=== PATIENT | female | born 1965 | race Caucasian/White ===

== ENCOUNTER → 2018-08-29 | Outpatient (CLI) | payer BC ==
--- NOTE | 2018-08-30 18:42 | MR ---
EXAMINATION TYPE: MR brain wo/w con DATE OF EXAM: 08/29/2018 COMPARISON: None HISTORY: MS TECHNIQUE: Multiplanar, multisequence images of the brain and brainstem is performed without and with utilizing 5 mL intravenous Gadavist gadolinium contrast. Demyelinating disease protocol with additional Sagitt al Flair sequence performed. FINDINGS: T2 Lesions Present : Yes Approximate Number of Lesions: Greater than 20 bilaterally Locations Identified : Pericallosal, periventricular, juxtacortical, infratentorial (left medulla on image 6, and left midbrain and right johnson) Size of Reference Lesion(s): 1. 0.7 cm x 0.7 cm x 2.9 cm on axial image 20 and sagittal image 19 within the right pericallosal fr ontal lobe stephens radiata 2 0.8 cm x 0.7 cm x 0.4 cm on axial image 18 and sagittal image 8 within the left parietal lobe. Enhancing Lesion(s) Present: No Diffusion weighted images demonstrate no evidence of a recent infarct or other diffusion abnormality. There is no worrisome extra-axial fluid collection. The ventricular system and cisternal spaces ar e normal in size and appearance. The brain volume is age appropriate. Midline structures demonstrate normal morphology. 2 mm pineal gland cyst is noted. The craniocervica l junction appears within normal limits. Post contrast images demonstrate no abnormal enhancement. T he dural venous sinuses appear patent. The visualized sinuses are clear and the globes are intact. IMPRESSION: Moderate burden demyelinating plaques in keeping with this patient's history of multiple sclerosis wi thin the supratentorium and infratentorial in keeping with the patient's history of multiple sclerosi s. Plaques involve the supratentorium, medulla, midbrain and johnson. No enhancing plaques or plaques th at restricted diffusion to indicate active demyelination at the time of exam.
== END ==
LOC: RADMRIMAIN 19:10
PROVIDERS: ATTEND Internal Medicine
DX: G37.9 Demyelinating disease of central nervous system, unspecified (principal); G35 Multiple sclerosis
CPT/HCPCS: 70553; A9585

== ENCOUNTER → 2019-07-22 | Outpatient (CLI) | payer BC ==
--- NOTE | 2019-07-22 11:43 | MR ---
EXAMINATION TYPE: MR brain wo/w DATE OF EXAM: 07/22/2019 COMPARISON: 08/29/2018 HISTORY: MS TECHNIQUE: Multiplanar, multisequence images of the brain and brainstem is performed without and with IV contras t, utilizing 5 mL intravenous Gadavist . FINDINGS: T2 Lesions Present : Yes Approximate Number of Lesions: Approximately 60-70 Locations Identified : Pericallosal, periventricular, juxtacortical, infratentorial (left medulla on image 6, and left midbrain and right johnson), and callosal lesions Size of Reference Lesion(s): 1. 0.7 cm x 0.7 cm x 2.9 cm within the right pericallosal frontal lobe stephens radiata 2. 0.8 cm x 0.7 cm x 0.4 cm within the left parietal lobe. Enhancing Lesion(s) Present: No Diffusion weighted images demonstrate no evidence of a recent infarct or other diffusion abnormality. The ventricular system and cisternal spaces are normal in size and appearance. The brain volume is age appropriate. Midline structures demonstrate normal morphology. The craniocervical junction appears within normal limits. Post contrast images demonstrate no abnormal enhancement. The dural venous sinuses appear pa tent. Changes of mild chronic sinusitis. No orbital flattening. IMPRESSION: 1. Stable diffuse white matter changes which are nonspecific and be seen with demyelinating process. No enhancing lesions. No interval change in size, number or morphology of the visualized lesions. Oth er etiologies not excluded. EXAMINATION TYPE: MR cervical spine wo/w DATE OF EXAM: 07/22/2019 COMPARISON: NONE HISTORY: MS TECHNIQUE: T1 sagittal and coronal, T2 sagittal, and gradient echo axial views of the cervical spine are submitted. FINDINGS: The cranial cervical junction is preserved. There is abnormal signal seen throughout the v isualized cervical spinal cord. Findings are suspicious for demyelinating disease. Due to artifact as sessment for enhancement is limited particularly in the lower cervical spine. Could not exclude an en hancing lesions. Severe motion artifact noted. At C2-3 there is no disc herniation or canal stenosis. No foraminal encroachment. At C3-4 there is no disc herniation or canal stenosis. No foraminal encroachment. At C4-5 there is no disc herniation or canal stenosis. No foraminal encroachment. At C5-6 there is there is a broad-based central disc herniation abutting the anterior margin of the s alfredo cord resulting in mild impression neural foramina patent. At C6-7 there is no disc herniation or canal stenosis. No foraminal encroachment. At C7-T1 there is no disc herniation or canal stenosis. No foraminal encroachment. IMPRESSION: 1. Spinal cord assessment is limited due to stents of motion artifact. As noted above evaluation of the mid and lower cervical spinal cord for enhancing lesions is nondiagnostic due to artifact. Howeve r, T2 images demonstrate multifocal areas of abnormal signal throughout the visualized cervical spina l cord suspicious for demyelinating process. 2. There is a broad-based central disc herniation C5-C6. This results in mild anterior compression of the spinal cord.
== END | disposition home or self-care (01) ==
LOC: RADMRIMAIN 06:57
PROVIDERS: ATTEND Internal Medicine
DX: R90.89 Other abnormal findings on diagnostic imaging of central nervous system (principal); M50.222 Other cervical disc displacement at C5-C6 level; G35 Multiple sclerosis
CPT/HCPCS: 70553; 72156; A9585

== ENCOUNTER → 2020-08-22 | Outpatient (CLI) | payer BC ==
--- NOTE | 2020-08-22 18:53 | MR ---
EXAMINATION TYPE: MR brain wo/w con DATE OF EXAM: 08/22/2020 COMPARISON: Most recent MRI July 22, 2019 HISTORY: MS CHECKUP TECHNIQUE: Multiplanar, multisequence images of the brain and brainstem is performed without and with IV contras t, utilizing 5 mL intravenous Gadavist gadolinium contrast is administered intravenously. Demyelinat ing disease protocol with additional Sagittal Flair sequence performed. FINDINGS: T2 Lesions Present : Yes Approximate Number of Lesions: Approximately 70 Locations Identified : Scattered. Size of Reference Lesion(s): 1. 0.8 x 0.7 x 1.0 cm on axial image 21 and sagittal image 23 right pericallosal posterior frontal le azeem stable 2 0.8 x 0.7 x 0.8 cm on axial image 19 and sagittal image 12 left parietal lesion at level of stephens radiata stable Enhancing Lesion(s) Present: No T1 Hypointense Lesion(s) Present: Yes Change from Prior: Stable Diffusion weighted images demonstrate no evidence of a recent infarct or other diffusion abnormality. There is no worrisome new extra-axial fluid collection. The ventricular system and cisternal space s are stable in size and appearance. The brain volume is age appropriate. Midline structures demonstrate normal morphology. The craniocervical junction appears within normal limits. Post contrast images demonstrate no abnormal enhancement. The dural venous sinuses appear pa tent. The visualized sinuses are clear and the globes are intact. IMPRESSION: [id number] nonspecific white matter changes presumed on the basis of patient's kn own multiple sclerosis. No new or enhancing lesions identified. No significant change from most recen t MRI.
== END | disposition home or self-care (01) ==
LOC: RADMRIMAIN 16:26
PROVIDERS: ATTEND Internal Medicine
DX: R90.82 White matter disease, unspecified (principal); G35 Multiple sclerosis; E07.9 Disorder of thyroid, unspecified; Z79.899 Other long term (current) drug therapy; E03.2 Hypothyroidism due to medicaments and other exogenous substances
CPT/HCPCS: 70553; A9585

== ENCOUNTER → 2020-12-26 | Outpatient (CLI) | payer BC ==
[2020-12-26 18:48] LABS: Basophils # (A) 0.03 X 10*3/uL (0.00-0.10); Basophils % (A) 0.5 %; Eosinophils # (A) 0.07 X 10*3/uL (0.04-0.35); Eosinophils % (A) 1.1 %; HCT 39.2 % (37.2-46.3); HGB 12.7 g/dL (12.0-15.0); Lymphocytes # (A) 1.83 X 10*3/uL (0.90-5.00); Lymphocytes % (A) 28.5 %; MCH 29.9 pg (27.0-32.0); MCHC 32.4 g/dL (32.0-37.0); MCV 92.2 fL (80.0-97.0); Mean Platelet Volume 11.9 fL (9.5-12.2); Monocytes # (A) 0.44 X 10*3/uL (0.20-1.00); Monocytes % (A) 6.8 %; Neutrophils # (A) 4.05 X 10*3/uL (1.80-7.70); Neutrophils % (A) 62.9 %; Platelet Count 241 X 10*3/uL (140-440); RBC 4.25 X 10*6/uL (4.10-5.20); RDW 13.3 % (11.5-14.5); WBC 6.43 X 10*3/uL (4.50-10.00)
== END | disposition home or self-care (01) ==
LOC: LABWHC1 11:37
PROVIDERS: ATTEND Psychiatry & Neurology Neurology
DX: E03.2 Hypothyroidism due to medicaments and other exogenous substances (principal); E07.9 Disorder of thyroid, unspecified; M21.379 Foot drop, unspecified foot; G35 Multiple sclerosis
CPT/HCPCS: 36415; 82784; 85025

== ENCOUNTER → 2020-12-28 | Outpatient (CLI) | payer BC ==
[2020-12-29 09:14] LABS: T4/T8 Ratio (CD4:CD8) 3.6 (1.0-3.7)
== END | disposition home or self-care (01) ==
LOC: LABWHC1 16:14
PROVIDERS: ATTEND Psychiatry & Neurology Neurology
DX: G35 Multiple sclerosis (principal)
CPT/HCPCS: 36415; 86355; 86357; 86359; 86360

== ENCOUNTER → 2021-09-26 | Outpatient (CLI) | payer BC ==
--- NOTE | 2021-10-09 11:11 | MM ---
Reason for exam: screening (asymptomatic). Last mammogram was performed 3 years and 7 months ago. History: Family history of breast cancer in sister at age 50. Physical Findings: A clinical breast exam by your physician is recommended on an annual basis and results should be correlated with mammographic findings. MG Screening Mammo w CAD Bilateral CC and MLO view(s) were taken. Prior study comparison: February 28, 2018, mammogram, performed at [place]. February 25, 2017, mammogram, performed at [place]. The breast tissue is heterogeneously dense. This may lower the sensitivity of mammography. Asymmetric densities right breast are more defined but could represent superimposition shadow. Further evaluation recommended. ASSESSMENT: Incomplete: need additional imaging evaluation, BI-RAD 0 RECOMMENDATION: Special view mammogram of the right breast. (3D) If lesion persists on supplemental views, image directed ultrasound is recommended. [facility] will attempt to contact patient to return for supplemental views and ultrasound if indicated.
== END | disposition home or self-care (01) ==
LOC: RADMAMWWP 10:01
PROVIDERS: ATTEND Internal Medicine
DX: Z12.31 Encounter for screening mammogram for malignant neoplasm of breast (principal); Z80.3 Family history of malignant neoplasm of breast
CPT/HCPCS: 77067

== ENCOUNTER → 2021-10-13 | Outpatient (CLI) | payer BC ==
--- NOTE | 2021-10-14 06:00 | MR ---
EXAMINATION TYPE: MR brain wo/w con DATE OF EXAM: 10/13/2021 COMPARISON: 08/22/2020 HISTORY: Weakness, MS, follow up comparison to prior MRI 08-22-20. CONTRAST: Standard multiplanar, multisequence MRI departmental protocol images were obtained without contrast a nd with 5 mL intravenous Gadavist gadolinium contrast. There is mild cerebral atrophy. There is no mass effect or midline shift. Diffusion images show no ev idence of an acute infarct. On the T2 and FLAIR images there are patchy areas of increased signal in the periventricular white matter. These are adjacent to the ventricles and more likely related to dem yelinating disease. There are lesions in the corpus callosum. Total number is more than 20 and these measure up to 1 cm. There is no evidence of orbital mass. Sella turcica is normal. The brainstem shows some patchy increa sed signal in the medulla bilaterally. There is also some small foci of increased signal in the johnson bilaterally. IMPRESSION: Numerous white matter lesions consistent with demyelinating disease. There is also involvement of the medulla and johnson. No evidence of cortical infarct. There is overall not a significant change compare d to old exam.
== END | disposition home or self-care (01) ==
LOC: RADMRIMAIN 06:25
PROVIDERS: ATTEND Internal Medicine
DX: G35 Multiple sclerosis (principal)
CPT/HCPCS: 70553; A9585

== ENCOUNTER → 2021-10-16 | Outpatient (CLI) | payer BC ==
--- NOTE | 2021-10-16 09:41 | MM ---
Reason for exam: additional evaluation requested from abnormal screening. Last mammogram was performed 1 month ago. History: Patient is postmenopausal. Family history of breast cancer in sister at age 50. Physical Findings: Nurse did not find any significant physical abnormalities on exam. MG 3D Work Up W/Cad RT Spot compression CC, spot compression MLO, CC, and LM view(s) were taken of the right breast. Prior study comparison: September 26, 2021, bilateral MG screening mammo w CAD. February 28, 2018, mammogram, performed at [place]. The breast tissue is heterogeneously dense. This may lower the sensitivity of mammography. No distinct lesion persists on additional views. These results were verbally communicated with the patient and result sheet given to the patient on 10/16/20. ASSESSMENT: Negative, BI-RAD 1 RECOMMENDATION: Return to routine screening mammogram schedule for both breasts.
== END | disposition home or self-care (01) ==
LOC: RADMAMWWP 08:11
PROVIDERS: ATTEND Internal Medicine
DX: R92.2 Inconclusive mammogram (principal); Z80.3 Family history of malignant neoplasm of breast; Z78.0 Asymptomatic menopausal state
CPT/HCPCS: 77061; 77065

== ENCOUNTER 2022-08-11 10:01 | Inpatient (IN) | payer BC ==
[2022-08-11] MEDS ORDERED: SODIUM CHLORIDE 0.9% 500 ML 500 ML IV STA (10:26)
--- NOTE | 2022-08-11 10:29 | ED ---
General Adult HPI - General Chief complaint: Syncope Stated complaint: syncope Time Seen by Provider: 08/11/22 10:09 Source: patient, EMS, RN notes reviewed Mode of arrival: EMS Limitations: no limitations - History of Present Illness Initial comments: This a 56-year-old female presents emergency department tingling a syncopal episode, MS exacerbation. Patient states she was at home and which she started feeling lightheaded and passed out. Patient was being transferred over to toilet. Patient states that she's been having a fever last couple days patient states usually when she has a fever she has issues. Patient states that she feels more weak than usual and states that she has difficulty with her extremities and moving when she has exacerbation. Patient denies any associated symptoms with a fever including cough, congestion, dysuria. Patient has localized chest pain or shortness of breath no current headache. - Related Data Allergies Allergy/AdvReac Type Severity Reaction Status Date / Time No Known Allergies Allergy Verified 08/11/22 10:11 Review of Systems ROS Statement: Those systems with pertinent positive or pertinent negative responses have been documented in the HPI. ROS Other: All systems not noted in ROS Statement are negative. Past Medical History Past Medical History: Thyroid Disorder Additional Past Medical History / Comment(s): MS History of Any Multi-Drug Resistant Organisms: None Reported Past Surgical History: Appendectomy, Section Past Psychological History: No Psychological Hx Reported Smoking Status: Never smoker Past Alcohol Use History: None Reported Past Drug Use History: None Reported General Exam Limitations: no limitations General appearance: alert, in no apparent distress Head exam: Present: atraumatic, normocephalic, normal inspection Eye exam: Present: normal appearance, PERRL, EOMI. Absent: scleral icterus, conjunctival injection, periorbital swelling ENT exam: Present: normal exam, normal oropharynx, mucous membranes moist Neck exam: Present: normal inspection, full ROM. Absent: tenderness, meningismus, lymphadenopathy Respiratory exam: Present: normal lung sounds bilaterally. Absent: respiratory distress, wheezes, rales, rhonchi, stridor Cardiovascular Exam: Present: regular rate, normal rhythm, normal heart sounds. Absent: systolic murmur, diastolic murmur, rubs, gallop, clicks GI/Abdominal exam: Present: soft, normal bowel sounds. Absent: distended, tenderness, guarding, rebound, rigid Extremities exam: Present: full ROM (Strength 4/5 upper, lower extremity 2/5) Neurological exam: Present: alert, oriented X3, CN II-XII intact, reflexes normal. Absent: motor sensory deficit Skin exam: Present: warm, dry, intact, normal color. Absent: rash Course Vital Signs 08/11/22 08/11/22 10:02 13:28 Temperature 97.3 F L Pulse Rate 94 93 Respiratory 17 15 Rate Blood Pressure 116/74 115/72 O2 Sat by Pulse 99 99 Oximetry EKG Findings - EKG Comments: EKG Findings:: EKG performed at 10:17 sinus rhythm with a rate of 95. 177 QRS 86 QTC is QTC 332/35 Medical Decision Making - Medical Decision Making 56-year-old presented for weakness, syncopal episode. Patient found to have urinary tract infection, positive for COVID-19, patient's weakness of her lower extremities consistent with MS exacerbation. Patient will be admitted for IV steroids, antibiotics, close monitoring. - Lab Data Result diagrams: 08/11/22 10:17 08/11/22 10:17 Lab Results 08/11/22 08/11/22 08/11/22 Range/Units 10:17 10:17 10:17 WBC 18.9 H (3.8-10.6) k/uL RBC 4.84 (3.80-5.40) m/uL Hgb 14.8 (11.4-16.0) gm/dL Hct 43.4 (34.0-46.0) % MCV 89.5 (80.0-100.0) fL MCH 30.5 (25.0-35.0) pg MCHC 34.1 (31.0-37.0) g/dL RDW 13.3 (11.5-15.5) % Plt Count 268 (150-450) k/uL MPV 8.8 Neutrophils % 88 % Lymphocytes % 5 % Monocytes % 5 % Eosinophils % 1 % Basophils % 1 % Neutrophils # 16.7 H (1.3-7.7) k/uL Lymphocytes # 1.0 (1.0-4.8) k/uL Monocytes # 0.8 (0-1.0) k/uL Eosinophils # 0.2 (0-0.7) k/uL Basophils # 0.1 (0-0.2) k/uL PT 11.0 (9.0-12.0) sec INR 1.0 (<1.2) APTT 25.5 (22.0-30.0) sec Sodium 139 (137-145) mmol/L Potassium 4.0 (3.5-5.1) mmol/L Chloride 104 (98-107) mmol/L Carbon Dioxide 24 (22-30) mmol/L Anion Gap 11 mmol/L BUN 14 (7-17) mg/dL Creatinine 0.85 (0.52-1.04) mg/dL Est GFR (CKD-EPI)AfAm >90 (>60 ml/min/1.73 sqM) Est GFR (CKD-EPI)NonAf 78 (>60 ml/min/1.73 sqM) Glucose 114 H (74-99) mg/dL Calcium 9.2 (8.4-10.2) mg/dL Magnesium 2.1 (1.6-2.3) mg/dL Total Bilirubin 0.7 (0.2-1.3) mg/dL AST 54 H (14-36) U/L ALT 42 H (4-34) U/L Alkaline Phosphatase 168 H (38-126) U/L Troponin I (0.000-0.034) ng/mL Total Protein 7.2 (6.3-8.2) g/dL Albumin 4.2 (3.5-5.0) g/dL Urine Color Urine Appearance (Clear) Urine pH (5.0-8.0) Ur Specific [place] (1.001-1.035) Urine Protein (Negative) Urine Glucose (UA) (Negative) Urine Ketones (Negative) Urine Blood (Negative) Urine Nitrite (Negative) Urine Bilirubin (Negative) Urine Urobilinogen (<2.0) mg/dL Ur Leukocyte Esterase (Negative) Urine RBC (0-5) /hpf Urine WBC (0-5) /hpf Urine WBC Clumps (None) /hpf Ur Squamous Epith Cells (0-4) /hpf Urine Bacteria (None) /hpf Hyaline Casts (0-2) /lpf Influenza Type A (PCR) (Not Detectd) Influenza Type B (PCR) (Not Detectd) RSV (PCR) (Not Detectd) SARS-CoV-2 (PCR) (Not Detectd) 08/11/22 08/11/22 08/11/22 Range/Units 10:17 10:17 10:32 WBC (3.8-10.6) k/uL RBC (3.80-5.40) m/uL Hgb (11.4-16.0) gm/dL Hct (34.0-46.0) % MCV (80.0-100.0) fL MCH (25.0-35.0) pg MCHC (31.0-37.0) g/dL RDW (11.5-15.5) % Plt Count (150-450) k/uL MPV Neutrophils % % Lymphocytes % % Monocytes % % Eosinophils % % Basophils % % Neutrophils # (1.3-7.7) k/uL Lymphocytes # (1.0-4.8) k/uL Monocytes # (0-1.0) k/uL Eosinophils # (0-0.7) k/uL Basophils # (0-0.2) k/uL PT (9.0-12.0) sec INR (<1.2) APTT (22.0-30.0) sec Sodium (137-145) mmol/L Potassium (3.5-5.1) mmol/L Chloride (98-107) mmol/L Carbon Dioxide (22-30) mmol/L Anion Gap mmol/L BUN (7-17) mg/dL Creatinine (0.52-1.04) mg/dL Est GFR (CKD-EPI)AfAm (>60 ml/min/1.73 sqM) Est GFR (CKD-EPI)NonAf (>60 ml/min/1.73 sqM) Glucose (74-99) mg/dL Calcium (8.4-10.2) mg/dL Magnesium (1.6-2.3) mg/dL Total Bilirubin (0.2-1.3) mg/dL AST (14-36) U/L ALT (4-34) U/L Alkaline Phosphatase (38-126) U/L Troponin I <0.012 (0.000-0.034) ng/mL Total Protein (6.3-8.2) g/dL Albumin (3.5-5.0) g/dL Urine Color Yellow Urine Appearance Cloudy H (Clear) Urine pH 6.0 (5.0-8.0) Ur Specific [place] 1.018 (1.001-1.035) Urine Protein 2+ H (Negative) Urine Glucose (UA) Negative (Negative) Urine Ketones 2+ H (Negative) Urine Blood Small H (Negative) Urine Nitrite Positive H (Negative) Urine Bilirubin Negative (Negative) Urine Urobilinogen <2.0 (<2.0) mg/dL Ur Leukocyte Esterase Large H (Negative) Urine RBC 11 H (0-5) /hpf Urine WBC >182 H (0-5) /hpf Urine WBC Clumps Few H (None) /hpf Ur Squamous Epith Cells <1 (0-4) /hpf Urine Bacteria Moderate H (None) /hpf Hyaline Casts 2 (0-2) /lpf Influenza Type A (PCR) Not Detected (Not Detectd) Influenza Type B (PCR) Not Detected (Not Detectd) RSV (PCR) Not Detected (Not Detectd) SARS-CoV-2 (PCR) Detected A (Not Detectd) Disposition Clinical Impression: Exacerbation of multiple sclerosis, Syncope, UTI (urinary tract infection), COVID-19 Disposition: ADMITTED IP TO THIS HOSP Condition: Fair Referrals: Esperanza Aldrich MD [Primary Care Provider] - 1-2 days Time of Disposition: 13:01
[2022-08-11 10:44] LABS: Basophils # (A) 0.1 k/uL (0-0.2); Basophils % (A) 1 %; Eosinophils # (A) 0.2 k/uL (0-0.7); Eosinophils % (A) 1 %; HCT 43.4 % (34.0-46.0); HGB 14.8 gm/dL (11.4-16.0); Lymphocytes % (A) 5 %; MCH 30.5 pg (25.0-35.0); MCHC 34.1 g/dL (31.0-37.0); MCV 89.5 fL (80.0-100.0); Mean Platelet Volume 8.8; Monocytes # (A) 0.8 k/uL (0-1.0); Monocytes % (A) 5 %; Neutrophils # (A) 16.7 k/uL (1.3-7.7); Neutrophils % (A) 88 %; Platelet Count 268 k/uL (150-450); RBC 4.84 m/uL (3.80-5.40); RDW 13.3 % (11.5-15.5); WBC 18.9 k/uL (3.8-10.6)
[2022-08-11 10:53] LABS: Partial Thromboplastin Time 25.5 sec (22.0-30.0)
[2022-08-11 10:57] LABS: ALT 42 U/L (4-34); AST 54 U/L (14-36); African American GFR (CKD) >90 (>60 ml/min/1.73 sqM); Albumin 4.2 g/dL (3.5-5.0); Alkaline Phosphatase 168 U/L (38-126); Anion Gap 11 mmol/L; Blood Urea Nitrogen 14 mg/dL (7-17); Calcium 9.2 mg/dL (8.4-10.2); Carbon Dioxide 24 mmol/L (22-30); Chloride 104 mmol/L (98-107); Glucose 114 mg/dL (74-99); Magnesium 2.1 mg/dL (1.6-2.3); Non-African American GFR(CKD) 78 (>60 ml/min/1.73 sqM); Sodium 139 mmol/L (137-145); Total Bilirubin 0.7 mg/dL (0.2-1.3); Total Protein 7.2 g/dL (6.3-8.2)
[2022-08-11 12:40] LABS: Appearance,Urine Cloudy (Clear); Bacteria,Urine Moderate /hpf; Bilirubin,Urine Negative (Negative); Blood,Urine Small (Negative); Color,Urine Yellow; Glucose,Urine (UA) Negative (Negative); Hyaline Casts,Urine 2 /lpf (0-2); Ketones,Urine 2+ (Negative); Leukocyte Esterase,Urine Large (Negative); Nitrite,Urine Positive (Negative); Protein,Urine 2+ (Negative); RBC,Urine 11 /hpf (0-5); Specific Gravity,Urine 1.018 (1.001-1.035); Squamous Epithelial Cell,Urine <1 /hpf (0-4); Urobilinogen,Urine <2.0 mg/dL (<2.0); WBC,Urine >182 /hpf (0-5)
[2022-08-11] MEDS ORDERED: ACETAMINOPHEN TAB 325 MG TAB PO PRN (14:15)
[2022-08-11] MEDS ORDERED: NALOXONE 0.4 MG/ML 1 ML VIAL IV PRN (14:15)
[2022-08-11] MEDS ORDERED: ONDANSETRON 4 MG/2 ML VIAL IVP PRN (14:15)
[2022-08-11] MEDS ORDERED: methylPREDNISolone SOD SUCCIN 1,000 MG in SODIUM CHLORIDE 0.9% 250 ML IVPB STA (14:18)
--- NOTE | 2022-08-11 14:29 | XR ---
EXAMINATION TYPE: TEMPORARY DATE OF EXAM: 08/11/2022 COMPARISON: None INDICATION: Syncope and fever TECHNIQUE: Frontal and lateral views of the chest are obtained. FINDINGS: The heart size is normal. The pulmonary vasculature is normal. The lungs are clear. IMPRESSION: 1. No acute pulmonary process.
[2022-08-11] MEDS: SODIUM CHLORIDE 0.9% 1,000 ML IV SCH (14:40)
--- NOTE | 2022-08-11 17:34 | P.HPIM ---
History of Present Illness H&P Date: 08/11/22 Chief Complaint: Weakness/syncopal episode 56-year-old female presents emergency department tingling a syncopal episode, MS exacerbation. Patient states she was at home and which she started feeling lightheaded and passed out. Patient was being transferred over to toilet. Patient states that she's been having a fever last couple days patient states usually when she has a fever she has issues. Patient states that she feels more weak than usual and states that she has difficulty with her extremities and moving when she has exacerbation. Patient denies any associated symptoms with a fever including cough, congestion, dysuria. Patient has localized chest pain or shortness of breath no current headache. Patient found to have urinary tract infection, positive for COVID-19, patient's weakness of her lower extremities consistent with MS exacerbation. Patient will be admitted for IV steroids, antibiotics, close monitoring. Review of Systems REVIEW OF SYSTEMS: CONSTITUTIONAL: No fever, no malaise, no fatigue. HEENT: No recent visual problems or hearing problems. Denied any sore throat. CARDIOVASCULAR: No chest pain, orthopnea, PND, no palpitations, no syncope. PULMONARY: No shortness of breath, no cough, no hemoptysis. GASTROINTESTINAL: No diarrhea, no nausea, no vomiting, no abdominal pain. NEUROLOGICAL: No headaches, no weakness, no numbness. HEMATOLOGICAL: Denies any bleeding or petechiae. GENITOURINARY: Denies any burning micturition, frequency, or urgency. MUSCULOSKELETAL/RHEUMATOLOGICAL: Denies any joint pain, swelling, or any muscle pain. ENDOCRINE: Denies any polyuria or polydipsia. The rest of the 14-point review of systems is negative. Past Medical History Past Medical History: Thyroid Disorder Additional Past Medical History / Comment(s): MS History of Any Multi-Drug Resistant Organisms: None Reported Past Surgical History: Appendectomy, Back Surgery, Section Past Psychological History: No Psychological Hx Reported Smoking Status: Never smoker Past Alcohol Use History: None Reported Past Drug Use History: None Reported Medications and Allergies Home Medications Medication Instructions Recorded Confirmed Type Baclofen [Lioresal] 20 mg PO 5XD 08/11/22 08/11/22 History Calcium 1 tab PO DAILY 08/11/22 08/11/22 History Cranberry 1 tab PO DAILY 08/11/22 08/11/22 History Dalfampridine [Dalfampridine ER] 10 mg PO BID 08/11/22 08/11/22 History Levothyroxine Sodium [Synthroid] 75 mcg PO AC-[id number] 08/11/22 08/11/22 History Methylphenidate HCl [Ritalin] 10 mg PO QID 08/11/22 08/11/22 History Tolterodine ER [Detrol LA] 4 mg PO DAILY 08/11/22 08/11/22 History Vitamin C 1 tab PO DAILY 08/11/22 08/11/22 History Vitamin D3 1 tab PO DAILY 08/11/22 08/11/22 History Allergies Allergy/AdvReac Type Severity Reaction Status Date / Time No Known Allergies Allergy Verified 08/11/22 14:34 Physical Exam Vitals: Vital Signs Temp Pulse Pulse Resp BP BP Pulse Ox 08/11/22 16:00 103 H 17 116/65 100 08/11/22 15:50 98.8 F 90 19 111/69 97 08/11/22 15:00 101 H 16 111/69 100 08/11/22 14:30 93 15 108/69 99 08/11/22 14:00 90 17 106/62 99 08/11/22 13:30 98 16 115/72 100 08/11/22 13:28 93 15 115/72 99 08/11/22 13:16 92 115/72 08/11/22 10:02 97.3 F L 94 17 116/74 99 Intake and Output 08/11/22 08/11/22 08/11/22 06:59 14:59 22:59 Other: Weight 53.07 kg 53.07 kg PHYSICAL EXAMINATION: GENERAL: The patient is alert and oriented x3, not in any acute distress. Well developed, well nourished. HEENT: Pupils are round and equally reacting to light. EOMI. No scleral icterus. No conjunctival pallor. Normocephalic, atraumatic. No pharyngeal erythema. No thyromegaly. CARDIOVASCULAR: S1 and S2 present. No murmurs, rubs, or gallops. PULMONARY: Chest is clear to auscultation, no wheezing or crackles. ABDOMEN: Soft, nontender, nondistended, normoactive bowel sounds. No palpable organomegaly. MUSCULOSKELETAL: No joint swelling or deformity. EXTREMITIES: No cyanosis, clubbing, or pedal edema. NEUROLOGICAL: Gross neurological examination did not reveal any focal deficits. SKIN: No rashes. Results CBC & Chem 7: 08/11/22 10:17 08/11/22 10:17 Labs: Abnormal Lab Results - Last 24 Hours (Table) 08/11/22 08/11/22 08/11/22 Range/Units 10:17 10:17 10:17 WBC 18.9 H (3.8-10.6) k/uL Neutrophils # 16.7 H (1.3-7.7) k/uL Glucose 114 H (74-99) mg/dL AST 54 H (14-36) U/L ALT 42 H (4-34) U/L Alkaline Phosphatase 168 H (38-126) U/L Urine Appearance (Clear) Urine Protein (Negative) Urine Ketones (Negative) Urine Blood (Negative) Urine Nitrite (Negative) Ur Leukocyte Esterase (Negative) Urine RBC (0-5) /hpf Urine WBC (0-5) /hpf Urine WBC Clumps (None) /hpf Urine Bacteria (None) /hpf SARS-CoV-2 (PCR) Detected A (Not Detectd) 08/11/22 Range/Units 10:32 WBC (3.8-10.6) k/uL Neutrophils # (1.3-7.7) k/uL Glucose (74-99) mg/dL AST (14-36) U/L ALT (4-34) U/L Alkaline Phosphatase (38-126) U/L Urine Appearance Cloudy H (Clear) Urine Protein 2+ H (Negative) Urine Ketones 2+ H (Negative) Urine Blood Small H (Negative) Urine Nitrite Positive H (Negative) Ur Leukocyte Esterase Large H (Negative) Urine RBC 11 H (0-5) /hpf Urine WBC >182 H (0-5) /hpf Urine WBC Clumps Few H (None) /hpf Urine Bacteria Moderate H (None) /hpf SARS-CoV-2 (PCR) (Not Detectd) Assessment and Plan Assessment: 1. COVID-19 infection; chest x-ray doesn't reveal any pneumonia - We will start patient on COVID-19 vitamin cocktail along with DVT prophylaxis with subcu heparin - Monitor inflammatory markers periodically - Consult ID for recommendations on any further treatment for COVID-19 infection 2. UTI; continue with Rocephin 1 g IV daily; blood culture and urine culture is obtained; we will tailor antibiotic therapy once culture results are available; we will monitor CBC, CRP and pro-calcitonin 3. Weakness/syncope; likely related to COVID-19 infection and UTI versus MS exacerbation; patient remains on Ritalin for MS related weakness 4. Acute MS exacerbation; patient was placed on methylprednisolone 1 g IV daily; neurology is consulted for further recommendations - Continue with home dose of Ritalin, Dalfampridine and baclofen 5. Hypothyroidism; levothyroxine 75 MCG daily DVT prophylaxis; SCDs/subcu heparin CODE STATUS; full code
[2022-08-11] MEDS: METHYLPHENIDATE HCL 10 MG TAB PO SCH ×2 (17:44→21:10)
[2022-08-11] MEDS: HEPARIN SODIUM,PORCINE/PF 5,000 UNIT/0.5 ML SYRINGE SQ SCH (17:48)
[2022-08-11] MEDS: ASCORBIC ACID 500 MG TAB PO SCH (17:48)
[2022-08-11] MEDS: ZINC SULFATE 220 MG CAP PO SCH (17:48)
[2022-08-11] MEDS: CHOLECALCIFEROL 125 MCG (5000 IU) TABLET PO SCH (17:48)
[2022-08-11] MEDS: BACLOFEN 10 MG TAB PO SCH (20:13)
[2022-08-11] MEDS ORDERED: NON FORMULARY DRUG (Dalfampridine [Dalfampridine Er] 10 MG Tab.Er.12h) PO SCH (21:00)
[2022-08-11] MEDS: NON FORMULARY DRUG (Dalfampridine [Dalfampridine Er] 10 MG Tab.Er.12h) PO SCH (21:11)
[2022-08-12] MEDS: BACLOFEN 10 MG TAB PO SCH ×5 (00:11→20:30)
[2022-08-12] MEDS: HEPARIN SODIUM,PORCINE/PF 5,000 UNIT/0.5 ML SYRINGE SQ SCH ×3 (00:11→16:08)
[2022-08-12] MEDS: SODIUM CHLORIDE 0.9% 1,000 ML IV SCH ×2 (06:47→16:13)
[2022-08-12] MEDS: LEVOTHYROXINE 75 MCG TAB PO SCH (06:47)
[2022-08-12] MEDS: ASCORBIC ACID 500 MG TAB PO SCH (09:09)
[2022-08-12] MEDS: ZINC SULFATE 220 MG CAP PO SCH (09:09)
[2022-08-12] MEDS: NON FORMULARY DRUG (Dalfampridine [Dalfampridine Er] 10 MG Tab.Er.12h) PO SCH ×2 (09:09→20:30)
[2022-08-12] MEDS: CHOLECALCIFEROL 125 MCG (5000 IU) TABLET PO SCH (09:09)
[2022-08-12] MEDS: METHYLPHENIDATE HCL 10 MG TAB PO SCH ×4 (09:09→20:15)
[2022-08-12] MEDS: NON FORMULARY DRUG (Tolterodine Er 4 MG Cap.Er.24h) PO SCH (09:09)
--- NOTE | 2022-08-12 11:10 | P.CNNES ---
History of Present Illness Consult date: 08/12/22 Requesting physician: Be Perez Reason for Consult: MS exacerbation History of Present Illness: This is a 56-year-old woman with medical history of multiple sclerosis, hypothyroidism, eczema who presented to the emergency department because of fever with generalized weakness. Neurology is consulted for MS exacerbation. Yesterday the patient noticed that she's having fever as well as a having generalized weakness as a result came to ED for further evaluation. She denies any numbness, any visual disturbance, any tingling, denies any cough. She stated that the she is feeling better at that today compared to yesterday after receiving Solu-Medrol 1000mg once yesterday but continues to have significant weakness in the lower extremities. At baseline she stated that she walks with a walker and has bilateral foot drop. Of note, patient stated that that she has history of multiple sclerosis for at least 23 years and she follows up with a neurologist over in the state of [place] (Dr. Pérez Montague). He stated that he she used to live in [place] and has family members that live in [place] so the she also up with her neurologist once a year and the last time she followed up with them was about a year ago. Last time she got the surveillance MRI was in September 2021. She stated that she is not on any demyelinating therapy since about close to 4-1/2 years ago she received a treatment for week in [place] where she had her immune system suppressed permanently and was told that that would prevent any relapses. She does have underlying ataxia with finger to nose at baseline. Patient takes baclofen 20 mg as well as the is onDalfampridine 10mg 1 tab bid to help with walking in MS and is on Vitamin D3. Some of the workup during this hospital visit consisted of: During this hospital visit the patient's afebrile Initial white blood cell is 18.9 thousand as predominantly neutrophilic. AST is 54 and ALTs 42 initial serum glucose 114. Calcium is 9.2, magnesium 2.1. Sodium the BUN/creatinine is within normal limits. Urinalysis appears that the patient has likely urinary tract infection SARS Kovic to PCR is detected. RSV PCR as well as influenza A/B PCR was not detected. Review of Systems Review of system: The 12 point system was reviewed and apparent positive and negative per HPI. Past Medical History Past Medical History: Thyroid Disorder Additional Past Medical History / Comment(s): MS History of Any Multi-Drug Resistant Organisms: None Reported Past Surgical History: Appendectomy, Back Surgery, Section Past Psychological History: No Psychological Hx Reported Smoking Status: Never smoker Past Alcohol Use History: None Reported Past Drug Use History: None Reported Medications and Allergies Home Medications Medication Instructions Recorded Confirmed Type Baclofen [Lioresal] 20 mg PO 5XD 08/11/22 08/11/22 History Calcium 1 tab PO DAILY 08/11/22 08/11/22 History Cranberry 1 tab PO DAILY 08/11/22 08/11/22 History Dalfampridine [Dalfampridine ER] 10 mg PO BID 08/11/22 08/11/22 History Levothyroxine Sodium [Synthroid] 75 mcg PO AC-BRKFST 08/11/22 08/11/22 History Methylphenidate HCl [Ritalin] 10 mg PO QID 08/11/22 08/11/22 History Tolterodine ER [Detrol LA] 4 mg PO DAILY 08/11/22 08/11/22 History Vitamin C 1 tab PO DAILY 08/11/22 08/11/22 History Vitamin D3 1 tab PO DAILY 08/11/22 08/11/22 History Allergies Allergy/AdvReac Type Severity Reaction Status Date / Time No Known Allergies Allergy Verified 08/11/22 14:34 Physical Examination - Vital Signs Vital Signs: Vital Signs Temp Pulse Pulse Resp BP BP Pulse Ox 08/12/22 07:29 98.1 F 85 18 100/63 100 08/12/22 00:09 98.3 F 90 14 96/55 97 08/11/22 17:12 98.8 F 90 19 111/69 97 08/11/22 16:00 103 H 17 116/65 100 08/11/22 15:50 98.8 F 90 19 111/69 97 08/11/22 15:00 101 H 16 111/69 100 08/11/22 14:30 93 15 108/69 99 08/11/22 14:00 90 17 106/62 99 08/11/22 13:30 98 16 115/72 100 08/11/22 13:28 93 15 115/72 99 08/11/22 13:16 92 115/72 Intake and Output 08/11/22 08/12/22 08/12/22 22:59 06:59 14:59 Output Total 900 Balance -900 Output: Urine 900 Other: Voiding Method External Catheter Weight 53.07 kg GENERAL: The patient is lying in bed and is not in acute distress. CHEST: The heart rate is regular rate rhythm. No murmurs to auscultation. LUNG: Clear to auscultation bilaterally no wheezing noted throughout. Not labored breathing. ABDOMEN/GI: Bowel sounds present in all 4 quadrants. No tenderness to palpation throughout. NEUROLOGICAL: Higher mental function: The patient is awake, alert, oriented to self, place and time. Patient is following commands. No aphasia and no neglect. Cranial nerves: The pupils are round, equal and reactive to light and accommodation. Visual marvin are full to confrontation throughout. Extraocular movement is intact no nystagmus is noted. Patient has rubor erythema throughout face (stated old and was told has eczema). Facial sensation is normal to touch throughout. The facial strength is normal throughout. Hearing is normal bilaterally to hand rub. Tongue is midline and moved [id number] without any difficulty. No dysarthria is noted. Shoulder shrug is normal bilaterally. Motor: The strength is 5 over 5 throughout uppers. While lowers: proximally has 1 while distally has 0. Decrease tone in lowers while uppers are normal. Normal bulk. Cerebellum: Has dysmetria/some overshooting with finger to nose bilaterally (old). Could not assess lowers because of her weakness. Sensation: Sensation is normal to touch throughout. Reflexes (right/left): Not assessed. Plantars are mute bilaterally. Non-sustained clonus of bilateral lowers. Results - Laboratory Findings CBC and BMP: 08/11/22 10:17 08/11/22 10:17 Abnormal Lab Findings: Abnormal Labs 08/11/22 08/11/22 08/11/22 10:17 10:17 10:17 WBC 18.9 H Neutrophils # 16.7 H Glucose 114 H AST 54 H ALT 42 H Alkaline Phosphatase 168 H Urine Appearance Urine Protein Urine Ketones Urine Blood Urine Nitrite Ur Leukocyte Esterase Urine RBC Urine WBC Urine WBC Clumps Urine Bacteria SARS-CoV-2 (PCR) Detected A 08/11/22 10:32 WBC Neutrophils # Glucose AST ALT Alkaline Phosphatase Urine Appearance Cloudy H Urine Protein 2+ H Urine Ketones 2+ H Urine Blood Small H Urine Nitrite Positive H Ur Leukocyte Esterase Large H Urine RBC 11 H Urine WBC >182 H Urine WBC Clumps Few H Urine Bacteria Moderate H SARS-CoV-2 (PCR) Assessment and Plan Assessment: Acute significant bilateral lower extremity weakness: Likely MS exacerbation. Cannot rule out pseudoexacerbation due to acute COVID-19 and underlying UTI Acute COVID-19 infection Likely acute UTI History of relapsing-remitting multiple sclerosis for at least 23 years and at baseline walks with walker, has bilateral foot droop and ataxia of uppers History of eczema Plan: I ordered a CT of the brain without for today. I also ordered MRI of the brain cervical thoracic and lumbar spine with and without to rule out any new lesion. Her last MRI was in September 2021. I started the patient on IV Solu-Medrol 500 mg twice a day for 3-5 (completed one dose yesterday). It defer the sugar monitoring to the primary team. In addition I start the patient on IV Protonix for GI prophylaxis for the duration of the steroids. Patient stated that about 4-1/2 years ago she had ablation of her immune system in the state of [place] (treatment was for about one week) and is not on disease modifying therapy as result since was told that would prevent relapses. I also ordered vitamin B12, folate, TSH, methylmalonic acid. Consulted PT and OT for gait training because of her leg weakness ID is consulted by the primary team for COVID-19 infection We'll defer the rest of the medical management to primary team Recommend the patient to follow-up with her neurologist (Dr. Montague) located in [place] within 1-2 weeks as outpatient. The plan is discussed with patient and her nurse. Thank you for the consultation. Dr. Villatoro will start neurology service tomorrow A.M. Time with Patient: Greater than 30
[2022-08-12] MEDS: PANTOPRAZOLE 40 MG/10 ML VIAL IVP SCH (11:33)
[2022-08-12] MEDS: methylPREDNISolone SOD SUCCIN 500 MG in SODIUM CHLORIDE 0.9% 100 ML IVPB SCH ×2 (13:31→22:17)
--- NOTE | 2022-08-12 14:15 | CT ---
EXAMINATION TYPE: CT brain wo con DATE OF EXAM: 08/12/2022 COMPARISON: MRI brain 10/13/2021 INDICATION: weakness in legs, hx of multiple sclerosis, covid currently DLP: 1099.4 mGycm, Automated exposure control for dose reduction was used. CONTRAST: None CT of the brain is performed utilizing 3 mm thick sections through the posterior fossa and 3 mm thick sections through the remaining calvarium. Study is performed within 24 hours of arrival to the hosp [facility]. No abnormal hyperdensity is present to suggest an acute intracranial hemorrhage. No mass lesion is evident. No acute infarcts are evident. Some ill-defined hypodensity may be within the right temporal lobe. Et iology is unclear but potentially this could be related to the anterior horn lateral ventricle. Makayla s 201 image 16. Patient is scheduled for an MRI. Some minimal periventricular white matter hypodensit y appears to be present, likely on the basis of chronic white matter ischemic changes. Some chronic white matter ischemic change that are present are better visualized on the MRI 10/13/2021. Ventricles and sulci are appropriate for the patient age. Paranasal sinuses and mastoid air cells within the [id number] are clear. IMPRESSIONS: 1. No suspicious acute changes. Some chronic white matter ischemic change appears to be present.
[2022-08-12 16:10] LABS: Basophils # (A) 0.03 X 10*3/uL (0.00-0.10); Basophils % (A) 0.1 %; Eosinophils # (A) 0.01 X 10*3/uL (0.04-0.35); Eosinophils % (A) 0 %; HCT 38.2 % (37.2-46.3); HGB 12.5 g/dL (12.0-15.0); Immature Grans, Automated 1.1 %; Lymphocytes % (A) 4.5 %; MCH 29.7 pg (27.0-32.0); MCHC 32.7 g/dL (32.0-37.0); MCV 90.7 fL (80.0-97.0); Mean Platelet Volume 12.6 fL (9.5-12.2); NRBC Per 100 WBC 0 /100 WBCS (0.0-0.0); Neutrophils # (A) 18.28 X 10*3/uL (1.80-7.70); Neutrophils % (A) 91.3 %; Platelet Count 247 X 10*3/uL (140-440); RBC 4.21 X 10*6/uL (4.10-5.20); RDW 13.9 % (11.5-14.5); WBC 20.04 X 10*3/uL (4.50-10.00)
[2022-08-12 16:21] LABS: Anion Gap 12.1 mmol/L (10.00-18.00); BUN/Creat Ratio 19.79 Ratio (12.00-20.00); Blood Urea Nitrogen 15.3 mg/dL (9.0-27.0); Calcium 8.8 mg/dL (8.7-10.3); Carbon Dioxide 23.3 mmol/L (20.0-27.5); Non-African American GFR(CKD) 87.1 (60.0-200.0); Potassium 4.5 mmol/L (3.5-5.5)
[2022-08-12] MEDS: polyethylene glycoL 3350 17 GM POWD.PACK PO SCH (17:44)
[2022-08-12] MEDS: ERTAPENEM 1 GM in SODIUM CHLORIDE 0.9% 50 ML IVPB SCH (18:32)
--- NOTE | 2022-08-12 18:48 | P.PN ---
Subjective Progress Note Date: 08/12/22 Principal diagnosis: Acute MS exacerbation COVID-19 infection UTI 56-year-old female presents emergency department tingling a syncopal episode, MS exacerbation. Patient states she was at home and which she started feeling lightheaded and passed out. Patient was being transferred over to toilet. Patient states that she's been having a fever last couple days patient states usually when she has a fever she has issues. Patient states that she feels more weak than usual and states that she has difficulty with her extremities and moving when she has exacerbation. Patient denies any associated symptoms with a fever including cough, congestion, dysuria. Patient has localized chest pain or shortness of breath no current headache. Patient found to have urinary tract infection, positive for COVID-19, patient's weakness of her lower extremities consistent with MS exacerbation. Patient will be admitted for IV steroids, antibiotics, close monitoring. Patient has been evaluated by neurology; additional workup is admitted --CT of the brain without; MRI of the brain cervical thoracic and lumbar spine with and without to rule out any new lesion. Her last MRI was in September 2021. -- IV Solu-Medrol 500 mg twice a day for 3-5 -- IV Protonix for GI prophylaxis for the duration of the steroids. -- vitamin B12, folate, TSH, methylmalonic acid. Consulted PT and OT for gait training because of her leg weakness Objective - Vital Signs Vital signs: Vital Signs Temp 98.1 F 08/12/22 07:29 Pulse 85 08/12/22 07:29 Resp 18 08/12/22 07:29 BP 100/63 08/12/22 07:29 Pulse Ox 100 08/12/22 07:29 FiO2 Intake & Output 08/11/22 08/12/22 08/12/22 18:59 06:59 18:59 Output Total 900 Balance -900 Weight 53.07 kg Output: Urine 900 Other: Voiding Method External Catheter - Exam PHYSICAL EXAMINATION: GENERAL: The patient is alert and oriented x3, not in any acute distress. Well developed, well nourished. HEENT: Pupils are round and equally reacting to light. EOMI. No scleral icterus. No conjunctival pallor. Normocephalic, atraumatic. No pharyngeal erythema. No thyromegaly. CARDIOVASCULAR: S1 and S2 present. No murmurs, rubs, or gallops. PULMONARY: Chest is clear to auscultation, no wheezing or crackles. ABDOMEN: Soft, nontender, nondistended, normoactive bowel sounds. No palpable organomegaly. MUSCULOSKELETAL: No joint swelling or deformity. EXTREMITIES: No cyanosis, clubbing, or pedal edema. NEUROLOGICAL: Gross neurological examination did not reveal any focal deficits. SKIN: No rashes. - Labs CBC & Chem 7: 08/12/22 08:49 08/12/22 08:49 Labs: Microbiology - Last 24 Hours (Table) 08/11/22 14:35 Blood Culture Gram Stain - Preliminary Blood 08/11/22 14:17 Blood Culture Gram Stain - Preliminary Blood 08/11/22 14:35 Blood Culture - Final Blood 08/11/22 14:17 Blood Culture - Final Blood 08/11/22 10:32 Urine Culture - Preliminary Urine,Voided Assessment and Plan Assessment: 1. COVID-19 infection; chest x-ray doesn't reveal any pneumonia - We will start patient on COVID-19 vitamin cocktail along with DVT prophylaxis with subcu heparin - Monitor inflammatory markers periodically - Consult ID for recommendations on any further treatment for COVID-19 infection 2. UTI; continue with Rocephin 1 g IV daily; blood culture and urine culture is obtained; we will tailor antibiotic therapy once culture results are available; we will monitor CBC, CRP and pro-calcitonin 3. Weakness/syncope; likely related to COVID-19 infection and UTI versus MS exacerbation; patient remains on Ritalin for MS related weakness 4. Acute MS exacerbation; patient was placed on methylprednisolone 1 g IV daily; neurology is consulted for further recommendations - Continue with home dose of Ritalin, Dalfampridine and baclofen 5. Hypothyroidism; levothyroxine 75 MCG daily DVT prophylaxis; SCDs/subcu heparin CODE STATUS; full code
[2022-08-13] MEDS: HEPARIN SODIUM,PORCINE/PF 5,000 UNIT/0.5 ML SYRINGE SQ SCH ×3 (00:30→14:43)
[2022-08-13] MEDS: BACLOFEN 10 MG TAB PO SCH ×5 (00:30→21:28)
[2022-08-13] MEDS: SODIUM CHLORIDE 0.9% 1,000 ML IV SCH ×2 (06:01→21:29)
[2022-08-13] MEDS: LEVOTHYROXINE 75 MCG TAB PO SCH (06:04)
--- NOTE | 2022-08-13 07:32 | P.CONS ---
History of Present Illness - Reason for Consult Consult date: 08/12/22 - History of Present Illness Patient is a 56-year old female with a past medical history significant for MS patient presented to hospital yesterday morning after apparently the patient did have a syncopal episode and the patient started feeling lightheaded and passed out on the patient will be transferred over to the toilet patient be complaining of feeling weak for the last few days and feeling limp which is typical for her MS exacerbation patient on presentation to the hospital was afebrile and no fever have been recorded subsequently patient did have white count of 18.9 with a left shift there was observed mildly elevated patient did have a positive UA and also noticed to have positive COVID testing patient did have a chest x-ray no active cardiopulmonary disease patient is subsequently admitted to the hospital infectious he was consulted for positive COVID test as mentioned earlier patient denies having any chest pain or shortness with or cough she is currently on room air no nausea no vomiting or diarrhea Past Medical History Past Medical History: Thyroid Disorder Additional Past Medical History / Comment(s): MS History of Any Multi-Drug Resistant Organisms: None Reported Past Surgical History: Appendectomy, Back Surgery, Section Past Psychological History: No Psychological Hx Reported Smoking Status: Never smoker Past Alcohol Use History: None Reported Past Drug Use History: None Reported Medications and Allergies Home Medications Medication Instructions Recorded Confirmed Type Baclofen [Lioresal] 20 mg PO 5XD 08/11/22 08/11/22 History Calcium 1 tab PO DAILY 08/11/22 08/11/22 History Cranberry 1 tab PO DAILY 08/11/22 08/11/22 History Dalfampridine [Dalfampridine ER] 10 mg PO BID 08/11/22 08/11/22 History Levothyroxine Sodium [Synthroid] 75 mcg PO AC-BRKFST 08/11/22 08/11/22 History Methylphenidate HCl [Ritalin] 10 mg PO QID 08/11/22 08/11/22 History Tolterodine ER [Detrol LA] 4 mg PO DAILY 08/11/22 08/11/22 History Vitamin C 1 tab PO DAILY 08/11/22 08/11/22 History Vitamin D3 1 tab PO DAILY 08/11/22 08/11/22 History Allergies Allergy/AdvReac Type Severity Reaction Status Date / Time No Known Allergies Allergy Verified 08/11/22 14:34 Physical Exam Vitals: Vital Signs Temp Pulse Pulse Resp BP BP Pulse Ox 08/12/22 07:29 98.1 F 85 18 100/63 100 08/12/22 00:09 98.3 F 90 14 96/55 97 08/11/22 17:12 98.8 F 90 19 111/69 97 08/11/22 16:00 103 H 17 116/65 100 08/11/22 15:50 98.8 F 90 19 111/69 97 08/11/22 15:00 101 H 16 111/69 100 08/11/22 14:30 93 15 108/69 99 08/11/22 14:00 90 17 106/62 99 08/11/22 13:30 98 16 115/72 100 08/11/22 13:28 93 15 115/72 99 08/11/22 13:16 92 115/72 Intake and Output 08/11/22 08/12/22 08/12/22 22:59 06:59 14:59 Output Total 900 Balance -900 Output: Urine 900 Other: Voiding Method External Catheter Weight 53.07 kg Results CBC & Chem 7: 08/12/22 08:49 08/12/22 08:49 Labs: Abnormal Lab Results - Last 24 Hours (Table) 08/11/22 Range/Units 10:32 Urine Appearance Cloudy H (Clear) Urine Protein 2+ H (Negative) Urine Ketones 2+ H (Negative) Urine Blood Small H (Negative) Urine Nitrite Positive H (Negative) Ur Leukocyte Esterase Large H (Negative) Urine RBC 11 H (0-5) /hpf Urine WBC >182 H (0-5) /hpf Urine WBC Clumps Few H (None) /hpf Urine Bacteria Moderate H (None) /hpf Microbiology - Last 24 Hours (Table) 08/11/22 14:35 Blood Culture Gram Stain - Preliminary Blood 08/11/22 14:17 Blood Culture Gram Stain - Preliminary Blood 08/11/22 14:35 Blood Culture - Final Blood 08/11/22 14:17 Blood Culture - Final Blood 08/11/22 10:32 Urine Culture - Preliminary Urine,Voided Assessment and Plan Plan: 1patient with a positive COVID test in this patient who do not have a significant respiratory symptoms patient is currently not hypoxic or need for supplemental oxygen chest x-ray was negative for any acute infiltrate treatment will be mostly supportive. 2patient to have history of MS positive UA concerning for a symptomatic renal tract infection likely from enteric gram-negative pathogen. 3patient to continue with the Rocephin while waiting for the culture to finalize. 4patient to continue with the vitamin C zinc Heparin steroids has been added for possible MS exacerbation, however will not need it for COVID. We will follow on clinical condition and cultures to further adjust medication if needed Thank you for this consultation will follow this patient along with you Time with Patient: Greater than 30
[2022-08-13] MEDS: polyethylene glycoL 3350 17 GM POWD.PACK PO SCH (08:54)
[2022-08-13] MEDS: NON FORMULARY DRUG (Dalfampridine [Dalfampridine Er] 10 MG Tab.Er.12h) PO SCH ×2 (08:55→21:29)
[2022-08-13] MEDS: CHOLECALCIFEROL 125 MCG (5000 IU) TABLET PO SCH (08:55)
[2022-08-13] MEDS: ASCORBIC ACID 500 MG TAB PO SCH (08:55)
[2022-08-13] MEDS: METHYLPHENIDATE HCL 10 MG TAB PO SCH ×4 (08:55→21:28)
[2022-08-13] MEDS: PANTOPRAZOLE 40 MG/10 ML VIAL IVP SCH (08:55)
[2022-08-13] MEDS: ZINC SULFATE 220 MG CAP PO SCH (08:55)
[2022-08-13] MEDS: NON FORMULARY DRUG (Tolterodine Er 4 MG Cap.Er.24h) PO SCH (08:55)
[2022-08-13] MEDS: methylPREDNISolone SOD SUCCIN 500 MG in SODIUM CHLORIDE 0.9% 100 ML IVPB SCH ×2 (08:56→21:28)
--- NOTE | 2022-08-13 13:49 | MR ---
EXAMINATION TYPE: MR brain/cspine wo/w DATE OF EXAM: 08/13/2022 COMPARISON: 07/22/2019 HISTORY: Leg weakness bilaterally, Multiple Sclerosis CONTRAST: Performed utilizing 5 mL intravenous Gadavist gadolinium contrast. TECHNIQUE: Multiplanar, multiecho imaging on a 3.0 Elizabeth magnet is performed through the brain. Stud y is performed within 24 hours of arrival to the hospital. The craniovertebral junction is normal. The pituitary is normal. Diffusion-weighted imaging is performed. No abnormal hyperintensity is present to suggest an acute i ntracranial infarct or acute ischemic change. There is fairly extensive white matter changes throughout the brain which can be compatible with mult iple sclerosis. Some correspondence representative areas would include: 1. Left brain stem measuring 0.7 cm. Series 401 image 6. 2. A 0.8 x 0.4 x 0.9 cm area adjacent to the right lateral ventricle. Series 401 image 19, series 501 image 163. 3. A 0.7 x 0.9 x 0.5 cm area adjacent to the posterior horn left lateral ventricle. Series 401 image 19, series 501 image 72. Additional subcortical white matter changes are present bilaterally. Ventricles and sulci are appropriate for the patient age. IMPRESSIONS: 1. Multiple white matter changes, some of which are suggestive for multiple sclerosis. Findings and d istribution appears similar to comparison EXAMINATION TYPE: MR brain/cspine wo/w DATE OF EXAM: 08/13/2022 COMPARISON: 07/22/2019 HISTORY: Leg weakness bilaterally, Multiple Sclerosis CONTRAST: Performed utilizing 5 mL intravenous Gadavist gadolinium contrast. TECHNIQUE: Multiplanar multiecho imaging on a 3.0 Elizabeth magnet is performed through the cervical spin e. FINDINGS: The craniovertebral junction is normal. Vertebral body alignment is normal. No abnormal enhancement within the spinal cord is evident. C7-T1: No focal disc herniation or significant disc bulge is evident. No spinal canal stenosis or n eural foraminal stenosis is present. C6-7: No focal disc herniation or significant disc bulge is evident. No spinal canal stenosis or mal ral foraminal stenosis is present. C5-6: Disc herniation is present with extension of disc material posterior to the C5 level. This also extends towards the right foramen. Correlate with right radicular symptoms. This has moderate anteri or thecal sac impression some cord contact and cord deformity is evident. AP spinal canal stenosis is not evident. There is some subtle suggestion of some increased signal within the spinal cord on the sagittal T2-weighted images, series 901 image 8, at the level of the disc herniation. Spinal cord oth erwise appears to have preserved signal.. C4-5: No focal disc herniation or significant disc bulge is evident. No spinal canal stenosis or mal ral foraminal stenosis is present. C3-4: Minimal disc bulging may be present without cord contact. No spinal canal stenosis or neural fo raminal stenosis.. C2-3: No focal disc herniation or significant disc bulge is evident. No spinal canal stenosis or mal ral foraminal stenosis is present. Previous signal abnormality posterior to T2 is not appreciated on the current exam. IMPRESSIONS: 1. Disc herniation with moderate intrathecal sac compression, cord deformity, without spinal canal st enosis. Some mild signal change at the level of the disc herniation may be present. 2. Abnormal signal within the spinal cord more suggestive for multiple sclerosis not evident on the c urrent examination. Previous cord abnormality at T2 is not clearly identified.
[2022-08-13] MEDS: ERTAPENEM 1 GM in SODIUM CHLORIDE 0.9% 50 ML IVPB SCH (17:03)
--- NOTE | 2022-08-13 21:42 | P.PN ---
Subjective 56-year-old female presents emergency department tingling a syncopal episode, MS exacerbation. Patient states she was at home and which she started feeling lightheaded and passed out. Patient was being transferred over to toilet. Patient states that she's been having a fever last couple days patient states usually when she has a fever she has issues. Patient states that she feels more weak than usual and states that she has difficulty with her extremities and moving when she has exacerbation. Patient denies any associated symptoms with a fever including cough, congestion, dysuria. Patient has localized chest pain or shortness of breath no current headache. Patient found to have urinary tract infection, positive for COVID-19, patient's weakness of her lower extremities consistent with MS exacerbation. Patient will be admitted for IV steroids, antibiotics, close monitoring. Patient has been evaluated by neurology; additional workup is admitted --CT of the brain without; MRI of the brain cervical thoracic and lumbar spine with and without to rule out any new lesion. Her last MRI was in September 2021. -- IV Solu-Medrol 500 mg twice a day for 3-5 -- IV Protonix for GI prophylaxis for the duration of the steroids. -- vitamin B12, folate, TSH, methylmalonic acid. Consulted PT and OT for gait training because of her leg weakness 08/13/2022 pt lying in bed ,stating she feels improvement in her legs, she can move her toes better than yesterday but can no move the whole leg bilaterally she has evidence of positive blood culture with e coli and staph Aureus, repeat showing gram negative bacteria, also normal saline ID AND neurologist team on the case and input is appreciated Objective - Vital Signs Vital signs: Vital Signs Temp 98.3 F 08/13/22 05:33 Pulse 72 08/13/22 05:33 Resp 15 08/13/22 05:33 BP 119/70 08/13/22 05:33 Pulse Ox 95 08/13/22 05:33 FiO2 Intake & Output 08/12/22 08/13/22 08/13/22 18:59 06:59 18:59 Output Total 650 700 Balance -650 -700 Output: Urine 650 700 - Exam GENERAL: The patient is alert and oriented x3, not in any acute distress. Well developed, well nourished. HEENT: Pupils are round and equally reacting to light. EOMI. No scleral icterus. No conjunctival pallor. Normocephalic, atraumatic. No pharyngeal erythema. No thyromegaly. CARDIOVASCULAR: S1 and S2 present. No murmurs, rubs, or gallops. PULMONARY: Chest is clear to auscultation, no wheezing or crackles. ABDOMEN: Soft, nontender, nondistended, normoactive bowel sounds. No palpable organomegaly. MUSCULOSKELETAL: No joint swelling or deformity. EXTREMITIES: No cyanosis, clubbing, or pedal edema. -NEUROLOGICAL: cranial nn grossly intact, bilateral lower ext weakness, she could move only toes, no weakness in her upper ext, meningeal signs absent SKIN: No rashes. no petechiae. - Labs CBC & Chem 7: 08/12/22 08:49 08/12/22 08:49 Labs: Abnormal Lab Results - Last 24 Hours (Table) 08/12/22 08/12/22 08/12/22 Range/Units 08:49 08:49 08:49 WBC 20.04 H (4.50-10.00) X 10*3/uL MPV 12.6 H (9.5-12.2) fL Immature Gran # 0.22 H (0.00-0.04) X 10*3/uL Neutrophils # 18.28 H (1.80-7.70) X 10*3/uL Eosinophils # 0.01 L (0.04-0.35) X 10*3/uL Glucose 238 H (70-110) mg/dL Vitamin B12 1534.0 H (200.0-944.0) pg/mL TSH 0.167 L (0.350-5.500) uIU/mL Microbiology - Last 24 Hours (Table) 08/11/22 14:35 Blood Culture Gram Stain - Preliminary Blood Blood Culture - Preliminary Gram Neg Bacilli 08/11/22 10:32 Urine Culture - Preliminary Urine,Voided Gram Neg Bacilli 08/11/22 14:17 Blood Culture Gram Stain - Preliminary Blood Blood Culture - Preliminary Escherichia coli Staphylococcus aureus Assessment and Plan Assessment: 1. COVID-19 infection; chest x-ray doesn't reveal any pneumonia - We will start patient on COVID-19 vitamin cocktail along with DVT prophylaxis with subcu heparin - Monitor inflammatory markers periodically - Consult ID for recommendations on any further treatment for COVID-19 infection 2. gram negative bacteremia, first culture is growing e coli and staph, continue with systemic antibiotics, on invanze, id consult 3. Weakness/syncope; likely related to COVID-19 infection and UTI versus MS exacerbation; patient remains on Ritalin for MS related weakness 4. Acute MS exacerbation; patient was placed on methylprednisolone 1 g IV daily; neurology is consulted for further recommendations - Continue with home dose of Ritalin, Dalfampridine and baclofen 5. Hypothyroidism; levothyroxine 75 MCG daily DVT prophylaxis; SCDs/subcu heparin CODE STATUS; full code
[2022-08-14] MEDS: HEPARIN SODIUM,PORCINE/PF 5,000 UNIT/0.5 ML SYRINGE SQ SCH ×3 (00:07→16:57)
[2022-08-14] MEDS: BACLOFEN 10 MG TAB PO SCH ×5 (00:07→21:37)
[2022-08-14] MEDS: ZINC SULFATE 220 MG CAP PO SCH (07:43)
[2022-08-14] MEDS: METHYLPHENIDATE HCL 10 MG TAB PO SCH ×4 (07:43→21:37)
[2022-08-14] MEDS: ASCORBIC ACID 500 MG TAB PO SCH (07:43)
[2022-08-14] MEDS: LEVOTHYROXINE 75 MCG TAB PO SCH (07:43)
[2022-08-14] MEDS: CHOLECALCIFEROL 125 MCG (5000 IU) TABLET PO SCH (07:43)
[2022-08-14] MEDS: polyethylene glycoL 3350 17 GM POWD.PACK PO SCH (07:44)
[2022-08-14] MEDS: NON FORMULARY DRUG (Tolterodine Er 4 MG Cap.Er.24h) PO SCH (07:44)
[2022-08-14] MEDS: NON FORMULARY DRUG (Dalfampridine [Dalfampridine Er] 10 MG Tab.Er.12h) PO SCH ×2 (07:45→21:37)
--- NOTE | 2022-08-14 08:37 | P.PN ---
Subjective Progress Note Date: 08/13/22 Principal diagnosis: UTI/Bacteremia, +Covid Test Patient is a 56-year female with a past medical history significant for MS presented to hospital generalized weakness patient was noticed to have a elevated white count positive COVID test and also have a positive UA patient blood culture subsequently came back positive with ESBL E. coli. On today's evaluation that is 08/13/2022 the patient denies having any fever or any chills, patient is feeling slightly better today she is breathing comfortably room air no chest pain or shortness with or cough no abdominal pain no diarrhea Objective - Vital Signs Vital signs: Vital Signs Temp 98.3 F 08/13/22 05:33 Pulse 72 08/13/22 05:33 Resp 15 08/13/22 05:33 BP 119/70 08/13/22 05:33 Pulse Ox 95 08/13/22 05:33 FiO2 Intake & Output 08/12/22 08/13/22 08/13/22 18:59 06:59 18:59 Output Total 650 700 Balance -650 -700 Output: Urine 650 700 - Exam GENERAL DESCRIPTION: Middle-aged female lying in bed, no distress. No tachypnea or accessory muscle of respiration use. LUNGS: Unlabored breathing. Clear to auscultation anteriorly. No wheeze or crackle. HEART: S1, S2, regular rate and rhythm. No loud murmur ABDOMEN: Soft, no tenderness , guarding or rigidity, no organomegaly EXTREMITIES: No edema of feet. - Labs CBC & Chem 7: 08/12/22 08:49 08/12/22 08:49 Labs: Abnormal Lab Results - Last 24 Hours (Table) 08/12/22 08/12/22 08/12/22 Range/Units 08:49 08:49 08:49 WBC 20.04 H (4.50-10.00) X 10*3/uL MPV 12.6 H (9.5-12.2) fL Immature Gran # 0.22 H (0.00-0.04) X 10*3/uL Neutrophils # 18.28 H (1.80-7.70) X 10*3/uL Eosinophils # 0.01 L (0.04-0.35) X 10*3/uL Glucose 238 H (70-110) mg/dL Vitamin B12 1534.0 H (200.0-944.0) pg/mL TSH 0.167 L (0.350-5.500) uIU/mL Microbiology - Last 24 Hours (Table) 08/11/22 14:35 Blood Culture Gram Stain - Preliminary Blood Blood Culture - Preliminary Gram Neg Bacilli 08/11/22 10:32 Urine Culture - Preliminary Urine,Voided Gram Neg Bacilli 08/11/22 14:17 Blood Culture Gram Stain - Preliminary Blood Blood Culture - Preliminary Escherichia coli Staphylococcus aureus Assessment and Plan (1) COVID-19 Current Visit: Yes Status: Acute Code(s): U07.1 - COVID-19 SNOMED Code(s): 277644353 (2) Positive blood cultures Current Visit: Yes Status: Acute Code(s): R78.81 - BACTEREMIA SNOMED Code (s): 514194328 (3) Syncope Current Visit: Yes Status: Acute Code(s): R55 - SYNCOPE AND COLLAPSE SNOMED Code(s): 187722398 Plan: 1patient with a positive COVID test in this patient who do not have a significant respiratory symptoms patient is currently not hypoxic or need for supplemental oxygen chest x-ray was negative for any acute infiltrate treatment will be mostly supportive. 2patient to have history of MS positive UA concerning for a symptomatic renal tract infection likely from enteric gram-negative pathogen. 3 patient to continue with the vitamin C zinc Heparin steroids has been added for possible MS exacerbation, however will not need it for COVID. 4patient blood culture finalized with ESBL E. coli patient was started on Invanz 1 g daily to continue blood cultures will be repeated document clearance of bacteremia ultrasound of the kidneys to make no evidence of any structural normality Time with Patient: Less than 30
[2022-08-14 09:20] LABS: Basophils % (A) 0 %; Eosinophils % (A) 1 %; HCT 39.1 % (34.0-46.0); HGB 12.7 gm/dL (11.4-16.0); Hypochromasia Slight; Lymphocytes # (A) 1.4 k/uL (1.0-4.8); Lymphocytes % (A) 18 %; MCH 30.3 pg (25.0-35.0); MCHC 32.6 g/dL (31.0-37.0); MCV 92.9 fL (80.0-100.0); Mean Platelet Volume 9.9; Monocytes # (A) 0.3 k/uL (0-1.0); Monocytes % (A) 4 %; Neutrophils # (A) 6.1 k/uL (1.3-7.7); Neutrophils % (A) 77 %; Platelet Count 257 k/uL (150-450); RBC 4.21 m/uL (3.80-5.40); RDW 13.5 % (11.5-15.5)
[2022-08-14 09:27] LABS: African American GFR (CKD) >90 (>60 ml/min/1.73 sqM); Anion Gap 9 mmol/L; Blood Urea Nitrogen 20 mg/dL (7-17); Calcium 8.8 mg/dL (8.4-10.2); Carbon Dioxide 25 mmol/L (22-30); Chloride 108 mmol/L (98-107); Glucose 198 mg/dL (74-99); Non-African American GFR(CKD) >90 (>60 ml/min/1.73 sqM); Potassium 5.1 mmol/L (3.5-5.1); Sodium 142 mmol/L (137-145)
--- NOTE | 2022-08-14 09:32 | US ---
EXAMINATION TYPE: US kidneys/renal and bladder DATE OF EXAM: 08/14/2022 COMPARISON: NONE CLINICAL HISTORY: uti and bacteremia. Exam done portable EXAM MEASUREMENTS: Right Kidney: 10.7 x 4.5 x 5.7 cm Left Kidney: 10.8 x 5.6 x 4.5 cm Right Kidney: small 1.2cm simple appearing cortical cyst lateral inferior pole Left Kidney: No hydronephrosis or masses seen Bladder: wnl Bilateral Jets seen: yes IMPRESSION: 1. Right renal cyst
[2022-08-14] MEDS: methylPREDNISolone SOD SUCCIN 500 MG in SODIUM CHLORIDE 0.9% 100 ML IVPB SCH ×2 (11:30→21:37)
[2022-08-14] MEDS: PANTOPRAZOLE 40 MG/10 ML VIAL IVP SCH (11:30)
[2022-08-14] MEDS: SODIUM CHLORIDE 0.9% 1,000 ML IV SCH (11:31)
[2022-08-14] MEDS: ERTAPENEM 1 GM in SODIUM CHLORIDE 0.9% 50 ML IVPB SCH (16:58)
--- NOTE | 2022-08-14 23:36 | P.PN ---
Subjective 56-year-old female presents emergency department tingling a syncopal episode, MS exacerbation. Patient states she was at home and which she started feeling lightheaded and passed out. Patient was being transferred over to toilet. Patient states that she's been having a fever last couple days patient states usually when she has a fever she has issues. Patient states that she feels more weak than usual and states that she has difficulty with her extremities and moving when she has exacerbation. Patient denies any associated symptoms with a fever including cough, congestion, dysuria. Patient has localized chest pain or shortness of breath no current headache. Patient found to have urinary tract infection, positive for COVID-19, patient's weakness of her lower extremities consistent with MS exacerbation. Patient will be admitted for IV steroids, antibiotics, close monitoring. Patient has been evaluated by neurology; additional workup is admitted --CT of the brain without; MRI of the brain cervical thoracic and lumbar spine with and without to rule out any new lesion. Her last MRI was in September 2021. -- IV Solu-Medrol 500 mg twice a day for 3-5 -- IV Protonix for GI prophylaxis for the duration of the steroids. -- vitamin B12, folate, TSH, methylmalonic acid. Consulted PT and OT for gait training because of her leg weakness 08/13/2022 pt lying in bed ,stating she feels improvement in her legs, she can move her toes better than yesterday but can no move the whole leg bilaterally she has evidence of positive blood culture with e coli and staph Aureus, repeat showing gram negative bacteria, also normal saline ID AND neurologist team on the case and input is appreciated 08/14/2022 Patient continue to improve slowly and gradually, she can bend her knee is little bit today but still cannot lift them off her bed. She remains on IV steroids Her blood culture is positive for ESBL E. coli and staph aureus. Patient currently covered with [employer] with ID team input is appreciated. Renal ultrasound showing no hydronephrosis with right kidney cyst. Calcitonin 2.0. Patient herself looks comfortable pleasant with no specific other complaints Objective - Vital Signs Vital signs: Vital Signs Temp 98.1 F 08/14/22 07:51 Pulse 66 08/14/22 07:51 Resp 18 08/14/22 07:51 BP 123/71 08/14/22 07:51 Pulse Ox 95 08/14/22 07:51 FiO2 Intake & Output 08/13/22 08/14/22 08/14/22 18:59 06:59 18:59 Intake Total 1850 1300 120 Output Total 500 800 Balance 1350 500 120 Intake: Intake, IV Titration 1250 1000 Amount Ertapenem 1 gm In Sodium 50 Chloride 0.9% 50 ml @ 100 mls/hr IVPB DAILY@1800 [facility] Rx#:[id number] Sodium Chloride 0.9% 1, 1000 900 000 ml @ 75 mls/hr IV . [id number] [facility] Rx#:[id number] methylPREDNISolone SOD 200 100 SUCCIN 500 mg In Sodium Chloride 0.9% 100 ml @ 100 mls/hr IVPB BID [facility] Rx#:[id number] Oral 600 300 120 Output: Urine 500 800 Other: Voiding Method External Catheter External Catheter External Catheter # Bowel Movements 1 1 - Exam GENERAL: The patient is alert and oriented x3, not in any acute distress. Well developed, well nourished. HEENT: Pupils are round and equally reacting to light. EOMI. No scleral icterus. No conjunctival pallor. Normocephalic, atraumatic. No pharyngeal erythema. No thyromegaly. CARDIOVASCULAR: S1 and S2 present. No murmurs, rubs, or gallops. PULMONARY: Chest is clear to auscultation, no wheezing or crackles. ABDOMEN: Soft, nontender, nondistended, normoactive bowel sounds. No palpable organomegaly. MUSCULOSKELETAL: No joint swelling or deformity. EXTREMITIES: No cyanosis, clubbing, or pedal edema. -NEUROLOGICAL: cranial nn grossly intact, bilateral lower ext weakness, she could move only toes, no weakness in her upper ext, meningeal signs absent SKIN: No rashes. no petechiae. - Labs CBC & Chem 7: 08/14/22 08:40 08/14/22 08:40 Labs: Abnormal Lab Results - Last 24 Hours (Table) 08/14/22 Range/Units 08:40 Chloride 108 H (98-107) mmol/L BUN 20 H (7-17) mg/dL Glucose 198 H (74-99) mg/dL Microbiology - Last 24 Hours (Table) 08/11/22 14:35 Blood Culture Gram Stain - Final Blood Blood Culture - Final Escherichia coli Staphylococcus aureus 08/11/22 14:17 Blood Culture Gram Stain - Final Blood Blood Culture - Final Escherichia coli Staphylococcus aureus 08/11/22 10:32 Urine Culture - Final Urine,Voided Escherichia coli Assessment and Plan Assessment: 1. COVID-19 infection; chest x-ray doesn't reveal any pneumonia - We will start patient on COVID-19 vitamin cocktail along with DVT prophylaxis with subcu heparin - Monitor inflammatory markers periodically - Consult ID for recommendations on any further treatment for COVID-19 infection 2. ESBL E. coli and staph septicemia, continue with systemic antibiotics, on invanze, id consult , patient may need PICC line/midline 3. Weakness/syncope; likely related to COVID-19 infection and UTI versus MS exacerbation; patient remains on Ritalin for MS related weakness 4. Acute MS exacerbation; patient was placed on methylprednisolone 1 g IV daily; neurology is consulted for further recommendations - Continue with home dose of Ritalin, Dalfampridine and baclofen 5. Hypothyroidism; levothyroxine 75 MCG daily DVT prophylaxis; SCDs/subcu heparin CODE STATUS; full code
[2022-08-15] MEDS: HEPARIN SODIUM,PORCINE/PF 5,000 UNIT/0.5 ML SYRINGE SQ SCH ×4 (00:29→23:34)
[2022-08-15] MEDS: SODIUM CHLORIDE 0.9% 1,000 ML IV SCH ×2 (00:29→12:20)
[2022-08-15] MEDS: BACLOFEN 10 MG TAB PO SCH ×6 (00:29→23:34)
[2022-08-15] MEDS: LEVOTHYROXINE 75 MCG TAB PO SCH (06:36)
[2022-08-15] MEDS ORDERED: VANCOMYCIN IV PER PHARMACY 1 EACH MISC MISCELLANE PRN (07:23)
--- NOTE | 2022-08-15 07:23 | P.PN ---
Subjective Progress Note Date: 08/14/22 Principal diagnosis: UTI/Bacteremia, +Covid Test Patient is a 56-year female with a past medical history significant for MS presented to hospital generalized weakness patient was noticed to have a elevated white count positive COVID test and also have a positive UA patient blood culture subsequently came back positive with ESBL E. coli. On today's evaluation that is 08/14/2022 the patient remains to be afebrile, the patient is breathing comfortably on room air denies having any chest pain or shortness with or cough no abdominal pain and no diarrhea Objective - Vital Signs Vital signs: Vital Signs Temp 98.1 F 08/14/22 07:51 Pulse 66 08/14/22 07:51 Resp 18 08/14/22 07:51 BP 123/71 08/14/22 07:51 Pulse Ox 95 08/14/22 07:51 FiO2 Intake & Output 08/13/22 08/14/22 08/14/22 18:59 06:59 18:59 Intake Total 1850 1300 120 Output Total 500 800 Balance 1350 500 120 Intake: Intake, IV Titration 1250 1000 Amount Ertapenem 1 gm In Sodium 50 Chloride 0.9% 50 ml @ 100 mls/hr IVPB DAILY@1800 [facility] Rx#:[id number] Sodium Chloride 0.9% 1, 1000 900 000 ml @ 75 mls/hr IV . [id number] [facility] Rx#:[id number] methylPREDNISolone SOD 200 100 SUCCIN 500 mg In Sodium Chloride 0.9% 100 ml @ 100 mls/hr IVPB BID [facility] Rx#:[id number] Oral 600 300 120 Output: Urine 500 800 Other: Voiding Method External Catheter External Catheter External Catheter # Bowel Movements 1 1 - Exam GENERAL DESCRIPTION: Middle-aged female lying in bed, no distress. No tachypnea or accessory muscle of respiration use. LUNGS: Unlabored breathing. Clear to auscultation anteriorly. No wheeze or crackle. HEART: S1, S2, regular rate and rhythm. No loud murmur ABDOMEN: Soft, no tenderness , guarding or rigidity, no organomegaly EXTREMITIES: No edema of feet. - Labs CBC & Chem 7: 08/14/22 08:40 08/14/22 08:40 Labs: Abnormal Lab Results - Last 24 Hours (Table) 08/14/22 08/14/22 Range/Units 08:40 08:40 Chloride 108 H (98-107) mmol/L BUN 20 H (7-17) mg/dL Glucose 198 H (74-99) mg/dL Procalcitonin 2.04 H (0.02-0.09) ng/mL Microbiology - Last 24 Hours (Table) 08/13/22 11:38 Blood Culture - Preliminary Blood No Growth after 24 hours 08/11/22 14:35 Blood Culture Gram Stain - Final Blood Blood Culture - Final Escherichia coli Staphylococcus aureus 08/11/22 14:17 Blood Culture Gram Stain - Final Blood Blood Culture - Final Escherichia coli Staphylococcus aureus 08/11/22 10:32 Urine Culture - Final Urine,Voided Escherichia coli Assessment and Plan (1) COVID-19 Current Visit: Yes Status: Acute Code(s): U07.1 - COVID-19 SNOMED Code(s): 485742676 (2) Positive blood cultures Current Visit: Yes Status: Acute Code(s): R78.81 - BACTEREMIA SNOMED Code(s): 550695845 (3) Syncope Current Visit: Yes Status: Acute Code(s): R55 - SYNCOPE AND COLLAPSE SNOMED Code(s): 034942624 Plan: 1patient with a positive COVID test in this patient who do not have a significant respiratory symptoms patient is currently not hypoxic or need for supplemental oxygen chest x-ray was negative for any acute infiltrate treatment will be mostly supportive. 2patient to have history of MS positive UA concerning for a symptomatic urinary tract infection likely from enteric gram-negative pathogen. 3 patient to continue with the vitamin C zinc Heparin steroids has been added for possible MS exacerbation, however will not need it for COVID. 44patient with a blood culture positive for ESBL E. coli also showing staph auris repeat blood cultures are pending ultrasound did shows right renal cyst but no hydronephrosis patient to continue with Invanz 1 g daily she will need a midline and outpatient IV antibiotic therapy, we will add vancomycin to cover for the Staph aureus while waiting for sensitivity finalized
[2022-08-15] MEDS: PANTOPRAZOLE 40 MG/10 ML VIAL IVP SCH (08:10)
[2022-08-15] MEDS: VANCOMYCIN 1,000 MG in SODIUM CHLORIDE 0.9% 250 ML IVPB SCH ×2 (08:10→21:44)
[2022-08-15] MEDS: METHYLPHENIDATE HCL 10 MG TAB PO SCH ×4 (08:10→21:44)
[2022-08-15] MEDS: methylPREDNISolone SOD SUCCIN 500 MG in SODIUM CHLORIDE 0.9% 100 ML IVPB SCH ×2 (08:11→23:34)
[2022-08-15] MEDS: ZINC SULFATE 220 MG CAP PO SCH (08:11)
[2022-08-15] MEDS: CHOLECALCIFEROL 125 MCG (5000 IU) TABLET PO SCH (08:11)
[2022-08-15] MEDS: polyethylene glycoL 3350 17 GM POWD.PACK PO SCH (08:11)
[2022-08-15] MEDS: ASCORBIC ACID 500 MG TAB PO SCH (08:11)
[2022-08-15] MEDS: NON FORMULARY DRUG (Dalfampridine [Dalfampridine Er] 10 MG Tab.Er.12h) PO SCH ×2 (08:13→21:45)
[2022-08-15] MEDS: NON FORMULARY DRUG (Tolterodine Er 4 MG Cap.Er.24h) PO SCH (08:13)
[2022-08-15 09:55] LABS: Glucose,Whole Blood 247 mg/dL (70-110)
[2022-08-15 11:01] LABS: African American GFR (CKD) >90 (>60 ml/min/1.73 sqM); Non-African American GFR(CKD) >90 (>60 ml/min/1.73 sqM)
[2022-08-15] MEDS: ERTAPENEM 1 GM in SODIUM CHLORIDE 0.9% 50 ML IVPB SCH (17:20)
--- NOTE | 2022-08-15 23:00 | P.PN ---
Subjective 56-year-old female presents emergency department tingling a syncopal episode, MS exacerbation. Patient states she was at home and which she started feeling lightheaded and passed out. Patient was being transferred over to toilet. Patient states that she's been having a fever last couple days patient states usually when she has a fever she has issues. Patient states that she feels more weak than usual and states that she has difficulty with her extremities and moving when she has exacerbation. Patient denies any associated symptoms with a fever including cough, congestion, dysuria. Patient has localized chest pain or shortness of breath no current headache. Patient found to have urinary tract infection, positive for COVID-19, patient's weakness of her lower extremities consistent with MS exacerbation. Patient will be admitted for IV steroids, antibiotics, close monitoring. Patient has been evaluated by neurology; additional workup is admitted --CT of the brain without; MRI of the brain cervical thoracic and lumbar spine with and without to rule out any new lesion. Her last MRI was in September 2021. -- IV Solu-Medrol 500 mg twice a day for 3-5 -- IV Protonix for GI prophylaxis for the duration of the steroids. -- vitamin B12, folate, TSH, methylmalonic acid. Consulted PT and OT for gait training because of her leg weakness 08/13/2022 pt lying in bed ,stating she feels improvement in her legs, she can move her toes better than yesterday but can no move the whole leg bilaterally she has evidence of positive blood culture with e coli and staph Aureus, repeat showing gram negative bacteria, also normal saline ID AND neurologist team on the case and input is appreciated 08/14/2022 Patient continue to improve slowly and gradually, she can bend her knee is little bit today but still cannot lift them off her bed. She remains on IV steroids Her blood culture is positive for ESBL E. coli and staph aureus. Patient currently covered with [employer]) with ID team input is appreciated. Renal ultrasound showing no hydronephrosis with right kidney cyst. Calcitonin 2.0. Patient herself looks comfortable pleasant with no specific other complaints 08/15/2022 patient still on IV steroids for her MS exacerbation of lower extremity recommended by neurologist, she is improving slowly and gradually in her lower extremity however patient still have significant limitation. We will keep monitoring. Also patient with evidence of with ESBL E. coli and staph aureus, patient is currently covered with Invanz and IV vancomycin. She is also on gentle hydration. Repeat blood culture still pending. Patient states that she is originally from [place] and she is planning at certain point she is planning to leave for [place] to [place], currently her primary doctor is Dr. Aldrich. Objective - Vital Signs Vital signs: Vital Signs Temp 97.6 F 08/15/22 10:00 Pulse 79 08/15/22 10:00 Resp 17 08/15/22 10:00 BP 119/67 08/15/22 10:00 Pulse Ox 98 08/15/22 10:00 FiO2 Intake & Output 08/14/22 08/15/22 08/15/22 18:59 06:59 18:59 Intake Total 120 Output Total 600 500 Balance -480 -500 Intake: Oral 120 Output: Urine 600 500 Other: Voiding Method External Catheter External Catheter External Catheter - Exam GENERAL: The patient is alert and oriented x3, not in any acute distress. Well developed, well nourished. HEENT: Pupils are round and equally reacting to light. EOMI. No scleral icterus. No conjunctival pallor. Normocephalic, atraumatic. No pharyngeal erythema. No thyromegaly. CARDIOVASCULAR: S1 and S2 present. No murmurs, rubs, or gallops. PULMONARY: Chest is clear to auscultation, no wheezing or crackles. ABDOMEN: Soft, nontender, nondistended, normoactive bowel sounds. No palpable organomegaly. MUSCULOSKELETAL: No joint swelling or deformity. EXTREMITIES: No cyanosis, clubbing, or pedal edema. -NEUROLOGICAL: cranial nn grossly intact, bilateral lower ext weakness, she could move only toes, no weakness in her upper ext, meningeal signs absent SKIN: No rashes. no petechiae. - Labs CBC & Chem 7: 08/14/22 08:40 08/15/22 10:11 Labs: Abnormal Lab Results - Last 24 Hours (Table) 08/14/22 08/15/22 Range/Units 08:40 09:46 POC Glucose (mg/dL) 247 H (70-110) mg/dL Procalcitonin 2.04 H (0.02-0.09) ng/mL Microbiology - Last 24 Hours (Table) 08/14/22 08:40 Blood Culture - Preliminary Blood No Growth after 24 hours 08/13/22 11:38 Blood Culture - Preliminary Blood No Growth after 24 hours 08/11/22 14:35 Blood Culture Gram Stain - Final Blood Blood Culture - Final Escherichia coli Staphylococcus aureus 08/11/22 14:17 Blood Culture Gram Stain - Final Blood Blood Culture - Final Escherichia coli Staphylococcus aureus Assessment and Plan Assessment: 1. COVID-19 infection; chest x-ray doesn't reveal any pneumonia - We will start patient on COVID-19 vitamin cocktail along with DVT prophylaxis with subcu heparin - Monitor inflammatory markers periodically - Consult ID for recommendations on any further treatment for COVID-19 infection 2. ESBL E. coli and staph septicemia, continue with systemic antibiotics, on invanze, and IV vancomycin, id consult , patient may need PICC line/midline 3. Weakness/syncope; likely related to COVID-19 infection and UTI versus MS exacerbation; patient remains on Ritalin for MS related weakness 4. Acute MS exacerbation; patient was placed on methylprednisolone 1 g IV daily; neurology is already evaluated the patient - Continue with home dose of Ritalin, Dalfampridine and baclofen 5. Hypothyroidism; levothyroxine 75 MCG daily DVT prophylaxis; SCDs/subcu heparin CODE STATUS; full code
[2022-08-16] MEDS: BACLOFEN 10 MG TAB PO SCH ×5 (05:25→23:52)
[2022-08-16] MEDS: LEVOTHYROXINE 75 MCG TAB PO SCH (05:25)
[2022-08-16] MEDS: SODIUM CHLORIDE 0.9% 1,000 ML IV SCH ×2 (05:26→17:43)
--- NOTE | 2022-08-16 08:21 | P.PN ---
Subjective Progress Note Date: 08/15/22 Principal diagnosis: UTI/Bacteremia, +Covid Test Patient is a 56-year female with a past medical history significant for MS presented to hospital generalized weakness patient was noticed to have a elevated white count positive COVID test and also have a positive UA patient blood culture subsequently came back positive with ESBL E. coli. On today's evaluation that is 08/15/2022 the patient continues to be afebrile, the patient is breathing comfortably on room air, the patient denies having any chest pain or shortness with or cough, the patient denies nausea no vomiting no abdominal pain and no diarrhea Objective - Vital Signs Vital signs: Vital Signs Temp 97.6 F 08/15/22 10:00 Pulse 79 08/15/22 10:00 Resp 17 08/15/22 10:00 BP 119/67 08/15/22 10:00 Pulse Ox 98 08/15/22 10:00 FiO2 Intake & Output 08/14/22 08/15/22 08/15/22 18:59 06:59 18:59 Intake Total 120 Output Total 600 500 Balance -480 -500 Intake: Oral 120 Output: Urine 600 500 Other: Voiding Method External Catheter External Catheter External Catheter - Exam GENERAL DESCRIPTION: Middle-aged female lying in bed, no distress. No tachypnea or accessory muscle of respiration use. LUNGS: Unlabored breathing. Clear to auscultation anteriorly. No wheeze or crackle. HEART: S1, S2, regular rate and rhythm. No loud murmur ABDOMEN: Soft, no tenderness , guarding or rigidity, no organomegaly EXTREMITIES: No edema of feet. - Labs CBC & Chem 7: 08/14/22 08:40 08/15/22 10:11 Labs: Abnormal Lab Results - Last 24 Hours (Table) 08/14/22 08/15/22 Range/Units 08:40 09:46 POC Glucose (mg/dL) 247 H (70-110) mg/dL Procalcitonin 2.04 H (0.02-0.09) ng/mL Microbiology - Last 24 Hours (Table) 08/14/22 08:40 Blood Culture - Preliminary Blood No Growth after 24 hours 08/13/22 11:38 Blood Culture - Preliminary Blood No Growth after 24 hours 08/11/22 14:35 Blood Culture Gram Stain - Final Blood Blood Culture - Final Escherichia coli Staphylococcus aureus 08/11/22 14:17 Blood Culture Gram Stain - Final Blood Blood Culture - Final Escherichia coli Staphylococcus aureus Assessment and Plan (1) COVID-19 Current Visit: Yes Status: Acute Code(s): U07.1 - COVID-19 SNOMED Code(s): 927490456 (2) Positive blood cultures Current Visit: Yes Status: Acute Code(s): R78.81 - BACTEREMIA SNOMED Code(s): 860502273 Plan: 1patient with a positive COVID test in this patient who do not have a significant respiratory symptoms patient is currently not hypoxic or need for supplemental oxygen chest x-ray was negative for any acute infiltrate treatment will be mostly supportive. 2patient to have history of MS positive UA concerning for a symptomatic urinary tract infection likely from enteric gram-negative pathogen. 3 patient to continue with the vitamin C zinc Heparin steroids has been added for possible MS exacerbation, however will not need it for COVID. 4patient with a blood culture positive for ESBL E. coli also showing staph repeat blood cultures are negative so far, ultrasound did shows right renal cyst but no hydronephrosis 5sensitivity on staph aureus is still pending at this point 6we will continue the patient on Invanz however add vancomycin to cover for staph aureus while waiting for cultures to finalize Time with Patient: Less than 30
--- NOTE | 2022-08-16 08:26 | P.PN ---
Subjective Progress Note Date: 08/13/22 Patient was seen for a follow-up. Patient initially seen by Dr. Henri Irizarry. Please refer to his note for details. Patient is a 56-year-old female with multiple sclerosis, who presented because of generalized weakness but continues to have significant lower extremity weakness. She has acute Covid and likely a UTI. Dr. Irizarry has felt patient has probable MS exacerbation and started her on steroids. MRI of the brain, cervical thoracic and lumbar spines were recommended. Patient follows up with neurologist in [place]. She is currently not on any disease modifying therapy since she had her immune system suppressed by treatment about 4.5 years ago with Lemtrada. Patient also has blood culture positive with gram-negative bacilli. Objective - Vital Signs Vital signs: Vital Signs Temp 98.4 F 08/13/22 14:00 Pulse 88 08/13/22 14:00 Resp 16 08/13/22 14:00 BP 122/74 08/13/22 14:00 Pulse Ox 98 08/13/22 14:00 FiO2 Intake & Output 08/12/22 08/13/22 08/13/22 18:59 06:59 18:59 Output Total 650 700 Balance -650 -700 Output: Urine 650 700 Other: Voiding Method External Catheter # Bowel Movements 1 - Exam GENERAL: The patient is lying in bed and is in mild respiratory distress. Patient appears to have some difficulty breathing. CHEST: The heart rate is regular rate rhythm. No murmurs to auscultation. LUNG: Clear to auscultation bilaterally no wheezing noted throughout. Not labored breathing. ABDOMEN/GI: Bowel sounds present in all 4 quadrants. No tenderness to palpation throughout. NEUROLOGICAL: Higher mental function: The patient is awake, alert, oriented to self, place and time. Patient is following commands. No aphasia and no neglect. Cranial nerves: The pupils are round, equal and reactive to light and accommodation. Visual marvin are full to confrontation throughout. Extraocular movement is intact, and there is nystagmus looking to the left side. Patient has rubor erythema throughout face (stated old and was told has eczema). Facial sensation is normal to touch throughout. The facial strength is normal throughout. Hearing is normal bilaterally to hand rub. Tongue is midline and moved [id number] without any difficulty. No dysarthria is noted. Shoulder shrug is normal bilaterally. Motor: The strength is 5 over 5 throughout uppers. While lowers: proximally has 2+ to 3- at bilateral hip flexion, ankle dorsiflexion 3+, plantarflexion 5 bilaterally. Normal bulk. Cerebellum: Significant ataxia for [id number] testing bilaterally, right more than left. Could not assess lowers because of her weakness. Sensation: Sensation is normal to touch throughout. Reflexes Plantars are sustained clonus of bilateral lowers. - Labs CBC & Chem 7: 08/14/22 08:40 08/15/22 10:11 Labs: Abnormal Lab Results - Last 24 Hours (Table) 08/12/22 Range/Units 08:49 Vitamin B12 1534.0 H (200.0-944.0) pg/mL TSH 0.167 L (0.350-5.500) uIU/mL Microbiology - Last 24 Hours (Table) 08/11/22 14:35 Blood Culture Gram Stain - Preliminary Blood Blood Culture - Preliminary Gram Neg Bacilli 08/11/22 10:32 Urine Culture - Preliminary Urine,Voided Gram Neg Bacilli Assessment and Plan Assessment: Acute significant bilateral lower extremity weakness: Likely MS exacerbation. Cannot rule out pseudoexacerbation due to acute COVID-19 and underlying UTI and bacteremia Acute COVID-19 infection Likely acute UTI Bacteremia History of relapsing-remitting multiple sclerosis for at least 23 years and at baseline walks with walker, has bilateral foot droop and ataxia of uppers History of eczema Plan: MRI of the brain with and without contrast revealed multiple white matter changes, some of which are suggestive of multiple sclerosis. Findings in distribution appears similar to comparison. I personally reviewed MRI of the brain and agree with the findings. MRI of the cervical spine with and without contrast revealed disc herniation with moderate intrathecal sac compression, cord deformity without spinal canal stenosis. Some mild signal changes at the level of the disc herniation may be present. Abnormal signal within the spinal cord more suggestive of multiple sclerosis, not evident on the current examination. Previous cord abnormality at T2 is not clearly identified. I personally reviewed MRI, I agree with the findings. Dr. Irizarry has started patient on IV Solu-Medrol 500 mg twice a day for 3-5. I discussed case with infectious disease, who cleared patient to be continued on Solu-Medrol. Would defer the sugar monitoring to the primary team. Patient also on IV Protonix for GI prophylaxis for the duration of the steroids, per Dr. Irizarry. Patient had undergone treatment with Lemtrada about 4-1/2 years ago in the state of [place] (treatment was for about one week). Therefore patient currently is not on disease modifying therapy as result since was told that would prevent relapses. Vitamin B12 1534, folate 10.30, TSH 0.167, free T4 normal 1.10, methylmalonic acid 0.16 normal. Consulted PT and OT for gait training because of her leg weakness We'll defer the rest of the medical management to primary team Recommend the patient to follow-up with her neurologist (Dr. Montague) located in [place] within 1-2 weeks as outpatient.
--- NOTE | 2022-08-16 08:34 | P.PN ---
Subjective Progress Note Date: 08/15/22 08/15/2022: Patient was seen for a follow-up. Patient feels her legs are getting stronger. Denies any numbness or tingling. Her breathing is fine. Patient prefers continuing Solu-Medrol for total of 5 days. Denies any new neurological symptoms. 08/13/2022: Patient was seen for a follow-up. Patient initially seen by Dr. Henri Irizarry. Please refer to his note for details. Patient is a 56-year-old female with multiple sclerosis, who presented because of generalized weakness but continues to have significant lower extremity weakness. She has acute Covid and likely a UTI. Dr. Irizarry has felt patient has probable MS exacerbation and started her on steroids. MRI of the brain, cervical thoracic and lumbar spines were recommended. Patient follows up with neurologist in [place]. She is currently not on any disease modifying therapy since she had her immune system suppressed by treatment about 4.5 years ago with Lemtrada. Patient also has blood culture positive with gram-negative bacilli. Objective - Vital Signs Vital signs: Vital Signs Temp 97.9 F 08/16/22 08:00 Pulse 67 08/16/22 08:00 Resp 17 08/16/22 08:00 BP 124/66 08/16/22 08:00 Pulse Ox 97 08/16/22 08:00 FiO2 Intake & Output 08/15/22 08/16/22 08/16/22 18:59 06:59 18:59 Output Total 1800 700 Balance -1800 -700 Output: Urine 1800 700 Other: Voiding Method External Catheter External Catheter - Exam GENERAL: The patient is lying in bed and is in mild respiratory distress. Patient appears to have some difficulty breathing. CHEST: The heart rate is regular rate rhythm. No murmurs to auscultation. LUNG: Clear to auscultation bilaterally no wheezing noted throughout. Not labored breathing. ABDOMEN/GI: Bowel sounds present in all 4 quadrants. No tenderness to palpation throughout. NEUROLOGICAL: Higher mental function: The patient is awake, alert, oriented to self, place and time. Patient is following commands. No aphasia and no neglect. Cranial nerves: The pupils are round, equal and reactive to light and accommodation. Visual marvin are full to confrontation throughout. Extraocular movement is intact, and there is nystagmus looking to the left side. Patient has rubor erythema throughout face (stated old and was told has eczema). Facial sensation is normal to touch throughout. The facial strength is normal throughout. Hearing is normal bilaterally to hand rub. Tongue is midline and moved [id number] without any difficulty. No dysarthria is noted. Shoulder shrug is normal bilaterally. Motor: The strength is 5 over 5 throughout uppers. While lowers: Hip flexion 3-4-/3-, ankle dorsiflexion 4-/4-. Plantarflexion 5 bilaterally. Normal bulk. Cerebellum: Significant ataxia for amwzaa-ja-cady testing bilaterally, right more than left. Could not assess lowers because of her weakness. Sensation: Sensation is normal to touch throughout. Reflexes Plantars are sustained clonus at bilateral ankles. - Labs CBC & Chem 7: 08/14/22 08:40 08/15/22 10:11 Labs: Abnormal Lab Results - Last 24 Hours (Table) 08/15/22 Range/Units 09:46 POC Glucose (mg/dL) 247 H (70-110) mg/dL Microbiology - Last 24 Hours (Table) 08/13/22 11:38 Blood Culture - Preliminary Blood No Growth after 48 hours 08/14/22 08:40 Blood Culture - Preliminary Blood No Growth after 24 hours Assessment and Plan Assessment: Acute significant bilateral lower extremity weakness: Likely MS exacerbation. Cannot rule out pseudoexacerbation due to acute COVID-19 and underlying UTI and bacteremia MRI of the brain showed no acute enhancing lesions. However multiple old MS plaques. Cervical disc herniation at C5 6. Acute COVID-19 infection Acute UTI, due to E. coli. Bacteremia due to E. coli, and staph aureus. History of relapsing-remitting multiple sclerosis for at least 23 years and at baseline walks with walker, has bilateral foot droop and ataxia of uppers History of eczema Plan: MRI of the brain with and without contrast revealed multiple white matter change s, some of which are suggestive of multiple sclerosis. Findings in distribution appears similar to comparison. I personally reviewed MRI of the brain and agree with the findings. MRI of the cervical spine with and without contrast revealed disc herniation with moderate intrathecal sac compression, cord deformity without spinal canal stenosis. Some mild signal changes at the level of the disc herniation may be present. Abnormal signal within the spinal cord more suggestive of multiple sclerosis, not evident on the current examination. Previous cord abnormality at T2 is not clearly identified. I personally reviewed MRI, I agree with the findings. We will consult orthopedic surgery for evaluation of cervical disc herniation. Dr. Irizarry has started patient on IV Solu-Medrol 500 mg twice a day for 3-5. I discussed case with infectious disease, who cleared patient to be continued on Solu-Medrol. Would defer the sugar monitoring to the primary team. Patient also on IV Protonix for GI prophylaxis for the duration of the steroids, per Dr. Irizarry. Patient had undergone treatment with Lemtrada about 4-1/2 years ago in the state of [place] (treatment was for about one week). Therefore patient currently is not on disease modifying therapy as result since was told that would prevent relapses. Vitamin B12 1534, folate 10.30, TSH 0.167, free T4 normal 1.10, methylmalonic acid 0.16 normal. Consulted PT and OT for gait training because of her leg weakness We'll defer the rest of the medical management to primary team Recommend the patient to follow-up with her neurologist (Dr. Montague) located in [place] within 1-2 weeks as outpatient.
[2022-08-16] MEDS: NON FORMULARY DRUG (Dalfampridine [Dalfampridine Er] 10 MG Tab.Er.12h) PO SCH ×2 (08:52→20:44)
[2022-08-16] MEDS: HEPARIN SODIUM,PORCINE/PF 5,000 UNIT/0.5 ML SYRINGE SQ SCH ×3 (08:52→23:53)
[2022-08-16] MEDS: PANTOPRAZOLE 40 MG/10 ML VIAL IVP SCH (08:52)
[2022-08-16] MEDS: ZINC SULFATE 220 MG CAP PO SCH (08:53)
[2022-08-16] MEDS: CHOLECALCIFEROL 125 MCG (5000 IU) TABLET PO SCH (08:53)
[2022-08-16] MEDS: ASCORBIC ACID 500 MG TAB PO SCH (08:53)
[2022-08-16] MEDS: polyethylene glycoL 3350 17 GM POWD.PACK PO SCH (08:54)
[2022-08-16] MEDS: NON FORMULARY DRUG (Tolterodine Er 4 MG Cap.Er.24h) PO SCH (08:54)
--- NOTE | 2022-08-16 09:26 | P.CNOR ---
History of Present Illness - [facility] Consult date: 08/16/22 Consult reason: other (Abnormal cervical MRI.) History of present illness: This is a 56-year-old female admitted through the emergency department with generalized weakness and fever. The patient has history of multiple sclerosis and has a current exacerbation. She did have a positive covid test on admission.She was evaluated by neurology and had MRI of the brain and cervical spine. MRI showed a C5 6 disc herniation posteriorly. We are consulted for orthopedic evaluation. On discussion with the patient, she reports no radicular symptoms. She has known neck pain or pain radiating into her upper back or down her arms. She has noted no increased weakness beyond her normal generalized symptoms from her m ultiple sclerosis. She reports no head or neck injury recently. Past Medical History Past Medical History: Thyroid Disorder Additional Past Medical History / Comment(s): MS History of Any Multi-Drug Resistant Organisms: None Reported Past Surgical History: Appendectomy, Back Surgery, Section Past Psychological History: No Psychological Hx Reported Smoking Status: Never smoker Past Alcohol Use History: None Reported Past Drug Use History: None Reported Medications and Allergies Home Medications Medication Instructions Recorded Confirmed Type Baclofen [Lioresal] 20 mg PO 5XD 08/11/22 08/11/22 History Calcium 1 tab PO DAILY 08/11/22 08/11/22 History Cranberry 1 tab PO DAILY 08/11/22 08/11/22 History Dalfampridine [Dalfampridine ER] 10 mg PO BID 08/11/22 08/11/22 History Levothyroxine Sodium [Synthroid] 75 mcg PO AC-BRKFST 08/11/22 08/11/22 History Methylphenidate HCl [Ritalin] 10 mg PO QID 08/11/22 08/11/22 History Tolterodine ER [Detrol LA] 4 mg PO DAILY 08/11/22 08/11/22 History Vitamin C 1 tab PO DAILY 08/11/22 08/11/22 History Vitamin D3 1 tab PO DAILY 08/11/22 08/11/22 History Allergies Allergy/AdvReac Type Severity Reaction Status Date / Time No Known Allergies Allergy Verified 08/11/22 14:34 Physical Examination Osteopathic Statement: *. No significant issues noted on an osteopathic structural exam other than those noted in the History and Physical/Consult. This is a pleasant 56-year-old female in no acute distress. She is alert and oriented 3. She is examined in bed. Exam of the head neck reveal no obvious deformity. She has full cervical rotation, side bend, flexion and extension wi thout difficulty or pain. There is no tenderness with palpation about cervical spine or paraspinal musculature. There is no trapezial tenderness noted. She has full forward flexion and abduction of both shoulders. There is generalized, symmetric weakness to both upper extremities. Radial pulses are +2/4 bilaterally. She has normal sensation to all of her fingers. Exam of the thoracic and lumbar spine reveal no obvious deformity. She is nontender over the thoracic or lumbar spine or paraspinal musculature. Exam of the lower extremities reveals no obvious deformity. No hip irritability with internal and external rotation. She has full foot and ankle motion bilaterally. Neurovascular status to the lower extremities is intact. Results MRI of the cervical spine reveals mild degenerative changes throughout. There is some disc narrowing and disc bulging/possible herniation at C5 6 posteriorly. There is cord contact. There are no signal changes noted in the cord itself. No fractures noted. Mild facet arthropathy noted. - Labs Labs: Abnormal Lab Results - Last 24 Hours (Table) 08/15/22 Range/Units 09:46 POC Glucose (mg/dL) 247 H (70-110) mg/dL Microbiology - Last 24 Hours (Table) 08/13/22 11:38 Blood Culture - Preliminary Blood No Growth after 48 hours 08/14/22 08:40 Blood Culture - Preliminary Blood No Growth after 24 hours H & H 08/11/22 08/12/22 08/14/22 Range/Units 10:17 08:49 08:40 Hgb 14.8 12.5 12.7 (11.4-16.0) gm/dL Hct 43.4 38.2 39.1 (34.0-46.0) % Coagulation 08/11/22 Range/Units 10:17 INR 1.0 (<1.2) Result Diagrams: 08/14/22 08:40 08/15/22 10:11 Assessment and Plan (1) COVID-19 Current Visit: Yes Status: Acute Code(s): U07.1 - COVID-19 SNOMED Code(s): 276843083 (2) Exacerbation of multiple sclerosis Current Visit: Yes Status: Acute Code(s): G35 - MULTIPLE SCLEROSIS SNOMED Code(s): 664982610 (3) Syncope Current Visit: Yes Status: Acute Code(s): R55 - SYNCOPE AND COLLAPSE SNOMED Code(s): 455286126 (4) UTI (urinary tract infection) Current Visit: Yes Status: Acute Code(s): N39.0 - URINARY TRACT INFECTION, SITE NOT SPECIFIED SNOMED Code(s): 44833718 (5) Abnormal MRI, cervical spine Current Visit: Yes Status: Acute Code(s): R93.7 - ABNORMAL FINDINGS ON DIAGNOSTIC IMAGING OF PRT MS SYS SNOMED Code(s): 173334970 Plan: The clinical and radiographic findings are discussed with the patient and nursing staff. It is discussed with the patient that clinically she is experiencing no symptoms that correlate with her MRI findings. I feel that this is an incidental finding. She is currently on prednisone for her MS exacerbation which she is to continue. I agree with physical therapy for strengthening and ambulation. She is advised to follow-up with her office if she begins to have any symptoms related to her cervical spine. The patient understands and agrees with the plan. The patient is seen and examined. I reviewed the notation as well as imaging him in agreement. The patient is not currently symptomatically from her cervi chris disc degeneration and herniation. She understands the issues involved with the imaging and the possible need for treatment in the future but we do not have any current plans for specific treatment at her cervical spine at this point. We will follow-up with her as needed.
[2022-08-16] MEDS: VANCOMYCIN 1,000 MG in SODIUM CHLORIDE 0.9% 250 ML IVPB SCH ×2 (09:58→20:44)
[2022-08-16] MEDS: METHYLPHENIDATE HCL 10 MG TAB PO SCH ×4 (10:43→20:45)
[2022-08-16 10:52] LABS: HCT 38.6 % (37.2-46.3); HGB 12.5 g/dL (12.0-15.0); MCH 28.9 pg (27.0-32.0); MCHC 32.4 g/dL (32.0-37.0); MCV 89.4 fL (80.0-97.0); Mean Platelet Volume 11.7 fL (9.5-12.2); NRBC Per 100 WBC 0.7 /100 WBCS (0.0-0.0); Platelet Count 278 X 10*3/uL (140-440); RBC 4.32 X 10*6/uL (4.10-5.20); RDW 13.7 % (11.5-14.5); WBC 11.48 X 10*3/uL (4.50-10.00)
[2022-08-16 10:53] LABS: African American GFR (CKD) 124.5 (60.0-200.0); Anion Gap 11.5 mmol/L (10.00-18.00); BUN/Creat Ratio 29.27 Ratio (12.00-20.00); Blood Urea Nitrogen 15.6 mg/dL (9.0-27.0); Calcium 8.2 mg/dL (8.7-10.3); Carbon Dioxide 26.9 mmol/L (20.0-27.5); Non-African American GFR(CKD) 107.4 (60.0-200.0); Potassium 4.1 mmol/L (3.5-5.5)
[2022-08-16 11:45] LABS: Basophils # (M) 0 X 10*3/uL (0.00-0.10); Eosinophils # (M) 0 X 10*3/uL (0.04-0.35); Lymphocytes # (M) 0.46 X 10*3/uL (0.90-5.00); Metamyelocytes % 2 % (0-0); Monocytes # (M) 0.34 X 10*3/uL (0.20-1.00); Myelocytes % 1 % (0-0); Neutrophils # (M) 10.22 X 10*3/uL (2.00-8.90); Neutrophils % (M) 89 %; Promyelocytes # (M) 0.11 k/uL (0); Promyelocytes % 1 % (0-0); RBC Morphology NORMAL
[2022-08-16 11:48] VITALS: BMI 20.7
[2022-08-16] MEDS ORDERED: LIDOCAINE 1% INJ 10MG/ML (30 ML VIAL-PF) SQ ONE (14:37)
--- NOTE | 2022-08-16 15:08 | XR ---
EXAMINATION TYPE: XR chest 1V confirm line plcmt DATE OF EXAM: 08/16/2022 COMPARISON: 08/11/2022 HISTORY: 56-year-old female PICC line placement, shortness of breath TECHNIQUE: Single frontal view of the chest is obtained. FINDINGS: Heart normal size. Aorta and pulmonary vasculature within normal limits. Mild interstitial prominence of the chronic appearance. There is new blunting of the right costophrenic angle. No cons olidation. Left PICC tip at the lower SVC level. IMPRESSION: 1. Left PICC tip at the lower SVC level. 2. New small right pleural effusion.
--- NOTE | 2022-08-16 15:15 | IR ---
PICC LINE PLACEMENT: HISTORY: Infection requiring long-term antibiotic therapy PROCEDURE: Ultrasound guidance of PICC line placement. HEAT TREATING FURNACE TENDER: Dr. Morris. COMPLICATIONS: None ANESTHESIA: 1. 1% Lidocaine locally. FINDINGS/TECHNIQUE: The procedure was explained to the patient. The risks, complications, benefits and alternatives were discussed and any questions were answered. Informed consent was obtained. The patient was placed supine on the fluoroscopic table and prepped and draped in the usual sterile [facility] ion. Utilizing a 21 gauge needle and sonographic guidance, access in the left brachial vein was ach ieved and there is placement of a 0.018 guidewire. The vein is patent. A 5-F. sheath was placed ove r the guidewire. The guidewire and dilator were removed and a 5-F. Double lumen PICC line was placed through the sheath with the chest x-ray confirming the tip at the level of the SVC. The sheath was removed, the catheter was flushed and sutured into position. The patient was stable throughout the p rocedure and remained stable upon discharge from the Department of Radiology. The vein puncture was patent under ultrasound. A zarate scale image was obtained to document patency of the vein punctured. All elements of the maximal barrier technique were utilized. IMPRESSION: 1. Successful PICC line placement under ultrasound performed bedside.
[2022-08-16] MEDS: ERTAPENEM 1 GM in SODIUM CHLORIDE 0.9% 50 ML IVPB SCH (17:34)
[2022-08-17] MEDS: SODIUM CHLORIDE 0.9% 1,000 ML IV SCH (03:48)
[2022-08-17] MEDS: LEVOTHYROXINE 75 MCG TAB PO SCH (05:42)
[2022-08-17] MEDS: BACLOFEN 10 MG TAB PO SCH ×3 (05:42→16:42)
[2022-08-17] MEDS ORDERED: VANCOMYCIN TROUGH DUE 1 EACH MISC MISCELLANE ONE (07:00)
[2022-08-17 07:25] LABS: African American GFR (CKD) >90 (>60 ml/min/1.73 sqM); Anion Gap 7 mmol/L; Blood Urea Nitrogen 17 mg/dL (7-17); Calcium 7.9 mg/dL (8.4-10.2); Carbon Dioxide 27 mmol/L (22-30); Chloride 102 mmol/L (98-107); Glucose 103 mg/dL (74-99); Non-African American GFR(CKD) >90 (>60 ml/min/1.73 sqM); Potassium 3.7 mmol/L (3.5-5.1); Sodium 136 mmol/L (137-145)
[2022-08-17] MEDS: METHYLPHENIDATE HCL 10 MG TAB PO SCH ×3 (08:17→16:43)
[2022-08-17] MEDS: ASCORBIC ACID 500 MG TAB PO SCH (08:17)
[2022-08-17] MEDS: ZINC SULFATE 220 MG CAP PO SCH (08:17)
[2022-08-17] MEDS: VANCOMYCIN 1,000 MG in SODIUM CHLORIDE 0.9% 250 ML IVPB SCH (08:17)
[2022-08-17] MEDS: HEPARIN SODIUM,PORCINE/PF 5,000 UNIT/0.5 ML SYRINGE SQ SCH ×2 (08:17→16:08)
[2022-08-17] MEDS: polyethylene glycoL 3350 17 GM POWD.PACK PO SCH (08:18)
[2022-08-17] MEDS: NON FORMULARY DRUG (Dalfampridine [Dalfampridine Er] 10 MG Tab.Er.12h) PO SCH (08:18)
[2022-08-17] MEDS: CHOLECALCIFEROL 125 MCG (5000 IU) TABLET PO SCH (08:18)
[2022-08-17] MEDS: NON FORMULARY DRUG (Tolterodine Er 4 MG Cap.Er.24h) PO SCH (08:18)
--- NOTE | 2022-08-17 10:23 | P.PN ---
Subjective Progress Note Date: 08/16/22 08/16/2022: Patient was seen for a follow-up. Patient is laying comfortably in the bed. Offers no complaints. 08/15/2022: Patient was seen for a follow-up. Patient feels her legs are getting stronger. Denies any numbness or tingling. Her breathing is fine. Patient prefers continuing Solu-Medrol for total of 5 days. Denies any new neurological symptoms. 08/13/2022: Patient was seen for a follow-up. Patient initially seen by Dr. Henri Irizarry. Please refer to his note for details. Patient is a 56-year-old female with multiple sclerosis, who presented because of generalized weakness but continues to have significant lower extremity weakness. She has acute Covid and likely a UTI. Dr. Irizarry has felt patient has probable MS exacerbation and started her on steroids. MRI of the brain, cervical thoracic and lumbar spines were recommended. Patient follows up with neurologist in [place]. She is currently not on any disease modifying therapy since she had her immune system suppressed by treatment about 4.5 years ago with Lemtrada. Patient also has blood culture positive with gram-negative bacilli. Objective - Vital Signs Vital signs: Vital Signs Temp 97.7 F 08/16/22 14:00 Pulse 79 08/16/22 14:00 Resp 16 08/16/22 14:00 BP 128/73 08/16/22 14:00 Pulse Ox 98 08/16/22 14:00 FiO2 Intake & Output 08/15/22 08/16/22 08/16/22 18:59 06:59 18:59 Output Total 1800 700 Balance -1800 -700 Weight 53.07 kg Output: Urine 1800 700 Other: Voiding Method External Catheter External Catheter External Catheter - Exam GENERAL: The patient is lying in bed and is in mild respiratory distress. Patient appears to have some difficulty breathing. CHEST: The heart rate is regular rate rhythm. No murmurs to auscultation. LUNG: Clear to auscultation bilaterally no wheezing noted throughout. Not labored breathing. ABDOMEN/GI: Bowel sounds present in all 4 quadrants. No tenderness to palpation throughout. NEUROLOGICAL: Higher mental function: The patient is awake, alert, oriented to self, place and time. Patient is following commands. No aphasia and no neglect. Cranial nerves: The pupils are round, equal and reactive to light and accommodation. Visual amrvin are full to confrontation throughout. Extraocular movement is intact, and there is nystagmus looking to the left side. Patient has rubor erythema throughout face (stated old and was told has eczema). Facial sensation is normal to touch throughout. The facial strength is normal throughout. Hearing is normal bilaterally to hand rub. Tongue is midline and moved [id number] without any difficulty. No dysarthria is noted. Shoulder shrug is normal bilaterally. Motor: The strength is 5 over 5 throughout uppers. While lowers: Hip flexion 3-4-/3-, ankle dorsiflexion 4-/4-. Plantarflexion 5 bilaterally. Normal bulk. Cerebellum: Significant ataxia for [id number] testing bilaterally, right more than left. Could not assess lowers because of her weakness. Sensation: Sensation is normal to touch throughout. Reflexes Plantars are sustained clonus at bilateral ankles. - Labs CBC & Chem 7: 08/16/22 06:55 08/17/22 06:53 Labs: Abnormal Lab Results - Last 24 Hours (Table) 08/16/22 08/16/22 Range/Units 06:55 06:55 WBC 11.48 H (4.50-10.00) X 10*3/uL Absolute Nucleated RBC 0.08 H (0.00-0.00) X 10*3/uL Metamyelocytes % 2 H (0-0) % Myelocytes % 1 H (0-0) % Promyelocytes % 1 H (0-0) % Neutrophils # (Manual) 10.22 H (2.00-8.90) X 10*3/uL Lymphocytes # (Manual) 0.46 L (0.90-5.00) X 10*3/uL Eosinophils # (Manual) 0 L (0.04-0.35) X 10*3/uL NRBC/100 WBC Diff 0.7 H (0.0-0.0) /100 WBCS Creatinine 0.5 L (0.6-1.5) mg/dL BUN/Creatinine Ratio 29.27 H (12.00-20.00) Ratio Glucose 170 H (70-110) mg/dL Calcium 8.2 L (8.7-10.3) mg/dL Microbiology - Last 24 Hours (Table) 08/13/22 11:38 Blood Culture - Preliminary Blood No Growth after 72 hours 08/14/22 08:40 Blood Culture - Preliminary Blood No Growth after 48 hours Assessment and Plan Assessment: Acute significant bilateral lower extremity weakness: Likely MS exacerbation. Cannot rule out pseudoexacerbation due to acute COVID-19 and underlying UTI and bacteremia MRI of the brain and cervical spine showed no acute enhancing lesions. However multiple old MS plaques. Cervical disc herniation at C5 6. Acute COVID-19 infection Acute UTI, due to E. coli. Bacteremia due to E. coli, and staph aureus. History of relapsing-remitting multiple sclerosis for at least 23 years and at baseline walks with walker, has bilateral foot droop and ataxia of uppers History of eczema Plan: MRI of the brain with and without contrast revealed multiple white matter changes, some of which are suggestive of multiple sclerosis. Findings in distribution appears similar to comparison. I personally reviewed MRI of the brain and agree with the findings. MRI of the cervical spine with and without contrast revealed disc herniation with moderate intrathecal sac compression, cord deformity without spinal canal stenosis. Some mild signal changes at the level of the disc herniation may be present. Abnormal signal within the spinal cord more suggestive of multiple scl erosis, not evident on the current examination. Previous cord abnormality at T2 is not clearly identified. I personally reviewed MRI, I agree with the findings. We will consult orthopedic surgery for evaluation of cervical disc herniation. It is not very clear if patient has an acute relapse of MS, all recrudescence from acute infectious process. Patient in any case has completed 5 day treatm ent of IV Solu-Medrol, with the last dose at 11:23 PM last night. Patient had undergone treatment with Lemtrada about 4-1/2 years ago in the state of [place] (treatment was for about one week). Therefore patient currently is not on disease modifying therapy, as this treatment works lifelong. Vitamin B12 1534, folate 10.30, TSH 0.167, free T4 normal 1.10, methylmalonic acid 0.16 normal. Consulted PT and OT for gait training because of her leg weakness Neurologically clear for discharge. Recommend the patient to follow-up with her neurologist (Dr. Montague) located in [place] within 1-2 weeks as outpatient.
[2022-08-17 11:34] LABS: HCT 39.5 % (37.2-46.3); HGB 12.9 g/dL (12.0-15.0); MCH 29.1 pg (27.0-32.0); MCHC 32.7 g/dL (32.0-37.0); MCV 89.2 fL (80.0-97.0); Mean Platelet Volume 11.7 fL (9.5-12.2); NRBC Per 100 WBC 0.2 /100 WBCS (0.0-0.0); Platelet Count 241 X 10*3/uL (140-440); RBC 4.43 X 10*6/uL (4.10-5.20); RDW 13.4 % (11.5-14.5); WBC 17.75 X 10*3/uL (4.50-10.00)
[2022-08-17 11:35] LABS: Acanthocytes 2+; Basophils # (M) 0 X 10*3/uL (0.00-0.10); Eosinophils # (M) 0 X 10*3/uL (0.04-0.35); Lymphocytes # (M) 2.13 X 10*3/uL (0.90-5.00); Metamyelocytes % 2 % (0-0); Monocytes # (M) 0.89 X 10*3/uL (0.20-1.00); Myelocytes % 3 % (0-0); Neutrophils # (M) 13.85 X 10*3/uL (2.00-8.90); Neutrophils % (M) 78 %
[2022-08-17] MEDS ORDERED: VANCOMYCIN 1,000 MG in SODIUM CHLORIDE 0.9% 250 ML IVPB SCH (16:00)
[2022-08-17 16:17] VITALS: BP 117/71; PULSE 108; RESP 15; TEMP 98.2
[2022-08-17] MEDS: ERTAPENEM 1 GM in SODIUM CHLORIDE 0.9% 50 ML IVPB SCH (16:42)
[2022-08-19] MEDS ORDERED: VANCOMYCIN TROUGH DUE 1 EACH MISC MISCELLANE ONE (07:00)
== END 2022-08-17 18:05 | disposition home health service (06) | DRG 871 ==
LOC: EC 10:01 → 4SSUR 15:46
PROVIDERS: ADMIT Internal Medicine; ATTEND Internal Medicine
PROC: 05HB33Z Insertion of Infusion Device into Right Basilic Vein, Percutaneous Approach (ICD-10-PCS; 2022-08-14)
PROC: B5181ZA Fluoroscopy of Superior Vena Cava using Low Osmolar Contrast, Guidance (ICD-10-PCS; 2022-08-16)
PROC: B548ZZA Ultrasonography of Superior Vena Cava, Guidance (ICD-10-PCS; 2022-08-16)
PROC: 02HV33Z Insertion of Infusion Device into Superior Vena Cava, Percutaneous Approach (ICD-10-PCS; principal; 2022-08-16 07:30)
DX: A41.2 Sepsis due to unspecified staphylococcus (principal); U07.1 COVID-19; N39.0 Urinary tract infection, site not specified; Z16.12 Extended spectrum beta lactamase (ESBL) resistance; A41.51 Sepsis due to Escherichia coli [E. coli]; R55 Syncope and collapse; G35 Multiple sclerosis; M50.222 Other cervical disc displacement at C5-C6 level; B96.20 Unspecified Escherichia coli [E. coli] as the cause of diseases classified elsewhere; E03.9 Hypothyroidism, unspecified; Z79.890 Hormone replacement therapy; M21.371 Foot drop, right foot; L30.9 Dermatitis, unspecified; M21.372 Foot drop, left foot; R27.0 Ataxia, unspecified; N28.1 Cyst of kidney, acquired; Z79.2 Long term (current) use of antibiotics
CPT/HCPCS: 36410; 36415; 36573; 70450; 70553; 71046; 72156; 76770; 76937; 80048; 80053; 80202; 81001; 82565; 82607; 82746; 83735; 83921; 84145; 84439; 84443; 84484; 85025; 85610; 85730; 87040; 87077; 87086; 87186; 87636; 93005; 96361; 96365; 96366; 99284

== ENCOUNTER → 2022-09-14 | Outpatient (CLI) | payer BC | END | disposition home or self-care (01) | LOC: LABWHC1 11:03 | PROVIDERS: ATTEND Internal Medicine Infectious Disease | DX: R78.81 Bacteremia (principal) | CPT/HCPCS: 36415; 87040 ==

== ENCOUNTER → 2022-10-20 | Outpatient (CLI) | payer BC ==
[2022-10-20 17:00] LABS: African American GFR (CKD) 96.2 (60.0-200.0)
== END | disposition home or self-care (01) ==
LOC: LABWHC1 11:06
PROVIDERS: ATTEND Psychiatry & Neurology Neurology
DX: G35 Multiple sclerosis (principal)
CPT/HCPCS: 36415; 82306; 82565; 82787; 84443; 86355; 86357; 86359; 86360

== ENCOUNTER → 2023-09-30 | Outpatient (CLI) | payer BC ==
--- NOTE | 2023-09-30 17:48 | MR ---
EXAMINATION TYPE: MR brain wo con DATE OF EXAM: 09/30/2023 COMPARISON: 08/13/2022 HISTORY: MS, Foot drop, Hypothyroidism CONTRAST: Performed utilizing 0 mL intravenous Gadavist gadolinium contrast. TECHNIQUE: Multiplanar, multiecho imaging on a 3.0 Elizabeth magnet is performed through the brain. Stud y is performed within 24 hours of arrival to the hospital. The craniovertebral junction is normal. The pituitary is normal. Optic Chiasm is normal. Diffusion-weighted imaging is performed. No abnormal hyperintensity is present to suggest an acute i ntracranial infarct or acute ischemic change. There are multiple periventricular white matter hyperintensity some of which are perpendicular to the ventricles. Findings can be compatible with patient's reported multiple sclerosis. Adhesion Tester lesions include: 1. a right centrum semiovale 1.0 x 0.9 cm lesion, series 501 image 22. This is stable from comparison . 2. lobated density in the right occipital lobe white matter measuring 1.7 cm AP and lateral dimensio ns. This has a similar appearance to comparison. Series 502 image 18. 3. There may be a new rounded hyperintensity within the left frontal lobe measuring 0.7 cm. Series 5 02 image 20. Ventricles and sulci are appropriate for the patient age. IMPRESSION: 1. The larger periventricular lesions appears stable from comparison. A new lesion may be in the left frontal lobe. Findings are nonspecific but can be compatible with multiple sclerosis.
== END | disposition home or self-care (01) ==
LOC: RADMRIMAIN 16:40
PROVIDERS: ATTEND Psychiatry & Neurology Neurology
DX: G35 Multiple sclerosis (principal); G93.89 Other specified disorders of brain; E03.9 Hypothyroidism, unspecified; N39.0 Urinary tract infection, site not specified; M21.379 Foot drop, unspecified foot; E07.9 Disorder of thyroid, unspecified; E55.9 Vitamin D deficiency, unspecified; Z79.899 Other long term (current) drug therapy
CPT/HCPCS: 70551

== ENCOUNTER 2024-02-28 23:23 | Inpatient (IN) | payer BC ==
[2024-02-28 23:34] LABS: Glucose,Whole Blood 129 mg/dL (70-110)
--- NOTE | 2024-02-28 23:46 | ED ---
General Adult HPI - General Stated complaint: Seizure Time Seen by Provider: 02/28/24 23:35 Source: EMS Mode of arrival: EMS Limitations: altered mental status - History of Present Illness Initial comments: Dictation was produced using [employer] dictation software. please excuse any gr ammatical, word or spelling errors. Chief Complaint: 58-year-old female with end-stage multiple sclerosis, DNR presents to the ER after seizure History of Present Illness: History of present illness obtained from EMS. Patient 58-year-old female she has end-stage multiple sclerosis. Patient is DNR. She just moved to [facility]. Patient allegedly had a seizure. She has been without her seizure medications for the last 2 days. Patient had a witnessed seizure. EMS was called patient was given 5 IM Versed. She became briefly apneic requiring [id number] ventilation. Shortly after she began respirating on her own. Patient unable to bite history present illness at this time. Apparently at baseline she is ANO x 1. Unable obtain ROS secondary to mental status - Related Data Home Medications Medication Instructions Recorded Confirmed Baclofen [Lioresal] 20 mg PO 5XD 08/11/22 08/11/22 Calcium 1 tab PO DAILY 08/11/22 08/11/22 Cranberry 1 tab PO DAILY 08/11/22 08/11/22 Dalfampridine [Dalfampridine ER] 10 mg PO BID 08/11/22 08/11/22 Levothyroxine Sodium [Synthroid] 75 mcg PO AC-BRKFST 08/11/22 08/11/22 Methylphenidate HCl [Ritalin] 10 mg PO QID 08/11/22 08/11/22 Tolterodine ER [Detrol LA] 4 mg PO DAILY 08/11/22 08/11/22 Vitamin C 1 tab PO DAILY 08/11/22 08/11/22 Vitamin D3 1 tab PO DAILY 08/11/22 08/11/22 Allergies Allergy/AdvReac Type Severity Reaction Status Date / Time No Known Allergies Allergy Verified 08/11/22 14:34 Review of Systems ROS Statement: Those systems with pertinent positive or pertinent negative responses have been documented in the HPI. ROS Other: All systems not noted in ROS Statement are negative. Past Medical History Past Medical History: Thyroid Disorder Additional Past Medical History / Comment(s): MS History of Any Multi-Drug Resistant Organisms: ESBL Date of last positivie culture/infection: 08/11/22 MDRO Source:: Blood & Urine Past Surgical History: Appendectomy, Back Surgery, Section Past Psychological History: No Psychological Hx Reported Smoking Status: Never smoker Past Alcohol Use History: None Reported Past Drug Use History: None Reported General Exam - General Exam Comments Initial Comments: PHYSICAL EXAM: General Impression: Obtunded, nonrebreather in place HEENT: Normocephalic atraumatic, extra-ocular movements intact, pupils equal and reactive to light bilaterally, mucous membranes moist. Cardiovascular: Heart regular rate and rhythm Chest:no retractions, no tachypnea Abdomen: abdomen soft, non-distended, no organomegaly Musculoskeletal: Pulses present and equal in all extremities, no peripheral edema Motor: Not tested Neurological: No hyperreflexia Skin: Intact with no visualized rashes Limitations: altered mental status Course Vital Signs 02/28/24 02/29/24 02/29/24 23:33 01:36 01:59 Temperature 100.6 F H 98.1 F Pulse Rate 115 H 96 64 Respiratory 22 16 16 Rate Blood Pressure 104/64 106/64 101/72 O2 Sat by Pulse 98 100 100 Oximetry 02/29/24 02/29/24 02/29/24 02:58 03:25 04:00 Temperature Pulse Rate 79 75 88 Respiratory 18 16 14 Rate Blood Pressure 112/76 104/63 111/69 O2 Sat by Pulse 100 100 100 Oximetry - Reevaluation(s) Reevaluation #1: 02/29/24 05:46 Patient reevaluated at the bedside. She is resting comfortably however she is still rather somnolent. EKG Findings - EKG Comments: EKG Findings:: My EKG interpretation: Ventricular rate 113, sinus tachycardia,. 154, cures 74, QTc 429. No IA prolongation, no QTC prolongation, no ST or T-wave changes noted. EKG compared to August 11, 2022 showing no changes. Overall, this EKG is unremarkable Medical Decision Making - Medical Decision Making Was pt. sent in by a medical professional or institution (, PA, BUSINESS CENTER ATTENDANT, urgent care, hospital, or snf...) When possible be specific @ -No Did you speak to anyone other than the patient for history (EMS, parent, family, police, friend...)? What history was obtained from this source @ -History obtained from EMS along with at the bedside Did you review nursing and triage notes (agree or disagree)? Why? @ -I reviewed and agree with nursing and triage notes Were old charts reviewed (outside hosp., previous admission, EMS record, old EKG, old radiological studies, urgent care reports/EKG's, snf records)? Report findings @ -No old charts were reviewed Differential Diagnosis (chest pain, altered mental status, abdominal pain women, abdominal pain men, vaginal bleeding, musculoskeletal, weakness, fever, dyspnea, syncope, headache, dizziness, GI bleed, back pain, seizure, CVA, palpatations, mental health)? @ -Differential Seizure: Recurrent seizure disorder, febrile seizure, alcohol withdrawal, stimulants, men ingitis, encephalitis, intercranial hemorrhage, intracranial tumor, stroke, eclampsia, thyrotoxicosis, hypocalcemia, hyponatremia, hypernatremia, hypomagnesemia, psychogenic, this is not meant to be an all-inclusive list. EKG interpreted by me (3pts min.). @ -See above X-rays interpreted by me (1pt min.). @ -None done CT interpreted by me (1pt min.). @ -CT scan the brain shows no acute process. U/S interpreted by me (1pt. min.). @ -None done What testing was considered but not performed or refused? (CT, X-rays, U/S, labs)? Why? @ -None What meds were considered but not given or refused? Why? @ -None Did you discuss the management of the patient with other professionals (professionals i.e. , PA, BUSINESS CENTER ATTENDANT, lab, RT, psych nurse, social director, apartment maintenance, teacher, geospatial program management officer, counseling case manager)? Give summary @ -Case discussed with hospitalist for admission Was smoking cessation discussed for >3mins.? @ -No Was critical care preformed (if so, how long)? @ -No Were there social determinants of health that impacted care today? How? (Homelessness, low income, unemployed, alcoholism, drug addiction, transportation, low edu. Level, literacy, decrease access to med. care, fci, rehab)? @ -No Was there de-escalation of care discussed even if they declined (Discuss DNR or withdrawal of care, Hospice)? DNR status @ -See above What co-morbidities impacted this encounter? (DM, HTN, Smoking, COPD, CAD, Cancer, CVA, ARF, Chemo, Hep., AIDS, mental health diagnosis, sleep apnea, morbid obesity)? @ -End-stage multiple sclerosis Was patient admitted / discharged? Hospital course, mention meds given and route, prescriptions, significant lab abnormalities, going to OR and other pertinent info. @ -58-year-old female presents to the emergency department for seizure. Patient allegedly has seizure disorder. did not know what patient's medications are. But he suspects that patient had not had her medications for the last 2 days. Largely at baseline patient is able to have meaningful conversation she is however unable to use her arms or legs. Vital signs upon arrival shows temperature of 100.6, heart rate of 115. Laboratory evaluation obtained. Leukocytosis 19.2. Lactic acidosis 3.7. Nongap acidosis with a bicarb of 17. Lengthy discussion was held with . States that patient is DNR/DNI. is okay with medical treatment. Patient given Versed prior to arrival. Imaging studies unremarkable. Analysis shows elevated white blood cell count. Patient given antibiotics for concerns of UTI Undiagnosed new problem with uncertain prognosis? @ -No Drug Therapy requiring intensive monitoring for toxicity (Heparin, Nitro, Insulin, Cardizem)? @ -No Were any procedures done? @ -No Diagnosis/symptom? Acute, or Chronic, or Acute on Chronic? Uncomplicated (without systemic symptoms) or Complicated (systemic symptoms)? @ -Seizure Side effects of treatment? @ -No Exacerbation, Progression, or Severe Exacerbation? @ -No Poses a threat to life or bodily function? How? (Chest pain, USA, NM, pneumonia, PE, COPD, DKA, ARF, appy, cholecystitis, CVA, Diverticulitis, Homicidal, Suicidal, threat to staff... and all critical care pts) @ -yes - Lab Data Result diagrams: 02/29/24 01:30 02/28/24 23:56 Lab Results 02/28/24 02/28/24 02/29/24 Range/Units 23:31 23:56 00:57 WBC (3.8-10.6) k/uL RBC (3.80-5.40) m/uL Hgb (11.4-16.0) gm/dL Hct (34.0-46.0) % MCV (80.0-100.0) fL MCH (25.0-35.0) pg MCHC (31.0-37.0) g/dL RDW (11.5-15.5) % Plt Count (150-450) k/uL MPV Neutrophils % % Lymphocytes % % Monocytes % % Eosinophils % % Basophils % % Neutrophils # (1.3-7.7) k/uL Lymphocytes # (1.0-4.8) k/uL Monocytes # (0-1.0) k/uL Eosinophils # (0-0.7) k/uL Basophils # (0-0.2) k/uL Hypochromasia Sodium 137 (137-145) mmol/L Potassium 4.1 (3.5-5.1) mmol/L Chloride 113 H (98-107) mmol/L Carbon Dioxide 17 L (22-30) mmol/L Anion Gap 7 mmol/L BUN 17 (7-17) mg/dL Creatinine 0.27 L (0.52-1.04) mg/dL Est GFR (CKD-EPI)AfAm >90 (>60 ml/min/1.73 sqM) Est GFR (CKD-EPI)NonAf >90 (>60 ml/min/1.73 sqM) Glucose 119 H (74-99) mg/dL POC Glucose (mg/dL) 129 H (70-110) mg/dL POC Glu Controlled Atmospheric Furnace Brazer ID Eufemia [place] Lactic Ac Sepsis Rflx Plasma Lactic Acid Delvin 3.7 H* (0.7-2.0) mmol/L Calcium 7.2 L (8.4-10.2) mg/dL Magnesium 1.6 (1.6-2.3) mg/dL Total Bilirubin 0.6 (0.2-1.3) mg/dL AST 56 H (14-36) U/L ALT 33 (4-34) U/L Alkaline Phosphatase 62 (38-126) U/L Total Protein 5.2 L (6.3-8.2) g/dL Albumin 2.7 L (3.5-5.0) g/dL Urine Color Urine Appearance (Clear) Urine pH (5.0-8.0) Ur Specific [place] (1.001-1.035) Urine Protein (Negative) Urine Glucose (UA) (Negative) Urine Ketones (Negative) Urine Blood (Negative) Urine Nitrite (Negative) Urine Bilirubin (Negative) Urine Urobilinogen (<2.0) mg/dL Ur Leukocyte Esterase (Negative) Urine RBC (0-5) /hpf Urine WBC (0-5) /hpf Ur Squamous Epith Cells (0-4) /hpf Amorphous Sediment (None) /hpf Urine Bacteria (None) /hpf Hyaline Casts (0-2) /lpf Urine Mucus (None) /hpf Influenza Type A (PCR) (Not Detectd) Influenza Type B (PCR) (Not Detectd) RSV (PCR) (Not Detectd) SARS-CoV-2 (PCR) (Not Detectd) 02/29/24 02/29/24 02/29/24 Range/Units 01:30 01:35 02:10 WBC 19.2 H (3.8-10.6) k/uL RBC 4.92 (3.80-5.40) m/uL Hgb 14.5 (11.4-16.0) gm/dL Hct 47.4 H (34.0-46.0) % MCV 96.4 (80.0-100.0) fL MCH 29.5 (25.0-35.0) pg MCHC 30.6 L (31.0-37.0) g/dL RDW 15.1 (11.5-15.5) % Plt Count 152 (150-450) k/uL MPV 9.3 Neutrophils % 90 % Lymphocytes % 4 % Monocytes % 5 % Eosinophils % 1 % Basophils % 0 % Neutrophils # 17.1 H (1.3-7.7) k/uL Lymphocytes # 0.8 L (1.0-4.8) k/uL Monocytes # 1.0 (0-1.0) k/uL Eosinophils # 0.1 (0-0.7) k/uL Basophils # 0.1 (0-0.2) k/uL Hypochromasia Slight Sodium (137-145) mmol/L Potassium (3.5-5.1) mmol/L Chloride (98-107) mmol/L Carbon Dioxide (22-30) mmol/L Anion Gap mmol/L BUN (7-17) mg/dL Creatinine (0.52-1.04) mg/dL Est GFR (CKD-EPI)AfAm (>60 ml/min/1.73 sqM) Est GFR (CKD-EPI)NonAf (>60 ml/min/1.73 sqM) Glucose (74-99) mg/dL POC Glucose (mg/dL) (70-110) mg/dL POC Glu Controlled Atmospheric Furnace Brazer ID Lactic Ac Sepsis Rflx Y Plasma Lactic Acid Delvin (0.7-2.0) mmol/L Calcium (8.4-10.2) mg/dL Magnesium (1.6-2.3) mg/dL Total Bilirubin (0.2-1.3) mg/dL AST (14-36) U/L ALT (4-34) U/L Alkaline Phosphatase (38-126) U/L Total Protein (6.3-8.2) g/dL Albumin (3.5-5.0) g/dL Urine Color Urine Appearance (Clear) Urine pH (5.0-8.0) Ur Specific [place] (1.001-1.035) Urine Protein (Negative) Urine Glucose (UA) (Negative) Urine Ketones (Negative) Urine Blood (Negative) Urine Nitrite (Negative) Urine Bilirubin (Negative) Urine Urobilinogen (<2.0) mg/dL Ur Leukocyte Esterase (Negative) Urine RBC (0-5) /hpf Urine WBC (0-5) /hpf Ur Squamous Epith Cells (0-4) /hpf Amorphous Sediment (None) /hpf Urine Bacteria (None) /hpf Hyaline Casts (0-2) /lpf Urine Mucus (None) /hpf Influenza Type A (PCR) Not Detected (Not Detectd) Influenza Type B (PCR) Not Detected (Not Detectd) RSV (PCR) Not Detected (Not Detectd) SARS-CoV-2 (PCR) Not Detected (Not Detectd) 02/29/24 02/29/24 Range/Units 02:55 04:45 WBC (3.8-10.6) k/uL RBC (3.80-5.40) m/uL Hgb (11.4-16.0) gm/dL Hct (34.0-46.0) % MCV (80.0-100.0) fL MCH (25.0-35.0) pg MCHC (31.0-37.0) g/dL RDW (11.5-15.5) % Plt Count (150-450) k/uL MPV Neutrophils % % Lymphocytes % % Monocytes % % Eosinophils % % Basophils % % Neutrophils # (1.3-7.7) k/uL Lymphocytes # (1.0-4.8) k/uL Monocytes # (0-1.0) k/uL Eosinophils # (0-0.7) k/uL Basophils # (0-0.2) k/uL Hypochromasia Sodium (137-145) mmol/L Potassium (3.5-5.1) mmol/L Chloride (98-107) mmol/L Carbon Dioxide (22-30) mmol/L Anion Gap mmol/L BUN (7-17) mg/dL Creatinine (0.52-1.04) mg/dL Est GFR (CKD-EPI)AfAm (>60 ml/min/1.73 sqM) Est GFR (CKD-EPI)NonAf (>60 ml/min/1.73 sqM) Glucose (74-99) mg/dL POC Glucose (mg/dL) (70-110) mg/dL POC Glu Controlled Atmospheric Furnace Brazer ID Lactic Ac Sepsis Rflx Plasma Lactic Acid Delvin 3.1 H* (0.7-2.0) mmol/L Calcium (8.4-10.2) mg/dL Magnesium (1.6-2.3) mg/dL Total Bilirubin (0.2-1.3) mg/dL AST (14-36) U/L ALT (4-34) U/L Alkaline Phosphatase (38-126) U/L Total Protein (6.3-8.2) g/dL Albumin (3.5-5.0) g/dL Urine Color Yellow Urine Appearance Clear (Clear) Urine pH 6.0 (5.0-8.0) Ur Specific [place] 1.023 (1.001-1.035) Urine Protein Trace H (Negative) Urine Glucose (UA) Negative (Negative) Urine Ketones Trace H (Negative) Urine Blood Negative (Negative) Urine Nitrite Negative (Negative) Urine Bilirubin Negative (Negative) Urine Urobilinogen <2.0 (<2.0) mg/dL Ur Leukocyte Esterase Moderate H (Negative) Urine RBC 3 (0-5) /hpf Urine WBC 14 H (0-5) /hpf Ur Squamous Epith Cells 1 (0-4) /hpf Amorphous Sediment Rare H (None) /hpf Urine Bacteria Rare H (None) /hpf Hyaline Casts 16 H (0-2) /lpf Urine Mucus Occasional H (None) /hpf Influenza Type A (PCR) (Not Detectd) Influenza Type B (PCR) (Not Detectd) RSV (PCR) (Not Detectd) SARS-CoV-2 (PCR) (Not Detectd) Disposition Clinical Impression: Seizure Disposition: ADMITTED IP TO THIS HOSP Condition: Fair Decision Time: 02:54
[2024-02-29 00:50] LABS: ALT 33 U/L (4-34); AST 56 U/L (14-36); African American GFR (CKD) >90 (>60 ml/min/1.73 sqM); Albumin 2.7 g/dL (3.5-5.0); Alkaline Phosphatase 62 U/L (38-126); Anion Gap 7 mmol/L; Blood Urea Nitrogen 17 mg/dL (7-17); Calcium 7.2 mg/dL (8.4-10.2); Carbon Dioxide 17 mmol/L (22-30); Chloride 113 mmol/L (98-107); Glucose 119 mg/dL (74-99); Magnesium 1.6 mg/dL (1.6-2.3); Non-African American GFR(CKD) >90 (>60 ml/min/1.73 sqM); Potassium 4.1 mmol/L (3.5-5.1); Sodium 137 mmol/L (137-145); Total Bilirubin 0.6 mg/dL (0.2-1.3); Total Protein 5.2 g/dL (6.3-8.2)
[2024-02-29 01:40] LABS: Basophils # (A) 0.1 k/uL (0-0.2); Basophils % (A) 0 %; Eosinophils # (A) 0.1 k/uL (0-0.7); Eosinophils % (A) 1 %; HCT 47.4 % (34.0-46.0); HGB 14.5 gm/dL (11.4-16.0); Hypochromasia Slight; Lymphocytes # (A) 0.8 k/uL (1.0-4.8); Lymphocytes % (A) 4 %; MCH 29.5 pg (25.0-35.0); MCHC 30.6 g/dL (31.0-37.0); MCV 96.4 fL (80.0-100.0); Mean Platelet Volume 9.3; Monocytes % (A) 5 %; Neutrophils # (A) 17.1 k/uL (1.3-7.7); Neutrophils % (A) 90 %; Platelet Count 152 k/uL (150-450); RBC 4.92 m/uL (3.80-5.40); RDW 15.1 % (11.5-15.5); WBC 19.2 k/uL (3.8-10.6)
--- NOTE | 2024-02-29 03:16 | XR ---
EXAMINATION TYPE: XR chest 1V portable DATE OF EXAM: 02/29/2024 COMPARISON: Prior chest x-ray August 16, 2022 HISTORY: Fever TECHNIQUE: Single frontal view of the chest is obtained. FINDINGS: There is no suspicious new focal air space opacity or pneumothorax seen. Small to tiny lef t pleural effusion. The cardiac silhouette size is stable and within normal limits. The osseous str uctures are intact. IMPRESSION: Suspect small to tiny left pleural effusion. No acute pulmonary infiltrate.
[2024-02-29 03:25] LABS: Amorphous Sediment,Urine Rare /hpf; Appearance,Urine Clear (Clear); Bacteria,Urine Rare /hpf; Bilirubin,Urine Negative (Negative); Blood,Urine Negative (Negative); Color,Urine Yellow; Glucose,Urine (UA) Negative (Negative); Hyaline Casts,Urine 16 /lpf (0-2); Ketones,Urine Trace (Negative); Leukocyte Esterase,Urine Moderate (Negative); Mucus,Urine Occasional /hpf; Nitrite,Urine Negative (Negative); Protein,Urine Trace (Negative); RBC,Urine 3 /hpf (0-5); Specific Gravity,Urine 1.023 (1.001-1.035); Squamous Epithelial Cell,Urine 1 /hpf (0-4); Urobilinogen,Urine <2.0 mg/dL (<2.0); WBC,Urine 14 /hpf (0-5)
[2024-02-29] MEDS ORDERED: NALOXONE 0.4 MG/ML 1 ML VIAL IV PRN (05:32)
--- NOTE | 2024-02-29 05:42 | CT ---
EXAMINATION TYPE: CT brain wo con DATE OF EXAM: 02/29/2024 HISTORY: ams and seizure CT DLP: 1134.4 mGycm. Automated Exposure Control for Dose Reduction was Utilized. TECHNIQUE: CT scan of the head is performed without contrast. COMPARISON: CT brain August 12, 2022. FINDINGS: There is no acute intracranial hemorrhage or midline shift identified. There is mild diff use ventricular and sulcal prominence redemonstrated. There is mild to moderate low-attenuation in t he periventricular white matter redemonstrated. Right-sided aphakia redemonstrated. The visualized si nuses are clear. IMPRESSION: No acute intracranial hemorrhage or midline shift. There is mild diffuse age-related ce rebral atrophy and mild to moderate chronic small vessel ischemic change redemonstrated. No significa nt change from prior CT.
[2024-02-29] MEDS: SODIUM CHLORIDE 0.9% 1,000 ML IV SCH (05:56)
[2024-02-29] MEDS: cefTRIAXone IN SWFI 1,000 MG/10 ML SYRINGE IVP STA (05:56)
--- NOTE | 2024-02-29 12:48 | P.CNNES ---
History of Present Illness Consult date: 02/29/24 Requesting physician: Cristhian Hill Reason for Consult: ams, seizure, hx of MS History of Present Illness: Patient is a 58-year-old female with history of advanced MS, bedbound for last 10 years, who came to the hospital by ambulance yesterday at 11:23 PM for new onset seizure. Patient not able to provide any history. Patient's had just left 10 minutes ago. As per EMS flowsheet, when they arrived at [facility], patient had full body tonic-clonic seizure activity. Patient was unresponsive. Patient had shallow respirations, tachycardic. No signs of trauma. Staff mentioned that patient has been having seizure for 20 minutes prior to EMS arrival. Midazolam 5 mg IM in the right deltoid given for seizure. Seizure activity subsided prior to administration of the second dose. Patient placed on nonrebreather mask at 10 L/min. Patient became apneic. Oral airway placed and ventilation with BVM initiated. Assisting ventilations stopped per 's wishes. Patient is a DNR. Patient's blood glucose was 160 mg/dL. Blood pressure was 140/81, pulse rate 130, respiration 14 saturation 94%. Patient's blood test showed normal electrolytes, renal function, AST is 56 with normal ALT 33. Influenza, RSV and coronavirus PCR negative. Patient's WBC was 19.2. Lactate 3.7. UA negative. EKG shows sinus tachycardia. Chest x-ray revealed suspected small to tiny left pleural effusion. No acute pulmonary infiltrate. CT head revealed no acute intracranial hemorrhage or midline shift. There is mild diffuse age-related cerebral atrophy and mild to moderate chronic small vessel ischemic change redemonstrated. Patient has history of multiple sclerosis since last 25 years. Patient currently not taking any disease modifying therapy since she has her immune system suppressed by treatment about 6 years ago with [facility]. Patient is currently not seeing any neurologist. Patient states that she is wheelchair- bound for last 10-year. Patient states that she lives at home with her son and . Although it appears that patient lives in [facility]. Patient denies any history of tobacco or alcohol use. Patient denies any history of seizures in the past. Review of Systems As per HPI. Constitutional: Denies chills, Denies fever Eyes: denies blurred vision, denies diplopia, denies pain, denies loss of peripheral vision Ears: deny: decreased hearing, ear discharge Ears, nose, mouth and throat: Denies headache, Denies vertigo Cardiovascular: Denies chest pain, Denies shortness of breath Respiratory: Denies cough, Denies excessive sputum Gastrointestinal: Denies abdominal pain, Denies diarrhea, Denies nausea, Denies vomiting Musculoskeletal: Denies low back pain, Denies myalgias, Denies neck pain Integumentary: Denies pruritus, Denies rash Neurological: Reports as per HPI, Reports gait dysfunction Psychiatric: Denies anxiety, Denies depression Hematologic/Lymphatic: Denies easy bleeding, Denies easy bruising Past Medical History Past Medical History: Thyroid Disorder Additional Past Medical History / Comment(s): MS History of Any Multi-Drug Resistant Organisms: ESBL Date of last positivie culture/infection: 08/11/22 MDRO Source:: Blood & Urine Past Surgical History: Appendectomy, Back Surgery, Section Past Psychological History: No Psychological Hx Reported Smoking Status: Never smoker Past Alcohol Use History: None Reported Past Drug Use History: None Reported Medications and Allergies Home Medications Medication Instructions Recorded Confirmed Type Baclofen [Lioresal] 20 mg PO Q4HR 08/11/22 02/29/24 History Dalfampridine [Dalfampridine ER] 10 mg PO BID 08/11/22 02/29/24 History Methylphenidate HCl [Ritalin] 10 mg PO BID@0700,1600 08/11/22 02/29/24 History Acetaminophen [Tylenol 8 Hour] 650 mg PO Q6H PRN 02/29/24 02/29/24 History Aspirin EC [Ecotrin Low Dose] 81 mg PO DAILY 02/29/24 02/29/24 History Brivaracetam [Briviact] 100 mg PO BID 02/29/24 02/29/24 History Divalproex Sodium [Depakote] 500 mg PO Q8HR@0500,1300,2100 02/29/24 02/29/24 History Docusate [Colace] 100 mg PO BID 02/29/24 02/29/24 History Enoxaparin [Lovenox] 40 mg SQ HS 02/29/24 02/29/24 History Famotidine [Pepcid] 20 mg PO BID 02/29/24 02/29/24 History Ipratropium-Albuterol Nebulize 3 ml INHALATION RT-Q4H PRN 02/29/24 02/29/24 History [Duoneb 0.5 mg-3 mg/3 ml Soln] Lacosamide [Vimpat] 200 mg PO BID@0700,1900 02/29/24 02/29/24 History Levothyroxine Sodium [Synthroid] 50 mcg PO DAILY 02/29/24 02/29/24 History Sennosides [Senokot] 8.6 mg PO DAILY 02/29/24 02/29/24 History amantadine HCL [Symmetrel] 100 mg PO BID@0700,199902/29/24 02/29/24 History Allergies Allergy/AdvReac Type Severity Reaction Status Date / Time No Known Allergies Allergy Verified 02/29/24 10:36 Physical Examination - Vital Signs Vital Signs: Vital Signs Temp Pulse Resp BP Pulse Ox 02/29/24 10:55 86 18 100/66 100 02/29/24 08:40 93 18 105/71 96 02/29/24 07:47 85 22 98/62 100 02/29/24 06:00 93 18 105/65 100 02/29/24 04:00 88 14 111/69 100 02/29/24 03:25 75 16 104/63 100 02/29/24 02:58 79 18 112/76 100 02/29/24 01:59 98.1 F 64 16 101/72 100 02/29/24 01:36 96 16 106/64 100 02/28/24 23:33 100.6 F H 115 H 22 104/64 98 Intake and Output 02/28/24 02/29/24 02/29/24 22:59 06:59 14:59 Other: Weight 55.792 kg Patient is a middle aged female, in no acute distress. Patient is alert awake. Patient knows it is the month of February and the year is and that she is in [facility]. She believes that she is in a rehab facility. She states is Saturday, although it is Saturday. Patient speaks with limited vocabulary. Usually 1-2 word sentences. Patient could not name objects like pen, year, fingers but not the knuckles or the earlobe. When asked to repeat, she would only repeat the first word of the sentence. She speaks very l ow volume. Mostly it is clear limited speech, but sometimes difficult to understand. Attention, concentration is decreased and fund of knowledge is severely limited. On cranial nerve examination, pupils are equal, round and reacting to light, visual marvin are full on confrontation, with no neglect on double simultaneous stimulation. Extraocular muscles are intact with no nystagmus. Face is symmetric, tongue protrudes to the midline. Palatal elevation and sensation normal, hearing appears normal. Patient has evidence of some dried blood around her lips, but I do not see any tongue laceration. Her shoulder shrug normal, facial sensation normal. On muscle strength testing, patient's deltoid is about 2-3. Biceps, triceps and brickmason are all 4 to 4-bilaterally. Patient is paraplegic. Deep tendon reflexes are symmetric 2 at the biceps, 0 brachioradialis, 1+ at the knees, patient has intermittent sustained clonus on the right. Plantars otherwise are flat. Sensory to touch is equal with no neglect on double simultaneous stimulation. Cerebellar function attempted revealed significant ataxia for [id number] testing bilaterally. She could not complete all the way because of arm weakness. Cannot check lower extremity. Tone is increased in the arms and legs. Gait: Patient bedbound. On general examination, there is no carotid bruit or murmur, S1-S2 audible. Chest is clear on consultation. Abdomen is soft nontender. No organomegaly, bowel sounds present. Peripheral pulses are present. No peripheral edema. Results - Laboratory Findings CBC and BMP: 02/29/24 01:30 02/28/24 23:56 Abnormal Lab Findings: Abnormal Labs 02/28/24 02/28/24 02/29/24 23:31 23:56 00:57 WBC Hct MCHC Neutrophils # Lymphocytes # Chloride 113 H Carbon Dioxide 17 L Creatinine 0.27 L Glucose 119 H POC Glucose (mg/dL) 129 H Plasma Lactic Acid Delvin 3.7 H* Calcium 7.2 L AST 56 H Total Protein 5.2 L Albumin 2.7 L Urine Protein Urine Ketones Ur Leukocyte Esterase Urine WBC Amorphous Sediment Urine Bacteria Hyaline Casts Urine Mucus 02/29/24 02/29/24 02/29/24 01:30 02:55 04:45 WBC 19.2 H Hct 47.4 H MCHC 30.6 L Neutrophils # 17.1 H Lymphocytes # 0.8 L Chloride Carbon Dioxide Creatinine Glucose POC Glucose (mg/dL) Plasma Lactic Acid Delvin 3.1 H* Calcium AST Total Protein Albumin Urine Protein Trace H Urine Ketones Trace H Ur Leukocyte Esterase Moderate H Urine WBC 14 H Amorphous Sediment Rare H Urine Bacteria Rare H Hyaline Casts 16 H Urine Mucus Occasional H 02/29/24 02/29/24 07:27 10:37 WBC Hct MCHC Neutrophils # Lymphocytes # Chloride Carbon Dioxide Creatinine Glucose POC Glucose (mg/dL) Plasma Lactic Acid Delvin 3.0 H* 2.5 H* Calcium AST Total Protein Albumin Urine Protein Urine Ketones Ur Leukocyte Esterase Urine WBC Amorphous Sediment Urine Bacteria Hyaline Casts Urine Mucus Assessment and Plan Assessment: * New onset seizure. Patient presented with status epilepticus, as the seizure lasted for about 20 minutes before it was aborted with IM midazolam. * Advanced multiple sclerosis, wheelchair/bedbound. * Chronic paraplegia due to above. * Elevated lactate, likely due to new onset seizure. * DO NOT RESUSCITATE Plan: * Patient has presented with new onset seizure, of unclear cause. Uncertain if related to her MS. * Patient will be loaded with Keppra 1500 mg IV x 1 dose and started on Keppra 750 mg twice daily. * Check EEG * Neurology team will follow. Dr. Irizarry will resume neurology service from Saturday morning. * Thank you for the consult.
[2024-02-29] MEDS: levETIRAcetam IV 500 MG/5 ML VIAL IVP STA (12:54)
[2024-02-29] MEDS ORDERED: IPRATROPIUM-ALBUTEROL 3 ML NEB INHALATION PRN (14:20)
--- NOTE | 2024-02-29 14:37 | P.HPIM ---
History of Present Illness Patient is 58-year-old female admitted for status epilepticus which lasted for 20 minutes resolved with midazolam. Patient on multiple antiseizure medications at home. Patient is lethargic but was able to answer questions appropriately. Patient had lactic acid (presently 2.5 patient is hyperkalemic because of which IV fluids were changed to half-normal saline. Patient had leukocytosis denies any fever but had low-grade fever here in the ER and patient urine is abnormal he also was complaining of dysuria and increased urinary frequency patient was started on Rocephin with urine cultures, patient had ESBL E. coli from her pre vious cultures this E. coli is also resistant to fluoroquinolones as well. Apparently patient missed antibiotics for couple days. Patient was eval by neurology patient was quite lethargic but alert oriented x 3. REVIEW OF SYSTEMS: All other review of systems are negative PHYSICAL EXAMINATION: GENERAL: The patient is alert and oriented x3, not in any acute distress. Well developed, well nourished. Patient is quite lethargic HEENT: Pupils are round and equally reacting to light. EOMI. No scleral icterus. No conjunctival pallor. Normocephalic, atraumatic. No pharyngeal erythema. No thyromegaly. CARDIOVASCULAR: S1 and S2 present. No murmurs, rubs, or gallops. PULMONARY: Chest is clear to auscultation, no wheezing or crackles. ABDOMEN: Soft, nontender, nondistended, normoactive bowel sounds. No palpable organomegaly. MUSCULOSKELETAL: No joint swelling or deformity. EXTREMITIES: No cyanosis, clubbing, or pedal edema. NEUROLOGICAL: Gross neurological examination did not reveal any new focal deficits. Patient have some focal deficits from her previous MS. SKIN: No rashes. Assessment and plan -Breakthrough seizures onset seizure, patient was in status on admission which resolved at this time lactic acidosis secondary to seizures patient will be resumed on home medications. Her seizures are believed to be secondary to missing few doses of her 3 antiseizure medications which were resumed. -Sepsis secondary to urinary tract infection: Patient had ESBL E. coli infectious disease will be consulted patient will be started on meropenem with close monitoring for seizures. Patient is also on dalfampridine which will be discontinued as it is contraindicated in seizures -Multiple sclerosis history no evidence of in excess exacerbation continue with supportive care and supportive care medications -Severe sepsis -Lactic acidosis secondary to seizures and sepsis Anion gap metabolic acidosis secondary lactic acidosis and non-anion gap metabolic acidosis secondary to hyperchloremia patient was switched to half- normal saline DVT prophylaxis: Lovenox Past Medical History Past Medical History: Thyroid Disorder Additional Past Medical History / Comment(s): MS History of Any Multi-Drug Resistant Organisms: ESBL Date of last positivie culture/infection: 08/11/22 MDRO Source:: Blood & Urine Past Surgical History: Appendectomy, Back Surgery, Section Past Psychological History: No Psychological Hx Reported Smoking Status: Never smoker Past Alcohol Use History: None Reported Past Drug Use History: None Reported Medications and Allergies Home Medications Medication Instructions Recorded Confirmed Type Baclofen [Lioresal] 20 mg PO Q4HR 08/11/22 02/29/24 History Dalfampridine [Dalfampridine ER] 10 mg PO BID 08/11/22 02/29/24 History Methylphenidate HCl [Ritalin] 10 mg PO BID@0700,1600 08/11/22 02/29/24 History Acetaminophen [Tylenol 8 Hour] 650 mg PO Q6H PRN 02/29/24 02/29/24 History Aspirin EC [Ecotrin Low Dose] 81 mg PO DAILY 02/29/24 02/29/24 History Brivaracetam [Briviact] 100 mg PO BID 02/29/24 02/29/24 History Divalproex Sodium [Depakote] 500 mg PO Q8HR@0500,1300,2100 02/29/24 02/29/24 History Docusate [Colace] 100 mg PO BID 02/29/24 02/29/24 History Enoxaparin [Lovenox] 40 mg SQ HS 02/29/24 02/29/24 History Famotidine [Pepcid] 20 mg PO BID 02/29/24 02/29/24 History Ipratropium-Albuterol Nebulize 3 ml INHALATION RT-Q4H PRN 02/29/24 02/29/24 History [Duoneb 0.5 mg-3 mg/3 ml Soln] Lacosamide [Vimpat] 200 mg PO BID@0700,1900 02/29/24 02/29/24 History Levothyroxine Sodium [Synthroid] 50 mcg PO DAILY 02/29/24 02/29/24 History Sennosides [Senokot] 8.6 mg PO DAILY 02/29/24 02/29/24 History amantadine HCL [Symmetrel] 100 mg PO BID@07,199902/29/24 02/29/24 History Allergies Allergy/AdvReac Type Severity Reaction Status Date / Time No Known Allergies Allergy Verified 02/29/24 10:36 Physical Exam Vitals: Vital Signs Temp Pulse Resp BP Pulse Ox 02/29/24 14:00 80 22 88/58 96 02/29/24 13:01 84 18 98/61 96 02/29/24 12:00 92 20 100/66 96 02/29/24 10:55 86 18 100/66 100 02/29/24 08:40 93 18 105/71 96 02/29/24 07:47 85 22 98/62 100 02/29/24 06:00 93 18 105/65 100 02/29/24 04:00 88 14 111/69 100 02/29/24 03:25 75 16 104/63 100 02/29/24 02:58 79 18 112/76 100 02/29/24 01:59 98.1 F 64 16 101/72 100 02/29/24 01:36 96 16 106/64 100 02/28/24 23:33 100.6 F H 115 H 22 104/64 98 Intake and Output 02/28/24 02/29/24 02/29/24 22:59 06:59 14:59 Other: Weight 55.792 kg Results CBC & Chem 7: 02/29/24 01:30 02/28/24 23:56 Labs: Abnormal Lab Results - Last 24 Hours (Table) 02/28/24 02/28/24 02/29/24 Range/Units 23:31 23:56 00:57 WBC (3.8-10.6) k/uL Hct (34.0-46.0) % MCHC (31.0-37.0) g/dL Neutrophils # (1.3-7.7) k/uL Lymphocytes # (1.0-4.8) k/uL Chloride 113 H (98-107) mmol/L Carbon Dioxide 17 L (22-30) mmol/L Creatinine 0.27 L (0.52-1.04) mg/dL Glucose 119 H (74-99) mg/dL POC Glucose (mg/dL) 129 H (70-110) mg/dL Plasma Lactic Acid Delvin 3.7 H* (0.7-2.0) mmol/L Calcium 7.2 L (8.4-10.2) mg/dL AST 56 H (14-36) U/L Total Protein 5.2 L (6.3-8.2) g/dL Albumin 2.7 L (3.5-5.0) g/dL Urine Protein (Negative) Urine Ketones (Negative) Ur Leukocyte Esterase (Negative) Urine WBC (0-5) /hpf Amorphous Sediment (None) /hpf Urine Bacteria (None) /hpf Hyaline Casts (0-2) /lpf Urine Mucus (None) /hpf 02/29/24 02/29/24 02/29/24 Range/Units 01:30 02:55 04:45 WBC 19.2 H (3.8-10.6) k/uL Hct 47.4 H (34.0-46.0) % MCHC 30.6 L (31.0-37.0) g/dL Neutrophils # 17.1 H (1.3-7.7) k/uL Lymphocytes # 0.8 L (1.0-4.8) k/uL Chloride (98-107) mmol/L Carbon Dioxide (22-30) mmol/L Creatinine (0.52-1.04) mg/dL Glucose (74-99) mg/dL POC Glucose (mg/dL) (70-110) mg/dL Plasma Lactic Acid Delvin 3.1 H* (0.7-2.0) mmol/L Calcium (8.4-10.2) mg/dL AST (14-36) U/L Total Protein (6.3-8.2) g/dL Albumin (3.5-5.0) g/dL Urine Protein Trace H (Negative) Urine Ketones Trace H (Negative) Ur Leukocyte Esterase Moderate H (Negative) Urine WBC 14 H (0-5) /hpf Amorphous Sediment Rare H (None) /hpf Urine Bacteria Rare H (None) /hpf Hyaline Casts 16 H (0-2) /lpf Urine Mucus Occasional H (None) /hpf 02/29/24 02/29/24 Range/Units 07:27 10:37 WBC (3.8-10.6) k/uL Hct (34.0-46.0) % MCHC (31.0-37.0) g/dL Neutrophils # (1.3-7.7) k/uL Lymphocytes # (1.0-4.8) k/uL Chloride (98-107) mmol/L Carbon Dioxide (22-30) mmol/L Creatinine (0.52-1.04) mg/dL Glucose (74-99) mg/dL POC Glucose (mg/dL) (70-110) mg/dL Plasma Lactic Acid Delvin 3.0 H* 2.5 H* (0.7-2.0) mmol/L Calcium (8.4-10.2) mg/dL AST (14-36) U/L Total Protein (6.3-8.2) g/dL Albumin (3.5-5.0) g/dL Urine Protein (Negative) Urine Ketones (Negative) Ur Leukocyte Esterase (Negative) Urine WBC (0-5) /hpf Amorphous Sediment (None) /hpf Urine Bacteria (None) /hpf Hyaline Casts (0-2) /lpf Urine Mucus (None) /hpf
[2024-02-29] MEDS: SODIUM CHLORIDE 0.45% 1,000 ML IV SCH (15:55)
[2024-02-29] MEDS: MEROPENEM 1 GM in SODIUM CHLORIDE 0.9% 100 ML IVPB SCH (15:56)
[2024-02-29] MEDS ORDERED: METHYLPHENIDATE HCL 10 MG TAB PO SCH (16:00)
[2024-02-29] MEDS: BACLOFEN 10 MG TAB PO SCH (20:41)
[2024-02-29] MEDS: FAMOTIDINE 20 MG TAB PO SCH (20:43)
[2024-02-29] MEDS: DOCUSATE 100 MG CAP PO SCH (20:44)
[2024-02-29] MEDS: DIVALPROEX 500 MG TABLET.DR PO SCH (20:45)
[2024-02-29] MEDS: BRIVARACETAM 100 MG PO SCH (20:46)
[2024-02-29] MEDS: ENOXAPARIN 40 MG/0.4 ML SYRINGE SQ SCH (20:46)
[2024-02-29] MEDS: LACOSAMIDE 50 MG TABLET PO ONE (20:53)
[2024-02-29] MEDS: LACOSAMIDE 50 MG TABLET PO SCH (20:55)
[2024-02-29] MEDS: LACOSAMIDE 150 MG TABLET PO SCH (20:55)
[2024-02-29] MEDS ORDERED: DALFAMPRIDINE 10 MG PO SCH (21:00)
[2024-02-29] MEDS: ACETAMINOPHEN TAB 325 MG TAB PO PRN (22:18)
[2024-03-01] MEDS: LEVOTHYROXINE 50 MCG TAB PO SCH (05:44)
[2024-03-01] MEDS: LACOSAMIDE 50 MG TABLET PO SCH (08:43)
[2024-03-01] MEDS: LACOSAMIDE 150 MG TABLET PO SCH (08:43)
[2024-03-01] MEDS: SENNOSIDES 8.6 MG TAB PO SCH (08:43)
[2024-03-01] MEDS: ASPIRIN 81 MG PO SCH (08:43)
[2024-03-01 08:45] LABS: Basophils % (A) 0 %; Eosinophils # (A) 0.1 k/uL (0-0.7); Eosinophils % (A) 2 %; HCT 38.7 % (34.0-46.0); HGB 12.5 gm/dL (11.4-16.0); Lymphocytes # (A) 1.9 k/uL (1.0-4.8); Lymphocytes % (A) 26 %; MCH 30.8 pg (25.0-35.0); MCHC 32.2 g/dL (31.0-37.0); MCV 95.5 fL (80.0-100.0); Mean Platelet Volume 9.1; Monocytes # (A) 0.5 k/uL (0-1.0); Monocytes % (A) 7 %; Neutrophils # (A) 4.5 k/uL (1.3-7.7); Neutrophils % (A) 63 %; Platelet Count 147 k/uL (150-450); RBC 4.05 m/uL (3.80-5.40); RDW 15.2 % (11.5-15.5); WBC 7.2 k/uL (3.8-10.6)
[2024-03-01 08:58] LABS: African American GFR (CKD) >90 (>60 ml/min/1.73 sqM); Anion Gap 2 mmol/L; Blood Urea Nitrogen 12 mg/dL (7-17); Calcium 8.4 mg/dL (8.4-10.2); Carbon Dioxide 28 mmol/L (22-30); Chloride 109 mmol/L (98-107); Glucose 75 mg/dL (74-99); Magnesium 1.8 mg/dL (1.6-2.3); Non-African American GFR(CKD) >90 (>60 ml/min/1.73 sqM); Potassium 3.1 mmol/L (3.5-5.1); Sodium 139 mmol/L (137-145)
--- NOTE | 2024-03-01 09:27 | P.CONS ---
History of Present Illness - Reason for Consult Consult date: 02/29/24 - History of Present Illness Patient is a 58-year-old female with a past medical history significant for MS thyroid disorder in this patient also have a history of recurrent UTI currently to have a Dailey catheter in this patient has been brought into the hospital from the local [facility] for apparently the patient did have a seizure and the patient has been without her seizure medication for the last 2 days she received a 5 mg IM Versed and the patient was subsequently brought into the hospital patient on presentation to the hospital did have a low-grade fever 100.6 F patient was tachycardic mildly hypotensive but not hypoxic or need for supplemental oxygen, patient did have a white count of 19.2 creatinine has been normal lactic acid elevated AST elevated urine was positive influenza RSV COVID testing negative patient did have a chest x-ray left effusion and no acute pulmonary infiltrate patient was started on meropenem infectious disease was consulted for further management of antibiotic therapy keeping in mind her history of recurrent UTIs with the last urine culture on 11/14/2022 was positive for ESBL E. coli, patient is currently complaining of feeling weak some headache no URI symptoms no chest pain shortness of breath or cough nausea but no vomiting no abdominal pain no diarrhea patient did have a Dailey catheter however she is not very clear when the catheter was changed last Past Medical History Past Medical History: Thyroid Disorder Additional Past Medical History / Comment(s): MS History of Any Multi-Drug Resistant Organisms: ESBL Year Discovered:: 08/11/22 MDRO Source:: Blood & Urine Past Surgical History: Appendectomy, Back Surgery, Section Past Psychological History: No Psychological Hx Reported Smoking Status: Never smoker Past Alcohol Use History: None Reported Past Drug Use History: None Reported Medications and Allergies Home Medications Medication Instructions Recorded Confirmed Type Baclofen [Lioresal] 20 mg PO Q4HR 08/11/22 02/29/24 History Dalfampridine [Dalfampridine ER] 10 mg PO BID 08/11/22 02/29/24 History Methylphenidate HCl [Ritalin] 10 mg PO BID@0700,1600 08/11/22 02/29/24 History Acetaminophen [Tylenol 8 Hour] 650 mg PO Q6H PRN 02/29/24 02/29/24 History Aspirin EC [Ecotrin Low Dose] 81 mg PO DAILY 02/29/24 02/29/24 History Brivaracetam [Briviact] 100 mg PO BID 02/29/24 02/29/24 History Divalproex Sodium [Depakote] 500 mg PO Q8HR@0500,1300,2100 02/29/24 02/29/24 History Docusate [Colace] 100 mg PO BID 02/29/24 02/29/24 History Enoxaparin [Lovenox] 40 mg SQ HS 02/29/24 02/29/24 History Famotidine [Pepcid] 20 mg PO BID 02/29/24 02/29/24 History Ipratropium-Albuterol Nebulize 3 ml INHALATION RT-Q4H PRN 02/29/24 02/29/24 History [Duoneb 0.5 mg-3 mg/3 ml Soln] Lacosamide [Vimpat] 200 mg PO BID@0700,1900 02/29/24 02/29/24 History Levothyroxine Sodium [Synthroid] 50 mcg PO DAILY 02/29/24 02/29/24 History Sennosides [Senokot] 8.6 mg PO DAILY 02/29/24 02/29/24 History amantadine HCL [Symmetrel] 100 mg PO BID@0700,2000 02/29/24 02/29/24 History Allergies Allergy/AdvReac Type Severity Reaction Status Date / Time No Known Allergies Allergy Verified 02/29/24 10:36 Physical Exam Vitals: Vital Signs Temp Pulse Resp BP Pulse Ox 02/29/24 14:00 80 22 88/58 96 02/29/24 13:01 84 18 98/61 96 02/29/24 12:00 92 20 100/66 96 02/29/24 10:55 86 18 100/66 100 02/29/24 08:40 93 18 105/71 96 02/29/24 07:47 85 22 98/62 100 02/29/24 06:00 93 18 105/65 100 02/29/24 04:00 88 14 111/69 100 02/29/24 03:25 75 16 104/63 100 02/29/24 02:58 79 18 112/76 100 02/29/24 01:59 98.1 F 64 16 101/72 100 05/18/24 01:36 96 16 106/64 100 02/28/24 23:33 100.6 F H 115 H 22 104/64 98 Intake and Output 02/29/24 02/29/24 02/29/24 06:59 14:59 22:59 Other: Weight 55.792 kg Results CBC & Chem 7: 03/01/24 08:25 03/01/24 08:25 Labs: Abnormal Lab Results - Last 24 Hours (Table) 02/28/24 02/28/24 02/29/24 Range/Units 23:31 23:56 00:57 WBC (3.8-10.6) k/uL Hct (34.0-46.0) % MCHC (31.0-37.0) g/dL Neutrophils # (1.3-7.7) k/uL Lymphocytes # (1.0-4.8) k/uL Chloride 113 H (98-107) mmol/L Carbon Dioxide 17 L (22-30) mmol/L Creatinine 0.27 L (0.52-1.04) mg/dL Glucose 119 H (74-99) mg/dL POC Glucose (mg/dL) 129 H (70-110) mg/dL Plasma Lactic Acid Delvin 3.7 H* (0.7-2.0) mmol/L Calcium 7.2 L (8.4-10.2) mg/dL AST 56 H (14-36) U/L Total Protein 5.2 L (6.3-8.2) g/dL Albumin 2.7 L (3.5-5.0) g/dL Urine Protein (Negative) Urine Ketones (Negative) Ur Leukocyte Esterase (Negative) Urine WBC (0-5) /hpf Amorphous Sediment (None) /hpf Urine Bacteria (None) /hpf Hyaline Casts (0-2) /lpf Urine Mucus (None) /hpf 02/29/24 02/29/24 02/29/24 Range/Units 01:30 02:55 04:45 WBC 19.2 H (3.8-10.6) k/uL Hct 47.4 H (34.0-46.0) % MCHC 30.6 L (31.0-37.0) g/dL Neutrophils # 17.1 H (1.3-7.7) k/uL Lymphocytes # 0.8 L (1.0-4.8) k/uL Chloride (98-107) mmol/L Carbon Dioxide (22-30) mmol/L Creatinine (0.52-1.04) mg/dL Glucose (74-99) mg/dL POC Glucose (mg/dL) (70-110) mg/dL Plasma Lactic Acid Delvin 3.1 H* (0.7-2.0) mmol/L Calcium (8.4-10.2) mg/dL AST (14-36) U/L Total Protein (6.3-8.2) g/dL Albumin (3.5-5.0) g/dL Urine Protein Trace H (Negative) Urine Ketones Trace H (Negative) Ur Leukocyte Esterase Moderate H (Negative) Urine WBC 14 H (0-5) /hpf Amorphous Sediment Rare H (None) /hpf Urine Bacteria Rare H (None) /hpf Hyaline Casts 16 H (0-2) /lpf Urine Mucus Occasional H (None) /hpf 02/29/24 02/29/24 Range/Units 07:27 10:37 WBC (3.8-10.6) k/uL Hct (34.0-46.0) % MCHC (31.0-37.0) g/dL Neutrophils # (1.3-7.7) k/uL Lymphocytes # (1.0-4.8) k/uL Chloride (98-107) mmol/L Carbon Dioxide (22-30) mmol/L Creatinine (0.52-1.04) mg/dL Glucose (74-99) mg/dL POC Glucose (mg/dL) (70-110) mg/dL Plasma Lactic Acid Delvin 3.0 H* 2.5 H* (0.7-2.0) mmol/L Calcium (8.4-10.2) mg/dL AST (14-36) U/L Total Protein (6.3-8.2) g/dL Albumin (3.5-5.0) g/dL Urine Protein (Negative) Urine Ketones (Negative) Ur Leukocyte Esterase (Negative) Urine WBC (0-5) /hpf Amorphous Sediment (None) /hpf Urine Bacteria (None) /hpf Hyaline Casts (0-2) /lpf Urine Mucus (None) /hpf Assessment and Plan Plan: 1patient presented to hospital with sepsis in this patient who did have fever tachycardia elevated white count source is likely catheter associated tract infection in this patient who do have a history of MS urinary retention requiring Dailey catheter and history of of recurrent UTIs with the last urine culture positive for ESBL E. coli. 2we will recommend change of her Dailey catheter and obtain a urine culture from the new Dailey. 3continue with the meropenem however why the patient closely keeping in mind hi story of seizures neurology is following the patient. We will follow on clinical condition and cultures to further adjust medication if needed Thank you for this consultation we will follow the patient along with you Dictation was produced using [employer] dictation software. please excuse any grammatical, word or spelling errors. Time with Patient: Greater than 30
--- NOTE | 2024-03-01 13:19 | P.PN ---
Subjective Progress Note Date: 03/01/24 Patient is 58-year-old female admitted for status epilepticus which lasted for 20 minutes resolved with midazolam. Patient on multiple antiseizure medications at home. Patient is lethargic but was able to answer questions appropriately. Patient had lactic acid (presently 2.5 patient is hyperkalemic because of which IV fluids were changed to half-normal saline. Patient had leukocytosis denies any fever but had low-grade fever here in the ER and patient urine is abnormal he also was complaining of dysuria and increased urinary frequency patient was started on Rocephin with urine cultures, patient had ESBL E. coli from her previous cultures this E. coli is also resistant to fluoroquinolones as well. Apparently patient missed antibiotics for couple days. Patient was eval by neurology patient was quite lethargic but alert oriented x 3. 03/01/2024 Patient is evaluated today in follow up in the ER pending a bed on the medical floor. Patient is more awake alert has been resumed on her antiseizure medication although we do not carry the briviact asked patient to have someone bring her home medications in. Patient feels maybe she is in an MS flare up. Remains on IV meropenem with concern for UTI although the urine culture is negative. Potassium is 3.1. Magnesium is 1.8. Review of Systems Constitutional: Denied any fatigue denied any fever. Cardio vascular: denied any chest pain, palpitations Gastrointestinal: denied any nausea, vomiting, diarrhea Pulmonary: Denied any shortness of breath cough Neurologic denied any new focal deficits; paraplegia All inpatient medications were reviewed and appropriate changes in these medications as dictated in the interval history and assessment and plan. PHYSICAL EXAMINATION: GENERAL: The patient is alert and oriented x3, not in any acute distress. Well developed, well nourished. More awake and alert. HEENT: Pupils are round and equally reacting to light. EOMI. No scleral icterus. No conjunctival pallor. Normocephalic, atraumatic. No pharyngeal erythema. No thyromegaly. CARDIOVASCULAR: S1 and S2 present. No murmurs, rubs, or gallops. PULMONARY: Chest is clear to auscultation, no wheezing or crackles. ABDOMEN: Soft, nontender, nondistended, normoactive bowel sounds. No palpable organomegaly. MUSCULOSKELETAL: No joint swelling or deformity. EXTREMITIES: No cyanosis, clubbing, or pedal edema. NEUROLOGICAL: Unable to move lower extremities bilaterally. Patient have some focal deficits from her previous MS. Upper extremities are tremulous. SKIN: No rashes. Assessment and plan -Breakthrough seizures onset seizure, patient was in status on admission which resolved at this time lactic acidosis secondary to seizures patient will be resumed on home medications. Her seizures are believed to be secondary to missing few doses of her 3 antiseizure medications which were resumed. Briviact will need to be brought from home. -Sepsis secondary to urinary tract infection: Patient had ESBL E. coli infectious disease will be consulted patient will be started on meropenem with close monitoring for seizures. Patient is also on dalfampridine which will be discontinued as it is contraindicated in seizures -Multiple sclerosis history no evidence of an acute exacerbation continue with supportive care and supportive care medications -Severe sepsis -Lactic acidosis secondary to seizures and sepsis -Hypokalemia patient has been NPO replace and follow up BMP in the AM. -Anion gap metabolic acidosis secondary lactic acidosis and non-anion gap metabolic acidosis secondary to hyperchloremia patient was switched to half-normal saline DVT prophylaxis: Lovenox GI prophylaxis: Pepcid Do Not Resuscitate, Do Not Intubate The impression and plan of care has been dictated by Prabha Beverly, Nurse Practitioner as directed. Dr. Estefanía MD I have performed a history and physical examination and medical decision making of this patient, discussed the same with the dictator, and agree with the dictators assessment and plan as written, documented as a scribe. Based on total visit time, I have performed more than 50% of this visit. Objective - Vital Signs Vital signs: Vital Signs Temp 98.1 F 02/29/24 23:35 Pulse 68 03/01/24 03:37 Resp 16 03/01/24 03:37 BP 95/57 03/01/24 03:37 Pulse Ox 99 03/01/24 03:37 FiO2 - Labs CBC & Chem 7: 03/01/24 08:25 03/01/24 08:25 Labs: Abnormal Lab Results - Last 24 Hours (Table) 02/29/24 02/29/24 Range/Units 07:27 10:37 Plasma Lactic Acid Delvin 3.0 H* 2.5 H* (0.7-2.0) mmol/L Assessment and Plan Time with Patient: Less than 30
--- NOTE | 2024-03-01 13:55 | XR ---
EXAMINATION TYPE: XR lumbar spine 2 or 3V DATE OF EXAM: 03/01/2024 1:33 PM CLINICAL INDICATION:Female, 58 years old with history of unable to move lower extremities since fall. ; H COMPARISON: None TECHNIQUE: XR lumbar spine 2 or 3V - Frontal, lateral and coned in L5-S1 lateral views of the spine. FINDINGS: No evidence of any acute osseous pathology. No evidence of loss of vertebral body height i s seen. There is normal alignment of the lumbar vertebral bodies. No significant degeneration changes throughout the spine. Postsurgical changes to L4-L5 with hardware intact. PEG tube in place. IMPRESSION: 1. No acute fracture. 2. Postsurgical changes with hardware intact at L4-L5.
--- NOTE | 2024-03-01 14:32 | P.PN ---
Subjective Progress Note Date: 03/01/24 Patient was seen for a follow-up. Patient is doing much better. Patient is fully alert and awake. She is very interactive, answering a very appropriately. Patient admits that she had history of new onset seizure on 12/19/2023 and had undergone prolonged hospitalization for 2 months. She had tracheostomy and PEG which has been removed. The nurse also reported that patient has not received Briviact while she was in [facility] [place]. So she was without Briviact for 36 hours before she had a seizure. Patient states that she is not able to move her legs since she had a seizure in December 2023. Objective - Vital Signs Vital signs: Vital Signs Temp 97.5 F L 03/01/24 12:57 Pulse 75 03/01/24 12:57 Resp 20 03/01/24 12:57 BP 104/86 03/01/24 12:57 Pulse Ox 97 03/01/24 12:57 FiO2 - Exam Patient's mental status is normal. Speech is slightly cerebellar dysarthric. No aphasia. Mentation is normal. On muscle strength testing, patient has strength of about 4 all over in the deltoid, biceps, triceps and travel accommodations rater. Patient is 0 in the lower extremities bilaterally. Patient has severe ataxia for [id number] testing bilaterally. - Labs CBC & Chem 7: 03/01/24 08:25 03/01/24 08:25 Labs: Abnormal Lab Results - Last 24 Hours (Table) 03/01/24 03/01/24 Range/Units 08:25 08:25 Plt Count 147 L (150-450) k/uL Potassium 3.1 L (3.5-5.1) mmol/L Chloride 109 H (98-107) mmol/L Creatinine 0.29 L (0.52-1.04) mg/dL Microbiology - Last 24 Hours (Table) 02/29/24 02:45 Blood Culture - Preliminary Blood 02/29/24 02:30 Blood Culture - Preliminary Blood 02/29/24 02:55 Urine Culture - Final Urine,Voided Assessment and Plan Assessment: * Breakthrough seizure, presenting with status epilepticus. Seizure lasted for about 20 minutes before it was aborted with IM midazolam. Seizure likely triggered from lowered threshold from dalfampridine, and also that patient did not receive her Briviact for 36 hours while she was in [facility]. * New onset seizure diagnosed on 12/19/2023. Patient probably had status epilepticus at that time, with prolonged hospitalization for 2 months, di celineged to [facility] 36-hour before presenting with status epilepticus. * Advanced multiple sclerosis, wheelchair/bedbound. * Paraplegia, worse since recent hospitalization. * Elevated lactate, likely due to new onset seizure. * DO NOT RESUSCITATE Plan: * Patient is resumed on Vimpat 200 mg twice daily, and Depakote 500 mg 3 times daily. * Stay off Briviact. Keppra already has been discontinued. * Stop dalfampridine completely. Patient states that it was helping her mobility. * Check EEG in the morning. * May resume Ritalin, if the EEG is stable. * Patient is noticing complete paraplegia in the lower extremities since her recent hospitalization on 12/19/2023. * We will obtain records from [facility] including discharge summary, radiology records and neurology notes. * Check B12, folate, TSH * Patient may need MRI of the spine, and treatment with steroids, if not done at [facility]. * Dr. Henri Irizarry to start neurology service from morning.
--- NOTE | 2024-03-01 21:55 | P.PN ---
Subjective Progress Note Date: 03/01/24 Principal diagnosis: Reason for follow-up is a catheter associated UTI Patient is a 58-year-old female with a past medical history significant for MS thyroid disorder in this patient also have a history of recurrent UTI currently to have a Dailey catheter in this patient has been brought into the hospital from the local care home for apparently the patient did have a seizure, patient was noted to have a low-grade fever elevated white count positive UA concerning for catheter associated UTI. On today's evaluation that is 03/01/2024,the patient denies any fever or any chills, patient is breathing comfortably on room air, the patient denies chest pain shortness of breath and no significant cough, patient denies abdominal pain, no nausea vomiting or diarrhea.. Patient white count is normalized to 7.2, creatinine 0.29 Objective - Vital Signs Vital signs: Vital Signs Temp 98.6 F 03/01/24 20:05 Pulse 92 03/01/24 20:05 Resp 16 03/01/24 20:05 BP 100/63 03/01/24 20:05 Pulse Ox 100 03/01/24 20:05 FiO2 Intake & Output 03/01/24 03/01/24 03/02/24 06:59 18:59 06:59 Weight 55.792 kg - Exam GENERAL DESCRIPTION: Middle-aged female lying in bed in no distress RESPIRATORY SYSTEM: Unlabored breathing , decreased breath sounds at bases HEART: S1 S2 regular rate and rhythm , ABDOMEN: Soft , no tenderness EXTREMITIES: No edema feet - Labs CBC & Chem 7: 03/01/24 08:25 03/01/24 08:25 Labs: Abnormal Lab Results - Last 24 Hours (Table) 03/01/24 03/01/24 Range/Units 08:25 08:25 Plt Count 147 L (150-450) k/uL Potassium 3.1 L (3.5-5.1) mmol/L Chloride 109 H (98-107) mmol/L Creatinine 0.29 L (0.52-1.04) mg/dL Microbiology - Last 24 Hours (Table) 02/29/24 02:45 Blood Culture - Preliminary Blood 02/29/24 02:30 Blood Culture - Preliminary Blood 02/29/24 02:55 Urine Culture - Final Urine,Voided Assessment and Plan (1) Catheter-associated urinary tract infection Current Visit: Yes Status: Acute Code(s): T83.511A - I/I REACT D/T INDWELLING URETHRAL CATHETER, INIT; N39.0 - URINARY TRACT INFECTION, SITE NOT SPECIFIED SNOMED Code(s): 627854385 Plan: 1patient presented to hospital with sepsis in this patient who did have fever tachycardia elevated white count source is likely catheter associated tract infection in this patient who do have a history of MS urinary retention requiring Dailey catheter and history of of recurrent UTIs with the last urine culture positive for ESBL E. coli. 2patient did have normalization of the white count and willcontinue with the meropenem while waiting for the culture to finalize Dictation was produced using [employer] dictation software. please excuse any grammatical, word or spelling errors. Time with Patient: Less than 30
[2024-03-02 08:48] LABS: Blood Urea Nitrogen 8.1 mg/dL (9.0-27.0); Calcium 8.4 mg/dL (8.7-10.3); Carbon Dioxide 27.9 mmol/L (21.6-31.8); Chloride 107 mmol/L (96-109); Glucose 84 mg/dL (70-110); Potassium 3.3 mmol/L (3.5-5.5); Sodium 143 mmol/L (135-145)
--- NOTE | 2024-03-02 16:00 | P.PN ---
Subjective Progress Note Date: 03/02/24 I am seeing the patient for the first time during this admission. Please refer to Dr. Villatoro's note for further details. Seems that the patient has advanced multiple sclerosis and she is wheelchair-bound/bedbound. Seems the patient has breakthrough seizures presenting with status epilepticus and the seizure lasted for 20 minutes before aborted with IM midazolam and it is likely triggered from low threshold from Dalfampridine and her not receiving Brivact while at [facility] per Dr. Villatoro. Patient feels that she is doing better and per the nurse clinically she is doing better. She did acknowledge that she has advanced MS. She stated that she has been severely paraplegic since beginning of December 2023 when she was hospitalized at a different outside hospital. Objective - Vital Signs Vital signs: Vital Signs Temp 98.3 F 03/02/24 12:00 Pulse 87 03/02/24 12:00 Resp 20 03/02/24 08:00 BP 103/54 03/02/24 12:00 Pulse Ox 98 03/02/24 12:19 FiO2 Intake & Output 03/01/24 03/02/24 03/02/24 18:59 06:59 18:59 Intake Total 118 Output Total 250 Balance -250 118 Weight 55.792 kg 56.5 kg Intake: Oral 118 Output: Urine 250 Other: Voiding Method Diaper Incontinent External Catheter # Voids 2 - Exam General: Lying in bed and is not in acute distress. Neuro: The patient is drowsy but is awakeable to voice. Patient is oriented to self, place and time. She is mildly slow following commands. She is following simple commands. No aphasia. Pupils are round equal reactive to light. Pupils are round 3 mm bilaterally. No facial weakness. No dysarthria. Patient has hypophonia. Motor is left in upper extremities but the strength is 4+ and the handgrip is 4 while lowers are 0 out of 5. Reflexes 1 positive. - Labs CBC & Chem 7: 03/01/24 08:25 03/02/24 05:34 Labs: Abnormal Lab Results - Last 24 Hours (Table) 03/01/24 03/02/24 Range/Units 08:25 05:34 Potassium 3.3 L (3.5-5.5) mmol/L BUN 8.1 L (9.0-27.0) mg/dL Creatinine 0.2 L (0.6-1.5) mg/dL BUN/Creatinine Ratio 40.50 H (12.00-20.00) Ratio Calcium 8.4 L (8.7-10.3) mg/dL Vitamin B12 1806.0 H (200.0-944.0) pg/mL TSH 11.400 H (0.350-5.500) UIU/ML Microbiology - Last 24 Hours (Table) 02/29/24 02:45 Blood Culture - Preliminary Blood 02/29/24 02:30 Blood Culture - Preliminary Blood Assessment and Plan Assessment: * Breakthrough seizure, presenting with status epilepticus. Seizure lasted for about 20 minutes before it was aborted with IM midazolam. Seizure likely triggered from lowered threshold from dalfampridine, and also that patient did not receive her Briviact for 36 hours while she was in [facility]. * New onset seizure diagnosed on 12/19/2023. Patient probably had status epilepticus at that time, with prolonged hospitalization for 2 months, discharged to [facility] 36-hour before presenting with status epilepti cus. * Advanced multiple sclerosis, wheelchair/bedbound. * Paraplegia, worse since recent hospitalization on 12/2023. * Elevated lactate, likely due to new onset seizure. * DO NOT RESUSCITATE Plan: * Patient is resumed on Vimpat 200 mg twice daily, and Depakote 500 mg 3 times daily. * Per Dr. Villatoro, Stay off Briviact. Keppra already has been discontinued. * Also per Dr. Villatoro, Stop dalfampridine completely. Patient states that it was helping her mobility. * Pending EEG: * May resume Ritalin, if the EEG is stable Per Dr. Moore. * Patient is noticing complete paraplegia in the lower extremities since her recent hospitalization on 12/19/2023. * We review records [facility] including discharge summary, radiology records and neurology notes. * B12: 1806, folate: 22.70, TSH: 11.40 and free T4 0.98 * Per Dr. Villatoro, patient may need MRI of the spine, and treatment with steroids, if not done at [facility]. Time with Patient: Less than 30
--- NOTE | 2024-03-02 19:05 | P.PN ---
Subjective Progress Note Date: 03/02/24 Patient is 58-year-old female admitted for status epilepticus which lasted for 20 minutes resolved with midazolam. Patient on multiple antiseizure medications at home. Patient is lethargic but was able to answer questions appropriately. Patient had lactic acid (presently 2.5 patient is hyperkalemic because of which IV fluids were changed to half-normal saline. Patient had leukocytosis denies any fever but had low-grade fever here in the ER and patient urine is abnormal he also was complaining of dysuria and increased urinary frequency patient was started on Rocephin with urine cultures, patient had ESBL E. coli from her previous cultures this E. coli is also resistant to fluoroquinolones as well. Apparently patient missed antibiotics for couple days. Patient was eval by neurology patient was quite lethargic but alert oriented x 3. 03/01/2024 Patient is evaluated today in follow up in the ER pending a bed on the medical floor. Patient is more awake alert has been resumed on her antiseizure medication although we do not carry the briviact asked patient to have someone bring her home medications in. Patient feels maybe she is in an MS flare up. Remains on IV meropenem with concern for UTI although the urine culture is negative. Potassium is 3.1. Magnesium is 1.8. 03/02/2024 Patient is evaluated in follow up today on the medical floor. Patient is recommending to remain off of briviact by neurology. Continues on vimpat, depakote. Patient remains on IV meropenem, urine culture negative. Lumbar spine xray showing no acute fracture postsurgical changes with hardware intact at L4/ L5. Patient has PEG tube in place. Blood work reveals potassium 3.3, BUN 8.1, creatinine 0.2. Folate level 22.70. TSH 11.400, T4 0.98. Review of Systems Constitutional: Denied any fatigue denied any fever. Cardio vascular: denied any chest pain, palpitations Gastrointestinal: denied any nausea, vomiting, diarrhea Pulmonary: Denied any shortness of breath cough Neurologic denied any new focal deficits; paraplegia All inpatient medications were reviewed and appropriate changes in these medicat ions as dictated in the interval history and assessment and plan. PHYSICAL EXAMINATION: GENERAL: The patient is alert and oriented x3, not in any acute distress. Well developed, well nourished. More awake and alert. HEENT: Pupils are round and equally reacting to light. EOMI. No scleral icterus. No conjunctival pallor. Normocephalic, atraumatic. No pharyngeal erythema. No thyromegaly. CARDIOVASCULAR: S1 and S2 present. No murmurs, rubs, or gallops. PULMONARY: Chest is clear to auscultation, no wheezing or crackles. ABDOMEN: Soft, nontender, nondistended, normoactive bowel sounds. No palpable organomegaly. MUSCULOSKELETAL: No joint swelling or deformity. EXTREMITIES: No cyanosis, clubbing, or pedal edema. NEUROLOGICAL: Unable to move lower extremities bilaterally. Patient have some focal deficits from her previous MS. Upper extremities are tremulous. SKIN: No rashes. Assessment and plan -Breakthrough seizures patient was in status epilepticus on admission which resolved at this time lactic acidosis secondary to seizures patient will be resumed on home medications. Her seizures are believed to be secondary to missing few doses of her 3 antiseizure medications which were resumed. Briviact recommend by neurology to be discontinued. -Sepsis secondary to urinary tract infection: Patient had ESBL E. coli infectious disease will be consulted patient will be started on meropenem with close monitoring for seizures. Patient is also on dalfampridine which will be discontinued as it is contraindicated in seizures -Multiple sclerosis per patient has become unable to use her lower extremities since December hospitalization. Reports being obtained from [facility] may need MRI and steroids if not already done there. -Severe sepsis -Lactic acidosis secondary to seizures and sepsis -Hypokalemia patient has been NPO replace and follow up BMP in the AM. Resumed on diet potassium 3.4. -Anion gap metabolic acidosis secondary lactic acidosis and non-anion gap metabolic acidosis secondary to hyperchloremia patient was switched to half- normal saline and acidosis has resolved. -Hypothyroidism with significantly elevated TSH at 11.400 synthroid has been increased to 100 mcg daily and need to repeat blood work outpatient. DVT prophylaxis: Lovenox GI prophylaxis: Pepcid Do Not Resuscitate, Do Not Intubate The impression and plan of care has been dictated by Prabha Beverly Nurse Practitioner as directed. Dr. Estefanía MD I have performed a history and physical examination and medical decision making of this patient, discussed the same with the dictator, and agree with the dictators assessment and plan as written, documented as a scribe. Based on total visit time, I have performed more than 50% of this visit. Objective - Vital Signs Vital signs: Vital Signs Temp 97.6 F 03/02/24 16:00 Pulse 80 03/02/24 16:00 Resp 20 03/02/24 08:00 BP 109/67 03/02/24 16:00 Pulse Ox 98 03/02/24 12:19 FiO2 Intake & Output 03/01/24 03/02/24 03/02/24 18:59 06:59 18:59 Intake Total 474 Output Total 250 Balance -250 474 Weight 55.792 kg 56.5 kg Intake: Oral 474 Output: Urine 250 Other: Voiding Method Diaper Incontinent External Catheter # Voids 2 1 # Bowel Movements 1 - Labs CBC & Chem 7: 03/01/24 08:25 03/02/24 05:34 Labs: Abnormal Lab Results - Last 24 Hours (Table) 03/01/24 03/02/24 Range/Units 08:25 05:34 Potassium 3.3 L (3.5-5.5) mmol/L BUN 8.1 L (9.0-27.0) mg/dL Creatinine 0.2 L (0.6-1.5) mg/dL BUN/Creatinine Ratio 40.50 H (12.00-20.00) Ratio Calcium 8.4 L (8.7-10.3) mg/dL Vitamin B12 1806.0 H (200.0-944.0) pg/mL TSH 11.400 H (0.350-5.500) UIU/ML Microbiology - Last 24 Hours (Table) 02/29/24 02:45 Blood Culture - Preliminary Blood 02/29/24 02:30 Blood Culture - Preliminary Blood Assessment and Plan Time with Patient: Less than 30
--- NOTE | 2024-03-02 21:34 | EEG ---
ELECTROENCEPHALOGRAM REPORT CLINICAL HISTORY: This is a 58-year-old woman with history of epilepsy with altered mental status. The video EEG is obtained to evaluate for seizure epileptiform activity. RELEVANT MEDICATIONS: 1. Depakote. 2. Vimpat. EEG TYPE: A routine 21-channel EEG with video using the 10/20 electrode placement system. DESCRIPTION: Wakefulness and drowsiness are obtained. During awake state, the background consists of [id number] voltage of 7 to 8 hertz activity. There is no physiological stage 2 sleep architecture. There is no focal slowing. Interictal and ictal is none. ACTIVATION PROCEDURE: Photic stimulation did not evoke a posterior driving response. There is no abnormality during the photic stimulation. Hyperventilation is not performed. CLINICAL INTERPRETATION: This is an abnormal routine EEG. The background slowing is suggestive of mild encephalopathy. There is no focal slowing, epileptiform discharge, or seizure on the EEG. Clinical correlation is recommended. MARIO / MOLINA: [id number] / [id number]
[2024-03-03] MEDS: LEVOTHYROXINE 100 MCG TAB PO SCH (05:57)
--- NOTE | 2024-03-03 08:14 | P.PN ---
Subjective Progress Note Date: 03/02/24 Principal diagnosis: Reason for follow-up is a catheter associated UTI Patient is a 58-year-old female with a past medical history significant for MS thyroid disorder in this patient also have a history of recurrent UTI currently to have a Dailey catheter in this patient has been brought into the hospital from the local alf for apparently the patient did have a seizure, patient was noted to have a low-grade fever elevated white count positive UA concerning for catheter associated UTI. On today's evaluation that is 03/02/2024,the patient remains to be afebrile, patient is on room air not requiring supplemental oxygen and denies any shortness of breath no chest pain or cough.Patient denies having any nausea or vomiting, no abdominal pain and no diarrhea has been reported, patient mention feeling better. Patient did have a creatinine of 0.2 no CBC was done today blood and urine cultures so far negative Objective - Vital Signs Vital signs: Vital Signs Temp 98.5 F 03/02/24 08:00 Pulse 74 03/02/24 08:00 Resp 20 03/02/24 08:00 BP 102/66 03/02/24 08:00 Pulse Ox 98 03/02/24 12:19 FiO2 Intake & Output 03/01/24 03/02/24 03/02/24 18:59 06:59 18:59 Output Total 250 Balance -250 Weight 55.792 kg 56.5 kg Output: Urine 250 Other: Voiding Method Diaper Incontinent External Catheter # Voids 2 - Exam GENERAL DESCRIPTION: Middle-aged female lying in bed in no distress RESPIRATORY SYSTEM: Unlabored breathing , decreased breath sounds at bases HEART: S1 S2 regular rate and rhythm , ABDOMEN: Soft , no tenderness EXTREMITIES: No edema feet - Labs CBC & Chem 7: 03/01/24 08:25 03/02/24 05:34 Labs: Abnormal Lab Results - Last 24 Hours (Table) 03/01/24 03/02/24 Range/Units 08:25 05:34 Potassium 3.3 L (3.5-5.5) mmol/L BUN 8.1 L (9.0-27.0) mg/dL Creatinine 0.2 L (0.6-1.5) mg/dL BUN/Creatinine Ratio 40.50 H (12.00-20.00) Ratio Calcium 8.4 L (8.7-10.3) mg/dL Vitamin B12 1806.0 H (200.0-944.0) pg/mL TSH 11.400 H (0.350-5.500) UIU/ML Microbiology - Last 24 Hours (Table) 02/29/24 02:45 Blood Culture - Preliminary Blood 02/29/24 02:30 Blood Culture - Preliminary Blood 02/29/24 02:55 Urine Culture - Final Urine,Voided Assessment and Plan (1) Catheter-associated urinary tract infection Current Visit: Yes Status: Acute Code(s): T83.511A - I/I REACT D/T INDWELLING URETHRAL CATHETER, INIT; N39.0 - URINARY TRACT INFECTION, SITE NOT SPECIFIED SNOMED Code(s): 635595835 Plan: 1patient presented to hospital with sepsis in this patient who did have fever tachycardia elevated white count source is likely catheter associated tract inf ection in this patient who do have a history of MS urinary retention requiring Dailey catheter and history of of recurrent UTIs with the last urine culture positive for ESBL E. coli. 2patient did have normalization of the white count and blood as well as urine culture negative so far continue meropenem which can be discontinued on discharge Dictation was produced using [employer] dictation software. please excuse any grammatical, word or spelling errors. Time with Patient: Less than 30 ([id number])
--- NOTE | 2024-03-03 12:50 | P.PN ---
Subjective Progress Note Date: 03/03/24 I am following-up with patient and she is doing about the same. Denies of any new neurological issues. We received records from [facility] from her prior hospitalization on 12/2023 (begining of December) in which she presented because of seizure and it seems she had EEG, intubated, vent and eventually trach and PEG then was discharged to [facility]. 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 Objective - Vital Signs Vital signs: Vital Signs Temp 99.4 F 03/03/24 07:21 Pulse 85 03/03/24 07:21 Resp 17 03/03/24 07:21 BP 104/69 03/03/24 07:21 Pulse Ox 97 03/03/24 08:51 FiO2 Intake & Output 03/02/24 03/03/24 03/03/24 18:59 06:59 18:59 Intake Total 474 Balance 474 Intake: Oral 474 Other: Voiding Method Diaper Diaper Incontinent Incontinent External Catheter # Voids 1 4 # Bowel Movements 1 3 - Exam General: Lying in bed and is not in acute distress. Neuro: The patient is mildly drowsy but is awakeable to voice. Patient is oriented to self, place and time. She is mildly slow following commands. She is following simple commands. No aphasia. Pupils are round equal reactive to light. Pupils are round 3 mm bilaterally. No facial weakness. No dysarthria. Patient has hypophonia. Motor is left in upper extremities but the strength is 4+ and the handgrip is 4 while lowers are 0 out of 5. Reflexes 1 positive. - Labs CBC & Chem 7: 03/01/24 08:25 03/02/24 05:34 Labs: Microbiology - Last 24 Hours (Table) 02/29/24 02:45 Blood Culture - Preliminary Blood 02/29/24 02:30 Blood Culture - Preliminary Blood Assessment and Plan Assessment: * Breakthrough seizure, presenting with status epilepticus. Seizure lasted for about 20 minutes before it was aborted with IM midazolam. Seizure likely triggered from lowered threshold from dalfampridine, and also that patient did not receive her Briviact for 36 hours while she was in [facility]. * New onset seizure diagnosed on 12/19/2023. Patient probably had status epilepticus at that time, with prolonged hospitalization for 2 months, discharged to [facility] 36-hour before presenting with status epilepticus. * Advanced multiple sclerosis, wheelchair/bedbound. * Paraplegia, worse since recent hospitalization on 12/2023. It is reported she had critical illness myopathy on her most recent hospital visit and unsure if that is cause vs MS exacerbation. 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 * DO NOT RESUSCITATE Plan: * Patient is resumed on Vimpat 200 mg twice daily, and Depakote 500 mg 3 times daily. * Per Dr. Villatoro, Stay off Briviact. Keppra already has been discontinued. * Also per Dr. Villatoro, Stop dalfampridine completely. Patient states that it was helping her mobility. * EEG: Is abnormal. The background slowing is suggestive of mild encephalopathy. There is no focal slowing, epileptiform discharge or seizure. * May resume Ritalin, Per Dr. Villatoro. * I discussed with N.P. from primary team and will obtain MRI Brain, C-spine and thoracic spine with and without to assess if any enhancement for MS exacerbation. Will hold off any steroids at this time until imaging shows any new enhancement. * Pending [facility] records for discharge summary, EEG report and radiology records and neurology notes. * B12: 1806, folate: 22.70, TSH: 11.40 and free T4 0.98 The plan is discussed with patient, her nurse and, N.P. from primary team. Time with Patient: Less than 30
--- NOTE | 2024-03-03 14:42 | P.PN ---
Subjective Progress Note Date: 03/03/24 Principal diagnosis: Reason for follow-up is a catheter associated UTI Patient is a 58-year-old female with a past medical history significant for MS thyroid disorder in this patient also have a history of recurrent UTI currently to have a Dailey catheter in this patient has been [facility] for apparently the patient did have a seizure, patient was noted to have a low-grade fever elevated white count positive UA concerning for catheter associated UTI. On today's evaluation that is 03/03/2024, the patient continues to be afebrile, the patient is on room air and breathing comfortably, the Pt denies having any chest pain or cough, the patient denies having any abdominal pain no vomiting or any diarrhea has been reported by the nursing staff, feeling better. No new labs has been obtained today cultures have been negative Objective - Vital Signs Vital signs: Vital Signs Temp 98.1 F 03/03/24 12:00 Pulse 82 03/03/24 12:00 Resp 16 03/03/24 12:00 BP 102/66 03/03/24 12:00 Pulse Ox 100 03/03/24 12:00 FiO2 Intake & Output 03/02/24 03/03/24 03/03/24 18:59 06:59 18:59 Intake Total 474 Balance 474 Intake: Oral 474 Other: Voiding Method Diaper Diaper Incontinent Incontinent External Catheter # Voids 1 4 # Bowel Movements 1 3 - Exam GENERAL DESCRIPTION: Middle-aged female lying in bed in no distress RESPIRATORY SYSTEM: Unlabored breathing , decreased breath sounds at bases HEART: S1 S2 regular rate and rhythm , ABDOMEN: Soft , no tenderness EXTREMITIES: No edema feet - Labs CBC & Chem 7: 03/01/24 08:25 03/02/24 05:34 Labs: Microbiology - Last 24 Hours (Table) 02/29/24 02:45 Blood Culture - Preliminary Blood 02/29/24 02:30 Blood Culture - Preliminary Blood Assessment and Plan (1) Catheter-associated urinary tract infection Current Visit: Yes Status: Acute Code(s): T83.511A - I/I REACT D/T INDWELLING URETHRAL CATHETER, INIT; N39.0 - URINARY TRACT INFECTION, SITE NOT SPECIFIED SNOMED Code(s): 853393687 Plan: 1patient presented to hospital with sepsis in this patient who did have fever tachycardia elevated white count source is likely catheter associated tract infection in this patient who do have a history of MS urinary retention requiring Dailey catheter and history of of recurrent UTIs with the last urine culture positive for ESBL E. coli. 2patient did have normalization of the white count and blood as well as urine culture negative so far continue, patient to continue with the meropenem while inpatient however no plan for IV antibiotics on discharge patient question concern answered Dictation was produced using [employer] dictation software. please excuse any grammatical, word or spelling errors. Time with Patient: Less than 30
--- NOTE | 2024-03-03 14:55 | P.PN ---
Subjective Progress Note Date: 03/03/24 Patient is 58-year-old female admitted for status epilepticus which lasted for 20 minutes resolved with midazolam. Patient on multiple antiseizure medications at home. Patient is lethargic but was able to answer questions appropriately. Patient had lactic acid (presently 2.5 patient is hyperkalemic because of which IV fluids were changed to half-normal saline. Patient had leukocytosis denies any fever but had low-grade fever here in the ER and patient urine is abnormal he also was complaining of dysuria and increased urinary frequency patient was started on Rocephin with urine cultures, patient had ESBL E. coli from her previous cultures this E. coli is also resistant to fluoroquinolones as well. Apparently patient missed antibiotics for couple days. Patient was eval by neurology patient was quite lethargic but alert oriented x 3. 03/01/2024 Patient is evaluated today in follow up in the ER pending a bed on the medical floor. Patient is more awake alert has been resumed on her antiseizure medication although we do not carry the briviact asked patient to have someone bring her home medications in. Patient feels maybe she is in an MS flare up. Remains on IV meropenem with concern for UTI although the urine culture is negative. Potassium is 3.1. Magnesium is 1.8. 03/02/2024 Patient is evaluated in follow up today on the medical floor. Patient is recommending to remain off of briviact by neurology. Continues on vimpat, depakote. Patient remains on IV meropenem, urine culture negative. Lumbar spine xray showing no acute fracture postsurgical changes with hardware intact at L4/ L5. Patient has PEG tube in place. Blood work reveals potassium 3.3, BUN 8.1, creatinine 0.2. Folate level 22.70. TSH 11.400, T4 0.98. 03/03/2024 Patient is evaluated in follow up on the medical floor. Sitting up in the chair. Reports reviewed from [facility] unsure whether patient had MRIs done there. Concern for either critical illness myopathy vs. an MS exacerbation as patient reports basically unable to use her lower extremities since her hospitalization back in December. Neurology following and MRIs will be ordered here. Potassium today 3.3. EEG reveals no epileptiform or seizure activity. Review of Systems Constitutional: Denied any fatigue denied any fever. Cardio vascular: denied any chest pain, palpitations Gastrointestinal: denied any nausea, vomiting, diarrhea Pulmonary: Denied any shortness of breath cough Neurologic denied any new focal deficits; paraplegia All inpatient medications were reviewed and appropriate changes in these medications as dictated in the interval history and assessment and plan. PHYSICAL EXAMINATION: GENERAL: The patient is alert and oriented x3, not in any acute distress. Well developed, well nourished. More awake and alert. HEENT: Pupils are round and equally reacting to light. EOMI. No scleral icterus. No conjunctival pallor. Normocephalic, atraumatic. No pharyngeal erythema. No thyromegaly. CARDIOVASCULAR: S1 and S2 present. No murmurs, rubs, or gallops. PULMONARY: Chest is clear to auscultation, no wheezing or crackles. ABDOMEN: Soft, nontender, nondistended, normoactive bowel sounds. No palpable organomegaly. MUSCULOSKELETAL: No joint swelling or deformity. EXTREMITIES: No cyanosis, clubbing, or pedal edema. NEUROLOGICAL: Unable to move lower extremities bilaterally. Patient have some focal deficits from her previous MS. Upper extremities are tremulous. SKIN: No rashes. Assessment and plan -Breakthrough seizures patient was in status epilepticus on admission which resolved at this time lactic acidosis secondary to seizures patient will be resumed on home medications. Her seizures are believed to be secondary to missing few doses of her 3 antiseizure medications which were resumed. Briviact recommend by neurology to be discontinued. Patient is also on dalfampridine which will be discontinued as it is contraindicated in seizures. -Sepsis secondary to urinary tract infection: Patient had ESBL E. coli infectious disease will be consulted patient will be started on meropenem with close monitoring for seizures. -Multiple sclerosis per patient has become unable to use her lower extremities since December hospitalization. Reports being obtained from [facility] may need MRI and steroids if not already done there. Concern for critical illness myopathy vs. MS exacerbation. Pending MRI of the brain, cervical and thoracic spine. -Severe sepsis -Lactic acidosis secondary to seizures and sepsis -Hypokalemia from poor oral intake. supplemented and improving. -Anion gap metabolic acidosis secondary lactic acidosis and non-anion gap metabolic acidosis secondary to hyperchloremia patient was switched to half- normal saline and acidosis has resolved. -Hypothyroidism with significantly elevated TSH at 11.400 synthroid has been increased to 100 mcg daily and need to repeat blood work outpatient. DVT prophylaxis: Lovenox GI prophylaxis: Pepcid Do Not Resuscitate, Do Not Intubate The impression and plan of care has been dictated by Prabha Beverly, Nurse Practitioner as directed. Dr. Estefanía MD I have performed a history and physical examination and medical decision making of this patient, discussed the same with the dictator, and agree with the dictators assessment and plan as written, documented as a scribe. Based on total visit time, I have performed more than 50% of this visit. Objective - Vital Signs Vital signs: Vital Signs Temp 98.1 F 03/03/24 12:00 Pulse 82 03/03/24 12:00 Resp 16 03/03/24 12:00 BP 102/66 03/03/24 12:00 Pulse Ox 100 03/03/24 12:00 FiO2 Intake & Output 03/02/24 03/03/24 03/03/24 18:59 06:59 18:59 Intake Total 474 Balance 474 Intake: Oral 474 Other: Voiding Method Diaper Diaper Incontinent Incontinent External Catheter # Voids 1 4 # Bowel Movements 1 3 - Labs CBC & Chem 7: 03/01/24 08:25 03/02/24 05:34 Labs: Microbiology - Last 24 Hours (Table) 02/29/24 02:45 Blood Culture - Preliminary Blood 02/29/24 02:30 Blood Culture - Preliminary Blood Assessment and Plan Time with Patient: Less than 30
[2024-03-04 08:52] LABS: Blood Urea Nitrogen 5.2 mg/dL (9.0-27.0); Calcium 8.5 mg/dL (8.7-10.3); Carbon Dioxide 28.2 mmol/L (21.6-31.8); Chloride 106 mmol/L (96-109); Glucose 80 mg/dL (70-110); Magnesium 1.9 mg/dL (1.5-2.4); Potassium 3.1 mmol/L (3.5-5.5); Sodium 145 mmol/L (135-145)
--- NOTE | 2024-03-04 14:05 | P.PN ---
Subjective Progress Note Date: 03/04/24 Patient is 58-year-old female admitted for status epilepticus which lasted for 20 minutes resolved with midazolam. Patient on multiple antiseizure medications at home. Patient is lethargic but was able to answer questions appropriately. Patient had lactic acid (presently 2.5 patient is hyperkalemic because of which IV fluids were changed to half-normal saline. Patient had leukocytosis denies any fever but had low-grade fever here in the ER and patient urine is abnormal he also was complaining of dysuria and increased urinary frequency patient was started on Rocephin with urine cultures, patient had ESBL E. coli from her previous cultures this E. coli is also resistant to fluoroquinolones as well. Apparently patient missed antibiotics for couple days. Patient was eval by neurology patient was quite lethargic but alert oriented x 3. 03/01/2024 Patient is evaluated today in follow up in the ER pending a bed on the medical floor. Patient is more awake alert has been resumed on her antiseizure medication although we do not carry the briviact asked patient to have someone bring her home medications in. Patient feels maybe she is in an MS flare up. Remains on IV meropenem with concern for UTI although the urine culture is negative. Potassium is 3.1. Magnesium is 1.8. 03/02/2024 Patient is evaluated in follow up today on the medical floor. Patient is recommending to remain off of briviact by neurology. Continues on vimpat, depakote. Patient remains on IV meropenem, urine culture negative. Lumbar spine xray showing no acute fracture postsurgical changes with hardware intact at L4/ L5. Patient has PEG tube in place. Blood work reveals potassium 3.3, BUN 8.1, creatinine 0.2. Folate level 22.70. TSH 11.400, T4 0.98. 03/03/2024 Patient is evaluated in follow up on the medical floor. Sitting up in the chair. Reports reviewed from [facility] unsure whether patient had MRIs done there. Concern for either critical illness myopathy vs. an MS exacerbation as patient reports basically unable to use her lower extremities since her hospitalization back in December. Neurology following and MRIs will be ordered here. Potassium today 3.3. EEG reveals no epileptiform or seizure activity. 03/04/2024 Patient is evaluated today in follow-up sitting up in the bed with her family at the bedside. We are pending MRI and EEG reports [facility] at this time however patient will be taken down for a cervical and thoracic MRI today. Family is concerned as the dalfampridine was helping patient with her ambulation and being able to use her lower extremities since she has been discontinued off this medication she has been essentially unable to ambulate with her walker. They understand that this patient is contraindicated and seizure-like activity and will need to remain off this medication at this time. Potassium is 3.1 today. Review of Systems Constitutional: Denied any fatigue denied any fever. Cardio vascular: denied any chest pain, palpitations Gastrointestinal: denied any nausea, vomiting, diarrhea Pulmonary: Denied any shortness of breath cough Neurologic denied any new focal deficits; paraplegia All inpatient medications were reviewed and appropriate changes in these medications as dictated in the interval history and assessment and plan. PHYSICAL EXAMINATION: GENERAL: The patient is alert and oriented x3, not in any acute distress. Well developed, well nourished. More awake and alert. HEENT: Pupils are round and equally reacting to light. EOMI. No scleral icterus. No conjunctival pallor. Normocephalic, atraumatic. No pharyngeal erythema. No thyromegaly. CARDIOVASCULAR: S1 and S2 present. No murmurs, rubs, or gallops. PULMONARY: Chest is clear to auscultation, no wheezing or crackles. ABDOMEN: Soft, nontender, nondistended, normoactive bowel sounds. No palpable organomegaly. MUSCULOSKELETAL: No joint swelling or deformity. EXTREMITIES: No cyanosis, clubbing, or pedal edema. NEUROLOGICAL: Unable to move lower extremities bilaterally. Patient have some focal deficits from her previous MS. Upper extremities are tremulous. SKIN: No rashes. Assessment and plan -Breakthrough seizures patient was in status epilepticus on admission which resolved at this time lactic acidosis secondary to seizures patient will be resumed on home medications. Her seizures are believed to be secondary to missing few doses of her 3 antiseizure medications which were resumed. Briviact recommend by neurology to be discontinued. Patient is also on dalfampridine which will be discontinued as it is contraindicated in seizures. -Sepsis secondary to urinary tract infection: Patient had ESBL E. coli infectious disease will be consulted patient will be started on meropenem with close monitoring for seizures. -Multiple sclerosis per patient has become unable to use her lower extremities since December hospitalization. Reports being obtained from [facility] may need MRI and steroids if not already done there. Concern for critical illness myopathy vs. MS exacerbation. Pending MRI of the brain, cervical and thoracic spine. -Severe sepsis -Lactic acidosis secondary to seizures and sepsis -Hypokalemia from poor oral intake. supplemented and improving. -Anion gap metabolic acidosis secondary lactic acidosis and non-anion gap metabolic acidosis secondary to hyperchloremia patient was switched to half- normal saline and acidosis has resolved. -Hypothyroidism with significantly elevated TSH at 11.400 synthroid has been increased to 100 mcg daily and need to repeat blood work outpatient. DVT prophylaxis: Lovenox GI prophylaxis: Pepcid Do Not Resuscitate, Do Not Intubate The impression and plan of care has been dictated by Prabha Beverly, Nurse Practitioner as directed. Dr. Estefanía MD I have performed a history and physical examination and medical decision making of this patient, discussed the same with the dictator, and agree with the dictators assessment and plan as written, documented as a scribe. Based on total visit time, I have performed more than 50% of this visit. Objective - Vital Signs Vital signs: Vital Signs Temp 97.5 F L 03/04/24 07:04 Pulse 69 03/04/24 07:04 Resp 16 03/04/24 07:04 BP 118/77 03/04/24 07:04 Pulse Ox 99 03/04/24 07:04 FiO2 Intake & Output 03/03/24 03/04/24 03/04/24 18:59 06:59 18:59 Output Total 700 Balance -700 Output: Urine 700 Other: Voiding Method Diaper Diaper Diaper Incontinent Incontinent Incontinent External Catheter External Catheter External Catheter # Voids 1 # Bowel Movements 1 1 - Labs CBC & Chem 7: 03/01/24 08:25 03/04/24 05:28 Labs: Abnormal Lab Results - Last 24 Hours (Table) 03/04/24 Range/Units 05:28 Potassium 3.1 L (3.5-5.5) mmol/L BUN 5.2 L (9.0-27.0) mg/dL Creatinine 0.2 L (0.6-1.5) mg/dL BUN/Creatinine Ratio 26.00 H (12.00-20.00) Ratio Calcium 8.5 L (8.7-10.3) mg/dL Microbiology - Last 24 Hours (Table) 02/29/24 02:45 Blood Culture - Preliminary Blood 02/29/24 02:30 Blood Culture - Preliminary Blood Assessment and Plan Time with Patient: Less than 30
[2024-03-04] MEDS: POTASSIUM CHLORIDE ER 20 MEQ TAB.ER PO SCH (16:13)
--- NOTE | 2024-03-04 16:40 | P.PN ---
Subjective Progress Note Date: 03/04/24 I am following-up with patient and she is about the same. Still pending MRI's to be completed. Objective - Vital Signs Vital signs: Vital Signs Temp 97.5 F L 03/04/24 14:36 Pulse 78 03/04/24 14:36 Resp 16 03/04/24 14:36 BP 106/68 03/04/24 14:36 Pulse Ox 100 03/04/24 14:36 FiO2 Intake & Output 03/03/24 03/04/24 03/04/24 18:59 06:59 18:59 Output Total 700 Balance -700 Output: Urine 700 Other: Voiding Method Diaper Diaper Diaper Incontinent Incontinent Incontinent External Catheter External Catheter External Catheter # Voids 1 # Bowel Movements 1 1 - Exam General: Lying in bed and is not in acute distress. Neuro: The patient is mildly drowsy but is awakeable to voice. Patient is oriented to self, place and time. She is mildly slow following commands. She is following simple commands. No aphasia. Pupils are round equal reactive to light. Pupils are round 3 mm bilaterally. No facial weakness. No dysarthria. Patient has hypophonia. Motor is left in upper extremities but the strength is 4+ and the handgrip is 4 while lowers are 0 out of 5. Reflexes 1 positive. - Labs CBC & Chem 7: 03/01/24 08:25 03/04/24 05:28 Labs: Abnormal Lab Results - Last 24 Hours (Table) 03/04/24 Range/Units 05:28 Potassium 3.1 L (3.5-5.5) mmol/L BUN 5.2 L (9.0-27.0) mg/dL Creatinine 0.2 L (0.6-1.5) mg/dL BUN/Creatinine Ratio 26.00 H (12.00-20.00) Ratio Calcium 8.5 L (8.7-10.3) mg/dL Microbiology - Last 24 Hours (Table) 02/29/24 02:45 Blood Culture - Preliminary Blood 02/29/24 02:30 Blood Culture - Preliminary Blood Assessment and Plan Assessment: * Breakthrough seizure, presenting with status epilepticus. Seizure lasted for about 20 minutes before it was aborted with IM midazolam. Seizure likely triggered from lowered threshold from dalfampridine, and also that patient did not receive her Briviact for 36 hours while she was in [facility]. * New onset seizure diagnosed on 12/19/2023. Patient probably had status epi lepticus at that time, with prolonged hospitalization for 2 months, discharged to [facility] 36-hour before presenting with status epilepticus. * Advanced multiple sclerosis, wheelchair/bedbound. * Paraplegia, worse since recent hospitalization on 12/2023. It is reported she had critical illness myopathy on her most recent hospital visit and unsure if that is cause vs MS exacerbation. 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 * DO NOT RESUSCITATE Plan: * Patient is resumed on Vimpat 200 mg twice daily, and Depakote 500 mg 3 times daily. * Per Dr. Villatoro, Stay off Briviact. Keppra already has been discontinued. * Also per Dr. Villatoro, Stop dalfampridine completely. Patient states that it was helping her mobility. * EEG: Is abnormal. The background slowing is suggestive of mild encephalopathy. There is no focal slowing, epileptiform discharge or seizure. * May resume Ritalin, Per Dr. Villatoro. * I discussed with N.P. from primary team and will obtain MRI Brain, C-spine and thoracic spine with and without to assess if any enhancement for MS exacerbation. Will hold off any steroids at this time until imaging shows any new enhancement. * Pending [facility] records for discharge summary, EEG report and radiology records and neurology notes. * B12: 1806, folate: 22.70, TSH: 11.40 and free T4 0.98 The plan is discussed with patient, her nurse and, N.P. from primary team. Time with Patient: Less than 30
--- NOTE | 2024-03-05 07:57 | MR ---
EXAMINATION TYPE: MR brain/cspine wo/w DATE OF EXAM: 03/04/2024 EXAMINATION TYPE: MR brain/cspine wo/w DATE OF EXAM: 03/04/2024 COMPARISON: 08/13/2022 HISTORY: Leg weakness, MS. CONTRAST: Performed utilizing 6 mL intravenous Gadavist gadolinium contrast. TECHNIQUE: Multiplanar, multisequence imaging of the brain is performed on a 3.0 Elizabeth magnet. Demye linating disease protocol with additional Sagittal Flair sequence is performed. Study is performed wi thin 24 hours of arrival to the hospital. FINDINGS: T2 White Matter Lesions Present : Yes Approximate Number of Lesions: Multiple scattered Locations Identified : Periventricular, stephens radiata, subcortical, brain stem. Brainstem lesions ar e not as well-visualized previous. Size of Largest Lesion(s): 1. 1.8 x 1.5 cm adjacent to the occipital horn left lateral ventricle. Series 1502, image 18. This gonzalez s enlarged from the comparison. 2. 1.2 x 0.7 cm perpendicular to the right lateral ventricle. Series 10/18/2001, image 20. This is en larged comparison. Enhancing Lesion(s) Present: No Change from Prior: Stable Diffusion-weighted imaging is performed. No abnormal hyperintensity is present to suggest an acute i ntracranial infarct or acute ischemic change. No enhancement is evident. Ventricles and sulci are appropriate for the patient age. There are no abnormal extra-axial fluid collections. The ventricular system and cisternal spaces are normal in size and appearance. The brain volume is age appropriate. The craniocervical junction juliana ears within normal limits. The dural venous sinuses appear patent. No abnormal enhancement is present on post contrast images. . The visualized sinuses are clear. Visu alized orbits are unremarkable. There is some fluid within the left mastoid air cells. Correlate for mild mastoiditis. IMPRESSION: 1. Multiple bilateral deep white matter hyperintensities can be compatible with simple sclerosis. Th ezekiel appear to be increasing in size with similar number and distribution. EXAMINATION TYPE: MR brain/cspine wo/w DATE OF EXAM: 03/04/2024 COMPARISON: 08/13/2022 HISTORY: Leg weakness, MS. CONTRAST: Performed utilizing 6 mL intravenous Gadavist gadolinium contrast. TECHNIQUE: Multiplanar multiecho imaging on a 3.0 Elizabeth magnet is performed through the cervical spin e. FINDINGS: The craniovertebral junction is normal. Vertebral body alignment is normal. There is a s ubtly hyperintense area within the spinal cord posterior to the C6-7 disc level measuring approximate ly 0.8 cm. This may be new. C7-T1: No focal disc herniation or significant disc bulge is evident. No spinal canal stenosis or n eural foraminal stenosis is present. C6-7:No focal disc herniation or significant disc bulge is evident. No spinal canal stenosis or neur al foraminal stenosis is present C5-6: There is a moderate sized disc herniation. This has moderate anterior thecal sac compression. C ord contact and some cord deformity is present. Mild AP spinal canal stenosis is present at 0.7 cm.. Findings are similar to comparison C4-5: Mild disc bulge is present with anterior thecal site contact. No AP spinal canal stenosis. Neur al foramen are patent. C3-4: Minimal central disc bulge is present with anterior thecal sac compression. No spinal canal isaiah nosis. No spinal canal stenosis or neural foraminal stenosis is present. C2-3: No focal disc herniation or significant disc bulge is evident. No spinal canal stenosis or mal ral foraminal stenosis is present. IMPRESSION: 1. There appears to be subtle white matter plaque within the T6-7 level spinal cord. This is new from comparison. 2. Stable large disc herniation C5-6 with mild cord deformity and AP spinal canal stenosis.
[2024-03-05] MEDS: POTASSIUM CHLORIDE ER 20 MEQ TAB.ER PO SCH (10:20)
[2024-03-05 10:52] LABS: Blood Urea Nitrogen 3.9 mg/dL (9.0-27.0); Carbon Dioxide 28.7 mmol/L (21.6-31.8); Chloride 106 mmol/L (96-109); Glucose 84 mg/dL (70-110); Potassium 3.9 mmol/L (3.5-5.5); Sodium 143 mmol/L (135-145)
[2024-03-05] MEDS: methylPREDNISolone SOD SUCCIN 500 MG in SODIUM CHLORIDE 0.9% 100 ML IVPB SCH (12:13)
--- NOTE | 2024-03-05 14:10 | P.PN ---
Subjective Progress Note Date: 03/05/24 Patient is 58-year-old female admitted for status epilepticus which lasted for 20 minutes resolved with midazolam. Patient on multiple antiseizure medications at home. Patient is lethargic but was able to answer questions appropriately. Patient had lactic acid (presently 2.5 patient is hyperkalemic because of which IV fluids were changed to half-normal saline. Patient had leukocytosis denies any fever but had low-grade fever here in the ER and patient urine is abnormal he also was complaining of dysuria and increased urinary frequency patient was started on Rocephin with urine cultures, patient had ESBL E. coli from her previous cultures this E. coli is also resistant to fluoroquinolones as well. Apparently patient missed antibiotics for couple days. Patient was eval by neurology patient was quite lethargic but alert oriented x 3. 03/01/2024 Patient is evaluated today in follow up in the ER pending a bed on the medical floor. Patient is more awake alert has been resumed on her antiseizure medication although we do not carry the briviact asked patient to have someone bring her home medications in. Patient feels maybe she is in an MS flare up. Remains on IV meropenem with concern for UTI although the urine culture is negative. Potassium is 3.1. Magnesium is 1.8. 03/02/2024 Patient is evaluated in follow up today on the medical floor. Patient is recommending to remain off of briviact by neurology. Continues on vimpat, depakote. Patient remains on IV meropenem, urine culture negative. Lumbar spine xray showing no acute fracture postsurgical changes with hardware intact at L4/ L5. Patient has PEG tube in place. Blood work reveals potassium 3.3, BUN 8.1, creatinine 0.2. Folate level 22.70. TSH 11.400, T4 0.98. 03/03/2024 Patient is evaluated in follow up on the medical floor. Sitting up in the chair. Reports reviewed from [facility] unsure whether patient had MRIs done there. Concern for either critical illness myopathy vs. an MS exacerbation as patient reports basically unable to use her lower extremities since her hospitalization back in December. Neurology following and MRIs will be ordered here. Potassium today 3.3. EEG reveals no epileptiform or seizure activity. 03/04/2024 Patient is evaluated today in follow-up sitting up in the bed with her family at the bedside. We are pending MRI and EEG reports [facility] at this time however patient will be taken down for a cervical and thoracic MRI today. Family is concerned as the dalfampridine was helping patient with her ambulation and being able to use her lower extremities since she has been discontinued off this medication she has been essentially unable to ambulate with her walker. They understand that this patient is contraindicated and seizure-like activity and will need to remain off this medication at this time. Potassium is 3.1 today. 03/05/2024 Patient is evaluated in follow-up today. Her MRI does reveal a subtle white matter plaque and T6-7 with changes stable like disc herniation C5-6 with mild cord deformity and AP spinal canal stenosis. Patient will be started on IV ster oids high-dose by neurology. Her potassium has normalized to 3.9. She has no acute complaints overnight. Review of Systems Constitutional: Denied any fatigue denied any fever. Cardio vascular: denied any chest pain, palpitations Gastrointestinal: denied any nausea, vomiting, diarrhea Pulmonary: Denied any shortness of breath cough Neurologic denied any new focal deficits; paraplegia All inpatient medications were reviewed and appropriate changes in these medications as dictated in the interval history and assessment and plan. PHYSICAL EXAMINATION: GENERAL: The patient is alert and oriented x3, not in any acute distress. Well developed, well nourished. More awake and alert. HEENT: Pupils are round and equally reacting to light. EOMI. No scleral icterus. No conjunctival pallor. Normocephalic, atraumatic. No pharyngeal erythema. No thyromegaly. CARDIOVASCULAR: S1 and S2 present. No murmurs, rubs, or gallops. PULMONARY: Chest is clear to auscultation, no wheezing or crackles. ABDOMEN: Soft, nontender, nondistended, normoactive bowel sounds. No palpable organomegaly. MUSCULOSKELETAL: No joint swelling or deformity. EXTREMITIES: No cyanosis, clubbing, or pedal edema. NEUROLOGICAL: Unable to move lower extremities bilaterally. Patient have some focal deficits from her previous MS. Upper extremities are tremulous. SKIN: No rashes. Assessment and plan -Breakthrough seizures patient was in status epilepticus on admission which resolved at this time Her seizures are believed to be secondary to missing few doses of her 3 antiseizure medications which were resumed. Briviact recommend by neurology to be discontinued. Patient is also on dalfampridine which will be dis continued as it is contraindicated in seizures. -Sepsis secondary to urinary tract infection: Patient had ESBL E. coli infectious disease will be consulted patient will be started on meropenem with close monitoring for seizures. -Multiple sclerosis per patient has become unable to use her lower extremities since December hospitalization. Reports being obtained from [facility]. Concern for critical illness myopathy vs. MS exacerbation. -MS exacerbation with white matter plaque T6-7 on high dose IVPB steroids neurology following, PT/OT on board. -Severe sepsis -Lactic acidosis secondary to seizures and sepsis -Hypokalemia from poor oral intake. supplemented and improving. -Anion gap metabolic acidosis secondary lactic acidosis and non-anion gap metabolic acidosis secondary to hyperchloremia patient was switched to half- normal saline and acidosis has resolved. -Hypothyroidism with significantly elevated TSH at 11.400 synthroid has been increased to 100 mcg daily and need to repeat blood work outpatient. DVT prophylaxis: Lovenox GI prophylaxis: Pepcid Do Not Resuscitate, Do Not Intubate The impression and plan of care has been dictated by Prabha Beverly, Nurse Practitioner as directed. Dr. Estefanía MD I have performed a history and physical examination and medical decision making of this patient, discussed the same with the dictator, and agree with the dictators assessment and plan as written, documented as a scribe. Based on total visit time, I have performed more than 50% of this visit. Objective - Vital Signs Vital signs: Vital Signs Temp 97.6 F 03/05/24 07:22 Pulse 71 03/05/24 07:22 Resp 18 03/05/24 07:22 BP 121/74 03/05/24 07:22 Pulse Ox 98 03/05/24 07:22 FiO2 Intake & Output 03/04/24 03/05/24 03/05/24 18:59 06:59 18:59 Output Total 750 600 Balance -750 -600 Weight 61.7 kg Output: Urine 750 600 Other: Voiding Method Diaper Diaper Diaper Incontinent Incontinent Incontinent External Catheter External Catheter External Catheter # Voids 3 - Labs CBC & Chem 7: 03/01/24 08:25 03/05/24 06:24 Labs: Abnormal Lab Results - Last 24 Hours (Table) 03/05/24 Range/Units 06:24 BUN 3.9 L (9.0-27.0) mg/dL Creatinine 0.2 L (0.6-1.5) mg/dL Microbiology - Last 24 Hours (Table) 02/29/24 02:45 Blood Culture - Final Blood 02/29/24 02:30 Blood Culture - Final Blood Assessment and Plan Time with Patient: Less than 30
--- NOTE | 2024-03-05 15:03 | P.PN ---
Subjective Progress Note Date: 03/05/24 Principal diagnosis: Reason for follow-up is a catheter associated UTI Patient is a 58-year-old female with a past medical history significant for MS thyroid disorder in this patient also have a history of recurrent UTI currently to have a Daliey catheter in this patient has been brought into the hospital from the local longterm for apparently the patient did have a seizure, patient was noted to have a low-grade fever elevated white count positive UA concerning for catheter associated UTI. On today's evaluation that is 03/05/2024, patient has been afebrile, patient is breathing comfortably and is currently on room air, patient denies having any significant cough no chest pain shortness of breath, patient denies nausea vomiting or diarrhea and no abdominal pain, patient feeling better no new symptoms. Patient did have a creatinine 0.8 no CBC was done today Objective - Vital Signs Vital signs: Vital Signs Temp 97.6 F 03/05/24 07:22 Pulse 71 03/05/24 07:22 Resp 18 03/05/24 07:22 BP 121/74 03/05/24 07:22 Pulse Ox 98 03/05/24 07:22 FiO2 Intake & Output 03/04/24 03/05/24 03/05/24 18:59 06:59 18:59 Output Total 750 600 Balance -750 -600 Weight 61.7 kg Output: Urine 750 600 Other: Voiding Method Diaper Diaper Diaper Incontinent Incontinent Incontinent External Catheter External Catheter External Catheter # Voids 3 - Exam GENERAL DESCRIPTION: Middle-aged female lying in bed in no distress RESPIRATORY SYSTEM: Unlabored breathing , decreased breath sounds at bases HEART: S1 S2 regular rate and rhythm , ABDOMEN: Soft , no tenderness EXTREMITIES: No edema feet - Labs CBC & Chem 7: 03/01/24 08:25 03/05/24 06:24 Labs: Abnormal Lab Results - Last 24 Hours (Table) 03/05/24 Range/Units 06:24 BUN 3.9 L (9.0-27.0) mg/dL Creatinine 0.2 L (0.6-1.5) mg/dL Microbiology - Last 24 Hours (Table) 02/29/24 02:45 Blood Culture - Final Blood 02/29/24 02:30 Blood Culture - Final Blood Assessment and Plan (1) Catheter-associated urinary tract infection Current Visit: Yes Status: Acute Code(s): T83.511A - I/I REACT D/T INDWELLING URETHRAL CATHETER, INIT; N39.0 - URINARY TRACT INFECTION, SITE NOT SPECIFIED SNOMED Code(s): 321935248 Plan: 1patient presented to hospital with sepsis in this patient who did have fever tachycardia elevated white count source is likely catheter associated tract infection in this patient who do have a history of MS urinary retention requiring Dailey catheter and history of recurrent UTIs with the last urine culture positive for ESBL E. coli. 2patient did have normalization of the white count and resolution of the fever, blood as well as urine culture negative so far 3-patient is currently covered with the meropenem which can be discontinued at discharge no plan for IV antibiotics on discharge Dictation was produced using [employer] dictation software. please excuse any grammatical, word or spelling errors. Time with Patient: Less than 30
--- NOTE | 2024-03-05 15:03 | P.PN ---
Subjective Progress Note Date: 03/04/24 Principal diagnosis: Reason for follow-up is a catheter associated UTI Patient is a 58-year-old female with a past medical history significant for MS thyroid disorder in this patient also have a history of recurrent UTI currently to have a Dailey catheter in this patient has been brought into the hospital from the local skilled nursing for apparently the patient did have a seizure, patient was noted to have a low-grade fever elevated white count positive UA concerning for catheter associated UTI. On today's evaluation that is 03/04/2024, Patient is afebrile patient is currently on room air and denies having any shortness of breath, the patient denies any chest pain or cough, the patient denies any nausea vomiting did not have any abdominal pain and no diarrhea, no more seizure activity. No CBC was done today creatinine is 0.2 Objective - Vital Signs Vital signs: Vital Signs Temp 97.5 F L 03/04/24 07:04 Pulse 69 03/04/24 07:04 Resp 16 03/04/24 07:04 BP 118/77 03/04/24 07:04 Pulse Ox 99 03/04/24 07:04 FiO2 Intake & Output 03/03/24 03/04/24 03/04/24 18:59 06:59 18:59 Output Total 700 Balance -700 Output: Urine 700 Other: Voiding Method Diaper Diaper Diaper Incontinent Incontinent Incontinent External Catheter External Catheter External Catheter # Voids 1 # Bowel Movements 1 1 - Exam GENERAL DESCRIPTION: Middle-aged female lying in bed in no distress RESPIRATORY SYSTEM: Unlabored breathing , decreased breath sounds at bases HEART: S1 S2 regular rate and rhythm , ABDOMEN: Soft , no tenderness EXTREMITIES: No edema feet - Labs CBC & Chem 7: 03/01/24 08:25 03/05/24 06:24 Labs: Abnormal Lab Results - Last 24 Hours (Table) 03/04/24 Range/Units 05:28 Potassium 3.1 L (3.5-5.5) mmol/L BUN 5.2 L (9.0-27.0) mg/dL Creatinine 0.2 L (0.6-1.5) mg/dL BUN/Creatinine Ratio 26.00 H (12.00-20.00) Ratio Calcium 8.5 L (8.7-10.3) mg/dL Microbiology - Last 24 Hours (Table) 02/29/24 02:45 Blood Culture - Preliminary Blood 02/29/24 02:30 Blood Culture - Preliminary Blood Assessment and Plan (1) Catheter-associated urinary tract infection Current Visit: Yes Status: Acute Code(s): T83.511A - I/I REACT D/T INDWELLING URETHRAL CATHETER, INIT; N39.0 - URINARY TRACT INFECTION, SITE NOT SPECIFIED SNOMED Code(s): 372398097 Plan: 1patient presented to hospital with sepsis in this patient who did have fever tachycardia elevated white count source is likely catheter associated tract infection in this patient who do have a history of MS urinary retention requiring Dailey catheter and history of recurrent UTIs with the last urine culture positive for ESBL E. coli. 2patient did have normalization of the white count and resolution of the fever, blood as well as urine culture negative so far 3-patient to continue meropenem for short course Dictation was produced using [employer] dictation software. please excuse any grammatical, word or spelling errors. Time with Patient: Less than 30
--- NOTE | 2024-03-05 15:51 | MR ---
EXAMINATION TYPE: MR thoracic spine wo/w con DATE OF EXAM: 03/05/2024 COMPARISON: MRI cervical spine 03/04/2024 HISTORY: Multiple sclerosis, leg weakness CONTRAST: Performed utilizing 6 mL intravenous Gadavist gadolinium contrast. TECHNIQUE: Multiplanar, multiecho imaging on a 3.0 Elizabeth magnet is performed through the thoracic spi ne. Spinal cord maintains normal signal through its visualized course. No suspicious increased signal in T2 weighted sequences to suggest underlying multiple sclerosis within the [id number] Vertebral body alignment is normal. Vertebral body heights are preserved. Disc heights are preserved. T10-11: There is a left paracentral disc bulge with mild to moderate anterior thecal sac compression. T9-10: There is a small right paracentral disc bulge with mild anterior thecal sac contact. T7-8: There is a right paracentral disc herniation with moderate anterior thecal sac impression. This may have cord contact. Cord deformity is not identified. No AP spinal canal stenosis. Disc hydration levels are preserved. No spinal canal stenosis is evident. Note is made of disc bulging C5-6 with moderate anterior thecal sac compression. This may have cord c ontact. This region. Please see MRI cervical 03/04/2024. IMPRESSION: 1. No suspicious signal abnormality within the spinal cord to suggest sclerosis. 2. Disc bulging at T7-8, T9-10, T10-11.
[2024-03-05 16:50] VITALS: BMI 22.6
--- NOTE | 2024-03-05 16:55 | P.PN ---
Subjective Progress Note Date: 03/05/24 I am following-up with patient and she feels about the same. Denies any new neurological issues. Objective - Vital Signs Vital signs: Vital Signs Temp 97.6 F 03/05/24 07:22 Pulse 71 03/05/24 07:22 Resp 18 03/05/24 07:22 BP 121/74 03/05/24 07:22 Pulse Ox 98 03/05/24 07:22 FiO2 Intake & Output 03/04/24 03/05/24 03/05/24 18:59 06:59 18:59 Output Total 720 987 0775 Balance -750 -600 -1200 Weight 61.7 kg 61.7 kg Output: Urine 624 081 4211 Other: Voiding Method Diaper Diaper Diaper Incontinent Incontinent Incontinent External Catheter External Catheter External Catheter # Voids 3 - Exam General: Lying in bed and is not in acute distress. Neuro: The patient is mildly drowsy but is awakeable to voice. Patient is oriented to self, place and time. She is mildly slow following commands. She is following simple commands. No aphasia. Pupils are round equal reactive to light. Pupils are round 3 mm bilaterally. No facial weakness. No dysarthria. Patient has hypophonia. Motor is left in upper extremities but the strength is 4+ and the handgrip is 4 while lowers are 0 out of 5. Reflexes 1 positive. - Labs CBC & Chem 7: 03/01/24 08:25 03/05/24 06:24 Labs: Abnormal Lab Results - Last 24 Hours (Table) 03/05/24 Range/Units 06:24 BUN 3.9 L (9.0-27.0) mg/dL Creatinine 0.2 L (0.6-1.5) mg/dL Microbiology - Last 24 Hours (Table) 02/29/24 02:45 Blood Culture - Final Blood 02/29/24 02:30 Blood Culture - Final Blood Assessment and Plan Assessment: * Paraplegia, worse since recent hospitalization on 12/2023. It is reported she had critical illness myopathy on her most recent hospital visit and unsure if that is cause vs MS exacerbation. On MRI has subtle white plaque on T6-T7 on MRI which is new concerning for MS exacerbation. * Breakthrough seizure, presenting with status epilepticus. Seizure lasted for about 20 minutes before it was aborted with IM midazolam. Seizure likely triggered from lowered threshold from dalfampridine, and also that patient did not receive her Briviact for 36 hours while she was in [facility]. * New onset seizure diagnosed on 12/19/2023. Patient probably had status epilepticus at that time, with prolonged hospitalization for 2 months, discharged to [facility] 36-hour before presenting with status epilepticus. * Advanced multiple sclerosis, wheelchair/bedbound. 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 * DO NOT RESUSCITATE Plan: * Patient is resumed on Vimpat 200 mg twice daily, and Depakote 500 mg 3 times daily. * Per Dr. Villatoro, Stay off Briviact. Keppra already has been discontinued. * Also per Dr. Villatoro, Stop dalfampridine completely. Patient states that it was helping her mobility. * EEG: Is abnormal. The background slowing is suggestive of mild ence phalopathy. There is no focal slowing, epileptiform discharge or seizure. * May resume Ritalin, Per Dr. Villatoro. * MRI thoracic spine is reported as there appears to be subtle white matter plaque within the T6-T7 level spinal cord. This is new from comparison. Stable large disc herniation C5-C6 with mild cord deformity and AP spinal cord stenosis. * MRI of the brain and cervical spine is reported as multiple bilateral deep white matter hyperintensities can be compatible with simple sclerosis. These appear to be increased in size with similar number and distribution. * I discussed with N.P. from primary team and will start IV SoluMedrol 500mg bid for 3-5 days because of concern of MS exacerbation. MN sugar control I will defer that to the primary team. * CK level is 30 * Pending [facility] records for discharge summary, EEG report and radiology records and neurology notes. * B12: 1806, folate: 22.70, TSH: 11.40 and free T4 0.98 * For GI prophylaxis the patient is on Pepcid 20 mg twice daily The plan is discussed with patient and, N.P. from primary team. Time with Patient: Less than 30
--- NOTE | 2024-03-06 15:28 | P.PN ---
Subjective Progress Note Date: 03/06/24 I am following-up with patient and she feels about the same and no drastic improvement with IV steroid so far. Denies any worsening of neurological condition. Objective - Vital Signs Vital signs: Vital Signs Temp 97.9 F 03/06/24 13:34 Pulse 89 03/06/24 13:34 Resp 16 03/06/24 13:34 BP 106/63 03/06/24 13:34 Pulse Ox 98 03/06/24 13:34 FiO2 Intake & Output 03/05/24 03/06/24 03/06/24 18:59 06:59 18:59 Output Total 1200 1500 Balance -1200 -1500 Weight 61.7 kg 61.7 kg Output: Urine 1200 1500 Other: Voiding Method Diaper Diaper Diaper Incontinent Incontinent Incontinent External Catheter External Catheter External Catheter # Bowel Movements 1 - Exam General: Sitting in a recliner chair and is not in acute distress. Neuro: The patient is awake, alert, oriented to self, place and time. She is following simple commands. No aphasia. Pupils are round equal reactive to light. Pupils are round 3 mm bilaterally. No facial weakness. No dysarthria. Patient has hypophonia. Motor is left in upper extremities but the strength is 4+ and the handgrip is 4 while lowers are 0 out of 5. Reflexes 1 positive. - Labs CBC & Chem 7: 03/01/24 08:25 03/05/24 06:24 Labs: Microbiology - Last 24 Hours (Table) 02/29/24 02:45 Blood Culture - Final Blood 02/29/24 02:30 Blood Culture - Final Blood Assessment and Plan Assessment: * Paraplegia, worse since recent hospitalization on 12/2023. It is reported she had critical illness myopathy on her most recent hospital visit and unsure if that is cause vs MS exacerbation. On MRI has subtle white plaque on T6-T7 on MRI which is new concerning for MS exacerbation. * Breakthrough seizure, presenting with status epilepticus. Seizure lasted for about 20 minutes before it was aborted with IM midazolam. Seizure likely triggered from lowered threshold from dalfampridine, and also that patient did not receive her Briviact for 36 hours while she was in [facility]. * New onset seizure diagnosed on 12/19/2023. Patient probably had status epilepticus at that time, with prolonged hospitalization for 2 months, discharged to [facility] 36-hour before presenting with status epilepticus. * Advanced multiple sclerosis, wheelchair/bedbound. 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 * DO NOT RESUSCITATE Plan: * Patient is resumed on Vimpat 200 mg twice daily, and Depakote 500 mg 3 times daily. * Per Dr. Villatoro, Stay off Briviact. Keppra already has been discontinued. * Also per Dr. Villatoro, Stop dalfampridine completely. Patient states that it was helping her mobility. * EEG: Is abnormal. The background slowing is suggestive of mild encephalopathy. There is no focal slowing, epileptiform discharge or seizure. * May resume Ritalin, Per Dr. Villatoro. * MRI thoracic spine is reported as there appears to be subtle white matter plaque within the T6-T7 level spinal cord. This is new from comparison. Stable large disc herniation C5-C6 with mild cord deformity and AP spinal cord stenosis. * MRI of the brain and cervical spine is reported as multiple bilateral deep white matter hyperintensities can be compatible with simple sclerosis. These appear to be increased in size with similar number and distribution. * Continue IV SoluMedrol 500mg bid for 3-5 days because of concern of MS exacerbation and today is day#2. For sugar control I will defer that to the primary team. * CK level is 30 * B12: 1806, folate: 22.70, TSH: 11.40 and free T4 0.98 * For GI prophylaxis the patient is on Pepcid 20 mg twice daily The plan is discussed with patient. Time with Patient: Less than 30
--- NOTE | 2024-03-06 16:01 | P.PN ---
Subjective Progress Note Date: 03/06/24 Principal diagnosis: Reason for follow-up is a catheter associated UTI Patient is a 58-year-old female with a past medical history significant for MS thyroid disorder in this patient also have a history of recurrent UTI currently to have a Dailey catheter in this patient has [facility] apparently the patient did have a seizure, patient was noted to have a low-grade fever elevated white count positive UA concerning for catheter associated UTI. On today's evaluation that is 03/06/2024,the patient denies any fever or any chills, patient is breathing comfortably on room air, the patient denies chest pain shortness of breath and no significant cough, patient denies abdominal pain, no nausea vomiting or diarrhea. No new seizures feeling better. Patient did have a creatinine of 0.2 as of yesterday no CBC was done today blood urine culture has been negative Objective - Vital Signs Vital signs: Vital Signs Temp 97.8 F 03/06/24 07:00 Pulse 76 03/06/24 07:00 Resp 17 03/06/24 07:00 BP 107/68 03/06/24 07:00 Pulse Ox 98 03/06/24 07:00 FiO2 Intake & Output 03/05/24 03/06/24 03/06/24 18:59 06:59 18:59 Output Total 1200 1500 Balance -1200 -1500 Weight 61.7 kg 61.7 kg Output: Urine 1200 1500 Other: Voiding Method Diaper Diaper Diaper Incontinent Incontinent Incontinent External Catheter External Catheter External Catheter # Bowel Movements 1 - Exam GENERAL DESCRIPTION: Middle-aged female lying in bed in no distress RESPIRATORY SYSTEM: Unlabored breathing , decreased breath sounds at bases HEART: S1 S2 regular rate and rhythm , ABDOMEN: Soft , no tenderness EXTREMITIES: No edema feet - Labs CBC & Chem 7: 03/01/24 08:25 03/05/24 06:24 Labs: Microbiology - Last 24 Hours (Table) 02/29/24 02:45 Blood Culture - Final Blood 02/29/24 02:30 Blood Culture - Final Blood Assessment and Plan (1) Catheter-associated urinary tract infection Current Visit: Yes Status: Acute Code(s): T83.511A - I/I REACT D/T INDWELLING URETHRAL CATHETER, INIT; N39.0 - URINARY TRACT INFECTION, SITE NOT SPECIFIED SNOMED Code(s): 706630946 Plan: 1patient presented to hospital with sepsis in this patient who did have fever tachycardia elevated white count source is likely catheter associated tract infection in this patient who do have a history of MS urinary retention requiring Dailey catheter and history of recurrent UTIs with the last urine culture positive for ESBL E. coli. 2patient did have normalization of the white count and resolution of the fever, blood as well as urine culture negative so far 3-patient has received adequate meropenem for possible cystitis, we will go ahead and discontinue meropenem and monitor the patient closely off antibiotic therapy Dictation was produced using [employer] dictation software. please excuse any grammatical, word or spelling errors. Time with Patient: Less than 30
--- NOTE | 2024-03-06 18:33 | P.PN ---
Subjective Progress Note Date: 03/06/24 58-year-old female admitted for status epilepticus which lasted for 20 minutes resolved with midazolam. Patient on multiple antiseizure medications at home. Patient is lethargic but was able to answer questions appropriately. Patient had lactic acid (presently 2.5 patient is hyperkalemic because of which IV fluids were changed to half-normal saline. Patient had leukocytosis denies any fever but had low-grade fever here in the ER and patient urine is abnormal he also was complaining of dysuria and increased urinary frequency patient was started on Rocephin with urine cultures, patient had ESBL E. coli from her previous cultures this E. coli is also resistant to fluoroquinolones as well. Apparently patient missed antibiotics for couple days. Patient was eval by neurology patient was quite lethargic but alert oriented x 3. Objective - Vital Signs Vital signs: Vital Signs Temp 97.8 F 03/06/24 07:00 Pulse 76 03/06/24 07:00 Resp 17 03/06/24 07:00 BP 107/68 03/06/24 07:00 Pulse Ox 98 03/06/24 07:00 FiO2 Intake & Output 03/05/24 03/06/24 03/06/24 18:59 06:59 18:59 Output Total 1200 1500 Balance -1200 -1500 Weight 61.7 kg 61.7 kg Output: Urine 1200 1500 Other: Voiding Method Diaper Diaper Diaper Incontinent Incontinent Incontinent External Catheter External Catheter External Catheter # Bowel Movements 1 - Exam GENERAL: The patient is alert and oriented x3, not in any acute distress. Well developed, well nourished. More awake and alert. HEENT: Pupils are round and equally reacting to light. EOMI. No scleral icterus. No conjunctival pallor. Normocephalic, atraumatic. No pharyngeal erythema. No thyromegaly. CARDIOVASCULAR: S1 and S2 present. No murmurs, rubs, or gallops. PULMONARY: Chest is clear to auscultation, no wheezing or crackles. ABDOMEN: Soft, nontender, nondistended, normoactive bowel sounds. No palpable organomegaly. MUSCULOSKELETAL: No joint swelling or deformity. EXTREMITIES: No cyanosis, clubbing, or pedal edema. NEUROLOGICAL: Unable to move lower extremities bilaterally. Patient have some focal deficits from her previous MS. Upper extremities are tremulous. SKIN: No rashes. - Labs CBC & Chem 7: 03/01/24 08:25 03/05/24 06:24 Labs: Microbiology - Last 24 Hours (Table) 02/29/24 02:45 Blood Culture - Final Blood 02/29/24 02:30 Blood Culture - Final Blood Assessment and Plan Assessment: -Breakthrough seizures patient was in status epilepticus on admission which resolved at this time Her seizures are believed to be secondary to missing few doses of her 3 antiseizure medications which were resumed. Briviact recommend by neurology to be discontinued. Patient is also on dalfampridine which will be discontinued as it is contraindicated in seizures. -Sepsis secondary to urinary tract infection: Patient had ESBL E. coli infectious disease will be consulted patient will be started on meropenem with close monitoring for seizures. -Multiple sclerosis per patient has become unable to use her lower extremities since December hospitalization. Reports being obtained from [facility]. Concern for critical illness myopathy vs. MS exacerbation. -MS exacerbation with white matter plaque T6-7 on high dose IVPB steroids neurology following, PT/OT on board. -Severe sepsis -Lactic acidosis secondary to seizures and sepsis -Hypokalemia from poor oral intake. supplemented and improving. -Anion gap metabolic acidosis secondary lactic acidosis and non-anion gap metabolic acidosis secondary to hyperchloremia patient was switched to half- normal saline and acidosis has resolved. -Hypothyroidism with significantly elevated TSH at 11.400 synthroid has been increased to 100 mcg daily and need to repeat blood work outpatient. DVT prophylaxis: Lovenox GI prophylaxis: Pepcid Do Not Resuscitate, Do Not Intubate
[2024-03-07 09:15] LABS: Basophils # (A) 0.01 X 10*3/uL (0.00-0.10); Basophils % (A) 0.1 %; Eosinophils # (A) 0 X 10*3/uL (0.04-0.35); Eosinophils % (A) 0 %; HCT 37.7 % (37.2-46.3); HGB 12.5 g/dL (12.0-15.0); Lymphocytes # (A) 0.82 X 10*3/uL (0.90-5.00); MCH 29.7 pg (27.0-32.0); MCHC 33.2 g/dL (32.0-37.0); MCV 89.5 FL (80.0-97.0); Mean Platelet Volume 11.2 FL (9.5-12.2); Monocytes # (A) 0.22 X 10*3/uL (0.20-1.00); Monocytes % (A) 2.7 %; NRBC Per 100 WBC 0 X 10*3/uL (0.00-0.01); Neutrophils # (A) 7.12 X 10*3/uL (1.80-7.70); Neutrophils % (A) 86.6 %; Platelet Count 295 X 10*3/uL (140-440); RBC 4.21 X 10*6/uL (4.10-5.20); RDW 15.6 % (11.5-14.5); WBC 8.22 X 10*3/uL (4.50-10.00)
[2024-03-07 09:49] LABS: Blood Urea Nitrogen 12.8 mg/dL (9.0-27.0); Calcium 8.8 mg/dL (8.7-10.3); Carbon Dioxide 25.7 mmol/L (21.6-31.8); Chloride 107 mmol/L (96-109); Glucose 145 mg/dL (70-110); Potassium 3.8 mmol/L (3.5-5.5); Sodium 143 mmol/L (135-145)
--- NOTE | 2024-03-07 13:48 | P.PN ---
Subjective Progress Note Date: 03/07/24 Principal diagnosis: Reason for follow-up is a catheter associated UTI Patient is a 58-year-old female with a past medical history significant for MS thyroid disorder in this patient also have a history of recurrent UTI currently to have a Dailey catheter in this patient has been brought into the hospital from the local long term for apparently the patient did have a seizure, patient was noted to have a low-grade fever elevated white count positive UA concerning for catheter associated UTI. On today's evaluation that is 03/07/2024,the patient remains to be afebrile, patient is on room air not requiring supplemental oxygen and denies any shortness of breath no chest pain or cough.Patient denies having any nausea or vomiting, no abdominal pain and no diarrhea has been reported, patient mention feeling better. Patient white count is 8.22, creatinine 0.2 Objective - Vital Signs Vital signs: Vital Signs Temp 98.1 F 03/07/24 02:06 Pulse 82 03/07/24 02:06 Resp 16 03/07/24 02:06 BP 111/72 03/07/24 02:06 Pulse Ox 97 03/07/24 02:06 FiO2 Intake & Output 03/06/24 03/07/24 03/07/24 18:59 06:59 18:59 Output Total 700 1000 Balance -700 -1000 Output: Urine 700 1000 Other: Voiding Method Diaper Diaper Incontinent Incontinent External Catheter External Catheter # Bowel Movements 1 - Exam GENERAL DESCRIPTION: Middle-aged female lying in bed in no distress RESPIRATORY SYSTEM: Unlabored breathing , decreased breath sounds at bases HEART: S1 S2 regular rate and rhythm , ABDOMEN: Soft , no tenderness EXTREMITIES: No edema feet - Labs CBC & Chem 7: 03/07/24 06:00 03/07/24 06:00 Assessment and Plan (1) Catheter-associated urinary tract infection Current Visit: Yes Status: Acute Code(s): T83.511A - I/I REACT D/T INDWELLING URETHRAL CATHETER, INIT; N39.0 - URINARY TRACT INFECTION, SITE NOT SPECIFIED SNOMED Code(s): 746111310 Plan: 1patient presented to hospital with sepsis in this patient who did have fever tachycardia elevated white count source is likely catheter associated tract infection in this patient who do have a history of MS urinary retention requiring Dailey catheter and history of recurrent UTIs with the last urine culture positive for ESBL E. coli. 2patient did have normalization of the white count and resolution of the fever, blood as well as urine culture negative so far 3-patient has received adequate meropenem for possible cystitis, antibiotics were discontinued yesterday and the patient is being monitored closely off antibiotic therapy Dictation was produced using [employer] dictation software. please excuse any grammatical, word or spelling errors. Time with Patient: Less than 30
--- NOTE | 2024-03-07 17:55 | P.PN ---
Subjective Progress Note Date: 03/07/24 58-year-old female admitted for status epilepticus which lasted for 20 minutes resolved with midazolam. Patient on multiple antiseizure medications at home. Patient is lethargic but was able to answer questions appropriately. Patient had lactic acid (presently 2.5 patient is hyperkalemic because of which IV fluids were changed to half-normal saline. Patient had leukocytosis denies any fever but had low-grade fever here in the ER and patient urine is abnormal he also was complaining of dysuria and increased urinary frequency patient was started on Rocephin with urine cultures, patient had ESBL E. coli from her previous cultures this E. coli is also resistant to fluoroquinolones as well. Apparently patient missed antibiotics for couple days. Patient was eval by neurology patient was quite lethargic but alert oriented x 3. 03/07/2024 -the patient remains to be afebrile, patient is on room air not requiring supplemental oxygen and denies any shortness of breath no chest pain or cough.Patient denies having any nausea or vomiting, no abdominal pain and no diarrhea has been reported, patient mention feeling better. Patient white count is 8.22, creatinine 0.2 patient presented to hospital with sepsis in this patient who did have fever tachycardia elevated white count source is likely catheter associated tract infection in this patient who do have a history of MS urinary retention requiring Dailey catheter and history of recurrent UTIs with the last urine cu lture positive for ESBL E. coli. patient did have normalization of the white count and resolution of the fever, blood as well as urine culture negative so far -patient has received adequate meropenem for possible cystitis, antibiotics were discontinued yesterday and the patient is being monitored closely off antibiotic therapy Objective - Vital Signs Vital signs: Vital Signs Temp 97.7 F 03/07/24 08:00 Pulse 95 03/07/24 08:00 Resp 17 03/07/24 08:00 BP 104/65 03/07/24 08:00 Pulse Ox 100 03/07/24 08:00 FiO2 Intake & Output 03/06/24 03/07/24 03/07/24 18:59 06:59 18:59 Output Total 700 1000 Balance -700 -1000 Output: Urine 700 1000 Other: Voiding Method Diaper Diaper Incontinent Incontinent External Catheter External Catheter # Bowel Movements 1 - Exam GENERAL: The patient is alert and oriented x3, not in any acute distress. Well developed, well nourished. More awake and alert. HEENT: Pupils are round and equally reacting to light. EOMI. No scleral icterus. No conjunctival pallor. Normocephalic, atraumatic. No pharyngeal erythema. No thyromegaly. CARDIOVASCULAR: S1 and S2 present. No murmurs, rubs, or gallops. PULMONARY: Chest is clear to auscultation, no wheezing or crackles. ABDOMEN: Soft, nontender, nondistended, normoactive bowel sounds. No palpable organomegaly. MUSCULOSKELETAL: No joint swelling or deformity. EXTREMITIES: No cyanosis, clubbing, or pedal edema. NEUROLOGICAL: Unable to move lower extremities bilaterally. Patient have some focal deficits from her previous MS. Upper extremities are tremulous. SKIN: No rashes. - Labs CBC & Chem 7: 03/07/24 06:00 03/07/24 06:00 Labs: Abnormal Lab Results - Last 24 Hours (Table) 03/07/24 03/07/24 Range/Units 06:00 06:00 RDW 15.6 H (11.5-14.5) % Immature Gran # 0.05 H (0.00-0.04) X 10*3/uL Lymphocytes # 0.82 L (0.90-5.00) X 10*3/uL Eosinophils # 0 L (0.04-0.35) X 10*3/uL Creatinine 0.2 L (0.6-1.5) mg/dL BUN/Creatinine Ratio 64.00 H (12.00-20.00) Ratio Glucose 145 H (70-110) mg/dL Assessment and Plan Assessment: -Breakthrough seizures patient was in status epilepticus on admission which resolved at this time Her seizures are believed to be secondary to missing few doses of her 3 antiseizure medications which were resumed. Briviact recommend by neurology to be discontinued. Patient is also on dalfampridine which will be discontinued as it is contraindicated in seizures. -Sepsis secondary to urinary tract infection: Patient had ESBL E. coli infectious disease will be consulted patient will be started on meropenem with close monitoring for seizures. -Multiple sclerosis per patient has become unable to use her lower extremities since December hospitalization. Reports being obtained from [facility]. Concern for critical illness myopathy vs. MS exacerbation. -MS exacerbation with white matter plaque T6-7 on high dose IVPB steroids neurology following, PT/OT on board. -Severe sepsis -Lactic acidosis secondary to seizures and sepsis -Hypokalemia from poor oral intake. supplemented and improving. -Anion gap metabolic acidosis secondary lactic acidosis and non-anion gap metabolic acidosis secondary to hyperchloremia patient was switched to half-norm al saline and acidosis has resolved. -Hypothyroidism with significantly elevated TSH at 11.400 synthroid has been increased to 100 mcg daily and need to repeat blood work outpatient. DVT prophylaxis: Lovenox GI prophylaxis: Pepcid Do Not Resuscitate, Do Not Intubate
[2024-03-08 09:33] LABS: Basophils # (A) 0 X 10*3/uL (0.00-0.10); Basophils % (A) 0 %; Eosinophils # (A) 0 X 10*3/uL (0.04-0.35); Eosinophils % (A) 0 %; HCT 39.4 % (37.2-46.3); HGB 12.8 g/dL (12.0-15.0); Lymphocytes # (A) 0.84 X 10*3/uL (0.90-5.00); Lymphocytes % (A) 10.8 %; MCH 30.6 pg (27.0-32.0); MCHC 32.5 g/dL (32.0-37.0); MCV 94.3 FL (80.0-97.0); Mean Platelet Volume 11.9 FL (9.5-12.2); Monocytes # (A) 0.22 X 10*3/uL (0.20-1.00); Monocytes % (A) 2.8 %; NRBC Per 100 WBC 0 X 10*3/uL (0.00-0.01); Neutrophils # (A) 6.67 X 10*3/uL (1.80-7.70); Neutrophils % (A) 85.8 %; Platelet Count 278 X 10*3/uL (140-440); RBC 4.18 X 10*6/uL (4.10-5.20); RDW 15.4 % (11.5-14.5); WBC 7.78 X 10*3/uL (4.50-10.00)
[2024-03-08 10:38] LABS: BUN/Creat Ratio 43.67 Ratio (12.00-20.00); Blood Urea Nitrogen 13.1 mg/dL (9.0-27.0); Calcium 8.6 mg/dL (8.7-10.3); Carbon Dioxide 23.3 mmol/L (21.6-31.8); Chloride 106 mmol/L (96-109); Glucose 132 mg/dL (70-110); Potassium 3.5 mmol/L (3.5-5.5); Sodium 141 mmol/L (135-145)
--- NOTE | 2024-03-08 12:10 | P.PN ---
Subjective Progress Note Date: 03/08/24 I am following-up with patient and feels she is showing minimal improvement in strength in leg with IV steroids. Otherwise denies any new neurological issues. Objective - Vital Signs Vital signs: Vital Signs Temp 97.9 F 03/08/24 06:49 Pulse 58 L 03/08/24 06:49 Resp 18 03/08/24 06:49 BP 111/71 03/08/24 06:49 Pulse Ox 98 03/08/24 06:49 FiO2 Intake & Output 03/07/24 03/08/24 03/08/24 18:59 06:59 18:59 Output Total 600 Balance -600 Output: Urine 600 Other: Voiding Method Diaper Incontinent External Catheter # Voids 825 1 # Bowel Movements 1 - Exam General: Sitting in a recliner chair and is not in acute distress. Neuro: The patient is awake, alert, oriented to self, place and time. She is following simple commands. No aphasia. Pupils are round equal reactive to light. Pupils are round 3 mm bilaterally. No facial weakness. No dysarthria. Patient has hypophonia. Motor is left in upper extremities but the strength is 4+ and the handgrip is 4. Bilateral lowers are 2 out of 5 proximally. Reflexes 1 positive. - Labs CBC & Chem 7: 03/08/24 06:11 03/08/24 06:11 Labs: Abnormal Lab Results - Last 24 Hours (Table) 03/08/24 03/08/24 Range/Units 06:11 06:11 RDW 15.4 H (11.5-14.5) % Immature Gran # 0.05 H (0.00-0.04) X 10*3/uL Lymphocytes # 0.84 L (0.90-5.00) X 10*3/uL Eosinophils # 0 L (0.04-0.35) X 10*3/uL Creatinine 0.3 L (0.6-1.5) mg/dL BUN/Creatinine Ratio 43.67 H (12.00-20.00) Ratio Glucose 132 H (70-110) mg/dL Calcium 8.6 L (8.7-10.3) mg/dL Assessment and Plan Assessment: * Paraplegia, worse since recent hospitalization on 12/2023. It is reported she had critical illness myopathy on her most recent hospital visit and unsure if that is cause vs MS exacerbation. On MRI has subtle white plaque on T6-T7 on MRI which is new concerning for MS exacerbation---showing minimal improvement in lowers with IV steroids * Breakthrough seizure, presenting with status epilepticus. Seizure lasted for about 20 minutes before it was aborted with IM midazolam. Seizure likely triggered from lowered threshold from dalfampridine, and also that patient did not receive her Briviact for 36 hours while she was in [facility]. * New onset seizure diagnosed on 12/19/2023. Patient probably had status epilepticus at that time, with prolonged hospitalization for 2 months, discharged to [facility] 36-hour before presenting with status epilepticus. * Advanced multiple sclerosis, wheelchair/bedbound. 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 * DO NOT RESUSCITATE Plan: * Patient is resumed on Vimpat 200 mg twice daily, and Depakote 500 mg 3 times daily. * Per Dr. Villatoro, Stay off Briviact. Keppra already has been discontinued. * Also per Dr. Villatoro, Stop dalfampridine completely. Patient states that it was helping her mobility. * EEG: Is abnormal. The background slowing is suggestive of mild encephalopathy. There is no focal slowing, epileptiform discharge or seizure. * May resume Ritalin, Per Dr. Villatoro. * MRI thoracic spine is reported as there appears to be subtle white matter plaque within the T6-T7 level spinal cord. This is new from comparison. Stable large disc herniation C5-C6 with mild cord deformity and AP spinal cord stenosis. * MRI of the brain and cervical spine is reported as multiple bilateral deep white matter hyperintensities can be compatible with simple sclerosis. These appear to be increased in size with similar number and distribution. * Continue IV SoluMedrol 500mg bid for total of 5 days because of concern of MS exacerbation and today is day#4 (started on it on 03/05/24). For sugar control I will defer that to the primary team. * CK level is 30 * B12: 1806, folate: 22.70, TSH: 11.40 and free T4 0.98 * For GI prophylaxis the patient is on Pepcid 20 mg twice daily The plan is discussed with patient and her nurse. Time with Patient: Less than 30
--- NOTE | 2024-03-08 16:38 | P.PN ---
Subjective Progress Note Date: 03/08/24 58-year-old female admitted for status epilepticus which lasted for 20 minutes resolved with midazolam. Patient on multiple antiseizure medications at home. Patient is lethargic but was able to answer questions appropriately. Patient had lactic acid (presently 2.5 patient is hyperkalemic because of which IV fluids were changed to half-normal saline. Patient had leukocytosis denies any fever but had low-grade fever here in the ER and patient urine is abnormal he also was complaining of dysuria and increased urinary frequency patient was started on Rocephin with urine cultures, patient had ESBL E. coli from her previous cultures this E. coli is also resistant to fluoroquinolones as well. Apparently patient missed antibiotics for couple days. Patient was eval by neurology patient was quite lethargic but alert oriented x 3. 03/07/2024 -the patient remains to be afebrile, patient is on room air not requiring supplemental oxygen and denies any shortness of breath no chest pain or cough.Patient denies having any nausea or vomiting, no abdominal pain and no diarrhea has been reported, patient mention feeling better. Patient white count is 8.22, creatinine 0.2 patient presented to hospital with sepsis in this patient who did have fever tachycardia elevated white count source is likely catheter associated tract infection in this patient who do have a history of MS urinary retention requiring Dailey catheter and history of recurrent UTIs with the last urine cu lture positive for ESBL E. coli. patient did have normalization of the white count and resolution of the fever, blood as well as urine culture negative so far -patient has received adequate meropenem for possible cystitis, antibiotics were discontinued yesterday and the patient is being monitored closely off antibiotic therapy 03/08/2024 Patient is seen and evaluated in room at bedside; awake and alert; reports she is gradually feeling improved and stronger Vital signs are reviewed and remained stable Blood work reveals WBC of 7.7, hemoglobin of 12.8 and platelet count of 278, sodium 141, potassium 3.5, BUNs/creatinine of 13/0.3 Neurology on board and recommending to continue with IV Solu-Medrol 500 mg twice daily to complete a total of 5 days for concern for possible MS exacerbation; today is day #4/5 of the treatment Patient remains on Vimpat 200 mg twice daily and Depakote 500 mg 3 times daily Objective - Vital Signs Vital signs: Vital Signs Temp 97.9 F 03/08/24 06:49 Pulse 58 L 03/08/24 06:49 Resp 18 03/08/24 06:49 BP 111/71 03/08/24 06:49 Pulse Ox 98 03/08/24 06:49 FiO2 Intake & Output 03/07/24 03/08/24 03/08/24 18:59 06:59 18:59 Output Total 600 Balance -600 Output: Urine 600 Other: Voiding Method Diaper Incontinent External Catheter # Voids 825 1 # Bowel Movements 1 - Exam GENERAL: The patient is alert and oriented x3, not in any acute distress. Well developed, well nourished. More awake and alert. HEENT: Pupils are round and equally reacting to light. EOMI. No scleral icterus. No conjunctival pallor. Normocephalic, atraumatic. No pharyngeal erythema. No thyromegaly. CARDIOVASCULAR: S1 and S2 present. No murmurs, rubs, or gallops. PULMONARY: Chest is clear to auscultation, no wheezing or crackles. ABDOMEN: Soft, nontender, nondistended, normoactive bowel sounds. No palpable organomegaly. MUSCULOSKELETAL: No joint swelling or deformity. EXTREMITIES: No cyanosis, clubbing, or pedal edema. NEUROLOGICAL: Unable to move lower extremities bilaterally. Patient have some focal deficits from her previous MS. Upper extremities are tremulous. SKIN: No rashes. - Labs CBC & Chem 7: 03/08/24 06:11 03/08/24 06:11 Labs: Abnormal Lab Results - Last 24 Hours (Table) 03/08/24 03/08/24 Range/Units 06:11 06:11 RDW 15.4 H (11.5-14.5) % Immature Gran # 0.05 H (0.00-0.04) X 10*3/uL Lymphocytes # 0.84 L (0.90-5.00) X 10*3/uL Eosinophils # 0 L (0.04-0.35) X 10*3/uL Creatinine 0.3 L (0.6-1.5) mg/dL BUN/Creatinine Ratio 43.67 H (12.00-20.00) Ratio Glucose 132 H (70-110) mg/dL Calcium 8.6 L (8.7-10.3) mg/dL Assessment and Plan Assessment: -Breakthrough seizures patient was in status epilepticus on admission which resolved at this time Her seizures are believed to be secondary to missing few doses of her 3 antiseizure medications which were resumed. Briviact recommend by neurology to be discontinued. Patient is also on dalfampridine which will be discontinued as it is contraindicated in seizures. -Sepsis secondary to urinary tract infection: Patient had ESBL E. coli inf ectious disease will be consulted patient will be started on meropenem with close monitoring for seizures. -Multiple sclerosis per patient has become unable to use her lower extremities since December hospitalization. Reports being obtained from [facility]. Concern for critical illness myopathy vs. MS exacerbation. -MS exacerbation with white matter plaque T6-7 on high dose IVPB steroids neuro logy following, PT/OT on board. -Severe sepsis -Lactic acidosis secondary to seizures and sepsis -Hypokalemia from poor oral intake. supplemented and improving. -Anion gap metabolic acidosis secondary lactic acidosis and non-anion gap metabolic acidosis secondary to hyperchloremia patient was switched to half- normal saline and acidosis has resolved. -Hypothyroidism with significantly elevated TSH at 11.400 synthroid has been increased to 100 mcg daily and need to repeat blood work outpatient. DVT prophylaxis: Lovenox GI prophylaxis: Pepcid Do Not Resuscitate, Do Not Intubate
[2024-03-09 09:35] LABS: BUN/Creat Ratio 55.67 Ratio (12.00-20.00); Blood Urea Nitrogen 16.7 mg/dL (9.0-27.0); Calcium 8.2 mg/dL (8.7-10.3); Carbon Dioxide 24.8 mmol/L (21.6-31.8); Chloride 107 mmol/L (96-109); Glucose 145 mg/dL (70-110); Potassium 3.5 mmol/L (3.5-5.5); Sodium 141 mmol/L (135-145)
--- NOTE | 2024-03-09 17:49 | P.PN ---
Subjective Progress Note Date: 03/09/24 Acute kidney Patient is 58-year-old female admitted for status epilepticus which lasted for 20 minutes resolved with midazolam. Patient on multiple antiseizure medications at home. Patient is lethargic but was able to answer questions appropriately. Patient had lactic acid (presently 2.5 patient is hyperkalemic because of which IV fluids were changed to half-normal saline. Patient had leukocytosis denies any fever but had low-grade fever here in the ER and patient urine is abnormal he also was complaining of dysuria and increased urinary frequency patient was started on Rocephin with urine cultures, patient had ESBL E. coli from her previous cultures this E. coli is also resistant to fluoroquinolones as well. Apparently patient missed antibiotics for couple days. Patient was eval by neurology patient was quite lethargic but alert oriented x 3. 03/01/2024 Patient is evaluated today in follow up in the ER pending a bed on the medical floor. Patient is more awake alert has been resumed on her antiseizure medication although we do not carry the briviact asked patient to have someone bring her home medications in. Patient feels maybe she is in an MS flare up. Remains on IV meropenem with concern for UTI although the urine culture is negative. Potassium is 3.1. Magnesium is 1.8. 03/02/2024 Patient is evaluated in follow up today on the medical floor. Patient is recommending to remain off of briviact by neurology. Continues on vimpat, depakote. Patient remains on IV meropenem, urine culture negative. Lumbar spine xray showing no acute fracture postsurgical changes with hardware intact at L4/L5. Patient has PEG tube in place. Blood work reveals potassium 3.3, BUN 8.1, creatinine 0.2. Folate level 22.70. TSH 11.400, T4 0.98. 03/03/2024 Patient is evaluated in follow up on the medical floor. Sitting up in the chair. Reports reviewed from [facility] unsure whether patient had MRIs done there. Concern for either critical illness myopathy vs. an MS exacerbation as patient reports basically unable to use her lower extremities since her hospitalization back in December. Neurology following and MRIs will be ordered here. Potassium today 3.3. EEG reveals no epileptiform or seizure activity. 03/04/2024 Patient is evaluated today in follow-up sitting up in the bed with her family at the bedside. We are pending MRI and EEG reports [facility] at this time however patient will be taken down for a cervical and thoracic MRI today. Family is concerned as the dalfampridine was helping patient with her ambulation and being able to use her lower extremities since she has been discontinued off this medication she has been essentially unable to ambulate with her walker. They understand that this patient is contraindicated and seizure-like activity and will need to remain off this medication at this time. Potassium is 3.1 today. 03/05/2024 Patient is evaluated in follow-up today. Her MRI does reveal a subtle white matter plaque and T6-7 with changes stable like disc herniation C5-6 with mild cord deformity and AP spinal canal stenosis. Patient will be started on IV steroids high-dose by neurology. Her potassium has normalized to 3.9. She has no acute complaints overnight. 03/09/2020 Patient is seen in follow-up today 03/09/2024 Patient is seen in follow-up today with multiple medical consultations following maintained off antibiotics being closely monitored with infectious disease following. Patient has completed adequate amount of antibiotic therapy. Counts have normalized. Plan is to return to [facility] on discharge. Neurology following as well with medication adjustments and will need close outpatient follow-up with her neurologist. Patient is currently afebrile with no reports of chest pain or shortness of breath. Patient has been tolerating diet. Review of Systems Constitutional: Denied any fatigue denied any fever. Cardio vascular: denied any chest pain, palpitations Gastrointestinal: denied any nausea, vomiting, diarrhea Pulmonary: Denied any shortness of breath cough Neurologic denied any new focal deficits; paraplegia All inpatient medications were reviewed and appropriate changes in these medications as dictated in the interval history and assessment and plan. PHYSICAL EXAMINATION: GENERAL: The patient is alert and oriented x3, not in any acute distress. Well developed, well nourished. More awake and alert. HEENT: Pupils are round and equally reacting to light. EOMI. No scleral icterus. No conjunctival pallor. Normocephalic, atraumatic. No pharyngeal erythema. No thyromegaly. CARDIOVASCULAR: S1 and S2 muffled diminished breath sounds bilaterally otherwise PULMONARY: Chest is clear to auscultation, no wheezing or crackles. ABDOMEN: Soft, nontender, nondistended, normoactive bowel sounds. No palpable organomegaly. MUSCULOSKELETAL: No joint swelling or deformity. EXTREMITIES: No cyanosis, clubbing, or pedal edema. NEUROLOGICAL: Unable to move lower extremities bilaterally. Patient have some focal deficits from her previous MS. Upper extremities are tremulous. SKIN: No rashes. Assessment: -Breakthrough seizures patient was in status epilepticus on admission which resolved at this time Her seizures are believed to be secondary to missing few doses of her 3 antiseizure medications which were resumed. Briviact recommend by neurology to be discontinued. Patient is also on dalfampridine which will be discontinued as it is contraindicated in seizures. -Sepsis secondary to urinary tract infection: Patient had ESBL E. coli present on admission -Multiple sclerosis per patient has become unable to use her lower extremities since December hospitalization. Reports being obtained from [facility]. Concern for critical illness myopathy vs. MS exacerbation. -MS exacerbation with white matter plaque T6-7 Calm down on the jumping-Lactic acidosis secondary to seizures and sepsis -Hypokalemia from poor oral intake. supplemented and improving. -Anion gap metabolic acidosis secondary lactic acidosis and non-anion gap metabolic acidosis secondary to hyperchloremia patient was switched to half- normal saline and acidosis has resolved. -Hypothyroidism with significantly elevated TSH at 11.400 synthroid has been increased to 100 mcg daily and need to repeat blood work outpatient. DVT prophylaxis: Lovenox GI prophylaxis: Pepcid Do Not Resuscitate, Do Not Intubate Plan: Patient is being closely monitored off antibiotic therapy and has received adequate antibiotics per infectious disease Will arrange for discharge planning where she resides, [facility] Follow-up on repeat labs and continue to monitor closely will discuss with case management/social work regarding discharge planning in the next 24 to 48 hours The impression and plan of care has been dictated by Amarilys Hernandez, Nurse Practitioner as directed. Dr. Reece MD I have performed a history and physical examination and medical decision making of this patient, discussed the same with the dictator, and agree with the dictators assessment and plan as written, documented as a scribe. Based on total visit time, I have performed more than 50% of this visit. Objective - Vital Signs Vital signs: Vital Signs Temp 97.5 F L 03/09/24 14: Pulse 74 03/09/24 14:28 Resp 18 03/09/24 14:28 BP 123/75 03/09/24 14:28 Pulse Ox 99 03/09/24 14:28 FiO2 Intake & Output 03/08/24 03/09/24 03/09/24 18:59 06:59 18:59 Output Total 450 325 900 Balance -450 -325 -900 Weight 67.9 kg Output: Urine 450 325 900 Other: Voiding Method Diaper Incontinent External Catheter # Bowel Movements 1 - Labs CBC & Chem 7: 03/08/24 06:11 03/09/24 05:21 Labs: Abnormal Lab Results - Last 24 Hours (Table) 03/09/24 Range/Units 05:21 Creatinine 0.3 L (0.6-1.5) mg/dL BUN/Creatinine Ratio 55.67 H (12.00-20.00) Ratio Glucose 145 H (70-110) mg/dL Calcium 8.2 L (8.7-10.3) mg/dL
--- NOTE | 2024-03-10 08:08 | P.PN ---
Subjective Progress Note Date: 03/08/24 Principal diagnosis: Reason for follow-up is a catheter associated UTI Patient is a 58-year-old female with a past medical history significant for MS thyroid disorder in this patient also have a history of recurrent UTI currently to have a Dailey catheter in this patient has been brought into the hospital from the local correction for apparently the patient did have a seizure, patient was noted to have a low-grade fever elevated white count positive UA concerning for catheter associated UTI. On today's evaluation that is 03/08/2024, the patient continues to be afebrile, the patient is on room air and breathing comfortably, the Pt denies having any chest pain or cough, the patient denies having any abdominal pain no vomiting or any diarrhea has been reported by the nursing staff Patient white count 7.78, creatinine 0.3 Objective - Vital Signs Vital signs: Vital Signs Temp 97.9 F 03/08/24 06:49 Pulse 58 L 03/08/24 06:49 Resp 18 03/08/24 06:49 BP 111/71 03/08/24 06:49 Pulse Ox 98 03/08/24 06:49 FiO2 Intake & Output 03/07/24 03/08/24 03/08/24 18:59 06:59 18:59 Output Total 600 Balance -600 Output: Urine 600 Other: Voiding Method Diaper Incontinent External Catheter # Voids 825 1 # Bowel Movements 1 - Exam GENERAL DESCRIPTION: Middle-aged female lying in bed in no distress RESPIRATORY SYSTEM: Unlabored breathing , decreased breath sounds at bases HEART: S1 S2 regular rate and rhythm , ABDOMEN: Soft , no tenderness EXTREMITIES: No edema feet - Labs CBC & Chem 7: 03/08/24 06:11 03/09/24 05:21 Labs: Abnormal Lab Results - Last 24 Hours (Table) 03/07/24 03/07/24 Range/Units 06:00 06:00 RDW 15.6 H (11.5-14.5) % Immature Gran # 0.05 H (0.00-0.04) X 10*3/uL Lymphocytes # 0.82 L (0.90-5.00) X 10*3/uL Eosinophils # 0 L (0.04-0.35) X 10*3/uL Creatinine 0.2 L (0.6-1.5) mg/dL BUN/Creatinine Ratio 64.00 H (12.00-20.00) Ratio Glucose 145 H (70-110) mg/dL Assessment and Plan (1) Catheter-associated urinary tract infection Current Visit: Yes Status: Acute Code(s): T83.511A - I/I REACT D/T INDWELLING URETHRAL CATHETER, INIT; N39.0 - URINARY TRACT INFECTION, SITE NOT SPECIFIED SNOMED Code(s): 509373098 Plan: 1patient presented to hospital with sepsis in this patient who did have fever tachycardia elevated white count source is likely catheter associated tract infection in this patient who do have a history of MS urinary retention requiring Dailey catheter and history of recurrent UTIs with the last urine culture positive for ESBL E. coli. 2patient did have normalization of the white count and resolution of the fever, blood as well as urine culture negative so far 3-patient has received adequate meropenem for possible cystitis, and the patient is being monitored closely off antibiotic therapy Dictation was produced using [employer] dictation software. please excuse any grammatical, word or spelling errors. Time with Patient: Less than 30
--- NOTE | 2024-03-10 08:08 | P.PN ---
Subjective Progress Note Date: 03/09/24 Principal diagnosis: Reason for follow-up is a catheter associated UTI Patient is a 58-year-old female with a past medical history significant for MS thyroid disorder in this patient also have a history of recurrent UTI currently to have a Dailey catheter in this patient has been brought into the hospital from the local retirement for apparently the patient did have a seizure, patient was noted to have a low-grade fever elevated white count positive UA concerning for catheter associated UTI. On today's evaluation that is 03/09/2024, Patient is afebrile patient is currently on room air and denies having any shortness of breath, the patient denies any chest pain or cough, the patient denies any nausea vomiting did not have any abdominal pain and no diarrhea. Patient did have a creatinine 0.3 no CBC was done today Objective - Vital Signs Vital signs: Vital Signs Temp 97.5 F L 03/09/24 14:28 Pulse 74 03/09/24 14:28 Resp 18 03/09/24 14:28 BP 123/75 03/09/24 14:28 Pulse Ox 99 03/09/24 14:28 FiO2 Intake & Output 03/08/24 03/09/24 03/09/24 18:59 06:59 18:59 Output Total 450 325 900 Balance -450 -325 -900 Weight 67.9 kg Output: Urine 450 325 900 Other: Voiding Method Diaper Incontinent External Catheter # Bowel Movements 1 - Exam GENERAL DESCRIPTION: Middle-aged female lying in bed in no distress RESPIRATORY SYSTEM: Unlabored breathing , decreased breath sounds at bases HEART: S1 S2 regular rate and rhythm , ABDOMEN: Soft , no tenderness EXTREMITIES: No edema feet - Labs CBC & Chem 7: 03/08/24 06:11 03/09/24 05:21 Labs: Abnormal Lab Results - Last 24 Hours (Table) 03/09/24 Range/Units 05:21 Creatinine 0.3 L (0.6-1.5) mg/dL BUN/Creatinine Ratio 55.67 H (12.00-20.00) Ratio Glucose 145 H (70-110) mg/dL Calcium 8.2 L (8.7-10.3) mg/dL Assessment and Plan (1) Catheter-associated urinary tract infection Current Visit: Yes Status: Acute Code(s): T83.511A - I/I REACT D/T INDWELLING URETHRAL CATHETER, INIT; N39.0 - URINARY TRACT INFECTION, SITE NOT SPECIFIED SNOMED Code(s): 510161409 Plan: 1patient presented to hospital with sepsis in this patient who did have fever tachycardia elevated white count source is likely catheter associated tract infection in this patient who do have a history of MS urinary retention requiring Dailey catheter and history of recurrent UTIs with the last urine culture positive for ESBL E. coli. 2patient did have normalization of the white count and resolution of the fever, blood as well as urine culture negative so far 3-patient underlying cystitis has been adequately treated patient remains to be afebrile white count is normal and will monitor closely off antibiotic therapy Dictation was produced using [employer] dictation software. please excuse any grammatical, word or spelling errors. Time with Patient: Less than 30
--- NOTE | 2024-03-10 15:06 | P.PN ---
Subjective Progress Note Date: 03/10/24 Acute kidney Patient is 58-year-old female admitted for status epilepticus which lasted for 20 minutes resolved with midazolam. Patient on multiple antiseizure medications at home. Patient is lethargic but was able to answer questions appropriately. Patient had lactic acid (presently 2.5 patient is hyperkalemic because of which IV fluids were changed to half-normal saline. Patient had leukocytosis denies any fever but had low-grade fever here in the ER and patient urine is abnormal he also was complaining of dysuria and increased urinary frequency patient was started on Rocephin with urine cultures, patient had ESBL E. coli from her previous cultures this E. coli is also resistant to fluoroquinolones as well. Apparently patient missed antibiotics for couple days. Patient was eval by neurology patient was quite lethargic but alert oriented x 3. 03/01/2024 Patient is evaluated today in follow up in the ER pending a bed on the medical floor. Patient is more awake alert has been resumed on her antiseizure medication although we do not carry the briviact asked patient to have someone bring her home medications in. Patient feels maybe she is in an MS flare up. Remains on IV meropenem with concern for UTI although the urine culture is negative. Potassium is 3.1. Magnesium is 1.8. 03/02/2024 Patient is evaluated in follow up today on the medical floor. Patient is recommending to remain off of briviact by neurology. Continues on vimpat, depakote. Patient remains on IV meropenem, urine culture negative. Lumbar spine xray showing no acute fracture postsurgical changes with hardware intact at L4/L5. Patient has PEG tube in place. Blood work reveals potassium 3.3, BUN 8.1, creatinine 0.2. Folate level 22.70. TSH 11.400, T4 0.98. 03/03/2024 Patient is evaluated in follow up on the medical floor. Sitting up in the chair. Reports reviewed from [facility] unsure whether patient had MRIs done there. Concern for either critical illness myopathy vs. an MS exacerbation as patient reports basically unable to use her lower extremities since her hospitalization back in December. Neurology following and MRIs will be ordered here. Potassium today 3.3. EEG reveals no epileptiform or seizure activity. 03/04/2024 Patient is evaluated today in follow-up sitting up in the bed with her family at the bedside. We are pending MRI and EEG reports [facility] at this time however patient will be taken down for a cervical and thoracic MRI today. Family is concerned as the dalfampridine was helping patient with her ambulation and being able to use her lower extremities since she has been discontinued off this medication she has been essentially unable to ambulate with her walker. They understand that this patient is contraindicated and seizure-like activity and will need to remain off this medication at this time. Potassium is 3.1 today. 03/05/2024 Patient is evaluated in follow-up today. Her MRI does reveal a subtle white matter plaque and T6-7 with changes stable like disc herniation C5-6 with mild cord deformity and AP spinal canal stenosis. Patient will be started on IV steroids high-dose by neurology. Her potassium has normalized to 3.9. She has no acute complaints overnight. 03/09/2020 Patient is seen in follow-up today 03/09/2024 Patient is seen in follow-up today with multiple medical consultations following maintained off antibiotics being closely monitored with infectious disease following. Patient has completed adequate amount of antibiotic therapy. Counts have normalized. Plan is to return to [facility] on discharge. Neurology following as well with medication adjustments and will need close outpatient follow-up with her neurologist. Patient is currently afebrile with no reports of chest pain or shortness of breath. Patient has been tolerating diet. 03/10/2024 Patient is seen in follow-up today with neurology and infectious disease following. Patient is being monitored off antibiotics and has received adequate antibiotics and will not require antibiotics on discharge. Patient has received 5 days of large IV dose steroids per neurology and adjustments to medications recommending outpatient follow-up. Patient continues with significant weakness with plans on returning to [facility] and case management following working on discharge planning. Patient will require insurance authorization which is submitted and currently pending. Patient is afebrile with no reports of chest pain or worsening shortness of breath. Patient has been tolerating diet and encourage small frequent meals and assistance with meals. Review of Systems Constitutional: Denied any fatigue denied any fever. Cardio vascular: denied any chest pain, palpitations Gastrointestinal: denied any nausea, vomiting, diarrhea Pulmonary: Denied any shortness of breath cough Neurologic denied any new focal deficits; chronic paraplegia All inpatient medications were reviewed and appropriate changes in these medications as dictated in the interval history and assessment and plan. PHYSICAL EXAMINATION: GENERAL: The patient is alert and oriented x3, not in any acute distress. Well developed, well nourished. More awake and alert. HEENT: Pupils are round and equally reacting to light. EOMI. No scleral icterus. No conjunctival pallor. Normocephalic, atraumatic. No pharyngeal erythema. No thyromegaly. CARDIOVASCULAR: S1 and S2 muffled diminished breath sounds bilaterally otherwise PULMONARY: Chest is clear to auscultation, no wheezing or crackles. ABDOMEN: Soft, nontender, nondistended, normoactive bowel sounds. No palpable organomegaly. MUSCULOSKELETAL: No joint swelling or deformity. EXTREMITIES: No cyanosis, clubbing, or pedal edema. NEUROLOGICAL: Unable to move lower extremities bilaterally. Patient have some focal deficits from her previous MS. Upper extremities are tremulous. SKIN: No rashes. Assessment: -Breakthrough seizures patient was in status epilepticus on admission which resolved at this time Her seizures are believed to be secondary to missing few doses of her 3 antiseizure medications which were resumed. Briviact recommend by neurology to be discontinued. Patient is also on dalfampridine which will be discontinued as it is contraindicated in seizures. -Sepsis secondary to urinary tract infection: Patient had ESBL E. coli present on admission, treated adequately and currently being monitored off antibiotics. -Multiple sclerosis per patient has become unable to use her lower extremities since December hospitalization. Reports being obtained from [facility]. Concern for critical illness myopathy vs. MS exacerbation. -MS exacerbation with white matter plaque T6-7 -Lactic acidosis secondary to seizures and sepsis, improved -Hypokalemia from poor oral intake. supplemented and improving. -Anion gap metabolic acidosis secondary lactic acidosis and non-anion gap metabolic acidosis secondary to hyperchloremia patient was switched to half- normal saline and acidosis has resolved. -Hypothyroidism with significantly elevated TSH at 11.400 synthroid has been increased to 100 mcg daily and need to repeat blood work outpatient. DVT prophylaxis: Lovenox GI prophylaxis: Pepcid Do Not Resuscitate, Do Not Intubate Plan: Patient is being closely monitored off antibiotic therapy and has received adequate antibiotics per infectious disease Will arrange for discharge planning where she resides, [facility] Follow-up on repeat labs and continue to monitor closely. Replace electrolytes per protocol case management/social work following and patient will require insurance authorization. Plan is to return to [facility]. Possible discharge planning in next 24 hours Due to multiple complex medical issues, prognosis is guarded The impression and plan of care has been dictated by Amarilys Hernandez, Nurse Practitioner as directed. Dr. Reece MD I have performed a history and physical examination and medical decision making of this patient, discussed the same with the dictator, and agree with the dictators assessment and plan as written, documented as a scribe. Based on total visit time, I have performed more than 50% of this visit. Objective - Vital Signs Vital signs: Vital Signs Temp 97.8 F 03/10/24 07:48 Pulse 68 03/10/24 07:48 Resp 17 03/10/24 07:48 BP 120/70 03/10/24 07:48 Pulse Ox 96 03/10/24 07:48 FiO2 Intake & Output 03/09/24 03/10/24 03/10/24 18:59 06:59 18:59 Output Total 900 1650 Balance -900 -1650 Weight 71.4 kg Output: Urine 900 1650 Other: Voiding Method Diaper External Catheter Incontinent External Catheter # Voids 2 # Bowel Movements 1 - Labs CBC & Chem 7: 03/08/24 06:11 03/09/24 05:21
--- NOTE | 2024-03-10 15:53 | P.PN ---
Subjective Progress Note Date: 03/10/24 Principal diagnosis: Reason for follow-up is a catheter associated UTI Patient is a 58-year-old female with a past medical history significant for MS thyroid disorder in this patient also have a history of recurrent UTI currently to have a Dailey catheter in this patient has been brought into the hospital from the local correction for apparently the patient did have a seizure, patient was noted to have a low-grade fever elevated white count positive UA concerning for catheter associated UTI. On today's evaluation that is 03/10/2024, patient has been afebrile, patient is breathing comfortably and is currently on room air, patient denies having any significant cough no chest pain shortness of breath, patient denies nausea vomiting or diarrhea and no abdominal pain, patient feeling better no new symptoms. Has been obtained today Objective - Vital Signs Vital signs: Vital Signs Temp 97.8 F 03/10/24 07:48 Pulse 68 03/10/24 07:48 Resp 17 03/10/24 07:48 BP 120/70 03/10/24 07:48 Pulse Ox 96 03/10/24 07:48 FiO2 Intake & Output 03/09/24 03/10/24 03/10/24 18:59 06:59 18:59 Output Total 900 1650 Balance -900 -1650 Weight 71.4 kg Output: Urine 900 1650 Other: Voiding Method Diaper External Catheter Incontinent External Catheter # Voids 2 # Bowel Movements 1 - Exam GENERAL DESCRIPTION: Middle-aged female lying in bed in no distress RESPIRATORY SYSTEM: Unlabored breathing , decreased breath sounds at bases HEART: S1 S2 regular rate and rhythm , ABDOMEN: Soft , no tenderness EXTREMITIES: No edema feet - Labs CBC & Chem 7: 03/08/24 06:11 03/09/24 05:21 Assessment and Plan (1) Catheter-associated urinary tract infection Current Visit: Yes Status: Acute Code(s): T83.511A - I/I REACT D/T INDWELLING URETHRAL CATHETER, INIT; N39.0 - URINARY TRACT INFECTION, SITE NOT SPECIFIED SNOMED Code(s): 889613753 Plan: 1patient presented to hospital with sepsis in this patient who did have fever tachycardia elevated white count source is likely catheter associated tract infection in this patient who do have a history of MS urinary retention requiring Dailey catheter and history of recurrent UTIs with the last urine culture positive for ESBL E. coli. 2patient did have normalization of the white count and resolution of the fever, blood as well as urine culture negative so far 3-patient underlying cystitis has been adequately treated patient remains to be afebrile white count is normal recommended antibiotic on discharge discussed with the MATERIALS TECH for admitting team working on discharge Dictation was produced using [employer] dictation software. please excuse any grammatical, word or spelling errors. Time with Patient: Less than 30
--- NOTE | 2024-03-10 17:55 | P.PN ---
Subjective Progress Note Date: 03/10/24 03/10/2024: Patient was seen for a follow-up. Patient has not been seen by myself since 03/01/2024, please refer to notes from Dr. Henri Irizarry. Patient has completed 5-day treatment with IV Solu-Medrol 1 g daily. Patient states that she feels more like herself. When she was sitting on the side of the bed, she would fall over, but now she cannot balance herself and is able to sit on the side of the bed. She can move her knees, but cannot move her legs. 03/01/2024: Patient was seen for a follow-up. Patient is doing much better. Patient is fully alert and awake. She is very interactive, answering a very appropriately. Patient admits that she had history of new onset seizure on 12/19/2023 and had undergone prolonged hospitalization for 2 months. She had tracheostomy and PEG which has been removed. The nurse also reported that patient has not received Briviact while she was in [facility] [place]. So she was without Briviact for 36 hours before she had a seizure. Patient states that she is not able to move her legs since she had a seizure in December 2023. Objective - Vital Signs Vital signs: Vital Signs Temp 97.8 F 03/10/24 14:00 Pulse 75 03/10/24 14:00 Resp 17 03/10/24 14:00 BP 105/67 03/10/24 14:00 Pulse Ox 96 03/10/24 14:00 FiO2 Intake & Output 03/09/24 03/10/24 03/10/24 18:59 06:59 18:59 Output Total 900 1650 Balance -900 -1650 Weight 71.4 kg Output: Urine 900 1650 Other: Voiding Method Diaper External Catheter Incontinent External Catheter # Voids 2 # Bowel Movements 1 - Exam Patient's mental status is normal. Speech and language functions are normal. Mentation is normal. On muscle strength testing, patient has strength (right/left) commercial reporter 4/4, biceps 4 +/5-, triceps 4/4+, deltoid 4+5-/4+5-. In the lower limbs, patient can only adduct her thighs bilaterally slightly. Patient has severe ataxia for [id number] testing bilaterally. - Labs CBC & Chem 7: 03/08/24 06:11 03/09/24 05:21 Assessment and Plan Assessment: * Breakthrough seizure, presenting with status epilepticus. Seizure lasted for about 20 minutes before it was aborted with IM midazolam. Seizure likely triggered from lowered threshold from dalfampridine, and also that patient did not receive her Briviact for 36 hours while she was in [facility]. * New onset seizure diagnosed on 12/19/2023. Patient probably had status epilepticus at that time, with prolonged hospitalization for 2 months, discharged to [facility] 36-hour before presenting with status epilepticus. * Advanced multiple sclerosis, wheelchair/bedbound. * Paraplegia, worse since recent hospitalization. * Elevated lactate, likely due to new onset seizure. * DO NOT RESUSCITATE Plan: * Patient is resumed on Vimpat 200 mg twice daily, and Depakote 500 mg 3 times daily. * Stay off Briviact. Keppra already has been discontinued. * Stop dalfampridine completely. Patient states that it was helping her mobility. * EEG: Is abnormal. The background slowing is suggestive of mild encephalopathy. There is no focal slowing, epileptiform discharge or seizure. * May resume Ritalin, if the EEG is stable. * Patient had developed complete paraplegia in the lower extremities since her recent hospitalization on 12/19/2023. Patient probably has recent MS exacerbation. Her strength is improved as compared to last examination. * MRI thoracic spine is reported as there appears to be subtle white matter plaque within the T6-T7 level spinal cord. This is new from comparison. Stable large disc herniation C5-C6 with mild cord deformity and AP spinal cord stenosis. * MRI of the brain and cervical spine is reported as multiple bilateral deep white matter hyperintensities can be compatible with simple sclerosis. These appear to be increased in size with similar number and distribution. * Patient has completed 5-day course of Solu-Medrol 500 mg IV twice daily on 03/09/2024. (started on it on 03/05/24). For sugar control I will defer that to the primary team. Because of severe relapse, we will continue oral steroids. Patient will take prednisone 60 mg daily for 7 days, then decrease by 10 mg daily until off. * CK level is 30 * B12: 1806, folate: 22.70, TSH: 11.40 and free T4 0.98 * Neurologically, clear for transfer to rehab facility. Recommend follow-up with her neurologist after discharge. * For GI prophylaxis the patient is on Pepcid 20 mg twice daily
[2024-03-10 20:35] VITALS: RESP 16
[2024-03-10] MEDS: predniSONE 20 MG TAB PO SCH (21:04)
[2024-03-11 14:27] VITALS: BP 111/68; PULSE 83; TEMP 97
--- NOTE | 2024-03-11 14:38 | P.DS ---
Providers Date of admission: 02/29/24 05:33 Expected date of discharge: 03/10/24 Attending physician: Norman Newell Consults: 02/29/24 05:32 Consult Physician Routine Consulting Provider: Paris Villatoro Consult Reason/Comments: ams, seizure, hx of MS Do you want consulting provider notified?: Yes 02/29/24 14:37 Consult Physician Routine Consulting Provider: Winter Roberts Consult Reason/Comments: ESBL UTI Do you want consulting provider notified?: Yes Primary care physician: Esperanza Aldrich Hospital Course: Final diagnosis -Breakthrough seizures patient was in status epilepticus on admission which resolved at this time Her seizures are believed to be secondary to missing few doses of her 3 antiseizure medications which were resumed. Briviact recommend by neurology to be discontinued. Patient is also on dalfampridine which will be discontinued as it is contraindicated in seizures. -Sepsis secondary to urinary tract infection: Patient had ESBL E. coli present on admission, treated adequately and currently being monitored off antibiotics. -Multiple sclerosis per patient has become unable to use her lower extremities since December hospitalization. Reports being obtained from [facility]. Concern for critical illness myopathy vs. MS exacerbation. -MS exacerbation with white matter plaque T6-7 -Lactic acidosis secondary to seizures and sepsis, improved -Hypokalemia from poor oral intake. supplemented and improving. -Anion gap metabolic acidosis secondary lactic acidosis and non-anion gap metabolic acidosis secondary to hyperchloremia patient was switched to half- normal saline and acidosis has resolved. -Hypothyroidism with significantly elevated TSH at 11.400 synthroid has been increased to 100 mcg daily and need to repeat blood work outpatient. DVT prophylaxis: Lovenox GI prophylaxis: Pepcid Do Not Resuscitate, Do Not Intubate Discharge disposition Patient is being discharged in a stable condition with guarded prognosis to [facility]. Patient will follow-up with Dr. Posadas in the outpatient setting upon discharge. Patient is to continue with current medications and close outpatient follow-up with neurologist as scheduled. Total time taken is greater than 35 minutes. Hospital course This is a 58-year-old female who was recently admitted with breakthrough seizures and had been missing some of her doses being closely monitored. Patient also noted to have sepsis secondary to acute urinary tract infection with culture showing ESBL E. coli. Dailey catheter was exchanged and patient was followed by infectious disease maintained on antibiotics has received adequate treatment and is being watched off antibiotic therapy. Patient also being followed by neurology maintained on high-dose IV steroids with concerns of MS exacerbation and adjustments to medications regarding her seizure meds. Patient is significantly improved and needs close outpatient follow-up with neurology on discharge. Patient has been cleared by neurology as well as infectious disease for discharge planning back to [facility] for continued strength and mobility. Please refer to other consultation notes for further HPI. Currently no reports of chest pain, shortness of breath, or palpitations. Patient is afebrile. No reports of nausea or vomiting and patient is tolerating diet. Patient will be going to [facility] today. Guarded prognosis and high risk for readmissions given patient's significant comorbidities Physical exam: Gen: This is a 58-year-old female who is awake, alert and oriented x 3, thin built, well-developed HEENT: Head is atraumatic, normocephalic. Pupils equal, round. Sclerae is anicteric. NECK: Supple. No JVD. No lymphadenopathy. No thyromegaly. LUNGS: Clear to auscultation. No wheezes or rhonchi. No intercostal retractions. HEART: Regular rate and rhythm. No murmur. ABDOMEN: Soft. Bowel sounds are present. No masses. No tenderness. EXTREMITIES: No pedal edema. No calf tenderness. NEUROLOGICAL: Patient is awake, alert and oriented x3. Diffusely weak Please refer to medication reconciliation sheet for a list of medications. The impression and plan of care has been dictated by Amarilys Hernandez, Nurse Practitioner as directed. Dr. Reece MD I have performed a history and examination and MDM of this patient, discussed the same with the dictator, and agree with the dictator's assessment and plan as written ,documented as a scribe. Based on total visit time, I have performed more than 50% of the visit. Patient Condition at Discharge: Fair Plan - Discharge Summary Discharge Rx Participant: Yes New Discharge Prescriptions: New Levothyroxine Sodium [Synthroid] 100 mcg PO DAILY@0630 tab Lacosamide [Vimpat] 50 mg PO BID@0700,1900 #4 tab Lacosamide [Vimpat] 150 mg PO BID@0700,1900 #4 tab Lacosamide [Vimpat] 200 mg PO BID 3 Days #6 tab Continue Ipratropium-Albuterol Nebulize [Duoneb 0.5 mg-3 mg/3 ml Soln] 3 ml INHALATION RT-Q4H PRN PRN Reason: Shortness Of Breath Or Wheezing Sennosides [Senokot] 8.6 mg PO DAILY Aspirin EC [Ecotrin Low Dose] 81 mg PO DAILY Baclofen [Lioresal] 20 mg PO Q4HR Divalproex Sodium [Depakote] 500 mg PO Q8HR@0500,1300,2100 Docusate [Colace] 100 mg PO BID Famotidine [Pepcid] 20 mg PO BID amantadine HCL [Symmetrel] 100 mg PO BID@0700,2000 Enoxaparin [Lovenox] 40 mg SQ HS Acetaminophen [Tylenol 8 Hour] 650 mg PO Q6H PRN PRN Reason: Mild Pain (Scale 1 To 3) Methylphenidate HCl [Ritalin] 10 mg PO BID@0700,1600 #4 tab Discontinued Dalfampridine [Dalfampridine ER] 10 mg PO BID Lacosamide [Vimpat] 200 mg PO BID@0700,1900 Levothyroxine Sodium [Synthroid] 50 mcg PO DAILY Brivaracetam [Briviact] 100 mg PO BID Discharge Medication List Baclofen [Lioresal] 20 mg PO Q4HR 08/11/22 [History] Acetaminophen [Tylenol 8 Hour] 650 mg PO Q6H PRN 02/29/24 [History] Aspirin EC [Ecotrin Low Dose] 81 mg PO DAILY 02/29/24 [History] Divalproex Sodium [Depakote] 500 mg PO Q8HR@0500,1300,2100 02/29/24 [History] Docusate [Colace] 100 mg PO BID 02/29/24 [History] Enoxaparin [Lovenox] 40 mg SQ HS 02/29/24 [History] Famotidine [Pepcid] 20 mg PO BID 02/29/24 [History] Ipratropium-Albuterol Nebulize [Duoneb 0.5 mg-3 mg/3 ml Soln] 3 ml INHALATION RT-Q4H PRN 02/29/24 [History] Sennosides [Senokot] 8.6 mg PO DAILY 02/29/24 [History] amantadine HCL [Symmetrel] 100 mg PO BID@0700,199902/29/24 [History] Lacosamide [Vimpat] 50 mg PO BID@0700,1900 #4 tab 03/10/24 [Rx] Lacosamide [Vimpat] 150 mg PO BID@0700,1900 #4 tab 03/10/24 [Rx] Levothyroxine Sodium [Synthroid] 100 mcg PO DAILY@0630 tab 03/10/24 [Rx] Methylphenidate HCl [Ritalin] 10 mg PO BID@0700,1600 #4 tab 03/10/24 [Rx] Lacosamide [Vimpat] 200 mg PO BID 3 Days #6 tab 03/11/24 [Rx] Follow up Appointment(s)/Referral(s): Chrissy Posadas DO [REFERRING] - 1-2 days Activity/Diet/Wound Care/Special Instructions: Patient is going to [facility] Activity as tolerated Follow-up with neurology outpatient Continue taking medications as prescribed Discharge Disposition: TRANSFER TO SNF/ECF
--- NOTE | 2024-03-12 16:51 | P.PN ---
Subjective Progress Note Date: 03/11/24 Principal diagnosis: Reason for follow-up is a catheter associated UTI Patient is a 58-year-old female with a past medical history significant for MS thyroid disorder in this patient also have a history of recurrent UTI currently to have a Dailey catheter in this patient has been brought into the hospital from the local [facility] for apparently the patient did have a seizure, patient was noted to have a low-grade fever elevated white count positive UA concerning for catheter associated UTI. On today's evaluation that is 03/11/2024,the patient denies any fever or any chills, patient is breathing comfortably on room air, the patient denies chest pain shortness of breath and no significant cough, patient denies abdominal pain, no nausea vomiting or diarrhea. No further stated feeling better currently waiting for placement. No new labs has been repeated today Objective - Vital Signs Vital signs: Vital Signs Temp 97.0 F L 03/11/24 13:45 Pulse 83 03/11/24 13:45 Resp 16 03/11/24 13:45 BP 111/68 03/11/24 13:45 Pulse Ox 99 03/11/24 13:45 FiO2 Intake & Output 03/10/24 03/11/24 03/11/24 18:59 06:59 18:59 Output Total 1150 Balance -1150 Weight 68.5 kg Output: Urine 1150 Other: Voiding Method External Catheter # Voids 2 # Bowel Movements 1 - Exam GENERAL DESCRIPTION: Middle-aged female lying in bed in no distress RESPIRATORY SYSTEM: Unlabored breathing , decreased breath sounds at bases HEART: S1 S2 regular rate and rhythm , ABDOMEN: Soft , no tenderness EXTREMITIES: No edema feet - Labs CBC & Chem 7: 03/08/24 06:11 03/09/24 05:21 Assessment and Plan (1) Catheter-associated urinary tract infection Status: Acute Code(s): T83.511A - I/I REACT D/T INDWELLING URETHRAL CATHETER, INIT; N39.0 - URINARY TRACT INFECTION, SITE NOT SPECIFIED SNOMED Code(s): 706431305 Plan: 1patient presented to hospital with sepsis in this patient who did have fever tachycardia elevated white count source is likely catheter associated tract infection in this patient who do have a history of MS urinary retention requiring Dailey catheter and history of recurrent UTIs with the last urine culture positive for ESBL E. coli. 2patient did have normalization of the white count and resolution of the fever, blood as well as urine culture negative so far 3-patient underlying cystitis has been adequately treated patient remains to be afebrile white count is normal recommended no antibiotics on discharge Dictation was produced using [employer] dictation software. please excuse any grammatical, word or spelling errors. Time with Patient: Less than 30
== END 2024-03-11 18:05 | DRG 698 ==
LOC: EC 23:23 → 3SCARD 02-29 05:33 → 5NMEDONC 03-01 08:40 → 4SSUR 03-01 15:05
PROVIDERS: ADMIT Hospitalist; ATTEND Hospitalist
PROC: 4A10X4Z Monitoring of Central Nervous Electrical Activity, External Approach (ICD-10-PCS; principal; 2024-03-02)
DX: T83.518A Infection and inflammatory reaction due to other urinary catheter, initial encounter (principal); A41.51 Sepsis due to Escherichia coli [E. coli]; R65.20 Severe sepsis without septic shock; G82.20 Paraplegia, unspecified; Z16.12 Extended spectrum beta lactamase (ESBL) resistance; E87.20 Acidosis, unspecified; Z66 Do not resuscitate; Y84.6 Urinary catheterization as the cause of abnormal reaction of the patient, or of later complication, without mention of misadventure at the time of the procedure; G35 Multiple sclerosis; E87.8 Other disorders of electrolyte and fluid balance, not elsewhere classified; Z74.01 Bed confinement status; Z99.3 Dependence on wheelchair; R79.89 Other specified abnormal findings of blood chemistry; G40.901 Epilepsy, unspecified, not intractable, with status epilepticus; E87.6 Hypokalemia; E03.9 Hypothyroidism, unspecified; Z79.890 Hormone replacement therapy; N30.90 Cystitis, unspecified without hematuria; R33.8 Other retention of urine; E05.90 Thyrotoxicosis, unspecified without thyrotoxic crisis or storm; E87.5 Hyperkalemia; M50.222 Other cervical disc displacement at C5-C6 level; Z79.82 Long term (current) use of aspirin; Z79.899 Other long term (current) drug therapy; Z87.440 Personal history of urinary (tract) infections; Z93.1 Gastrostomy status; Z79.52 Long term (current) use of systemic steroids
CPT/HCPCS: 36415; 70450; 70553; 71045; 72100; 72156; 72157; 80048; 80053; 81001; 82550; 82607; 82746; 83605; 83735; 84439; 84443; 85025; 87040; 87086; 87636; 93005; 94760; 95816; 96361; 96372; 96374; 96375; 99285

== ENCOUNTER 2024-03-19 13:07 | Emergency (ER) | payer BC ==
[2024-03-19 15:12] LABS: Basophils % (A) 0 %; Eosinophils # (A) 0.1 k/uL (0-0.7); Eosinophils % (A) 1 %; HCT 45.5 % (34.0-46.0); HGB 14.9 gm/dL (11.4-16.0); Lymphocytes # (A) 2.2 k/uL (1.0-4.8); Lymphocytes % (A) 19 %; MCH 30.6 pg (25.0-35.0); MCHC 32.7 g/dL (31.0-37.0); MCV 93.6 fL (80.0-100.0); Mean Platelet Volume 8.2; Monocytes # (A) 0.5 k/uL (0-1.0); Monocytes % (A) 5 %; Neutrophils # (A) 8.8 k/uL (1.3-7.7); Neutrophils % (A) 75 %; Platelet Count 192 k/uL (150-450); RBC 4.87 m/uL (3.80-5.40); RDW 15.2 % (11.5-15.5); WBC 11.8 k/uL (3.8-10.6)
[2024-03-19 15:21] LABS: ALT 14 U/L (4-34); AST 19 U/L (14-36); African American GFR (CKD) >90 (>60 ml/min/1.73 sqM); Albumin 4.1 g/dL (3.5-5.0); Alcohol <10 mg/dL; Alkaline Phosphatase 81 U/L (38-126); Anion Gap 5 mmol/L; Blood Urea Nitrogen 10 mg/dL (7-17); Calcium 9.5 mg/dL (8.4-10.2); Carbon Dioxide 29 mmol/L (22-30); Chloride 107 mmol/L (98-107); Glucose 70 mg/dL (74-99); Non-African American GFR(CKD) >90 (>60 ml/min/1.73 sqM); Potassium 3.5 mmol/L (3.5-5.1); Sodium 141 mmol/L (137-145); Total Bilirubin 0.5 mg/dL (0.2-1.3); Total Protein 6.5 g/dL (6.3-8.2)
[2024-03-19 15:22] LABS: Lactic Acid, Venous 0.9 mmol/L (0.7-2.0)
[2024-03-19 15:25] LABS: INR 0.9 (<1.2); Partial Thromboplastin Time 22.7 sec (22.0-30.0); Prothrombin Time 10.1 sec (10.0-12.5)
[2024-03-19 15:26] LABS: Valproic Acid (Depakene) 109.8 ug/mL
--- NOTE | 2024-03-19 15:26 | ED ---
General Adult HPI - General Chief complaint: Altered Mental Status Stated complaint: Tremors Time Seen by Provider: 03/19/24 13:40 Source: patient, EMS, RN notes reviewed, old records reviewed Mode of arrival: EMS Limitations: physical limitation - History of Present Illness Initial comments: Patient is a 58-year-old Female presents emergency department complaining of altered mental status presents from facility.Patient does have a history of MS, seizure disorder, thyroid disorder, UTIs. They were concerned regarding new tremors as well as episode of altered mentation. Was recently here for altered mental status. Has been having progressive lower extremity weakness over periods of months. This is not acute per patient. She is currently and O x 4 with no acute complaints. States she has been taking her medications. Denies any other acute complaints at this time. Presents for further evaluation.Currently at her baseline mental status. - Related Data Home Medications Medication Instructions Recorded Confirmed Baclofen [Lioresal] 20 mg PO Q4HR 08/11/22 03/21/24 Acetaminophen [Tylenol 8 Hour] 650 mg PO Q6H PRN 02/29/24 03/21/24 Aspirin EC [Ecotrin Low Dose] 81 mg PO DAILY 02/29/24 03/21/24 Divalproex Sodium [Depakote] 500 mg PO Q8HR@0500,1300,2100 02/29/24 03/21/24 Docusate [Colace] 100 mg PO BID 02/29/24 03/21/24 Enoxaparin [Lovenox] 40 mg SQ HS 02/29/24 03/21/24 Ipratropium-Albuterol Nebulize 3 ml INHALATION RT-Q4H PRN 02/29/24 03/21/24 [Duoneb 0.5 mg-3 mg/3 ml Soln] Sennosides [Senokot] 8.6 mg PO DAILY 02/29/24 03/21/24 amantadine HCL [Symmetrel] 100 mg PO BID@0700,2100 02/29/24 03/21/24 Famotidine [Pepcid AC] 20 mg PO BID 03/19/24 03/21/24 Health Shake 1 can PO BID@1200,1700 03/19/24 03/21/24 Lacosamide [Vimpat] 200 mg PO BID@0700,1600 03/19/24 03/21/24 Levothyroxine Sodium [Synthroid] 100 mcg PO DAILY@0500 03/19/24 03/21/24 Methylphenidate HCl [Ritalin] 10 mg PO BID@0800,1500 03/19/24 03/21/24 Allergies Allergy/AdvReac Type Severity Reaction Status Date / Time No Known Allergies Allergy Verified 03/21/24 10:24 Review of Systems ROS Statement: Those systems with pertinent positive or pertinent negative responses have been documented in the HPI. Review of Systems: CONST: Denies fever EYES: Denies blurry vision ENT: Denies nasal congestion C/V: Denies Chest pain RESP: Denies shortness of breath GI: Denies abdominal pain : Denies dysuria SKIN: Denies rash. MSK: Denies joint pain. NEURO: Denies headache ROS Other: All systems not noted in ROS Statement are negative. Past Medical History Past Medical History: Thyroid Disorder Additional Past Medical History / Comment(s): MS History of Any Multi-Drug Resistant Organisms: ESBL Date of last positivie culture/infection: 08/11/22 MDRO Source:: Blood & Urine Past Surgical History: Appendectomy, Back Surgery, Section Past Psychological History: No Psychological Hx Reported Smoking Status: Never smoker Past Alcohol Use History: None Reported Past Drug Use History: None Reported - Past Family History Father Family Medical History: No Reported History General Exam - General Exam Comments Initial Comments: General: Appears in no acute distress. HEAD: Normal with no signs of head trauma. EYES: PERRLA, EOMI, conjunctiva normal, no discharge. Pupils 2mm and equal bilaterally. ENT: Hearing grossly intact, normal oropharynx. RESPIRATORY: Clear breath sounds bilaterally. No wheezes, rales, or rhonchi. C/V: Regular rate and rhythm. S1 and S2 auscultated, no edema, peripheral pulses 2+ and intact throughout ABD: Abd is soft, nontender, nondistended EXT: Normal range of motion, no obvious deformity SKIN: No rashes or lesions observed on exposed skin. NEURO: Alert and oriented x 4. No acute focal deficits. Chronic lower extre mity inability to move bilateral lower extremities Limitations: physical limitation Course Vital Signs 03/19/24 03/19/24 03/19/24 13:34 14:15 16:15 Temperature 97.4 F L Pulse Rate 77 79 68 Respiratory 20 16 16 Rate Blood Pressure 101/70 94/78 120/78 O2 Sat by Pulse 100 94 L 99 Oximetry 03/19/24 03/19/24 03/19/24 17:00 18:51 19:45 Temperature 97.7 F Pulse Rate 67 62 64 Respiratory 18 16 15 Rate Blood Pressure 108/75 123/75 128/78 O2 Sat by Pulse 100 96 98 Oximetry Medical Decision Making - Medical Decision Making Was pt. sent in by a medical professional or institution (, PA, SHIRRER, urgent c are, hospital, or [facility]...) When possible be specific @ -No Did you speak to anyone other than the patient for history (EMS, parent, family, police, friend...)? What history was obtained from this source @ -No Did you review nursing and triage notes (agree or disagree)? Why? @ -I reviewed and agree with nursing and triage notes Were old charts reviewed (outside hosp., previous admission, EMS record, old EKG, old radiological studies, urgent care reports/EKG's, [facility] records)? Report findings @ -Old charts reviewed from previous admission in February 29, 2024 when patient was admitted for altered mentation and was discharged home secondary to UTIs as well as breakthrough seizures. Differential Diagnosis (chest pain, altered mental status, abdominal pain women, abdominal pain men, vaginal bleeding, weakness, fever, dyspnea, syncope, headache, dizziness, GI bleed, back pain, seizure, CVA, palpatations, mental health, musculoskeletal)? @ -Differential Altered Mental Status: Hypoglycemia, DKA, hypercapnia, ETOH, overdose, CO poisoning, trauma, myxedema coma, HTN encephalopathy, infection, encephalitis, psychosis, intercranial hemorrhage, hepatic encephalopathy, meningitis, CVA, this is not meant to be an all-inclusive list EKG interpreted by me (3pts min.). @ -As above X-rays interpreted by me (1pt min.). @ -Pending CT interpreted by me (1pt min.). @ -Pending U/S interpreted by me (1pt. min.). @ -None done What testing was considered but not performed or refused? (CT, X-rays, U/S, labs)? Why? @ -None What meds were considered but not given or refused? Why? @ -None Did you discuss the management of the patient with other professionals (professionals i.e. , PA, SHIRRER, lab, RT, psych nurse, psych social worker, tailer off, teacher, juvenile correctional officer, top case assembler)? Give summary @ -No Was smoking cessation discussed for >3mins.? @ -No Was critical care preformed (if so, how long)? @ -No Were there social determinants of health that impacted care today? How? ( Homelessness, low income, unemployed, alcoholism, drug addiction, transportation, low edu. Level, literacy, decrease access to med. care, alf, rehab)? @ -No Was there de-escalation of care discussed even if they declined (Discuss DNR or withdrawal of care, Hospice)? DNR status @ -No What co-morbidities impacted this encounter? (DM, HTN, Smoking, COPD, CAD, Cancer, CVA, ARF, Chemo, Hep., AIDS, mental health diagnosis, sleep apnea, morbid obesity)? @ -MS, seizure disorder Was patient admitted / discharged? Hospital course, mention meds given and route, prescriptions, significant lab abnormalities, going to OR and other pertinent info. @ -Based on the patient's presentation and physical exam, presents emergency department complaining of altered mental lesion patient apparently has new tr emors. Was altered at the [facility] but not altered for EMS or here. Denies any acute complaints at this time and is at her baseline mental status. We will obtain altered mental status workup. Patient in agreement this plan. Vital signs within acceptable limits. She will be symptomatically treat with a dose of IV Keppra as well as IV fluids and Benadryl. EKG shows no signs of acute ischemia. Patient was a hard IV stick and therefore remainder the patient's workup is still pending. Patient signed out to Dr. Mccormack pending results of workup. Undiagnosed new problem with uncertain prognosis? @ -No Drug Therapy requiring intensive monitoring for toxicity (Heparin, Nitro, Insulin, Cardizem)? @ -No Were any procedures done? @ -No - Lab Data Result diagrams: 03/19/24 14:18 03/19/24 14:18 Lab Results 03/19/24 03/19/24 03/19/24 Range/Units 14:18 14:18 14:18 WBC 11.8 H (3.8-10.6) k/uL RBC 4.87 (3.80-5.40) m/uL Hgb 14.9 (11.4-16.0) gm/dL Hct 45.5 (34.0-46.0) % MCV 93.6 (80.0-100.0) fL MCH 30.6 (25.0-35.0) pg MCHC 32.7 (31.0-37.0) g/dL RDW 15.2 (11.5-15.5) % Plt Count 192 (150-450) k/uL MPV 8.2 Neutrophils % 75 % Lymphocytes % 19 % Monocytes % 5 % Eosinophils % 1 % Basophils % 0 % Neutrophils # 8.8 H (1.3-7.7) k/uL Lymphocytes # 2.2 (1.0-4.8) k/uL Monocytes # 0.5 (0-1.0) k/uL Eosinophils # 0.1 (0-0.7) k/uL Basophils # 0.0 (0-0.2) k/uL PT 10.1 (10.0-12.5) sec INR 0.9 (<1.2) APTT 22.7 (22.0-30.0) sec Sodium (137-145) mmol/L Potassium (3.5-5.1) mmol/L Chloride (98-107) mmol/L Carbon Dioxide (22-30) mmol/L Anion Gap mmol/L BUN (7-17) mg/dL Creatinine (0.52-1.04) mg/dL Est GFR (CKD-EPI)AfAm (>60 ml/min/1.73 sqM) Est GFR (CKD-EPI)NonAf (>60 ml/min/1.73 sqM) Glucose (74-99) mg/dL POC Glucose (mg/dL) (70-110) mg/dL POC Glu Station Jailer ID Plasma Lactic Acid Delvin (0.7-2.0) mmol/L Calcium (8.4-10.2) mg/dL Total Bilirubin (0.2-1.3) mg/dL AST (14-36) U/L ALT (4-34) U/L Alkaline Phosphatase (38-126) U/L Ammonia (<30) umol/L Total Protein (6.3-8.2) g/dL Albumin (3.5-5.0) g/dL Urine Color Colorless Urine Appearance Clear (Clear) Urine pH 7.0 (5.0-8.0) Ur Specific Reading 1.014 (1.001-1.035) Urine Protein Negative (Negative) Urine Glucose (UA) Negative (Negative) Urine Ketones Negative (Negative) Urine Blood Negative (Negative) Urine Nitrite Negative (Negative) Urine Bilirubin Negative (Negative) Urine Urobilinogen <2.0 (<2.0) mg/dL Ur Leukocyte Esterase Negative (Negative) Urine Opiates Screen Not Detected (NotDetected) Ur Oxycodone Screen Not Detected (NotDetected) Urine Methadone Screen Not Detected (NotDetected) Ur Barbiturates Screen Not Detected (NotDetected) Valproic Acid ug/mL U Tricyclic Antidepress Not Detected (NotDetected) Ur Phencyclidine Scrn Not Detected (NotDetected) Ur Amphetamines Screen Not Detected (NotDetected) U Methamphetamines Scrn Not Detected (NotDetected) U Benzodiazepines Scrn Not Detected (NotDetected) Urine Cocaine Screen Not Detected (NotDetected) U Marijuana (THC) Screen Not Detected (NotDetected) Serum Alcohol mg/dL Influenza Type A (PCR) (Not Detectd) Influenza Type B (PCR) (Not Detectd) RSV (PCR) (Not Detectd) SARS-CoV-2 (PCR) (Not Detectd) 03/19/24 03/19/24 03/19/24 Range/Units 14:18 14:18 14:18 WBC (3.8-10.6) k/uL RBC (3.80-5.40) m/uL Hgb (11.4-16.0) gm/dL Hct (34.0-46.0) % MCV (80.0-100.0) fL MCH (25.0-35.0) pg MCHC (31.0-37.0) g/dL RDW (11.5-15.5) % Plt Count (150-450) k/uL MPV Neutrophils % % Lymphocytes % % Monocytes % % Eosinophils % % Basophils % % Neutrophils # (1.3-7.7) k/uL Lymphocytes # (1.0-4.8) k/uL Monocytes # (0-1.0) k/uL Eosinophils # (0-0.7) k/uL Basophils # (0-0.2) k/uL PT (10.0-12.5) sec INR (<1.2) APTT (22.0-30.0) sec Sodium 141 (137-145) mmol/L Potassium 3.5 (3.5-5.1) mmol/L Chloride 107 (98-107) mmol/L Carbon Dioxide 29 (22-30) mmol/L Anion Gap 5 mmol/L BUN 10 (7-17) mg/dL Creatinine 0.33 L (0.52-1.04) mg/dL Est GFR (CKD-EPI)AfAm >90 (>60 ml/min/1.73 sqM) Est GFR (CKD-EPI)NonAf >90 (>60 ml/min/1.73 sqM) Glucose 70 L (74-99) mg/dL POC Glucose (mg/dL) (70-110) mg/dL POC Glu Station Jailer ID Plasma Lactic Acid Delvin 0.9 (0.7-2.0) mmol/L Calcium 9.5 (8.4-10.2) mg/dL Total Bilirubin 0.5 (0.2-1.3) mg/dL AST 19 (14-36) U/L ALT 14 (4-34) U/L Alkaline Phosphatase 81 (38-126) U/L Ammonia 9 (<30) umol/L Total Protein 6.5 (6.3-8.2) g/dL Albumin 4.1 (3.5-5.0) g/dL Urine Color Urine Appearance (Clear) Urine pH (5.0-8.0) Ur Specific Reading (1.001-1.035) Urine Protein (Negative) Urine Glucose (UA) (Negative) Urine Ketones (Negative) Urine Blood (Negative) Urine Nitrite (Negative) Urine Bilirubin (Negative) Urine Urobilinogen (<2.0) mg/dL Ur Leukocyte Esterase (Negative) Urine Opiates Screen (NotDetected) Ur Oxycodone Screen (NotDetected) Urine Methadone Screen (NotDetected) Ur Barbiturates Screen (NotDetected) Valproic Acid 109.8 ug/mL U Tricyclic Antidepress (NotDetected) Ur Phencyclidine Scrn (NotDetected) Ur Amphetamines Screen (NotDetected) U Methamphetamines Scrn (NotDetected) U Benzodiazepines Scrn (NotDetected) Urine Cocaine Screen (NotDetected) U Marijuana (THC) Screen (NotDetected) Serum Alcohol <10 mg/dL Influenza Type A (PCR) Not Detected (Not Detectd) Influenza Type B (PCR) Not Detected (Not Detectd) RSV (PCR) Not Detected (Not Detectd) SARS-CoV-2 (PCR) Not Detected (Not Detectd) 03/19/24 Range/Units 18:49 WBC (3.8-10.6) k/uL RBC (3.80-5.40) m/uL Hgb (11.4-16.0) gm/dL Hct (34.0-46.0) % MCV (80.0-100.0) fL MCH (25.0-35.0) pg MCHC (31.0-37.0) g/dL RDW (11.5-15.5) % Plt Count (150-450) k/uL MPV Neutrophils % % Lymphocytes % % Monocytes % % Eosinophils % % Basophils % % Neutrophils # (1.3-7.7) k/uL Lymphocytes # (1.0-4.8) k/uL Monocytes # (0-1.0) k/uL Eosinophils # (0-0.7) k/uL Basophils # (0-0.2) k/uL PT (10.0-12.5) sec INR (<1.2) APTT (22.0-30.0) sec Sodium (137-145) mmol/L Potassium (3.5-5.1) mmol/L Chloride (98-107) mmol/L Carbon Dioxide (22-30) mmol/L Anion Gap mmol/L BUN (7-17) mg/dL Creatinine (0.52-1.04) mg/dL Est GFR (CKD-EPI)AfAm (>60 ml/min/1.73 sqM) Est GFR (CKD-EPI)NonAf (>60 ml/min/1.73 sqM) Glucose (74-99) mg/dL POC Glucose (mg/dL) 70 (70-110) mg/dL POC Glu Station Jailer ID Navya Krause Plasma Lactic Acid Delvin (0.7-2.0) mmol/L Calcium (8.4-10.2) mg/dL Total Bilirubin (0.2-1.3) mg/dL AST (14-36) U/L ALT (4-34) U/L Alkaline Phosphatase (38-126) U/L Ammonia (<30) umol/L Total Protein (6.3-8.2) g/dL Albumin (3.5-5.0) g/dL Urine Color Urine Appearance (Clear) Urine pH (5.0-8.0) Ur Specific Reading (1.001-1.035) Urine Protein (Negative) Urine Glucose (UA) (Negative) Urine Ketones (Negative) Urine Blood (Negative) Urine Nitrite (Negative) Urine Bilirubin (Negative) Urine Urobilinogen (<2.0) mg/dL Ur Leukocyte Esterase (Negative) Urine Opiates Screen (NotDetected) Ur Oxycodone Screen (NotDetected) Urine Methadone Screen (NotDetected) Ur Barbiturates Screen (NotDetected) Valproic Acid ug/mL U Tricyclic Antidepress (NotDetected) Ur Phencyclidine Scrn (NotDetected) Ur Amphetamines Screen (NotDetected) U Methamphetamines Scrn (NotDetected) U Benzodiazepines Scrn (NotDetected) Urine Cocaine Screen (NotDetected) U Marijuana (THC) Screen (NotDetected) Serum Alcohol mg/dL Influenza Type A (PCR) (Not Detectd) Influenza Type B (PCR) (Not Detectd) RSV (PCR) (Not Detectd) SARS-CoV-2 (PCR) (Not Detectd) - EKG Data -: EKG Interpreted by Me EKG Comments: 12-lead Electrocardiogram Interpretation Note EKG was reviewed and interpreted by myself. 12-lead ECG performed at 1331 is interpreted by me as revealing normal sinus rhythm at a rate of 79 beats per minute. [place] is normal. OK interval is 176 ms, QRS duration is 82 ms, QTc is 390 ms.. There were no ST or T wave abnormalities to suggest myocardial ische yamilet or injury. R wave progression across the precordium was satisfactory. By my interpretation this EKG is non-diagnostic for acute ischemia. Disposition Clinical Impression: Occasional tremors Disposition: HOME SELF-CARE Condition: Stable Is patient prescribed a controlled substance at d/c from ED?: No Referrals: Esperanza Aldrich MD [Primary Care Provider] - 1-2 days
--- NOTE | 2024-03-19 15:38 | CT ---
EXAMINATION TYPE: CT brain wo con DATE OF EXAM: 03/19/2024 COMPARISON: 02/29/2024 HISTORY: Altered mental status. hx of MS CT DLP: 1184.4 mGycm Automated exposure control for dose reduction was used. FINDINGS: The ventricles, basal cisterns and sulci over the convexities are mildly enlarged consistent with mil d generalized atrophy. There is no mass effect or shift of the midline structures. There is mild patchy decreased density in the periventricular white matter consistent with mild chron ic ischemic white matter demyelination. There is no acute intra or extra-axial hemorrhage. Posterior fossa is grossly normal. Intraorbital contents appear normal. There are mild inflammatory changes in the sphenoid sinus. Mastoid air cells are well aerated. IMPRESSION: 1. NO ACUTE BLEED OR MASS EFFECT. 2. MILD GENERALIZED ATROPHY AND MILD CHRONIC ISCHEMIC WHITE MATTER DEMYELINATION. 3. NO SIGNIFICANT INTERVAL CHANGE
--- NOTE | 2024-03-19 15:49 | XR ---
EXAMINATION TYPE: XR chest 2V DATE OF EXAM: 03/19/2024 COMPARISON: 02/29/2024 HISTORY: 58-year-old female confusion, altered mental status TECHNIQUE: AP and lateral views FINDINGS: Heart normal size. Aorta and pulmonary vasculature within normal limits. No consolidation or pleural effusion. IMPRESSION: No acute cardiopulmonary process.
[2024-03-19] MEDS: diphenhydrAMINE 50 MG/ML 1 ML VIAL IVP STA (16:22)
[2024-03-19] MEDS: SODIUM CHLORIDE 0.9% 1,000 ML IV ONE (16:24)
[2024-03-19] MEDS: levETIRAcetam IV 500 MG/5 ML VIAL IVP STA (16:27)
[2024-03-19 17:51] LABS: Appearance,Urine Clear (Clear); Bilirubin,Urine Negative (Negative); Blood,Urine Negative (Negative); Color,Urine Colorless; Glucose,Urine (UA) Negative (Negative); Ketones,Urine Negative (Negative); Leukocyte Esterase,Urine Negative (Negative); Nitrite,Urine Negative (Negative); Protein,Urine Negative (Negative); Specific Gravity,Urine 1.014 (1.001-1.035); Urobilinogen,Urine <2.0 mg/dL (<2.0)
[2024-03-19 18:16] LABS: Amphetamine Screen,Urine Not Detected (NotDetected); Barbiturate Screen,Urine Not Detected (NotDetected); Benzodiazepines Screen,Urine Not Detected (NotDetected); Cocaine Screen,Urine Not Detected (NotDetected); Methadone Screen, Urine Not Detected (NotDetected); Opiate Screen,Urine Not Detected (NotDetected); Oxycodone Screen, Urine Not Detected (NotDetected); Phencyclidine Screen,Urine Not Detected (NotDetected); Tricyclic Antidepressant,Urine Not Detected (NotDetected); Urn Cannabinoid Scrn Not Detected (NotDetected)
[2024-03-19 18:51] LABS: Glucose,Whole Blood 70 mg/dL (70-110)
[2024-03-19 18:54] VITALS: TEMP 97.7
[2024-03-19 20:30] VITALS: BP 128/78; PULSE 64; RESP 15
== END 2024-03-19 19:45 | disposition home or self-care (01) ==
LOC: EC 13:07
DX: R25.1 Tremor, unspecified (principal); Z11.52 Encounter for screening for COVID-19
CPT/HCPCS: 36415; 93005; 80164; 80053; 82140; 83605; 85025; 85610; 85730; 81003; 80306; 80320; 87636; 71046; 70450; 99285; 96374; 96375; 96361; J1200; J1953

== ENCOUNTER 2024-03-20 19:09 | Inpatient (IN) | payer BC, MEDICARE ==
[2024-03-20 19:54] LABS: Basophils % (A) 0 %; Eosinophils # (A) 0.1 k/uL (0-0.7); Eosinophils % (A) 1 %; HCT 45.2 % (34.0-46.0); HGB 14.5 gm/dL (11.4-16.0); Lymphocytes # (A) 1.6 k/uL (1.0-4.8); Lymphocytes % (A) 19 %; MCH 29.7 pg (25.0-35.0); MCHC 32.1 g/dL (31.0-37.0); MCV 92.4 fL (80.0-100.0); Mean Platelet Volume 9.3; Monocytes # (A) 0.6 k/uL (0-1.0); Monocytes % (A) 7 %; Neutrophils # (A) 6.1 k/uL (1.3-7.7); Neutrophils % (A) 72 %; Platelet Count 201 k/uL (150-450); RDW 15.3 % (11.5-15.5); WBC 8.4 k/uL (3.8-10.6)
--- NOTE | 2024-03-20 19:56 | ED ---
General Adult HPI - General Chief complaint: Shortness of Breath Stated complaint: Aspiration Time Seen by Provider: 03/20/24 19:26 Source: family Mode of arrival: EMS - History of Present Illness Initial comments: 58-year-old female with history of multiple sclerosis presenting from prison after aspirating this evening. Patient is unable to provide any meaningful history. Patient was seen in our facility yesterday for tremoring and an episode of altered mental status and discharged. Staff states that she had a witnessed episode of aspiration while eating dinner this evening. She is currently on nonrebreather satting between 90-94%. Patient is unable to provide any meaningful history. later came to the bedside and informs us that over the last week the patient has been steeply declining. She previously was able to hold conversations and feed herself with accommodations. She is now only able to answer some yes and no questions and has tremoring of the arms but cannot follow directions with the extremities. - Related Data Home Medications Medication Instructions Recorded Confirmed Baclofen [Lioresal] 20 mg PO Q4HR 08/11/22 03/19/24 Acetaminophen [Tylenol 8 Hour] 650 mg PO Q6H PRN 02/29/24 03/19/24 Aspirin EC [Ecotrin Low Dose] 81 mg PO DAILY 02/29/24 03/19/24 Divalproex Sodium [Depakote] 500 mg PO Q8HR@0500,1300,2100 02/29/24 03/19/24 Docusate [Colace] 100 mg PO BID 02/29/24 03/19/24 Enoxaparin [Lovenox] 40 mg SQ HS 02/29/24 03/19/24 Ipratropium-Albuterol Nebulize 3 ml INHALATION RT-Q4H PRN 02/29/24 03/19/24 [Duoneb 0.5 mg-3 mg/3 ml Soln] Sennosides [Senokot] 8.6 mg PO DAILY 02/29/24 03/19/24 amantadine HCL [Symmetrel] 100 mg PO BID@0700,2100 02/29/24 03/19/24 Famotidine [Pepcid AC] 20 mg PO BID 03/19/24 03/19/24 Health Shake 1 can PO BID@1200,1700 03/19/24 03/19/24 Lacosamide [Vimpat] 200 mg PO BID@0700,1600 03/19/24 03/19/24 Levothyroxine Sodium [Synthroid] 100 mcg PO DAILY@0500 03/19/24 03/19/24 Methylphenidate HCl [Ritalin] 10 mg PO BID@0800,1500 03/19/24 03/19/24 Allergies Allergy/AdvReac Type Severity Reaction Status Date / Time No Known Allergies Allergy Verified 03/20/24 19:19 Review of Systems ROS Statement: Those systems with pertinent positive or pertinent negative responses have been documented in the HPI. ROS Other: All systems not noted in ROS Statement are negative. Past Medical History Past Medical History: Thyroid Disorder Additional Past Medical History / Comment(s): MS History of Any Multi-Drug Resistant Organisms: ESBL Date of last positivie culture/infection: 08/11/22 MDRO Source:: Blood & Urine Past Surgical History: Appendectomy, Back Surgery, Section Past Psychological History: No Psychological Hx Reported Smoking Status: Never smoker Past Alcohol Use History: None Reported Past Drug Use History: None Reported - Past Family History Father Family Medical History: No Reported History General Exam Limitations: language barrier, physical limitation General appearance: lethargic Head exam: Present: atraumatic, normocephalic Eye exam: Present: normal appearance Neck exam: Present: normal inspection Respiratory exam: Present: respiratory distress, rales. Absent: wheezes, rhonchi Cardiovascular Exam: Present: normal rhythm, tachycardia. Absent: systolic murmur, diastolic murmur, rubs, gallop, clicks Neurological exam: Present: alert (oriented x1) Skin exam: Present: warm Course Vital Signs 03/20/24 03/20/24 19:10 19:22 Temperature 98.2 F Pulse Rate 104 H 98 Respiratory 20 Rate Blood Pressure 145/112 O2 Sat by Pulse 90 L 94 L Oximetry EKG Findings - EKG Comments: EKG Findings:: Sinus rhythm ventricular rate 92. WA interval 174. QRS 64. QT 342. QTc 392. Medical Decision Making - Medical Decision Making Was pt. sent in by a medical professional or institution (, PA, ASSISTANT MANAGER/EMBALMER, urgent care, hospital, or prison...) When possible be specific @ -USP Did you speak to anyone other than the patient for history (EMS, parent, family, police, friend...)? What history was obtained from this source @ -History obtained from prison documentation as well as at bedside Did you review nursing and triage notes (agree or disagree)? Why? @ -I reviewed and agree with nursing and triage notes Were old charts reviewed (outside hosp., previous admission, EMS record, old EKG, old radiological studies, urgent care reports/EKG's, prison records)? Report findings @ -Patient's previous admission and yesterday's ER visit is reviewed Differential Diagnosis (chest pain, altered mental status, abdominal pain women, abdominal pain men, vaginal bleeding, weakness, fever, dyspnea, syncope, headache, dizziness, GI bleed, back pain, seizure, CVA, palpatations, mental health, musculoskeletal)? @ -MDM Differential Dyspnea: Coronary syndrome, arrhythmia, tamponade, asthma, COPD, pulmonary embolism, pneumonia, pneumothorax, pulmonary effusion, anaphylaxis, diabetic ketoacidosis, flailed chest, pulmonary contusion, diaphragmatic rupture, anemia, neuromuscular this is not meant to be an all-inclusive list. EKG interpreted by me (3pts min.). @ -As above X-rays interpreted by me (1pt min.). @ -Chest x-ray shows no acute cardiopulmonary disease/process CT interpreted by me (1pt min.). @ -None done U/S interpreted by me (1pt. min.). @ -None done What testing was considered but not performed or refused? (CT, X-rays, U/S, labs)? Why? @ -None What meds were considered but not given or refused? Why? @ -None Did you discuss the management of the patient with other professionals (professionals i.e. , PA, ASSISTANT MANAGER/EMBALMER, lab, RT, psych nurse, foster care social worker, exhaust emissions automotive technician, teacher, associate loan officer, caseworker protective services)? Give summary @ -I spoke with Dr. Littlejohn who accepted admission Was smoking cessation discussed for >3mins.? @ -No Was critical care preformed (if so, how long)? @ -No Were there social determinants of health that impacted care today? How? (Homelessness, low income, unemployed, alcoholism, drug addiction, transportation, low edu. Level, literacy, decrease access to med. care, [facility], rehab)? @ -No Was there de-escalation of care discussed even if they declined (Discuss DNR or withdrawal of care, Hospice)? DNR status @ -Patient has a DNR. I spoke with the patient's confirming that this is still in line with their wishes, he confirms this What co-morbidities impacted this encounter? (DM, HTN, Smoking, COPD, CAD, Cancer, CVA, ARF, Chemo, Hep., AIDS, mental health diagnosis, sleep apnea, morbid obesity)? @ -Multiple sclerosis Was patient admitted / discharged? Hospital course, mention meds given and route, prescriptions, significant lab abnormalities, going to OR and other pertinent info. @ -58-year-old female with history of multiple sclerosis presenting from prison after an episode of aspiration. She was eating dinner this evening when she had this episode. Upon arrival the patient is on a nonrebreather oxygenation is between 90 and 94%. Chest x-ray is obtained which shows no acute process. Patient has thick secretions on exam. On reassessment nonrebreather is removed and patient is able to maintain oxygenation level 97% and above on room air. Her later comes to the bedside. He reports that over the last week the patient has had a steep decline in her mental status and physical capabilities. This seems to be in line with a multiple sclerosis exacerbation, patient will be admitted for such. Patient and are in agreement with this plan. I discussed this case with my attending Dr. Nunez Undiagnosed new problem with uncertain prognosis? @ -No Drug Therapy requiring intensive monitoring for toxicity (Heparin, Nitro, Insulin, Cardizem)? @ -No Were any procedures done? @ -No Diagnosis/symptom? @ -Multiple sclerosis exacerbation, aspiration Acute, or Chronic, or Acute on Chronic? @ -Acute Uncomplicated (without systemic symptoms) or Complicated (systemic symptoms)? @ -Complicated Side effects of treatment? @ -No Exacerbation, Progression, or Severe Exacerbation? @ -Exacerbation Poses a threat to life or bodily function? How? (Chest pain, USA, GA, pneumonia, PE, COPD, DKA, ARF, appy, cholecystitis, CVA, Diverticulitis, Homicidal, Suicidal, threat to staff... and all critical care pts) @ -Yes - Lab Data Result diagrams: 03/20/24 19:47 03/20/24 19:47 Lab Results 06/07/24 06/07/24 06/07/24 Range/Units 19:47 19:47 19:47 WBC 8.4 (3.8-10.6) k/uL RBC 4.90 (3.80-5.40) m/uL Hgb 14.5 (11.4-16.0) gm/dL Hct 45.2 (34.0-46.0) % MCV 92.4 (80.0-100.0) fL MCH 29.7 (25.0-35.0) pg MCHC 32.1 (31.0-37.0) g/dL RDW 15.3 (11.5-15.5) % Plt Count 201 (150-450) k/uL MPV 9.3 Neutrophils % 72 % Lymphocytes % 19 % Monocytes % 7 % Eosinophils % 1 % Basophils % 0 % Neutrophils # 6.1 (1.3-7.7) k/uL Lymphocytes # 1.6 (1.0-4.8) k/uL Monocytes # 0.6 (0-1.0) k/uL Eosinophils # 0.1 (0-0.7) k/uL Basophils # 0.0 (0-0.2) k/uL PT 10.9 (10.0-12.5) sec INR 1.0 (<1.2) APTT 20.1 L (22.0-30.0) sec Sodium 142 (137-145) mmol/L Potassium 3.9 (3.5-5.1) mmol/L Chloride 112 H (98-107) mmol/L Carbon Dioxide 23 (22-30) mmol/L Anion Gap 7 mmol/L BUN 17 (7-17) mg/dL Creatinine 0.34 L (0.52-1.04) mg/dL Est GFR (CKD-EPI)AfAm >90 (>60 ml/min/1.73 sqM) Est GFR (CKD-EPI)NonAf >90 (>60 ml/min/1.73 sqM) Glucose 120 H (74-99) mg/dL Calcium 8.9 (8.4-10.2) mg/dL Total Bilirubin 0.5 (0.2-1.3) mg/dL AST 23 (14-36) U/L ALT 15 (4-34) U/L Alkaline Phosphatase 78 (38-126) U/L Troponin I (0.000-0.034) ng/mL Total Protein 6.2 L (6.3-8.2) g/dL Albumin 3.9 (3.5-5.0) g/dL 03/20/24 Range/Units 19:47 WBC (3.8-10.6) k/uL RBC (3.80-5.40) m/uL Hgb (11.4-16.0) gm/dL Hct (34.0-46.0) % MCV (80.0-100.0) fL MCH (25.0-35.0) pg MCHC (31.0-37.0) g/dL RDW (11.5-15.5) % Plt Count (150-450) k/uL MPV Neutrophils % % Lymphocytes % % Monocytes % % Eosinophils % % Basophils % % Neutrophils # (1.3-7.7) k/uL Lymphocytes # (1.0-4.8) k/uL Monocytes # (0-1.0) k/uL Eosinophils # (0-0.7) k/uL Basophils # (0-0.2) k/uL PT (10.0-12.5) sec INR (<1.2) APTT (22.0-30.0) sec Sodium (137-145) mmol/L Potassium (3.5-5.1) mmol/L Chloride (98-107) mmol/L Carbon Dioxide (22-30) mmol/L Anion Gap mmol/L BUN (7-17) mg/dL Creatinine (0.52-1.04) mg/dL Est GFR (CKD-EPI)AfAm (>60 ml/min/1.73 sqM) Est GFR (CKD-EPI)NonAf (>60 ml/min/1.73 sqM) Glucose (74-99) mg/dL Calcium (8.4-10.2) mg/dL Total Bilirubin (0.2-1.3) mg/dL AST (14-36) U/L ALT (4-34) U/L Alkaline Phosphatase (38-126) U/L Troponin I <0.012 (0.000-0.034) ng/mL Total Protein (6.3-8.2) g/dL Albumin (3.5-5.0) g/dL Disposition Clinical Impression: Multiple sclerosis exacerbation, Aspiration of food Disposition: ADMITTED IP TO THIS HOSP Condition: Stable Time of Disposition: 21:25
[2024-03-20 20:06] LABS: ALT 15 U/L (4-34); African American GFR (CKD) >90 (>60 ml/min/1.73 sqM); Albumin 3.9 g/dL (3.5-5.0); Anion Gap 7 mmol/L; Blood Urea Nitrogen 17 mg/dL (7-17); Calcium 8.9 mg/dL (8.4-10.2); Carbon Dioxide 23 mmol/L (22-30); Chloride 112 mmol/L (98-107); Glucose 120 mg/dL (74-99); Non-African American GFR(CKD) >90 (>60 ml/min/1.73 sqM); Sodium 142 mmol/L (137-145); Total Bilirubin 0.5 mg/dL (0.2-1.3); Total Protein 6.2 g/dL (6.3-8.2)
[2024-03-20 20:09] LABS: AST 23 U/L (14-36); Alkaline Phosphatase 78 U/L (38-126); Potassium 3.9 mmol/L (3.5-5.1); Prothrombin Time 10.9 sec (10.0-12.5)
[2024-03-20 20:15] LABS: Partial Thromboplastin Time 20.1 sec (22.0-30.0)
--- NOTE | 2024-03-20 20:15 | XR ---
EXAMINATION TYPE: XR chest 2V DATE OF EXAM: 03/20/2024 8:06 PM CLINICAL INDICATION:Female, 58 years old with history of difficulty breathing; COMPARISON: Chest radiographs from 03/19/2024 TECHNIQUE: XR chest 2V Frontal and lateral views of the chest. FINDINGS: Lungs/Pleura: Elevated left diaphragm. There is no evidence of pleural effusion, focal consolidation, or pneumothorax. Pulmonary vascularity: Unremarkable. Heart/mediastinum: Cardiomediastinal silhouette is unremarkable. Musculoskeletal: No acute osseous pathology. IMPRESSION: No acute cardiopulmonary disease/process.
[2024-03-20] MEDS ORDERED: NALOXONE 0.4 MG/ML 1 ML VIAL IV PRN (21:10)
[2024-03-21] MEDS: BACLOFEN 10 MG TAB PO SCH (01:05)
[2024-03-21] MEDS: DIVALPROEX 500 MG TABLET.DR PO SCH (05:41)
[2024-03-21] MEDS: LEVOTHYROXINE 100 MCG TAB PO SCH (05:42)
[2024-03-21] MEDS: LACOSAMIDE 50 MG TABLET PO SCH (05:42)
[2024-03-21] MEDS: METHYLPHENIDATE HCL 10 MG TAB PO SCH (08:01)
[2024-03-21] MEDS: ASPIRIN 81 MG PO SCH (08:01)
[2024-03-21] MEDS: DOCUSATE 100 MG CAP PO SCH (08:01)
[2024-03-21] MEDS: FAMOTIDINE 20 MG TAB PO SCH (08:01)
[2024-03-21 10:48] LABS: African American GFR (CKD) >90 (>60 ml/min/1.73 sqM); Anion Gap 6 mmol/L; Blood Urea Nitrogen 12 mg/dL (7-17); Calcium 9.3 mg/dL (8.4-10.2); Carbon Dioxide 27 mmol/L (22-30); Chloride 111 mmol/L (98-107); Glucose 109 mg/dL (74-99); Non-African American GFR(CKD) >90 (>60 ml/min/1.73 sqM); Potassium 3.5 mmol/L (3.5-5.1); Sodium 144 mmol/L (137-145)
[2024-03-21 11:03] LABS: Basophils % (A) 0 %; Eosinophils # (A) 0.1 k/uL (0-0.7); Eosinophils % (A) 1 %; HCT 45.8 % (34.0-46.0); HGB 14.8 gm/dL (11.4-16.0); Lymphocytes # (A) 1.3 k/uL (1.0-4.8); Lymphocytes % (A) 14 %; MCH 30.7 pg (25.0-35.0); MCHC 32.3 g/dL (31.0-37.0); MCV 94.9 fL (80.0-100.0); Mean Platelet Volume 8.7; Monocytes # (A) 0.6 k/uL (0-1.0); Monocytes % (A) 6 %; Neutrophils # (A) 7.4 k/uL (1.3-7.7); Neutrophils % (A) 78 %; Platelet Count 145 k/uL (150-450); RBC 4.82 m/uL (3.80-5.40); RDW 15.4 % (11.5-15.5); WBC 9.5 k/uL (3.8-10.6)
[2024-03-21] MEDS: ENOXAPARIN 40 MG/0.4 ML SYRINGE SQ SCH (21:25)
[2024-03-21] MEDS: methylPREDNISolone SOD SUCCIN 1,000 MG in SODIUM CHLORIDE 0.9% 250 ML IVPB SCH (21:31)
[2024-03-22 09:57] LABS: Blood Urea Nitrogen 9.9 mg/dL (9.0-27.0); Calcium 9.3 mg/dL (8.7-10.3); Carbon Dioxide 21.3 mmol/L (21.6-31.8); Chloride 107 mmol/L (96-109); Glucose 240 mg/dL (70-110); Potassium 4.1 mmol/L (3.5-5.5); Sodium 146 mmol/L (135-145)
--- NOTE | 2024-03-22 12:06 | P.CNNES ---
History of Present Illness Consult date: 03/21/24 Requesting physician: Maame Villavicencio Reason for Consult: MS exacerbation History of Present Illness: Patient is a 58-year-old female with history of advanced MS, recently seen in the hospital on 02/29/2024 for MS exacerbation, discharged on 03/10/2024 for MS exacerbation. Patient was given 5 days of Solu-Medrol IV, and also given prednisone 60 mg daily by mouth, as a oral taper. [facility] ambulance for difficulty breathing and altered mental status. Patient at present appears confused, still thinks that she is in her home. I spoke to patient's on the phone, who mentions that since he was discharged from the hospital, she was transferred to [facility]. Since she arrived there, she has been going downhill slide. Some days she is very confuse d. They brought her to the hospital 2 days ago to the ER because of having speech difficulty. She stayed in the hospital in the ER for 4-6 hours, and was sent back to the facility. They called the ambulance because patient's oxygen level dropped to the 60s. She couldn't breathe, couldn't talk and was nonresponsive at around 5:45 PM yesterday. She was more confused, telling her that she has to take care of her kids at home, although they're kids are grown up in their mid 20s. As per EMS flowsheet when they arrived, patient was reported to have aspirated during dinner. Staff mentioned that patient recently got off a ventilator and was weaned off of her tracheostomy. They stated that during dinner she began to cough which is not normal for her and then they started hearing audible rails while she was breathing. Or SpO2 dropped and she was placed on an rebreather mask at 15 L/min of oxygen. Patient was placed on the awake overnight monitor showing normal sinus rhythm. Patient's blood pressure at the scene was 129/75, pulse 112, respiration 24 saturation 91% on > 3 L/min Patient has been afebrile in the hospital. Her blood pressure on arrival was 145/1 and 12, pulse rate 104. Blood test shows normal CBC, PT PTT, normal electrolytes, renal function, hepatic panel and troponin. EKG showed sinus rhythm. Chest x-ray revealed no acute cardiopulmonary disease/process. Patient is currently taking Vimpat 200 mg twice daily, Depakote 500 mg every 8 hours, aspirin 81 mg, baclofen 20 mg every 4 hours, Lovenox Pepcid emigrating 10 mg twice daily.. Patient continues to be very encephalopathic, generalized weak. Patient's mentioned that he was here whole day. They just had a argument because they have usually decided for patient to be "no code" status. However patient at present has decided to be intubated if needed. Although patient's is very caring, wants to everything, but he does not want anymore suffering for the patient. However patient has commented to him "as if he is trying to put her to sleep like a dog". Review of Systems Patient is generalized weak. Patient has mental status change. Review of systems unreliable. ROS unobtainable: due to mental status Past Medical History Past Medical History: Thyroid Disorder Additional Past Medical History / Comment(s): MS History of Any Multi-Drug Resistant Organisms: ESBL Date of last positivie culture/infection: 08/11/22 MDRO Source:: Blood & Urine Past Surgical History: Appendectomy, Back Surgery, Section Past Psychological History: No Psychological Hx Reported Smoking Status: Never smoker Past Alcohol Use History: None Reported Past Drug Use History: None Reported - Past Family History Father Family Medical History: No Reported History Medications and Allergies Home Medications Medication Instructions Recorded Confirmed Type Baclofen [Lioresal] 20 mg PO Q4HR 08/11/22 03/21/24 History Acetaminophen [Tylenol 8 Hour] 650 mg PO Q6H PRN 02/29/24 03/21/24 History Aspirin EC [Ecotrin Low Dose] 81 mg PO DAILY 02/29/24 03/21/24 History Divalproex Sodium [Depakote] 500 mg PO Q8HR@0500,1300,2100 02/29/24 03/21/24 History Docusate [Colace] 100 mg PO BID 02/29/24 03/21/24 History Enoxaparin [Lovenox] 40 mg SQ HS 02/29/24 03/21/24 History Ipratropium-Albuterol Nebulize 3 ml INHALATION RT-Q4H PRN 02/29/24 03/21/24 History [Duoneb 0.5 mg-3 mg/3 ml Soln] Sennosides [Senokot] 8.6 mg PO DAILY 02/29/24 03/21/24 History amantadine HCL [Symmetrel] 100 mg PO BID@0700,2100 02/29/24 03/21/24 History Famotidine [Pepcid AC] 20 mg PO BID 03/19/24 03/21/24 History Health Shake 1 can PO BID@1200,1700 03/19/24 03/21/24 History Lacosamide [Vimpat] 200 mg PO BID@0700,1600 03/19/24 03/21/24 History Levothyroxine Sodium [Synthroid] 100 mcg PO DAILY@0500 03/19/24 03/21/24 History Methylphenidate HCl [Ritalin] 10 mg PO BID@0800,1500 03/19/24 03/21/24 History Allergies Allergy/AdvReac Type Severity Reaction Status Date / Time No Known Allergies Allergy Verified 03/21/24 10:24 Physical Examination - Vital Signs Vital Signs: Vital Signs Temp Pulse Pulse Resp BP BP Pulse Ox 03/21/24 17:48 97.7 F 112 H 14 126/84 95 03/21/24 16:42 99 16 124/74 96 03/21/24 15:22 99 16 108/77 93 L 03/21/24 14:01 98.1 F 89 16 121/99 97 03/21/24 09:08 91 L 03/21/24 09:04 90 16 121/79 86 L 03/21/24 05:24 98.4 F 70 16 105/78 96 03/21/24 01:00 95 18 117/96 95 03/20/24 23:30 102 H 20 129/84 97 03/20/24 22:00 97 18 97 03/20/24 21:00 97 20 148/112 97 Patient is a middle aged female, appears older than her stated age. Patient is mild to moderate encephalopathic, groggy. Speech is somewhat nasal, and language functions are normal. Patient can name simple objects and repeats well. No aphasia, although patient has sometimes slurred speech. She speaks with low volume. Patient independent believes that she is in her home in the [facility]. Attention, concentration is decreased and fund of knowledge is limited due to mental status. On cranial nerve examination, pupils are equal, round and reacting to light, visual marvin are full on confrontation, with no neglect on double simultaneous stimulation. Extraocular muscles are intact with no nystagmus. Face is symmetric, tongue protrudes to the midline. Palatal elevation and sensation normal, hearing and facial sensation normal. On muscle strength testing, deltoids are 3-, biceps 3+4-, triceps 4+ tile mechanic helper 3. Patient is paraplegic. Deep tendon reflexes are symmetric 2+ at the biceps, 0 brachioradialis, 1+ at the knees, patient has intermittent sustained clonus on the right. Plantars otherwise are flat. Sensory to touch is equal with no neglect on double simultaneous stimulation. Cerebellar function patient did not cooperate. Tone is very increased in the arms and legs and bulk of muscles overall decreased. Gait deferred.. On general examination, there is no carotid bruit or murmur, S1-S2 audible. Chest is clear on consultation. Abdomen is soft nontender. No organomegaly, bowel sounds present. Peripheral pulses are present. No peripheral edema. Results - Laboratory Findings CBC and BMP: 03/21/24 10:15 03/22/24 06:39 Abnormal Lab Findings: Abnormal Labs 03/20/24 03/20/24 03/21/24 19:47 19:47 10:15 Plt Count 145 L APTT 20.1 L Chloride 112 H Creatinine 0.34 L Glucose 120 H Total Protein 6.2 L 03/21/24 10:15 Plt Count APTT Chloride 111 H Creatinine 0.26 L Glucose 109 H Total Protein Assessment and Plan Assessment: * Probable MS exacerbation * Seizure disorder, diagnosed 12/19/2023. * Advanced multiple sclerosis, wheelchair bound. * Paraplegia * DO NOT RESUSCITATE Plan: * Patient was recently treated for MS exacerbation with 5 days of IV Solu-Medrol followed by prednisone oral taper. Patient seems to be getting worse again. Her muscle strength is remarkably decreased. We will resume Solu-Medrol 1 g IV PB daily for 5 days. * Check UA, rule out infection. * Chest x-ray shows no infectious process. * Continue Vimpat 200 mg twice a day and Depakote 500 mg 3 times a day. * Check ammonia. * Patient and her has previously decided for patient to be no CODE STAT US. However patient at present is revoking, wants to be full code. Patient's seems to be in disagreement because of her overall health condition. Recommend psychiatry consultation for evaluating mental capacity, to clarify the CODE STATUS. * Neurology will follow. Thank you for the consult.
[2024-03-22] MEDS: ZINC OXIDE PASTE (Z-GUARD) 1 APPLIC TOPICAL SCH (12:13)
--- NOTE | 2024-03-22 14:59 | P.HPIM ---
History of Present Illness H&P Date: 03/20/24 Chief Complaint: Shortness of breath 58-year-old female with history of hypothyroidism, seizure disorder, multiple sclerosis presenting from halfway after aspirating this evening. Patient is unable to provide any meaningful history. Patient was seen in our facility yesterday for tremoring and an episode of altered mental status and discharged. Staff states that she had a witnessed episode of aspiration while eating dinner this evening. She is currently on nonrebreather satting between 90-94%. Patient is unable to provide any meaningful history. later came to the bedside and informs us that over the last week the patient has been steeply declining. She previously was able to hold conversations and feed herself with accommodations. She is now only able to answer some yes and no questions and has tremoring of the arms but cannot follow directions with the extremities. Blood work completed in ED reveals a WBC of 8.4, high hemoglobin of 14.5 and platelet count of 201, sodium 142, potassium 3.9, BUNs/creatinine of 17/0.34 and blood glucose of 120, troponin less than 0.012 Patient is being admitted for further evaluation and treatment by neurology for possible MS exacerbation Review of Systems REVIEW OF SYSTEMS: CONSTITUTIONAL: No fever, no malaise, no fatigue. HEENT: No recent visual problems or hearing problems. Denied any sore throat. CARDIOVASCULAR: No chest pain, orthopnea, PND, no palpitations, no syncope. PULMONARY: No shortness of breath, no cough, no hemoptysis. GASTROINTESTINAL: No diarrhea, no nausea, no vomiting, no abdominal pain. NEUROLOGICAL: No headaches, no weakness, no numbness. HEMATOLOGICAL: Denies any bleeding or petechiae. GENITOURINARY: Denies any burning micturition, frequency, or urgency. MUSCULOSKELETAL/RHEUMATOLOGICAL: Denies any joint pain, swelling, or any muscle pain. ENDOCRINE: Denies any polyuria or polydipsia. The rest of the 14-point review of systems is negative. Past Medical History Past Medical History: Thyroid Disorder Additional Past Medical History / Comment(s): MS History of Any Multi-Drug Resistant Organisms: ESBL Date of last positivie culture/infection: 08/11/22 MDRO Source:: Blood & Urine Past Surgical History: Appendectomy, Back Surgery, Section Past Psychological History: No Psychological Hx Reported Smoking Status: Never smoker Past Alcohol Use History: None Reported Past Drug Use History: None Reported - Past Family History Father Family Medical History: No Reported History Medications and Allergies Home Medications Medication Instructions Recorded Confirmed Type Baclofen [Lioresal] 20 mg PO Q4HR 08/11/22 03/21/24 History Acetaminophen [Tylenol 8 Hour] 650 mg PO Q6H PRN 02/29/24 03/21/24 History Aspirin EC [Ecotrin Low Dose] 81 mg PO DAILY 02/29/24 03/21/24 History Divalproex Sodium [Depakote] 500 mg PO Q8HR@0500,1300,2100 02/29/24 03/21/24 History Docusate [Colace] 100 mg PO BID 02/29/24 03/21/24 History Enoxaparin [Lovenox] 40 mg SQ HS 02/29/24 03/21/24 History Ipratropium-Albuterol Nebulize 3 ml INHALATION RT-Q4H PRN 02/29/24 03/21/24 History [Duoneb 0.5 mg-3 mg/3 ml Soln] Sennosides [Senokot] 8.6 mg PO DAILY 02/29/24 03/21/24 History amantadine HCL [Symmetrel] 100 mg PO BID@0700,2100 02/29/24 03/21/24 History Famotidine [Pepcid AC] 20 mg PO BID 03/19/24 03/21/24 History Health Shake 1 can PO BID@1200,1700 03/19/24 03/21/24 History Lacosamide [Vimpat] 200 mg PO BID@0700,1600 03/19/24 03/21/24 History Levothyroxine Sodium [Synthroid] 100 mcg PO DAILY@0500 03/19/24 03/21/24 History Methylphenidate HCl [Ritalin] 10 mg PO BID@0800,1500 03/19/24 03/21/24 History Allergies Allergy/AdvReac Type Severity Reaction Status Date / Time No Known Allergies Allergy Verified 03/21/24 10:24 Physical Exam Vitals: Vital Signs Temp Pulse Resp BP Pulse Ox 03/20/24 22:00 97 18 97 03/20/24 21:00 97 20 148/112 97 03/20/24 19:22 98 94 L 03/20/24 19:10 98.2 F 104 H 20 145/112 90 L Intake and Output 03/20/24 03/20/24 03/21/24 14:59 22:59 06:59 Other: Weight 52.163 kg General appearance: lethargic Head exam: Present: atraumatic, normocephalic Eye exam: Present: normal appearance Neck exam: Present: normal inspection Respiratory exam: Present: respiratory distress, rales. Absent: wheezes, rhonchi Cardiovascular Exam: Present: normal rhythm, tachycardia. Absent: systolic murmur, diastolic murmur, rubs, gallop, clicks Neurological exam: Present: alert (oriented x1) Skin exam: Present: warm Results CBC & Chem 7: 03/21/24 10:15 03/22/24 06:39 Labs: Abnormal Lab Results - Last 24 Hours (Table) 03/20/24 03/20/24 Range/Units 19:47 19:47 APTT 20.1 L (22.0-30.0) sec Chloride 112 H (98-107) mmol/L Creatinine 0.34 L (0.52-1.04) mg/dL Glucose 120 H (74-99) mg/dL Total Protein 6.2 L (6.3-8.2) g/dL Assessment and Plan Assessment: 1. Possible MS exacerbation -- Patient has been admitted for further neurological evaluation; we will monitor neurochecks --Solu-Medrol 1000 mg IV daily; patient remains on amantadine 100 mg twice daily, baclofen 20 mg p.o. every 4 hours -- Consult neurology for further recommendations 2. Aspiration likely related to MS exacerbation; patient has been placed on a pured diet for level 1 dysphagia; we will consult ELECTRICIANS TOP HELPER for further evaluation 3. Generalized weakness/debility versus MS exacerbation; monitor closely for response to IV steroids; recommend PT/OT once stable 4. Seizure disorder; Vimpat 200 mg twice daily, Depakote 500 mg every 8 hours 5. Hypothyroidism; will continue home dose of levothyroxine 100 mcg daily DVT prophylaxis; SCDs/subcu Lovenox CODE STATUS full code;
--- NOTE | 2024-03-22 15:01 | P.PN ---
Subjective Progress Note Date: 03/21/24 58-year-old female admitted for status epilepticus which lasted for 20 minutes resolved with midazolam. Patient on multiple antiseizure medications at home. Patient is lethargic but was able to answer questions appropriately. Patient had lactic acid (presently 2.5 patient is hyperkalemic because of which IV fluids were changed to half-normal saline. Patient had leukocytosis denies any fever but had low-grade fever here in the ER and patient urine is abnormal he also was complaining of dysuria and increased urinary frequency patient was started on Rocephin with urine cultures, patient had ESBL E. coli from her previous cultures this E. coli is also resistant to fluoroquinolones as well. Apparently patient missed antibiotics for couple days. Patient was eval by neurology patient was quite lethargic but alert oriented x 3. Objective - Vital Signs Vital signs: Vital Signs Temp 98.4 F 03/21/24 05:24 Pulse 90 03/21/24 09:04 Resp 16 03/21/24 09:04 BP 121/79 03/21/24 09:04 Pulse Ox 91 L 03/21/24 09:08 FiO2 Intake & Output 03/20/24 03/21/24 03/21/24 18:59 06:59 18:59 Weight 52.163 kg - Exam GENERAL: The patient is alert and oriented x3, not in any acute distress. Well developed, well nourished. More awake and alert. HEENT: Pupils are round and equally reacting to light. EOMI. No scleral icterus. No conjunctival pallor. Normocephalic, atraumatic. No pharyngeal erythema. No thyromegaly. CARDIOVASCULAR: S1 and S2 present. No murmurs, rubs, or gallops. PULMONARY: Chest is clear to auscultation, no wheezing or crackles. ABDOMEN: Soft, nontender, nondistended, normoactive bowel sounds. No palpable organomegaly. MUSCULOSKELETAL: No joint swelling or deformity. EXTREMITIES: No cyanosis, clubbing, or pedal edema. NEUROLOGICAL: Unable to move lower extremities bilaterally. Patient have some focal deficits from her previous MS. Upper extremities are tremulous. SKIN: No rashes. - Labs CBC & Chem 7: 03/21/24 10:15 03/22/24 06:39 Labs: Abnormal Lab Results - Last 24 Hours (Table) 03/20/24 03/20/24 03/21/24 Range/Units 19:47 19:47 10:15 Plt Count 145 L (150-450) k/uL APTT 20.1 L (22.0-30.0) sec Chloride 112 H (98-107) mmol/L Creatinine 0.34 L (0.52-1.04) mg/dL Glucose 120 H (74-99) mg/dL Total Protein 6.2 L (6.3-8.2) g/dL 03/21/24 Range/Units 10:15 Plt Count (150-450) k/uL APTT (22.0-30.0) sec Chloride 111 H (98-107) mmol/L Creatinine 0.26 L (0.52-1.04) mg/dL Glucose 109 H (74-99) mg/dL Total Protein (6.3-8.2) g/dL Assessment and Plan Assessment: 1. Possible MS exacerbation -- Patient has been admitted for further neurological evaluation; we will monitor neurochecks --Solu-Medrol 1000 mg IV daily; patient remains on amantadine 100 mg twice daily, baclofen 20 mg p.o. every 4 hours -- Consult neurology for further recommendations 2. Aspiration likely related to MS exacerbation; patient has been placed on a pured diet for level 1 dysphagia; we will consult STRESS ENGINEER for further evaluation 3. Generalized weakness/debility versus MS exacerbation; monitor closely for response to IV steroids; recommend PT/OT once stable 4. Seizure disorder; Vimpat 200 mg twice daily, Depakote 500 mg every 8 hours 5. Hypothyroidism; will continue home dose of levothyroxine 100 mcg daily DVT prophylaxis; SCDs/subcu Lovenox CODE STATUS full code;
--- NOTE | 2024-03-22 15:05 | P.PN ---
Subjective Progress Note Date: 03/22/24 58-year-old female with history of hypothyroidism, seizure disorder, multiple sclerosis presenting from [facility] after aspirating this evening. Patient is unable to provide any meaningful history. Patient was seen in our facility yesterday for tremoring and an episode of altered mental status and discharged. Staff states that she had a witnessed episode of aspiration while eating dinner this evening. She is currently on nonrebreather satting between 90-94%. Patient is unable to provide any meaningful history. later came to the bedside and informs us that over the last week the patient has been steeply declining. She previously was able to hold conversations and feed herself with accommodations. She is now only able to answer some yes and no questions and has tremoring of the arms but cannot follow directions with the extremities. Blood work completed in ED reveals a WBC of 8.4, high hemoglobin of 14.5 and platelet count of 201, sodium 142, potassium 3.9, BUNs/creatinine of 17/0.34 and blood glucose of 120, troponin less than 0.012 Patient is being admitted for further evaluation and treatment by neurology for possible MS exacerbation 03/22/2024 Patient is seen and evaluated sitting up in bed; discussed with nursing staff; no specific complaints reported Vital signs are reviewed and remained stable Lab review shows sodium of 146, potassium 4.1, BUNs/creatinine of 9.9/0.5, blood glucose elevated at 240 --Hyperglycemia likely related to high-dose steroid therapy; will order Accu- Cheks before every meal and at bedtime with insulin sliding scale -- Patient remains on Solu-Medrol 1000 mg daily for MS exacerbation; neurology on board; appreciate recommendations -- PT/MAINFRAME SYSTEMS PROGRAMMER consulted Objective - Vital Signs Vital signs: Vital Signs Temp 97.8 F 03/22/24 07:08 Pulse 69 03/22/24 07:08 Resp 17 03/22/24 07:08 BP 83/45 03/22/24 07:08 Pulse Ox 90 L 03/22/24 08:35 FiO2 Intake & Output 03/21/24 03/22/24 03/22/24 18:59 06:59 18:59 Intake Total 590 Output Total 200 Balance 390 Weight 55.5 kg Intake: Oral 590 Output: Urine 200 Other: Voiding Method Incontinent # Voids 1 # Bowel Movements 1 - Exam GENERAL: The patient is alert and oriented x3, not in any acute distress. Well developed, well nourished. More awake and alert. HEENT: Pupils are round and equally reacting to light. EOMI. No scleral icterus. No conjunctival pallor. Normocephalic, atraumatic. No pharyngeal erythema. No thyromegaly. CARDIOVASCULAR: S1 and S2 present. No murmurs, rubs, or gallops. PULMONARY: Chest is clear to auscultation, no wheezing or crackles. ABDOMEN: Soft, nontender, nondistended, normoactive bowel sounds. No palpable organomegaly. MUSCULOSKELETAL: No joint swelling or deformity. EXTREMITIES: No cyanosis, clubbing, or pedal edema. NEUROLOGICAL: Unable to move lower extremities bilaterally. Patient have some focal deficits from her previous MS. Upper extremities are tremulous. SKIN: No rashes. - Labs CBC & Chem 7: 03/21/24 10:15 03/22/24 06:39 Labs: Abnormal Lab Results - Last 24 Hours (Table) 03/22/24 Range/Units 06:39 Sodium 146 H (135-145) mmol/L Carbon Dioxide 21.3 L (21.6-31.8) mmol/L Anion Gap 17.70 H (4.00-12.00) mmol/L Creatinine 0.5 L (0.6-1.5) mg/dL Glucose 240 H (70-110) mg/dL Assessment and Plan Assessment: 1. Possible MS exacerbation -- Patient has been admitted for further neurological evaluation; we will monitor neurochecks --Solu-Medrol 1000 mg IV daily; patient remains on amantadine 100 mg twice daily, baclofen 20 mg p.o. every 4 hours -- Consult neurology for further recommendations 2. Aspiration likely related to MS exacerbation; patient has been placed on a pured diet for level 1 dysphagia; we will consult MAINFRAME SYSTEMS PROGRAMMER for further evaluation 3. Generalized weakness/debility versus MS exacerbation; monitor closely for response to IV steroids; recommend PT/OT once stable 4. Seizure disorder; Vimpat 200 mg twice daily, Depakote 500 mg every 8 hours 5. Hypothyroidism; will continue home dose of levothyroxine 100 mcg daily DVT prophylaxis; SCDs/subcu Lovenox CODE STATUS full code;
[2024-03-22] MEDS: INSULIN ASPART (NovoLOG) 100 UNIT/ML VIAL SQ SCH (18:23)
[2024-03-22 20:47] LABS: Glucose,Whole Blood 191 mg/dL (70-110)
[2024-03-23 06:58] LABS: Glucose,Whole Blood 95 mg/dL (70-110)
[2024-03-23 09:45] LABS: Blood Urea Nitrogen 14.1 mg/dL (9.0-27.0); Carbon Dioxide 27.1 mmol/L (21.6-31.8); Chloride 109 mmol/L (96-109); Glucose 114 mg/dL (70-110); Sodium 147 mmol/L (135-145)
[2024-03-23 12:22] LABS: Glucose,Whole Blood 199 mg/dL (70-110)
--- NOTE | 2024-03-23 12:30 | CDI ---
Documentation Clarification Form Date: 03/23/2024 12:04:37 PM From: Demetra Otto RN, CCDS Phone: [phone] Admit Date: 03/20/2024 09:11:00 PM Patient Name: Sarah Barroso Visit Number: [id number] Discharge Date: ATTENTION: The Clinical Documentation Specialists (CDI) and [facility] Coding Staff appreciate your assistance in clarifying documentation. Please respond to the clarification below the line at the bottom and electronically sign. The CDI & [facility] Coding staff will review the response and follow-up if needed. Please note: Queries are made part of the Legal Health Record. If you have any questions, please contact the author of this message via ITS. Dr. Abigail Littlejohn Your patient present to ED with shortness of breath from skilled nursing after aspirating on food per nursing staff. Based on this information and the findings below, is there an additional diagnosis that is clinically appropriate for this patient? History/Risk Factors: Thyroid Disorder, multiple sclerosis, hypothyroidism, Clinical Indicators: 58-year-old female with history of multiple sclerosis, staff states that she had a witnessed episode of aspiration while eating dinner this evening. She is currently on nonrebreather Sat's between 90-94%. Respiratory exam: Present: respiratory distress, rales. 03/20 Vital signs: 145/112 104 20 98.2 (AX) 90 % NRB 03/21 VS: 121/79 90 16 86 % RA 91% 4/L NC Treatment: Monitor O2 Sat's (titrate) Methylprednisolone 1,000MG IVPB Daily03/21-03/23 ' DuoNeb 0.g Mg-3 Mg/3 ML Soln RG-Q4H PRN Is there an additional diagnosis that is clinically appropriate for this patient? [ ] Acute Hypoxic Respiratory Failure [ ] Acute Hypercapnic Respiratory Failure [ ] Acute on Chronic Hypoxic Respiratory Failure [ ] No additional diagnosis/not clinically significant [ ] Other Diagnosis, please specify [ ] Unable to determine (Template Last Revised: October 2023) MTDD
[2024-03-23 13:44] LABS: Amorphous Sediment,Urine Rare /hpf; Appearance,Urine Turbid (Clear); Bacteria,Urine Moderate /hpf; Bilirubin,Urine Negative (Negative); Blood,Urine Negative (Negative); Color,Urine Yellow; Glucose,Urine (UA) Trace (Negative); Ketones,Urine 1+ (Negative); Leukocyte Esterase,Urine Moderate (Negative); Nitrite,Urine Positive (Negative); PH, Urine 6.5 (5.0-8.0); Protein,Urine 1+ (Negative); RBC,Urine 1 /hpf (0-5); Specific Gravity,Urine 1.036 (1.001-1.035); Squamous Epithelial Cell,Urine 1 /hpf (0-4); Urobilinogen,Urine <2.0 mg/dL (<2.0); WBC,Urine 23 /hpf (0-5)
[2024-03-23 17:24] LABS: Glucose,Whole Blood 133 mg/dL (70-110)
--- NOTE | 2024-03-23 19:45 | P.PN ---
Subjective Progress Note Date: 03/23/24 58-year-old female with history of hypothyroidism, seizure disorder, multiple sclerosis presenting from [facility] after aspirating this evening. Patient is unable to provide any meaningful history. Patient was seen in our facility yesterday for tremoring and an episode of altered mental status and discharged. Staff states that she had a witnessed episode of aspiration while eating dinner this evening. She is currently on nonrebreather satting between 90-94%. Patient is unable to provide any meaningful history. later came to the bedside and informs us that over the last week the patient has been steeply declining. She previously was able to hold conversations and feed herself with accommodations. She is now only able to answer some yes and no questions and has tremoring of the arms but cannot follow directions with the extremities. Blood work completed in ED reveals a WBC of 8.4, high hemoglobin of 14.5 and platelet count of 201, sodium 142, potassium 3.9, BUNs/creatinine of 17/0.34 and blood glucose of 120, troponin less than 0.012 Patient is being admitted for further evaluation and treatment by neurology for possible MS exacerbation 03/22/2024 Patient is seen and evaluated sitting up in bed; discussed with nursing staff; no specific complaints reported Vital signs are reviewed and remained stable Lab review shows sodium of 146, potassium 4.1, BUNs/creatinine of 9.9/0.5, blood glucose elevated at 240 --Hyperglycemia likely related to high-dose steroid therapy; will order Accu- Cheks before every meal and at bedtime with insulin sliding scale -- Patient remains on Solu-Medrol 1000 mg daily for MS exacerbation; neurology on board; appreciate recommendations -- PT/CLINICAL DATA COORDINATOR consulted 03/23/2024 Patient is seen and evaluated in follow-up today maintained on large dose IV steroids with neurology following being treated for MS exacerbation. Patient continues to have some confusion and altered mental status and maintained on 4 L via nasal cannula although oxygen saturations are 99%. Most recent chest x-ray was negative for acute process. Patient was recently hospitalized in February with infectious disease following for urinary tract infection and was noted to have ESBL. Will reconsult infectious disease as urine is nitrate positive and continues with altered mentation, initiate meropenem and appreciate input and recommendations from ID. Patient is currently afebrile with no white count noted. Patient is extremely high risk for aspiration as well and would recommend aspiration precaution and supervision with meals and head of the bed elevated 45 degrees at all times. Speech to evaluate the patient. Also recommend PT/OT therapy evaluation as patient will likely need to return to ECF on discharge. Review of systems: Unable to completely assess as patient is having some confusion Active Medications Albuterol/Ipratropium (Ipratropium-Albuterol 3 Ml Neb) 3 ml INHALATION RT-Q4H PRN PRN Reason: Shortness Of Breath Or Wheezing Amantadine HCl (Amantadine Hcl 100 Mg Cap) 100 mg PO BID@0700,2100 [facility] Last Admin: 03/23/24 09:25 Dose: 100 mg Aspirin (Aspirin 81 Mg) 81 mg PO DAILY [facility] Last Admin: 03/23/24 09:25 Dose: 81 mg Baclofen (Baclofen 10 Mg Tab) 20 mg PO Q4H [facility] Last Admin: 03/23/24 16:12 Dose: 20 mg Divalproex Sodium (Divalproex 500 Mg Tablet.Dr) 500 mg PO Q8HR@0500,1300,2100 [facility] Last Admin: 03/23/24 12:52 Dose: 500 mg Docusate Sodium (Docusate 100 Mg Cap) 100 mg PO BID [facility] Last Admin: 03/23/24 09:25 Dose: 100 mg Enoxaparin Sodium (Enoxaparin 40 Mg/0.4 Ml Syringe) 40 mg SQ HS [facility] Last Admin: 03/22/24 22:17 Dose: 40 mg Famotidine (Famotidine 20 Mg Tab) 20 mg PO BID [facility] Last Admin: 03/23/24 09:25 Dose: 20 mg Methylprednisolone Sodium Succinate 1,000 mg/ Sodium Chloride 250 mls @ 250 mls/hr IVPB DAILY [facility] Stop: 03/26/24 21:16 Last Admin: 03/23/24 09:24 Dose: 250 mls/hr Meropenem 1 gm/ Sodium (Chloride) 100 mls @ 33.3 mls/hr IVPB Q8HR [facility]; Protocol Insulin Aspart (Insulin Aspart (Novolog) 100 Unit/Ml Vial) 0 unit SQ ACHS [facility]; Protocol Stop: 03/29/24 17:31 Last Admin: 03/23/24 18:13 Dose: Not Given Lacosamide (Lacosamide 50 Mg Tablet) 200 mg PO BID@0700,1600 [facility] Last Admin: 03/23/24 16:12 Dose: 200 mg Levothyroxine Sodium (Levothyroxine 100 Mcg Tab) 100 mcg PO DAILY@0500 [facility] Last Admin: 03/23/24 06:05 Dose: 100 mcg Methylphenidate HCl (Methylphenidate Hcl 10 Mg Tab) 10 mg PO BID@0800,1500 [facility] Last Admin: 03/23/24 16:11 Dose: 10 mg Naloxone HCl (Naloxone 0.4 Mg/Ml 1 Ml Vial) 0.2 mg IV Q2M PRN PRN Reason: Opioid Reversal Petrolatum (Zinc Oxide Paste (Z-Guard) 1 Applic) 1 applic TOPICAL BID [facility] Last Admin: 03/23/24 09:25 Dose: 1 applic Physical exam: Gen: This is a 58-year-old female who is awake, alert and oriented x 2, confused, ill-appearing, elderly appearing HEENT: Head is atraumatic, normocephalic. Pupils equal, round. Sclerae is anicteric. NECK: Supple. No JVD. No lymphadenopathy. No thyromegaly. LUNGS: Diminished breath sounds bilaterally otherwise clear to auscultation. No wheezes or rhonchi. No intercostal retractions. HEART: Regular rate and rhythm. No murmur. ABDOMEN: Soft. Bowel sounds are present. No masses. No tenderness. EXTREMITIES: No pedal edema. No calf tenderness. Contractures noted NEUROLOGICAL: Patient is awake, alert and oriented x2. Diffusely weak Assessment: -Possible MS exacerbation, recently admitted in February underwent high-dose steroid therapy for MS exacerbation, follows with neurology outpatient -Shortness of breath with acute hypoxic respiratory failure likely secondary to aspiration likely related to MS exacerbation; patient has been placed on a pured diet for level 1 dysphagia; we will consult CLINICAL DATA COORDINATOR for further evaluation -Possible acute urinary tract infection, present on admission, recent hospitalization requiring antibiotics for E. coli ESBL in the urine -Generalized weakness/debility versus MS exacerbation; monitor closely for response to IV steroids; recommend PT/OT once stable -Seizure disorder; Vimpat 200 mg twice daily, Depakote 500 mg every 8 hours -Hypothyroidism; will continue home dose of levothyroxine 100 mcg daily -GI prophylaxis -DVT prophylaxis; SCDs/subcu Lovenox -No code Plan: Patient will continue on high-dose steroids with neurology following Continue to monitor Accu-Cheks before meals and at bedtime as needed for high- dose steroids PT/OT therapy to reevaluate for return to ECF for continued strength and mobility Patient will need close neurology follow-up outpatient Urine was noted to be positive for nitrates and leukocyte will start meropenem as patient has history of recent E. coli with ESBL. Recommend ID evaluation and appreciate input and recommendations regarding antibiotics. Will follow-up on repeat labs Follow-up on speech evaluation and continue with aspiration precautions with he ad of the bed elevated 30 to 45 degrees at all times Wean FiO2 as tolerated. Currently 100% on 4 L via nasal cannula Due to multiple complex medical issues, overall prognosis is guarded The impression and plan of care has been dictated by Amarilys Hernandez, Nurse Practitioner as directed. Dr. Ruby MD I have performed a history and examination and MDM of this patient, discussed the same with the dictator, and agree with the dictator's assessment and plan as written ,documented as a scribe. Based on total visit time, I have performed more than 50% of the visit. Objective - Vital Signs Vital signs: Vital Signs Temp 97.5 F L 03/23/24 06:59 Pulse 76 03/23/24 06:59 Resp 16 03/23/24 06:59 BP 103/65 03/23/24 06:59 Pulse Ox 99 03/23/24 06:59 FiO2 Intake & Output 03/22/24 03/23/24 03/23/24 18:59 06:59 18:59 Output Total 300 200 Balance -300 -200 Weight 53 kg Output: Urine 300 200 Other: Voiding Method Incontinent Incontinent Incontinent External Catheter External Catheter # Voids 2 1 - Labs CBC & Chem 7: 03/21/24 10:15 03/23/24 05:46 Labs: Abnormal Lab Results - Last 24 Hours (Table) 03/22/24 03/23/24 Range/Units 20:46 05:46 Sodium 147 H (135-145) mmol/L Creatinine 0.3 L (0.6-1.5) mg/dL BUN/Creatinine Ratio 47.00 H (12.00-20.00) Ratio Glucose 114 H (70-110) mg/dL POC Glucose (mg/dL) 191 H (70-110) mg/dL
[2024-03-23 20:22] LABS: Glucose,Whole Blood 244 mg/dL (70-110)
[2024-03-23] MEDS: MEROPENEM 1 GM in SODIUM CHLORIDE 0.9% 100 ML IVPB SCH (21:07)
[2024-03-24 07:28] LABS: Glucose,Whole Blood 80 mg/dL (70-110)
[2024-03-24 09:01] LABS: Basophils # (A) 0 X 10*3/uL (0.00-0.10); Basophils % (A) 0 %; Eosinophils # (A) 0 X 10*3/uL (0.04-0.35); Eosinophils % (A) 0 %; HCT 37.9 % (37.2-46.3); HGB 12.1 g/dL (12.0-15.0); Lymphocytes % (A) 19.8 %; MCH 29.9 pg (27.0-32.0); MCHC 31.9 g/dL (32.0-37.0); MCV 93.6 FL (80.0-97.0); Mean Platelet Volume 12.7 FL (9.5-12.2); Monocytes # (A) 0.62 X 10*3/uL (0.20-1.00); Monocytes % (A) 9.4 %; NRBC Per 100 WBC 0 X 10*3/uL (0.00-0.01); Neutrophils # (A) 4.63 X 10*3/uL (1.80-7.70); Neutrophils % (A) 70.3 %; Platelet Count 140 X 10*3/uL (140-440); RBC 4.05 X 10*6/uL (4.10-5.20); RDW 15.4 % (11.5-14.5); WBC 6.58 X 10*3/uL (4.50-10.00)
[2024-03-24 10:03] LABS: ALT 8 U/L (8-44); AST 8 U/L (13-35); Albumin 3.3 g/dL (3.8-4.9); Albumin/Globulin Ratio 1.94 Ratio (1.60-3.17); Alkaline Phosphatase 60 U/L (41-126); Blood Urea Nitrogen 14.3 mg/dL (9.0-27.0); Calcium 8.7 mg/dL (8.7-10.3); Carbon Dioxide 26.7 mmol/L (21.6-31.8); Chloride 108 mmol/L (96-109); Globulin 1.7 g/dL (1.6-3.3); Glucose 104 mg/dL (70-110); Potassium 3.8 mmol/L (3.5-5.5); Sodium 145 mmol/L (135-145); Total Bilirubin <0.2 mg/dL (0.3-1.2)
--- NOTE | 2024-03-24 10:47 | P.PN ---
Subjective Progress Note Date: 03/23/24 Patient was seen for a follow-up. Patient is laying comfortably in the bed. Patient is much improved. Patient believes steroids is helping her a lot. Denies any side effects. No new concerns. Objective - Vital Signs Vital signs: Vital Signs Temp 97.5 F L 03/23/24 06:59 Pulse 76 03/23/24 06:59 Resp 16 03/23/24 06:59 BP 103/65 03/23/24 06:59 Pulse Ox 99 03/23/24 06:59 FiO2 Intake & Output 03/22/24 03/23/24 03/23/24 18:59 06:59 18:59 Output Total 300 200 Balance -300 -200 Weight 53 kg Output: Urine 300 200 Other: Voiding Method Incontinent Incontinent Incontinent External Catheter External Catheter # Voids 2 1 - Exam Patient is alert and awake. Speech is much more cleared. She knows it is 03/23/2024 and that she is in "[facility]". She could not tell the city although she knows she is in [place]. Her strength in the biceps, triceps, deltoid are all 4-4+. She continues to be paraplegic. Lower extremity strength 0. - Labs CBC & Chem 7: 03/24/24 04:47 03/24/24 04:47 Labs: Abnormal Lab Results - Last 24 Hours (Table) 03/22/24 03/23/24 03/23/24 Range/Units 20:46 05:46 12:21 Sodium 147 H (135-145) mmol/L Creatinine 0.3 L (0.6-1.5) mg/dL BUN/Creatinine Ratio 47.00 H (12.00-20.00) Ratio Glucose 114 H (70-110) mg/dL POC Glucose (mg/dL) 191 H 199 H (70-110) mg/dL Assessment and Plan Assessment: * Probable MS exacerbation * Seizure disorder, diagnosed 12/19/2023. * Advanced multiple sclerosis, wheelchair bound. * Paraplegia * DO NOT RESUSCITATE Plan: * Patient was recently treated for MS exacerbation with 5 days of IV Solu-Medrol followed by prednisone oral taper. Patient seems to be getting worse again. Her muscle strength is remarkably decreased. We will resume Solu-Medrol 1 g IV PB daily for 5 days. Today is day #3/5. * UA shows positive nitrite, moderate leukocyte esterase and 23 WBCs. Patient currently not on antibiotics. Will defer to IM. * Chest x-ray shows no infectious process. * Continue Vimpat 200 mg twice a day and Depakote 500 mg 3 times a day. * Ammonia 9. * Patient and her has previously decided for patient to be no CODE STATUS. However patient at present is revoking, wants to be full code. Patient's seems to be in disagreement because of her overall health condition. Recommend psychiatry consultation for evaluating mental capacity, to clarify the CODE STATUS.
--- NOTE | 2024-03-24 11:27 | FL ---
COMPARISON: NONE DATE OF EXAM: 03/24/2024 HISTORY: This patient A number of thin and thick substances were ingested under the care of the department of speech pathol ogy. There is no evidence of aspiration with thin barium. Remaining substances demonstrate no eviden ce of aspiration or penetration. There is no evidence of obstruction. 1 minute 7 seconds of fluoros copy. No images provided. DAP are not provided. IMPRESSION: 1. Aspiration with thin barium.
[2024-03-24 12:28] LABS: Glucose,Whole Blood 179 mg/dL (70-110)
--- NOTE | 2024-03-24 13:18 | P.CONS ---
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 recently admitted to the hospital to complete course of antibiotic and patient subsequently discharged patient has been brought back to the [facility] 4 days ago [facility] concerning for possible aspiration apparently the patient did have a witnessed episode of aspiration while eating dinner patient was noticed to be more hypoxic and was placed on a nonrebreather and transferred to the hospital has been reported the patient has been declining a week prior to being brought to the hospital with the patient has been more weak on p resentation to the hospital patient was afebrile and no fever have been recorded subsequently patient was not tachycardic or hypotensive she did have an O2 sats of 90% on room air subsequently did have a few low O2 sats between 86-92 and the patient is currently on a 3 L cannula oxygen satting around 100%, Patient remained complaining of feeling weak she is to have a cough but not bringing up any sputum some nausea but no vomiting no chest pain no abdominal pain and no diarrhea has been reported. Patient did have a normal white count during this admission kidney function has been normal procalcitonin 0.10 chest x-ray was negative for any acute infiltrate patient did have a UA obtained yesterday which shows moderate leukocyte esterase 23 WBC cultures are currently pending patient has been started on meropenem keeping in mind her history of UTI with ESBL pathogen infectious disease was con sulted for further management of antibiotic therapy Past Medical History Past Medical History: Thyroid Disorder Additional Past Medical History / Comment(s): MS History of Any Multi-Drug Resistant Organisms: ESBL Year Discovered:: 08/11/22 MDRO Source:: Blood & Urine Past Surgical History: Appendectomy, Back Surgery, Section Past Psychological History: No Psychological Hx Reported Smoking Status: Never smoker Past Alcohol Use History: None Reported Past Drug Use History: None Reported - Past Family History Father Family Medical History: No Reported History Medications and Allergies Home Medications Medication Instructions Recorded Confirmed Type Baclofen [Lioresal] 20 mg PO Q4HR 08/11/22 03/21/24 History Acetaminophen [Tylenol 8 Hour] 650 mg PO Q6H PRN 02/29/24 03/21/24 History Aspirin EC [Ecotrin Low Dose] 81 mg PO DAILY 02/29/24 03/21/24 History Divalproex Sodium [Depakote] 500 mg PO Q8HR@0500,1300,2100 02/29/24 03/21/24 History Docusate [Colace] 100 mg PO BID 02/29/24 03/21/24 History Enoxaparin [Lovenox] 40 mg SQ HS 02/29/24 03/21/24 History Ipratropium-Albuterol Nebulize 3 ml INHALATION RT-Q4H PRN 02/29/24 03/21/24 History [Duoneb 0.5 mg-3 mg/3 ml Soln] Sennosides [Senokot] 8.6 mg PO DAILY 02/29/24 03/21/24 History amantadine HCL [Symmetrel] 100 mg PO BID@0700,2100 02/29/24 03/21/24 History Famotidine [Pepcid AC] 20 mg PO BID 03/19/24 03/21/24 History Health Shake 1 can PO BID@1200,1700 03/19/24 03/21/24 History Lacosamide [Vimpat] 200 mg PO BID@0700,1600 03/19/24 03/21/24 History Levothyroxine Sodium [Synthroid] 100 mcg PO DAILY@0500 03/19/24 03/21/24 History Methylphenidate HCl [Ritalin] 10 mg PO BID@0800,1500 03/19/24 03/21/24 History Allergies Allergy/AdvReac Type Severity Reaction Status Date / Time No Known Allergies Allergy Verified 03/21/24 10:24 Physical Exam Vitals: Vital Signs Temp Pulse Resp BP BP Pulse Ox 03/24/24 08:21 100 03/24/24 01:15 97.9 F 82 17 132/79 92 L 03/23/24 19:24 98.4 F 95 16 121/73 93 L 03/23/24 15:49 98 03/23/24 13:13 98.4 F 99 16 112/70 100 Intake and Output 03/23/24 03/24/24 03/24/24 22:59 06:59 14:59 Intake Total 60 Output Total 350 Balance 60 -350 Intake: Oral 60 Output: Urine 350 Other: Voiding Method Incontinent External Catheter Weight 54.5 kg Results CBC & Chem 7: 03/24/24 04:47 03/24/24 04:47 Labs: Abnormal Lab Results - Last 24 Hours (Table) 03/23/24 03/23/24 03/23/24 Range/Units 05:46 12:21 13:14 Sodium 147 H (135-145) mmol/L Creatinine 0.3 L (0.6-1.5) mg/dL BUN/Creatinine Ratio 47.00 H (12.00-20.00) Ratio Glucose 114 H (70-110) mg/dL POC Glucose (mg/dL) 199 H (70-110) mg/dL C-Reactive Protein (<1.0) mg/dL Procalcitonin (0.02-0.09) ng/mL Urine Appearance Turbid H (Clear) Ur Specific [place] 1.036 H (1.001-1.035) Urine Protein 1+ H (Negative) Urine Glucose (UA) Trace H (Negative) Urine Ketones 1+ H (Negative) Urine Nitrite Positive H (Negative) Ur Leukocyte Esterase Moderate H (Negative) Urine WBC 23 H (0-5) /hpf Amorphous Sediment Rare H (None) /hpf Urine Bacteria Moderate H (None) /hpf 03/23/24 03/23/24 03/23/24 Range/Units 17:23 20:06 20:06 Sodium (135-145) mmol/L Creatinine (0.6-1.5) mg/dL BUN/Creatinine Ratio (12.00-20.00) Ratio Glucose (70-110) mg/dL POC Glucose (mg/dL) 133 H (70-110) mg/dL C-Reactive Protein 4.2 H (<1.0) mg/dL Procalcitonin 0.10 H (0.02-0.09) ng/mL Urine Appearance (Clear) Ur Specific [place] (1.001-1.035) Urine Protein (Negative) Urine Glucose (UA) (Negative) Urine Ketones (Negative) Urine Nitrite (Negative) Ur Leukocyte Esterase (Negative) Urine WBC (0-5) /hpf Amorphous Sediment (None) /hpf Urine Bacteria (None) /hpf 03/23/24 Range/Units 20:20 Sodium (135-145) mmol/L Creatinine (0.6-1.5) mg/dL BUN/Creatinine Ratio (12.00-20.00) Ratio Glucose (70-110) mg/dL POC Glucose (mg/dL) 244 H (70-110) mg/dL C-Reactive Protein (<1.0) mg/dL Procalcitonin (0.02-0.09) ng/mL Urine Appearance (Clear) Ur Specific [place] (1.001-1.035) Urine Protein (Negative) Urine Glucose (UA) (Negative) Urine Ketones (Negative) Urine Nitrite (Negative) Ur Leukocyte Esterase (Negative) Urine WBC (0-5) /hpf Amorphous Sediment (None) /hpf Urine Bacteria (None) /hpf Assessment and Plan Plan: 1present to the hospital initially with concern for witnessed aspiration on her dinner shortness of breath and hypoxemia however the chest x-ray was reported to be negative for acute infiltrate did have normal procalcitonin patient has been feeling weak and did have a positive UA concerning for possible UTI not entirely excluded 2-we will repeat a chest x-ray PA and lateral and repeat a procalcitonin 3-for now continue with the meropenem while waiting for the culture to finalize Question concern answered We will follow on clinical condition and cultures to further adjust medication if needed Thank you for this consultation we will follow the patient along with you Dictation was produced using [employer] dictation software. please excuse any grammatical, word or spelling errors. Time with Patient: Greater than 30
--- NOTE | 2024-03-24 14:00 | XR ---
EXAMINATION TYPE: XR chest 1V portable DATE OF EXAM: 03/24/2024 HISTORY: Shortness of breath. COMPARISON: 03/20/2024 TECHNIQUE: Single view of the chest is submitted. FINDINGS: Demonstrated are scattered senescent parenchymal change. There is no evidence for focal infiltrate. The heart is stable. Hilar and mediastinal structures are within normal limits. Degenerative changes are seen of the dorsal spine. IMPRESSION: 1. Chronic changes without evidence for acute pulmonary disease.
--- NOTE | 2024-03-24 17:03 | CDI ---
Documentation Clarification Form Date: 03/24/2024 04:32:11 PM From: Demetra Otto RN, CCDS Phone: [phone] Admit Date: 03/20/2024 09:11:00 PM Patient Name: Sarah Barroso Visit Number: [id number] Discharge Date: ATTENTION: The Clinical Documentation Specialists (CDI) and [facility] Coding Staff appreciate your assistance in clarifying documentation. Please respond to the clarification below the line at the bottom and electronically sign. The CDI & [facility] Coding staff will review the response and follow-up if needed. Please note: Queries are made part of the Legal Health Record. If you have any questions, please contact the author of this message via ITS. Dr. Amarilys Hernandez Your patient has the documented symptom of Altered Mental Status in the H/P and subsequent progress notes. Additional clarification regarding the etiology/cause of this symptom is requested. History/Risk Factors: Thyroid Disorder, Hypothyroidism, Multiple sclerosis, Clinical Indicators: 58-year-old female present after episode of aspiration while eating dinner prior to presentation. She is alert (orientated x1). 03/20 Labs: WBC 8.4 03/20 VS: 145/112 104 20 98.2 90% NRB 03/20 CXR: No acute disease process 03/23 progress note: Patient continues to have some confusion and altered mental status and maintained on 4/L via nasal cannula although oxygen saturations are 99%. Treatment: Neuro checks per protocol Close neurology follow-up outpatient Repeat labs per orders Please clarify the etiology of the symptom of Altered Mental Status: [ x] Metabolic Encephalopathy due to urinary tract infection, [ ] Other condition (please specify) [ ] Unable to determine (Template Last Revised: November 2020) MTDD
[2024-03-24 17:50] LABS: Glucose,Whole Blood 182 mg/dL (70-110)
[2024-03-24 20:23] LABS: Glucose,Whole Blood 214 mg/dL (70-110)
--- NOTE | 2024-03-25 05:44 | P.PN ---
Subjective Progress Note Date: 03/24/24 58-year-old female with history of hypothyroidism, seizure disorder, multiple sclerosis presenting from longterm after aspirating this evening. Patient is unable to provide any meaningful history. Patient was seen in our facility yesterday for tremoring and an episode of altered mental status and discharged. Staff states that she had a witnessed episode of aspiration while eating dinner this evening. She is currently on nonrebreather satting between 90-94%. Patient is unable to provide any meaningful history. later came to the bedside and informs us that over the last week the patient has been steeply declining. She previously was able to hold conversations and feed herself with accommodations. She is now only able to answer some yes and no questions and has tremoring of the arms but cannot follow directions with the extremities. Blood work completed in ED reveals a WBC of 8.4, high hemoglobin of 14.5 and platelet count of 201, sodium 142, potassium 3.9, BUNs/creatinine of 17/0.34 and blood glucose of 120, troponin less than 0.012 Patient is being admitted for further evaluation and treatment by neurology for possible MS exacerbation 03/22/2024 Patient is seen and evaluated sitting up in bed; discussed with nursing staff; no specific complaints reported Vital signs are reviewed and remained stable Lab review shows sodium of 146, potassium 4.1, BUNs/creatinine of 9.9/0.5, blood glucose elevated at 240 --Hyperglycemia likely related to high-dose steroid therapy; will order Accu- Cheks before every meal and at bedtime with insulin sliding scale -- Patient remains on Solu-Medrol 1000 mg daily for MS exacerbation; neurology on board; appreciate recommendations -- PT/REAL ESTATE TEACHER consulted 03/23/2024 Patient is seen and evaluated in follow-up today maintained on large dose IV steroids with neurology following being treated for MS exacerbation. Patient continues to have some confusion and altered mental status and maintained on 4 L via nasal cannula although oxygen saturations are 99%. Most recent chest x-ray was negative for acute process. Patient was recently hospitalized in February with infectious disease following for urinary tract infection and was noted to have ESBL. Will reconsult infectious disease as urine is nitrate positive and continues with altered mentation, initiate meropenem and appreciate input and recommendations from ID. Patient is currently afebrile with no white count noted. Patient is extremely high risk for aspiration as well and would recommend aspiration precaution and supervision with meals and head of the bed elevated 45 degrees at all times. Speech to evaluate the patient. Also recommend PT/OT therapy evaluation as patient will likely need to return to ECF on discharge. 03/24/2024 Patient seen in follow-up today mentation is much improved with at the bedside. Patient continuing to receive large dose IV steroids with neurology following. Patient reporting to having some continued coughing with diet and speech following recommending modified barium swallow. Would recommend aspir ation precautions. Patient is afebrile with no reports of chest pain or shortness of breath. Patient is on 2 to 4 L with an oxygen saturation of 99 to 100%. Discussed with patient as well as nursing staff about weaning FiO2. PT/OT therapy to evaluate with plans on returning to ECF on discharge. Patient is maintained on antibiotics with infectious disease following with concerns of urinary tract infection. Patient had recent hospitalization and had E. coli with ESBL in the urine. Patient is voiding without indwelling Dailey catheter at this time. Review of systems: Constitutional: No reports of fatigue, fever, or chills Cardiovascular: No reports of chest pain or palpitations Respiratory: No reports of shortness of breath or cough GI: No reports of nausea, vomiting, or diarrhea, reports choking and coughing with meals : No reports of dysuria or retention Neurovascular: reports of weakness and inability to ambulate All medications have been reviewed Physical exam: Gen: This is a 58-year-old female who is awake, alert and oriented x 2-3, ill- appearing, elderly appearing HEENT: Head is atraumatic, normocephalic. Pupils equal, round. Sclerae is anicteric. NECK: Supple. No JVD. No lymphadenopathy. No thyromegaly. LUNGS: Diminished breath sounds bilaterally otherwise clear to auscultation. No wheezes or rhonchi. No intercostal retractions. HEART: Regular rate and rhythm. No murmur. ABDOMEN: Soft. Bowel sounds are present. No masses. No tenderness. EXTREMITIES: No pedal edema. No calf tenderness. Contractures noted NEUROLOGICAL: Patient is awake, alert and oriented x2-3. Diffusely weak Assessment: -Possible MS exacerbation, recently admitted in February underwent high-dose steroid therapy for MS exacerbation, follows with neurology outpatient -Shortness of breath with acute hypoxic respiratory failure likely secondary to aspiration likely related to MS exacerbation; patient has been placed on a pured diet for level 1 dysphagia; we will consult REAL ESTATE TEACHER for further evaluation -Confusion with altered mental status likely secondary to urinary tract infection -Possible acute urinary tract infection, present on admission, recent hospitalization requiring antibiotics for E. coli ESBL in the urine -Generalized weakness/debility versus MS exacerbation; monitor closely for response to IV steroids; recommend PT/OT once stable -Seizure disorder; Vimpat 200 mg twice daily, Depakote 500 mg every 8 hours -Hypothyroidism; will continue home dose of levothyroxine 100 mcg daily -GI prophylaxis -DVT prophylaxis; SCDs/subcu Lovenox -No code Plan: Patient will continue on high-dose steroids with neurology following Continue to monitor Accu-Cheks before meals and at bedtime as needed for high- dose steroids PT/OT therapy to reevaluate for return to ECF for continued strength and mobility Patient will need close neurology follow-up outpatient Urine was noted to be positive for nitrates and leukocyte will start meropenem as patient has history of recent E. coli with ESBL. Infectious disease following and appreciate input and recommendations regarding antibiotics. Await cultures Will follow-up on repeat labs Follow-up on speech evaluation and continue with aspiration precautions with head of the bed elevated 30 to 45 degrees at all times. Patient appears to be choking on foods and speech following will undergo modified barium swallow study today which is pending Wean FiO2 as tolerated. Currently 100% on 4 L via nasal cannula Due to multiple complex medical issues, overall prognosis is guarded The impression and plan of care has been dictated by Amarilys Hernandez, Nurse Practitioner as directed. Dr. Ruby MD I have performed a history and examination and MDM of this patient, discussed the same with the dictator, and agree with the dictator's assessment and plan as written ,documented as a scribe. Based on total visit time, I have performed more than 50% of the visit. Objective - Vital Signs Vital signs: Vital Signs Temp 97.5 F L 03/24/24 08:17 Pulse 67 03/24/24 08:17 Resp 16 03/24/24 08:17 BP 125/75 03/24/24 08:17 Pulse Ox 100 03/24/24 08:21 FiO2 Intake & Output 03/23/24 03/24/24 03/24/24 18:59 06:59 18:59 Intake Total 60 Output Total 350 Balance -290 Weight 54.5 kg Intake: Oral 60 Output: Urine 350 Other: Voiding Method Incontinent Incontinent Incontinent External Catheter External Catheter External Catheter # Voids 1 - Labs CBC & Chem 7: 03/24/24 04:47 03/24/24 04:47 Labs: Abnormal Lab Results - Last 24 Hours (Table) 03/23/24 03/23/24 03/23/24 Range/Units 13:14 17:23 20:06 RBC (4.10-5.20) X 10*6/uL MCHC (32.0-37.0) g/dL RDW (11.5-14.5) % MPV (9.5-12.2) FL Eosinophils # (0.04-0.35) X 10*3/uL Creatinine (0.6-1.5) mg/dL BUN/Creatinine Ratio (12.00-20.00) Ratio POC Glucose (mg/dL) 133 H (70-110) mg/dL Total Bilirubin (0.3-1.2) mg/dL AST (13-35) U/L C-Reactive Protein 4.2 H (<1.0) mg/dL Total Protein (6.2-8.2) g/dL Albumin (3.8-4.9) g/dL Procalcitonin (0.02-0.09) ng/mL Urine Appearance Turbid H (Clear) Ur Specific [place] 1.036 H (1.001-1.035) Urine Protein 1+ H (Negative) Urine Glucose (UA) Trace H (Negative) Urine Ketones 1+ H (Negative) Urine Nitrite Positive H (Negative) Ur Leukocyte Esterase Moderate H (Negative) Urine WBC 23 H (0-5) /hpf Amorphous Sediment Rare H (None) /hpf Urine Bacteria Moderate H (None) /hpf 03/23/24 03/23/24 03/24/24 Range/Units 20:06 20:20 04:47 RBC 4.05 L (4.10-5.20) X 10*6/uL MCHC 31.9 L (32.0-37.0) g/dL RDW 15.4 H (11.5-14.5) % MPV 12.7 H (9.5-12.2) FL Eosinophils # 0 L (0.04-0.35) X 10*3/uL Creatinine (0.6-1.5) mg/dL BUN/Creatinine Ratio (12.00-20.00) Ratio POC Glucose (mg/dL) 244 H (70-110) mg/dL Total Bilirubin (0.3-1.2) mg/dL AST (13-35) U/L C-Reactive Protein (<1.0) mg/dL Total Protein (6.2-8.2) g/dL Albumin (3.8-4.9) g/dL Procalcitonin 0.10 H (0.02-0.09) ng/mL Urine Appearance (Clear) Ur Specific [place] (1.001-1.035) Urine Protein (Negative) Urine Glucose (UA) (Negative) Urine Ketones (Negative) Urine Nitrite (Negative) Ur Leukocyte Esterase (Negative) Urine WBC (0-5) /hpf Amorphous Sediment (None) /hpf Urine Bacteria (None) /hpf 03/24/24 03/24/24 Range/Units 04:47 12:27 RBC (4.10-5.20) X 10*6/uL MCHC (32.0-37.0) g/dL RDW (11.5-14.5) % MPV (9.5-12.2) FL Eosinophils # (0.04-0.35) X 10*3/uL Creatinine 0.2 L (0.6-1.5) mg/dL BUN/Creatinine Ratio 71.50 H (12.00-20.00) Ratio POC Glucose (mg/dL) 179 H (70-110) mg/dL Total Bilirubin <0.2 L (0.3-1.2) mg/dL AST 8 L (13-35) U/L C-Reactive Protein (<1.0) mg/dL Total Protein 5.0 L (6.2-8.2) g/dL Albumin 3.3 L (3.8-4.9) g/dL Procalcitonin (0.02-0.09) ng/mL Urine Appearance (Clear) Ur Specific [place] (1.001-1.035) Urine Protein (Negative) Urine Glucose (UA) (Negative) Urine Ketones (Negative) Urine Nitrite (Negative) Ur Leukocyte Esterase (Negative) Urine WBC (0-5) /hpf Amorphous Sediment (None) /hpf Urine Bacteria (None) /hpf
[2024-03-25 07:30] LABS: Glucose,Whole Blood 85 mg/dL (70-110)
[2024-03-25 08:49] LABS: Basophils # (A) 0.01 X 10*3/uL (0.00-0.10); Basophils % (A) 0.1 %; Eosinophils # (A) 0 X 10*3/uL (0.04-0.35); Eosinophils % (A) 0 %; HCT 36.6 % (37.2-46.3); HGB 11.7 g/dL (12.0-15.0); Lymphocytes # (A) 2.18 X 10*3/uL (0.90-5.00); Lymphocytes % (A) 31.2 %; MCH 29.5 pg (27.0-32.0); MCV 92.4 FL (80.0-97.0); Mean Platelet Volume 12.2 FL (9.5-12.2); Monocytes # (A) 0.72 X 10*3/uL (0.20-1.00); Monocytes % (A) 10.3 %; NRBC Per 100 WBC 0 X 10*3/uL (0.00-0.01); Neutrophils # (A) 4.01 X 10*3/uL (1.80-7.70); Neutrophils % (A) 57.5 %; Platelet Count 158 X 10*3/uL (140-440); RBC 3.96 X 10*6/uL (4.10-5.20); RDW 14.8 % (11.5-14.5); WBC 6.98 X 10*3/uL (4.50-10.00)
[2024-03-25 09:23] LABS: BUN/Creat Ratio 55.33 Ratio (12.00-20.00); Blood Urea Nitrogen 16.6 mg/dL (9.0-27.0); Calcium 8.7 mg/dL (8.7-10.3); Carbon Dioxide 26.2 mmol/L (21.6-31.8); Chloride 110 mmol/L (96-109); Glucose 95 mg/dL (70-110); Magnesium 2.2 mg/dL (1.5-2.4); Sodium 145 mmol/L (135-145)
--- NOTE | 2024-03-25 11:37 | P.PN ---
Subjective Progress Note Date: 03/24/24 Patient was seen for a follow-up. Patient is laying comfortably in the bed. Patient is much improved. Patient believes steroids is helping her a lot. Denies any side effects. No new concerns. Objective - Vital Signs Vital signs: Vital Signs Temp 98.6 F 03/24/24 13:40 Pulse 86 03/24/24 13:40 Resp 16 03/24/24 13:40 BP 115/64 03/24/24 13:40 Pulse Ox 97 03/24/24 13:40 FiO2 Intake & Output 03/23/24 03/24/24 03/24/24 18:59 06:59 18:59 Intake Total 60 Output Total 350 Balance -290 Weight 54.5 kg Intake: Oral 60 Output: Urine 350 Other: Voiding Method Incontinent Incontinent Incontinent External Catheter External Catheter External Catheter # Voids 1 - Exam Patient is alert and awake. Speech is much more cleared. She knows it is 03/23/2024 and that she is in "[facility]". She could not tell the city although she knows she is in [place]. Her strength in the biceps, triceps, deltoid are all 4-4+. She continues to be paraplegic. Lower extremity strength 0. - Labs CBC & Chem 7: 03/25/24 05:27 03/25/24 05:27 Labs: Abnormal Lab Results - Last 24 Hours (Table) 03/23/24 03/23/24 03/23/24 Range/Units 17:23 20:06 20:06 RBC (4.10-5.20) X 10*6/uL MCHC (32.0-37.0) g/dL RDW (11.5-14.5) % MPV (9.5-12.2) FL Eosinophils # (0.04-0.35) X 10*3/uL Creatinine (0.6-1.5) mg/dL BUN/Creatinine Ratio (12.00-20.00) Ratio POC Glucose (mg/dL) 133 H (70-110) mg/dL Total Bilirubin (0.3-1.2) mg/dL AST (13-35) U/L C-Reactive Protein 4.2 H (<1.0) mg/dL Total Protein (6.2-8.2) g/dL Albumin (3.8-4.9) g/dL Procalcitonin 0.10 H (0.02-0.09) ng/mL 03/23/24 03/24/24 03/24/24 Range/Units 20:20 04:47 04:47 RBC 4.05 L (4.10-5.20) X 10*6/uL MCHC 31.9 L (32.0-37.0) g/dL RDW 15.4 H (11.5-14.5) % MPV 12.7 H (9.5-12.2) FL Eosinophils # 0 L (0.04-0.35) X 10*3/uL Creatinine 0.2 L (0.6-1.5) mg/dL BUN/Creatinine Ratio 71.50 H (12.00-20.00) Ratio POC Glucose (mg/dL) 244 H (70-110) mg/dL Total Bilirubin <0.2 L (0.3-1.2) mg/dL AST 8 L (13-35) U/L C-Reactive Protein (<1.0) mg/dL Total Protein 5.0 L (6.2-8.2) g/dL Albumin 3.3 L (3.8-4.9) g/dL Procalcitonin (0.02-0.09) ng/mL 03/24/24 Range/Units 12:27 RBC (4.10-5.20) X 10*6/uL MCHC (32.0-37.0) g/dL RDW (11.5-14.5) % MPV (9.5-12.2) FL Eosinophils # (0.04-0.35) X 10*3/uL Creatinine (0.6-1.5) mg/dL BUN/Creatinine Ratio (12.00-20.00) Ratio POC Glucose (mg/dL) 179 H (70-110) mg/dL Total Bilirubin (0.3-1.2) mg/dL AST (13-35) U/L C-Reactive Protein (<1.0) mg/dL Total Protein (6.2-8.2) g/dL Albumin (3.8-4.9) g/dL Procalcitonin (0.02-0.09) ng/mL Assessment and Plan Assessment: * Probable MS exacerbation * Seizure disorder, diagnosed 12/19/2023. * Advanced multiple sclerosis, wheelchair bound. * Paraplegia * DO NOT RESUSCITATE Plan: * Patient was recently treated for MS exacerbation with 5 days of IV Solu-Medrol followed by prednisone oral taper. Patient seems to be getting worse again. Her muscle strength is remarkably decreased. We will resume Solu-Medrol 1 g IV PB daily for 5 days. Today is day #4/5. * UA shows positive nitrite, moderate leukocyte esterase and 23 WBCs. Cultures pending. Patient currently not on antibiotics. Will defer to IM. * Chest x-ray shows no infectious process. * Continue Vimpat 200 mg twice a day and Depakote 500 mg 3 times a day. * Ammonia 9. * Patient and her has previously decided for patient to be no CODE STATUS. However patient at present is revoking, wants to be full code. Patient's seems to be in disagreement because of her overall health condition. Recommend psychiatry consultation for evaluating mental capacity, to clarify the CODE STATUS.
[2024-03-25 12:16] LABS: Glucose,Whole Blood 147 mg/dL (70-110)
[2024-03-25 17:12] LABS: Glucose,Whole Blood 209 mg/dL (70-110)
[2024-03-25] MEDS: IPRATROPIUM-ALBUTEROL 3 ML NEB INHALATION PRN (18:21)
[2024-03-25] MEDS: KETOROLAC 15 MG/ML 1 ML VIAL IVP PRN (18:23)
[2024-03-25 20:14] LABS: Glucose,Whole Blood 137 mg/dL (70-110)
[2024-03-25] MEDS: DICYCLOMINE 10 MG CAP PO PRN (21:09)
--- NOTE | 2024-03-26 05:31 | P.PN ---
Subjective Progress Note Date: 03/25/24 58-year-old female with history of hypothyroidism, seizure disorder, multiple sclerosis presenting from care home after aspirating this evening. Patient is unable to provide any meaningful history. Patient was seen in our facility yesterday for tremoring and an episode of altered mental status and discharged. Staff states that she had a witnessed episode of aspiration while eating dinner this evening. She is currently on nonrebreather satting between 90-94%. Patient is unable to provide any meaningful history. later came to the bedside and informs us that over the last week the patient has been steeply declining. She previously was able to hold conversations and feed herself with accommodations. She is now only able to answer some yes and no questions and has tremoring of the arms but cannot follow directions with the extremities. Blood work completed in ED reveals a WBC of 8.4, high hemoglobin of 14.5 and platelet count of 201, sodium 142, potassium 3.9, BUNs/creatinine of 17/0.34 and blood glucose of 120, troponin less than 0.012 Patient is being admitted for further evaluation and treatment by neurology for possible MS exacerbation 03/22/2024 Patient is seen and evaluated sitting up in bed; discussed with nursing staff; no specific complaints reported Vital signs are reviewed and remained stable Lab review shows sodium of 146, potassium 4.1, BUNs/creatinine of 9.9/0.5, blood glucose elevated at 240 --Hyperglycemia likely related to high-dose steroid therapy; will order Accu- Cheks before every meal and at bedtime with insulin sliding scale -- Patient remains on Solu-Medrol 1000 mg daily for MS exacerbation; neurology on board; appreciate recommendations -- PT/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 Patient continues to have some confusion and altered mental status and maintained on 4 L via nasal cannula although oxygen saturations are 99%. Most recent chest x-ray was negative for acute process. Patient was recently hospitalized in February with infectious disease following for urinary tract infection and was noted to have ESBL. Will reconsult infectious disease as urine is nitrate positive and continues with altered mentation, initiate meropenem and appreciate input and recommendations from ID. Patient is currently afebrile with no white count noted. Patient is extremely high risk for aspiration as well and would recommend aspiration precaution and supervision with meals and head of the bed elevated 45 degrees at all times. Speech to evaluate the patient. Also recommend PT/OT therapy evaluation as patient will likely need to return to ECF on discharge. 03/24/2024 Patient seen in follow-up today mentation is much improved with at the bedside. Patient continuing to receive large dose IV steroids with neurology following. Patient reporting to having some continued coughing with diet and speech following recommending modified barium swallow. Would recommend aspir ation precautions. Patient is afebrile with no reports of chest pain or shortness of breath. Patient is on 2 to 4 L with an oxygen saturation of 99 to 100%. Discussed with patient as well as nursing staff about weaning FiO2. PT/OT therapy to evaluate with plans on returning to ECF on discharge. Patient is maintained on antibiotics with infectious disease following with concerns of urinary tract infection. Patient had recent hospitalization and had E. coli with ESBL in the urine. Patient is voiding without indwelling Dailey catheter at this time. 03/25/2024 Patient is seen in follow-up this morning currently awake and per nursing staff has been tolerating dysphagia diet with no coughing or choking. Patient is afebrile with no reports of chest pain or shortness of breath. Patient con tinues on oxygen discussed with patient along with nursing staff about weaning FiO2 as tolerated patient continues on large dose steroids for concerns of MS exacerbation with neurology. Infectious disease following patient will continue on antibiotic and await cultures. Plan is to return to ECF once stabilized and cleared by consultations Review of systems: Constitutional: reports of fatigue, no fever, or chills Cardiovascular: No reports of chest pain or palpitations Respiratory: No reports of shortness of breath or cough GI: No reports of nausea, vomiting, or diarrhea, reports improvement in eating : No reports of dysuria or retention Neurovascular: reports of weakness and inability to ambulate All medications have been reviewed Physical exam: Gen: This is a 58-year-old female who is awake, alert and oriented x 2-3, ill- appearing, elderly appearing HEENT: Head is atraumatic, normocephalic. Pupils equal, round. Sclerae is anicteric. NECK: Supple. No JVD. No lymphadenopathy. No thyromegaly. LUNGS: Diminished breath sounds bilaterally otherwise clear to auscultation. No wheezes or rhonchi. No intercostal retractions. HEART: Regular rate and rhythm. No murmur. ABDOMEN: Soft. Bowel sounds are present. No masses. No tenderness. EXTREMITIES: No pedal edema. No calf tenderness. Contractures noted NEUROLOGICAL: Patient is awake, alert and oriented x2-3. Diffusely weak Assessment: -Possible MS exacerbation, recently admitted in February underwent high-dose steroid therapy for MS exacerbation, follows with neurology outpatient -Shortness of breath with acute hypoxic respiratory failure likely secondary to aspiration likely related to MS exacerbation; patient has been placed on a pured diet for level 1 dysphagia -Confusion with altered mental status likely secondary to urinary tract infection -Possible acute urinary tract infection, present on admission, recent hospitalization requiring antibiotics for E. coli ESBL in the urine -Generalized weakness/debility versus MS exacerbation; monitor closely for response to IV steroids; recommend PT/OT once stable -Seizure disorder; Vimpat 200 mg twice daily, Depakote 500 mg every 8 hours -Hypothyroidism; will continue home dose of levothyroxine 100 mcg daily -GI prophylaxis -DVT prophylaxis; SCDs/subcu Lovenox -No code Plan: Patient will continue on high-dose steroids with neurology following Continue to monitor Accu-Cheks before meals and at bedtime as needed for high- dose steroids PT/OT therapy to reevaluate for return to ECF for continued strength and mobility Patient will need close neurology follow-up outpatient Urine was noted to be positive for nitrates and leukocyte will start meropenem as patient has history of recent E. coli with ESBL. Infectious disease following and appreciate input and recommendations regarding antibiotics. Await cultures. Apparently urine cultures unsuitable and will resubmit. Patient is denying any pain, burning, or frequency with urination Will follow-up on repeat labs Speech evaluation and continue with aspiration precautions with head of the bed elevated 30 to 45 degrees at all times. Patient is tolerating pured diet today and will continue monitoring for any aspiration. Supervision with meals and head of the bed elevated at all times Wean FiO2 as tolerated. Currently 100% on 3 L via nasal cannula Case management/social work following as patient will be returning to [facility] once stabilized and discharged Due to multiple complex medical issues, overall prognosis is guarded The impression and plan of care has been dictated by Amarilys Hernandez, Nurse Practitioner as directed. Dr. Ruby MD I have performed a history and examination and MDM of this patient, discussed the same with the dictator, and agree with the dictator's assessment and plan as written ,documented as a scribe. Based on total visit time, I have performed more than 50% of the visit. Objective - Vital Signs Vital signs: Vital Signs Temp 97.7 F 03/26/24 01:47 Pulse 71 03/26/24 01:47 Resp 16 03/26/24 01:47 BP 131/77 03/26/24 01:47 Pulse Ox 94 L 03/26/24 01:47 FiO2 Intake & Output 03/25/24 03/25/24 03/26/24 06:59 18:59 06:59 Intake Total 200 0 Output Total 150 Balance 50 0 Weight 57 kg Intake: Oral 200 0 Output: Urine 150 Other: Voiding Method Incontinent Incontinent Incontinent External Catheter External Catheter External Catheter # Voids 1 # Bowel Movements 1 - Labs CBC & Chem 7: 03/25/24 05:27 03/25/24 05:27 Labs: Abnormal Lab Results - Last 24 Hours (Table) 03/25/24 03/25/24 03/25/24 Range/Units 05:27 05:27 12:14 RBC 3.96 L (4.10-5.20) X 10*6/uL Hgb 11.7 L (12.0-15.0) g/dL Hct 36.6 L (37.2-46.3) % RDW 14.8 H (11.5-14.5) % Immature Gran # 0.06 H (0.00-0.04) X 10*3/uL Eosinophils # 0 L (0.04-0.35) X 10*3/uL Chloride 110 H (96-109) mmol/L Creatinine 0.3 L (0.6-1.5) mg/dL BUN/Creatinine Ratio 55.33 H (12.00-20.00) Ratio POC Glucose (mg/dL) 147 H (70-110) mg/dL 03/25/24 03/25/24 Range/Units 17:11 20:14 RBC (4.10-5.20) X 10*6/uL Hgb (12.0-15.0) g/dL Hct (37.2-46.3) % RDW (11.5-14.5) % Immature Gran # (0.00-0.04) X 10*3/uL Eosinophils # (0.04-0.35) X 10*3/uL Chloride (96-109) mmol/L Creatinine (0.6-1.5) mg/dL BUN/Creatinine Ratio (12.00-20.00) Ratio POC Glucose (mg/dL) 209 H 137 H (70-110) mg/dL Microbiology - Last 24 Hours (Table) 03/23/24 20:06 Blood Culture - Preliminary Blood 03/23/24 13:14 Urine Culture - Final Urine,Voided
[2024-03-26 07:09] LABS: Glucose,Whole Blood 73 mg/dL (70-110)
--- NOTE | 2024-03-26 08:07 | P.PN ---
Subjective Progress Note Date: 03/25/24 Principal diagnosis: Reason for follow-up is UTI Patient is a 58-year-old female with a past medical history significant for MS history of recurrent UTI largely with ESBL E. coli has been brought to the hospital concerning for possible aspiration the patient was noted to have witnessed a choking episode by the shelter she also have a positive UA concerning for symptomatic UTI started on meropenem prompting this consultation. On today's evaluation that is 03/25/2024, Patient is afebrile patient is currently on 1 L nasal cannula oxygen patient does not seem to be any distress sleepy no vomiting diarrhea or any other changes reported by nursing staff. Patient did have white count of 6.98, creatinine 0.3 chest x-ray repeat yesterday chronic changes without evidence for acute pulmonary process Objective - Vital Signs Vital signs: Vital Signs Temp 98.7 F 03/25/24 13:12 Pulse 82 03/25/24 13:12 Resp 16 03/25/24 13:12 BP 123/77 03/25/24 13:12 Pulse Ox 94 L 03/25/24 13:12 FiO2 Intake & Output 03/24/24 03/25/24 03/25/24 18:59 06:59 18:59 Intake Total 200 Output Total 400 150 Balance -400 50 Weight 54.5 kg 57 kg Intake: Oral 200 Output: Urine 400 150 Other: Voiding Method Incontinent Incontinent Incontinent External Catheter External Catheter External Catheter # Voids 1 # Bowel Movements 1 - Exam Middle-age female lying in bed in no distress Respiratory system unlabored breathing decreased breath sound the base Heart S1-S2 regular Abdominal soft mild left-sided tenderness Extremities no edema feet Exam compleetd with help of EXTRUSION SUPERVISOR - Labs CBC & Chem 7: 03/25/24 05:27 03/25/24 05:27 Labs: Abnormal Lab Results - Last 24 Hours (Table) 03/24/24 03/24/24 03/25/24 Range/Units 17:47 20:22 05:27 RBC 3.96 L (4.10-5.20) X 10*6/uL Hgb 11.7 L (12.0-15.0) g/dL Hct 36.6 L (37.2-46.3) % RDW 14.8 H (11.5-14.5) % Immature Gran # 0.06 H (0.00-0.04) X 10*3/uL Eosinophils # 0 L (0.04-0.35) X 10*3/uL Chloride (96-109) mmol/L Creatinine (0.6-1.5) mg/dL BUN/Creatinine Ratio (12.00-20.00) Ratio POC Glucose (mg/dL) 182 H 214 H (70-110) mg/dL 03/25/24 03/25/24 Range/Units 05:27 12:14 RBC (4.10-5.20) X 10*6/uL Hgb (12.0-15.0) g/dL Hct (37.2-46.3) % RDW (11.5-14.5) % Immature Gran # (0.00-0.04) X 10*3/uL Eosinophils # (0.04-0.35) X 10*3/uL Chloride 110 H (96-109) mmol/L Creatinine 0.3 L (0.6-1.5) mg/dL BUN/Creatinine Ratio 55.33 H (12.00-20.00) Ratio POC Glucose (mg/dL) 147 H (70-110) mg/dL Microbiology - Last 24 Hours (Table) 03/23/24 20:06 Blood Culture - Preliminary Blood 03/23/24 13:14 Urine Culture - Preliminary Urine,Voided Assessment and Plan (1) UTI (urinary tract infection) Current Visit: No Status: Acute Code(s): N39.0 - URINARY TRACT INFECTION, SITE NOT SPECIFIED SNOMED Code(s): 27607039 Plan: 1present to the hospital initially with concern for witnessed aspiration on her dinner shortness of breath and hypoxemia however the chest x-ray was reported to be negative for acute infiltrate did have normal procalcitonin patient has been feeling weak and did have a positive UA concerning for possible UTI not entirely excluded 2-repeat a chest x-ray PA and lateral did not show any acute infiltrate 3-patient to continue with the meropenem while waiting for the culture to finalize Dictation was produced using [employer] software. please excuse any grammatical, word or spelling errors.
--- NOTE | 2024-03-26 09:55 | P.PN ---
Subjective Progress Note Date: 03/25/24 Patient was seen for a follow-up. Patient is reclining in the bed. Patient appears somewhat weak, slight difficulty breathing. Patient's was also present today. Yesterday she was choking with yogurt. Today she had a good breakfast and lunch, but she was coughing with dinner. Patient's has noticed that after her last discharge, she was doing much better, she was able to sit up in the chair, was able to hold the cell phone with her hand, able to text, and hold ice cream cone by herself and eat. He has a picture of her sitting in the wheelchair, holding ice cream cone. She has not reached human close to that status. Overall, he states that she was much more functional for she got sick on 12/19/2023. Prior she was able to walk and have quality of life. However after her admission on 12/18/2093, she lost skills in the lower limbs. She was improving after last admission, but then at the time of discharge, started going downhill. Denies any side effects from steroids. No new concerns. Objective - Vital Signs Vital signs: Vital Signs Temp 98.7 F 03/25/24 13:12 Pulse 82 03/25/24 13:12 Resp 16 03/25/24 13:12 BP 123/77 03/25/24 13:12 Pulse Ox 94 L 03/25/24 13:12 FiO2 Intake & Output 03/24/24 03/25/24 03/25/24 18:59 06:59 18:59 Intake Total 200 Output Total 400 150 Balance -400 50 Weight 54.5 kg 57 kg Intake: Oral 200 Output: Urine 400 150 Other: Voiding Method Incontinent Incontinent Incontinent External Catheter External Catheter External Catheter # Voids 1 # Bowel Movements 1 - Exam Patient is alert and awake. Speech is much more cleared. She knows it is 03/14 and that she is in "[facility]". She could not tell the city although she knows she is in [place]. Her strength in the biceps, triceps, deltoid are all 4-4+. She continues to be paraplegic. Lower extremity strength 0. - Labs CBC & Chem 7: 03/25/24 05:27 03/25/24 05:27 Labs: Abnormal Lab Results - Last 24 Hours (Table) 03/24/24 03/24/24 03/25/24 Range/Units 17:47 20:22 05:27 RBC 3.96 L (4.10-5.20) X 10*6/uL Hgb 11.7 L (12.0-15.0) g/dL Hct 36.6 L (37.2-46.3) % RDW 14.8 H (11.5-14.5) % Immature Gran # 0.06 H (0.00-0.04) X 10*3/uL Eosinophils # 0 L (0.04-0.35) X 10*3/uL Chloride (96-109) mmol/L Creatinine (0.6-1.5) mg/dL BUN/Creatinine Ratio (12.00-20.00) Ratio POC Glucose (mg/dL) 182 H 214 H (70-110) mg/dL 03/25/24 03/25/24 03/25/24 Range/Units 05:27 12:14 17:11 RBC (4.10-5.20) X 10*6/uL Hgb (12.0-15.0) g/dL Hct (37.2-46.3) % RDW (11.5-14.5) % Immature Gran # (0.00-0.04) X 10*3/uL Eosinophils # (0.04-0.35) X 10*3/uL Chloride 110 H (96-109) mmol/L Creatinine 0.3 L (0.6-1.5) mg/dL BUN/Creatinine Ratio 55.33 H (12.00-20.00) Ratio POC Glucose (mg/dL) 147 H 209 H (70-110) mg/dL Microbiology - Last 24 Hours (Table) 03/23/24 20:06 Blood Culture - Preliminary Blood 03/23/24 13:14 Urine Culture - Preliminary Urine,Voided Assessment and Plan Assessment: * Probable MS exacerbation * Seizure disorder, diagnosed 12/19/2023. * Advanced multiple sclerosis, wheelchair bound. * Paraplegia * Dysphagia, probably due to MS * DO NOT RESUSCITATE Plan: * Patient was recently treated for MS exacerbation with 5 days of IV Solu-Medrol followed by prednisone oral taper on 02/29/2024. She improved at the time, but after discharge patient developed progressive worsening of her condition. Her muscle strength is remarkably decreased, therefore was readmitted 03/20/2024. Patient given another course of Solu-Medrol 1 g IV PB daily for 5 days. Today is day #5. Because patient is still very weak. We will give another course of prednisone 60 mg followed by tapering off dose. * UA shows positive nitrite, moderate leukocyte esterase and 23 WBCs. Cultures pending. Patient currently on meropenem. ID following. Chest x-ray from yesterday showed chronic changes without evidence for acute pulmonary disease. * Continue Vimpat 200 mg twice a day and Depakote 500 mg 3 times a day. * Ammonia 9. * Patient and her has previously decided for patient to be no CODE STATUS. However patient at present is revoking, wants to be full code. Patient's seems to be in disagreement because of her overall health condition. Recommend psychiatry consultation for evaluating mental capacity, to clarify the CODE STATUS. * Speech therapy following for dysphagia.
[2024-03-26 11:58] LABS: Glucose,Whole Blood 68 mg/dL (70-110)
[2024-03-26] MEDS: DEXTROSE 5%-0.9% NACL 1,000 ML IV SCH (12:09)
[2024-03-26 13:13] LABS: Glucose,Whole Blood 119 mg/dL (70-110)
--- NOTE | 2024-03-26 14:55 | P.GSCN ---
History of Present Illness Consult date: 03/26/24 History of present illness: CHIEF COMPLAINT: Shortness of breath HISTORY OF PRESENT ILLNESS: This is a 58-year-old female with history of MS. Patient mated to the hospital with a probable MS exacerbation and UTI. Patient has been having episodes of aspiration. She aspirated again last night per nursing staff and medical team. And patient has been made n.p.o. and they want to use her PEG tube. Patient has not used her PEG tube in over 2 months. There were concerns that the PEG tube may be plugged. She reports that she had been eating at home. Modified barium swallow had shown aspiration with thin barium. Surgical service consulted in regards to possible PEG tube replacement. PAST MEDICAL HISTORY: MS, seizures, thyroid disorder PAST SURGICAL HISTORY: Appendectomy, back surgery, MEDICATIONS: See below ALLERGIES: See below SOCIAL HISTORY: No illicit drug use. REVIEW OF SYSTEMS: CONSTITUTIONAL: Denies fever or chills. HEENT: Denies blurred vision, vision changes, or eye pain. Denies hemoptysis CARDIOVASCULAR: Denies chest pain or pressure. RESPIRATORY: No shortness of breath. GASTROINTESTINAL: See HPI for pertinent findings HEMATOLOGIC: Denies bleeding disorders. GENITOURINARY: Denies any blood in urine or increased urinary frequency. SKIN: Denies pruitis. Denies rash. PHYSICAL EXAM: VITAL SIGNS: Reviewed GENERAL: Well-developed in no acute distress. HEENT: No sclera icterus. Extraocular movements grossly intact. Moist buccal mucosa. Head is atraumatic, normocephalic. No nasal drainage. ABDOMEN: Soft. Nondistended. Nontender. PEG tube site clean dry and intact NEUROLOGIC: Alert and oriented. Cranial nerves II through XII grossly intact. LABORATORY DATA: WBC 6.98 Hgb 11.7 platelets 158 Sodium 145 potassium 4.0 creatinine 0.3 Albumin 3.3 IMAGING: ASSESSMENT: 1. Dysphagia 2. Aspiration 3. Moderate protein calorie malnutrition 4. Possible MS exacerbation 5. Possible UTI PLAN: -PEG tube was able to be flushed by nursing staff. Consult placed for dietitian to initiate tube feeds. No plans for PEG tube replacement at this time Physician Cl[employer] Specialists note has been reviewed by physician. Signing provider agrees with the documented findings, assessment, and plan of care. Past Medical History Past Medical History: Thyroid Disorder Additional Past Medical History / Comment(s): MS History of Any Multi-Drug Resistant Organisms: ESBL Year Discovered:: 08/11/22 MDRO Source:: Blood & Urine Past Surgical History: Appendectomy, Back Surgery, Section Past Psychological History: No Psychological Hx Reported Smoking Status: Never smoker Past Alcohol Use History: None Reported Past Drug Use History: None Reported - Past Family History Father Family Medical History: No Reported History Medications and Allergies Home Medications Medication Instructions Recorded Confirmed Type Baclofen [Lioresal] 20 mg PO Q4HR 08/11/22 03/21/24 History Acetaminophen [Tylenol 8 Hour] 650 mg PO Q6H PRN 02/29/24 03/21/24 History Aspirin EC [Ecotrin Low Dose] 81 mg PO DAILY 02/29/24 03/21/24 History Divalproex Sodium [Depakote] 500 mg PO Q8HR@0500,1300,2100 02/29/24 03/21/24 History Docusate [Colace] 100 mg PO BID 02/29/24 03/21/24 History Enoxaparin [Lovenox] 40 mg SQ HS 02/29/24 03/21/24 History Ipratropium-Albuterol Nebulize 3 ml INHALATION RT-Q4H PRN 02/29/24 03/21/24 History [Duoneb 0.5 mg-3 mg/3 ml Soln] Sennosides [Senokot] 8.6 mg PO DAILY 02/29/24 03/21/24 History amantadine HCL [Symmetrel] 100 mg PO BID@0700,2100 02/29/24 03/21/24 History Famotidine [Pepcid AC] 20 mg PO BID 03/19/24 03/21/24 History Health Shake 1 can PO BID@1200,1700 03/19/24 03/21/24 History Lacosamide [Vimpat] 200 mg PO BID@0700,1600 03/19/24 03/21/24 History Levothyroxine Sodium [Synthroid] 100 mcg PO DAILY@0500 03/19/24 03/21/24 History Methylphenidate HCl [Ritalin] 10 mg PO BID@0800,1500 03/19/24 03/21/24 History Allergies Allergy/AdvReac Type Severity Reaction Status Date / Time No Known Allergies Allergy Verified 03/21/24 10:24 Surgical - Exam Vital Signs Temp Pulse Resp BP Pulse Ox 98.2 F 104 H 20 145/112 90 L 03/20/24 19:10 03/20/24 19:10 03/20/24 19:10 03/20/24 19:10 03/20/24 19:10 Results - Labs 03/25/24 05:27 03/25/24 05:27 Abnormal Lab Results - Last 24 Hours (Table) 03/25/24 03/25/24 03/26/24 Range/Units 17:11 20:14 11:35 POC Glucose (mg/dL) 209 H 137 H 68 L (70-110) mg/dL 03/26/24 Range/Units 13:12 POC Glucose (mg/dL) 119 H (70-110) mg/dL Microbiology - Last 24 Hours (Table) 03/23/24 13:14 Urine Culture - Final Urine,Voided 03/23/24 20:06 Blood Culture - Preliminary Blood
[2024-03-26 17:33] LABS: Glucose,Whole Blood 186 mg/dL (70-110)
[2024-03-26 20:57] LABS: Glucose,Whole Blood 239 mg/dL (70-110)
--- NOTE | 2024-03-27 06:08 | P.PN ---
Subjective Progress Note Date: 03/26/24 58-year-old female with history of hypothyroidism, seizure disorder, multiple sclerosis [facility] after aspirating this evening. Patient is unable to provide any meaningful history. Patient was seen in our facility yesterday for tremoring and an episode of altered mental status and discharged. Staff states that she had a witnessed episode of aspiration while eating dinner this evening. She is currently on nonrebreather satting between 90-94%. Patient is unable to provide any meaningful history. later came to the bedside and informs us that over the last week the patient has been steeply declining. She previously was able to hold conversations and feed herself with accommodations. She is now only able to answer some yes and no questions and has tremoring of the arms but cannot follow directions with the extremities. Blood work completed in ED reveals a WBC of 8.4, high hemoglobin of 14.5 and platelet count of 201, sodium 142, potassium 3.9, BUNs/creatinine of 17/0.34 and blood glucose of 120, troponin less than 0.012 Patient is being admitted for further evaluation and treatment by neurology for possible MS exacerbation 03/22/2024 Patient is seen and evaluated sitting up in bed; discussed with nursing staff; no specific complaints reported Vital signs are reviewed and remained stable Lab review shows sodium of 146, potassium 4.1, BUNs/creatinine of 9.9/0.5, blood glucose elevated at 240 --Hyperglycemia likely related to high-dose steroid therapy; will order Accu- Cheks before every meal and at bedtime with insulin sliding scale -- Patient remains on Solu-Medrol 1000 mg daily for MS exacerbation; neurology on board; appreciate recommendations -- PT/AGING ROOM OPERATOR consulted 03/23/2024 Patient is seen and evaluated in follow-up today maintained on large dose IV steroids with neurology following being treated for MS exacerbation. Patient continues to have some confusion and altered mental status and maintained on 4 L via nasal cannula although oxygen saturations are 99%. Most recent chest x-ray was negative for acute process. Patient was recently hospitalized in February with infectious disease following for urinary tract infection and was noted to have ESBL. Will reconsult infectious disease as urine is nitrate positive and continues with altered mentation, initiate meropenem and appreciate input and recommendations from ID. Patient is currently afebrile with no white count noted. Patient is extremely high risk for aspiration as well and would recommend aspiration precaution and supervision with meals and head of the bed elevated 45 degrees at all times. Speech to evaluate the patient. Also recommend PT/OT therapy evaluation as patient will likely need to return to ECF on discharge. 03/24/2024 Patient seen in follow-up today mentation is much improved with at the bedside. Patient continuing to receive large dose IV steroids with neurology following. Patient reporting to having some continued coughing with diet and speech following recommending modified barium swallow. Would recommend aspir ation precautions. Patient is afebrile with no reports of chest pain or shortness of breath. Patient is on 2 to 4 L with an oxygen saturation of 99 to 100%. Discussed with patient as well as nursing staff about weaning FiO2. PT/OT therapy to evaluate with plans on returning to ECF on discharge. Patient is maintained on antibiotics with infectious disease following with concerns of urinary tract infection. Patient had recent hospitalization and had E. coli with ESBL in the urine. Patient is voiding without indwelling Dailey catheter at this time. 03/25/2024 Patient is seen in follow-up this morning currently awake and per nursing staff has been tolerating dysphagia diet with no coughing or choking. Patient is afebrile with no reports of chest pain or shortness of breath. Patient con tinues on oxygen discussed with patient along with nursing staff about weaning FiO2 as tolerated patient continues on large dose steroids for concerns of MS exacerbation with neurology. Infectious disease following patient will continue on antibiotic and await cultures. Plan is to return to ECF once stabilized and cleared by consultations 03/26/2024 Patient is seen in follow-up today with a cough that is congested and weak with concerns of aspiration. Patient has been evaluated by speech and maintained on pured diet with thickened liquids although patient per nursing staff as well as patient has been having some choking episodes last night with continued coughing. Patient continues on 2 L of oxygen and normally does not wear oxygen. Concerns of continuous aspiration will consult general surgery to evaluate PEG tube as patient reports she has not used it in a few months and has not been flushing it may be clogged. Patient is afebrile maintained on antibiotics awaiting cultures. Initial urine culture reported unsuitable and has been resubmitted. Patient is afebrile with no reports of chest pain or palpitations. Patient maintained on high-dose IV steroids and finishing today with neurology following. Recommend PT/OT therapy daily. Plan is to return to ECF on discharge Review of systems: Constitutional: reports of fatigue, no fever, or chills Cardiovascular: No reports of chest pain or palpitations Respiratory: No reports of worsening shortness of breath, reports cough last night after eating GI: No reports of nausea, vomiting, or diarrhea, reports choking after food : No reports of dysuria or retention Neurovascular: reports of weakness and inability to ambulate All medications have been reviewed Physical exam: Gen: This is a 58-year-old female who is awake, alert and oriented x 2-3, ill- appearing, elderly appearing HEENT: Head is atraumatic, normocephalic. Pupils equal, round. Sclerae is anicteric. NECK: Supple. No JVD. No lymphadenopathy. No thyromegaly. LUNGS: Diminished breath sounds bilaterally with no wheezes, occasional congestion and scattered rhonchi noted. No intercostal retractions. HEART: Regular rate and rhythm. No murmur. ABDOMEN: Soft. Bowel sounds are present. No masses. No tenderness. PEG tube noted EXTREMITIES: No pedal edema. No calf tenderness. Contractures noted NEUROLOGICAL: Patient is awake, alert and oriented x2-3. Diffusely weak Assessment: -Possible MS exacerbation, recently admitted in February underwent high-dose steroid therapy for MS exacerbation, follows with neurology outpatient -Shortness of breath with acute hypoxic respiratory failure likely secondary to aspiration likely related to MS exacerbation; patient has been placed on a pured diet for level 1 dysphagia -Confusion with altered mental status likely secondary to urinary tract infection, improved -Possible acute urinary tract infection, present on admission, recent hospitalization requiring antibiotics for E. coli ESBL in the urine -Generalized weakness/debility versus MS exacerbation; monitor closely for response to IV steroids; recommend PT/OT once stable -Seizure disorder; Vimpat 200 mg twice daily, Depakote 500 mg every 8 hours -Hypothyroidism; will continue home dose of levothyroxine 100 mcg daily -GI prophylaxis -DVT prophylaxis; SCDs/subcu Lovenox -No code Plan: Patient will continue on high-dose steroids with neurology following, completed dose today Continue to monitor Accu-Cheks before meals and at bedtime as needed for high- dose steroids PT/OT therapy to reevaluate for return to ECF for continued strength and mobility Patient will need close neurology follow-up outpatient Urine was noted to be positive for nitrates and leukocyte will start meropenem as patient has history of recent E. coli with ESBL. Infectious disease following and appreciate input and recommendations regarding antibiotics. Await cultures. Apparently urine cultures unsuitable and will resubmit. Patient is denying any pain, burning, or frequency with urination Will follow-up on repeat labs Speech evaluation and continue with aspiration precautions with head of the bed elevated 30 to 45 degrees at all times. Patient was tolerating pured diet although reports after dinner has been choking on food and thickened liquids. Patient does have a PEG tube reports has not been used in 2 months and may be plugged. Will consult general surgery for evaluation and patency or possible replacement of PEG tube. Consult dietary to reinitiate tube feedings. Wean FiO2 as tolerated. Currently 100% on 3 L via nasal cannula Case management/social work following as patient will be returning to [facility] once stabilized and discharged Due to multiple complex medical issues, overall prognosis is guarded The impression and plan of care has been dictated by Amarilys Hernandez, Nurse Practitioner as directed. Dr. Ruby MD I have performed a history and examination and MDM of this patient, discussed the same with the dictator, and agree with the dictator's assessment and plan as written ,documented as a scribe. Based on total visit time, I have performed more than 50% of the visit. Objective - Vital Signs Vital signs: Vital Signs Temp 97.7 F 03/27/24 01:55 Pulse 57 L 03/27/24 01:55 Resp 18 03/27/24 01:55 BP 115/73 03/27/24 01:55 Pulse Ox 99 03/27/24 01:55 FiO2 Intake & Output 03/26/24 03/26/24 03/27/24 06:59 18:59 06:59 Intake Total 0 0 Output Total 651 600 201 Balance -651 -600 -201 Weight 57.5 kg 57.5 kg 51.6 kg Intake: Oral 0 0 Output: Urine 650 600 200 Stool 1 1 Other: Voiding Method Incontinent External Catheter External Catheter External Catheter # Bowel Movements 1 - Labs CBC & Chem 7: 03/25/24 05:27 03/25/24 05:27 Labs: Abnormal Lab Results - Last 24 Hours (Table) 03/26/24 03/26/24 03/26/24 Range/Units 11:35 13:12 17:27 POC Glucose (mg/dL) 68 L 119 H 186 H (70-110) mg/dL 03/26/24 Range/Units 20:55 POC Glucose (mg/dL) 239 H (70-110) mg/dL Microbiology - Last 24 Hours (Table) 03/23/24 20:06 Blood Culture - Preliminary Blood 03/23/24 13:14 Urine Culture - Final Urine,Voided
[2024-03-27 07:27] LABS: Glucose,Whole Blood 110 mg/dL (70-110)
[2024-03-27 07:34] LABS: Basophils % (A) 0 %; Eosinophils % (A) 0 %; HCT 45.8 % (34.0-46.0); HGB 14.3 gm/dL (11.4-16.0); Lymphocytes # (A) 1.2 k/uL (1.0-4.8); Lymphocytes % (A) 20 %; MCH 29.7 pg (25.0-35.0); MCHC 31.2 g/dL (31.0-37.0); MCV 95.3 fL (80.0-100.0); Mean Platelet Volume 9.3; Monocytes # (A) 0.5 k/uL (0-1.0); Monocytes % (A) 8 %; Neutrophils # (A) 4.2 k/uL (1.3-7.7); Neutrophils % (A) 71 %; Platelet Count 180 k/uL (150-450); RDW 14.8 % (11.5-15.5); WBC 5.9 k/uL (3.8-10.6)
[2024-03-27 09:09] LABS: Calcium 8.9 mg/dL (8.7-10.3); Carbon Dioxide 27.9 mmol/L (21.6-31.8); Chloride 106 mmol/L (96-109); Glucose 142 mg/dL (70-110); Potassium 4.3 mmol/L (3.5-5.5); Sodium 145 mmol/L (135-145)
--- NOTE | 2024-03-27 10:45 | P.PN ---
Subjective Progress Note Date: 03/27/24 CHIEF COMPLAINT: Possible MS exacerbation and UTI HISTORY OF PRESENT ILLNESS: Surgical service following regards to patient's PEG tube. Nursing staff was able to flush the PEG tube. Patient started on tube feeds. Patient tolerating tube feeds. Tube feeds currently at 30 mill per hour. Afebrile. PHYSICAL EXAM: VITAL SIGNS: Reviewed. GENERAL: Well-developed in no acute distress. ABDOMEN: Soft. Nondistended. Nontender. PEG tube site clean dry and intact NEUROLOGIC: Alert and oriented. Cranial nerves II through XII grossly intact. ASSESSMENT: 1. Dysphagia 2. Aspiration 3. Moderate protein calorie malnutrition 4. Possible MS exacerbation 5. Possible UTI PLAN: -Tube feeds per dietitian recommendations. -PEG tube is functioning. No surgical intervention planned -Surgical service will sign off. Please call with any questions or concerns Physician Tool [employer] Dr[employer] Press Set Up Operator note has been reviewed by physician. Signing provider agrees with the documented findings, assessment, and plan of care. Objective - Vital Signs Vital signs: Vital Signs Temp 97.4 F L 03/27/24 07:20 Pulse 63 03/27/24 07:20 Resp 18 03/27/24 01:55 BP 106/63 03/27/24 07:20 Pulse Ox 96 03/27/24 08:17 FiO2 Intake & Output 03/26/24 03/27/24 03/27/24 18:59 06:59 18:59 Intake Total 0 Output Total 600 201 Balance -600 -201 Weight 57.5 kg 51.6 kg Intake: Oral 0 Output: Urine 600 200 Stool 1 Other: Voiding Method External Catheter External Catheter - Labs CBC & Chem 7: 03/27/24 05:44 03/27/24 05:50 Labs: Abnormal Lab Results - Last 24 Hours (Table) 03/26/24 03/26/24 03/26/24 Range/Units 11:35 13:12 17:27 Creatinine (0.6-1.5) mg/dL BUN/Creatinine Ratio (12.00-20.00) Ratio Glucose (70-110) mg/dL POC Glucose (mg/dL) 68 L 119 H 186 H (70-110) mg/dL 03/26/24 03/27/24 Range/Units 20:55 05:50 Creatinine 0.3 L (0.6-1.5) mg/dL BUN/Creatinine Ratio 50.00 H (12.00-20.00) Ratio Glucose 142 H (70-110) mg/dL POC Glucose (mg/dL) 239 H (70-110) mg/dL Microbiology - Last 24 Hours (Table) 03/23/24 20:06 Blood Culture - Preliminary Blood 03/23/24 13:14 Urine Culture - Final Urine,Voided
--- NOTE | 2024-03-27 11:46 | P.PN ---
Subjective Progress Note Date: 03/26/24 03/26/2024: Patient sitting in the recliner, appears comfortable. She feels better. Offers no complaints. 03/25/2024: Patient was seen for a follow-up. Patient is reclining in the bed. Patient appears somewhat weak, slight difficulty breathing. Patient's was also present today. Yesterday she was choking with yogurt. Today she had a good breakfast and lunch, but she was coughing with dinner. Patient's has noticed that after her last discharge, she was doing much better, she was able to sit up in the chair, was able to hold the cell phone with her hand, able to text, and hold ice cream cone by herself and eat. He has a picture of her sitting in the wheelchair, holding ice cream cone. She has not reached human close to that status. Overall, he states that she was much more functional for she got sick on 12/19/2023. Prior she was able to walk and have quality of life. However after her admission on 12/18/2093, she lost skills in the lower limbs. She was improving after last admission, but then at the time of discharge, started going downhill. Denies any side effects from steroids. No new concerns. Objective - Vital Signs Vital signs: Vital Signs Temp 98.6 F 03/26/24 19:14 Pulse 75 03/26/24 19:14 Resp 20 03/26/24 19:14 BP 105/67 03/26/24 19:14 Pulse Ox 97 03/26/24 19:14 FiO2 Intake & Output 03/26/24 03/26/24 03/27/24 06:59 18:59 06:59 Intake Total 0 Output Total 651 600 Balance -651 -600 Weight 57.5 kg 57.5 kg Intake: Oral 0 Output: Urine 650 600 Stool 1 Other: Voiding Method Incontinent External Catheter External Catheter # Bowel Movements 1 - Exam Patient is alert and awake. Speech is much more cleared. Her strength in the biceps, triceps, deltoid are all 4-4+. She continues to be paraplegic. Lower extremity strength 0. - Labs CBC & Chem 7: 03/27/24 05:44 03/27/24 05:50 Labs: Abnormal Lab Results - Last 24 Hours (Table) 0603/26/24 03/26/24 Range/Units 20:14 11:35 13:12 POC Glucose (mg/dL) 137 H 68 L 119 H (70-110) mg/dL 03/26/24 Range/Units 17:27 POC Glucose (mg/dL) 186 H (70-110) mg/dL Microbiology - Last 24 Hours (Table) 03/23/24 13:14 Urine Culture - Final Urine,Voided 03/23/24 20:06 Blood Culture - Preliminary Blood Assessment and Plan Assessment: * Probable MS exacerbation * Seizure disorder, diagnosed 12/19/2023. * Advanced multiple sclerosis, wheelchair bound. * Paraplegia * Dysphagia, probably due to MS * DO NOT RESUSCITATE Plan: * Patient was recently treated for MS exacerbation with 5 days of IV Solu-Medrol followed by prednisone oral taper on 02/29/2024. She improved at the time, but after discharge patient developed progressive worsening of her condition. Her muscle strength is remarkably decreased, therefore was readmitted 03/20/2024. Patient given another course of Solu-Medrol 1 g IV PB daily for 5 days. Today she received 6th doses of high-dose Solu-Medrol. * We will discontinue Solu-Medrol IVPB. Patient to be discharged on prednisone 60 mg daily for 5 days, starting from tomorrow, then decrease by 10 mg daily until off. * UA shows positive nitrite, moderate leukocyte esterase and 23 WBCs. Cultures came back negative. Patient currently on meropenem. ID following. Chest x- ray showed chronic changes without evidence for acute pulmonary disease. * Continue Vimpat 200 mg twice a day and Depakote 500 mg 3 times a day. * Ammonia 9. * Patient and her has previously decided for patient to be no CODE STATUS. However patient at present is revoking, wants to be full code. Patient's seems to be in disagreement because of her overall health condition. Recommend psychiatry consultation for evaluating mental capacity, to clarify the CODE STATUS. * Speech therapy following for dysphagia. Surgical team also following. * Neurologically clear for discharge in the morning.
[2024-03-27 12:11] LABS: Glucose,Whole Blood 105 mg/dL (70-110)
[2024-03-27] MEDS: predniSONE 20 MG TAB PO SCH ×2 (13:35→13:41)
[2024-03-27] MEDS: VALPROIC ACID ORAL SOLN 250 MG/5 ML CUP PEG/G-TUBE SCH (13:41)
--- NOTE | 2024-03-27 15:09 | P.PN ---
Subjective Progress Note Date: 03/27/24 03/27/2024: Patient was seen for a follow-up. Patient is comfortably reclining in the bed. Patient's was also present. Patient is feeling better. 03/26/2024: Patient sitting in the recliner, appears comfortable. She feels better. Offers no complaints. 03/25/2024: Patient was seen for a follow-up. Patient is reclining in the bed. Patient appears somewhat weak, slight difficulty breathing. Patient's was also present today. Yesterday she was choking with yogurt. Today she had a good breakfast and lunch, but she was coughing with dinner. Patient's has noticed that after her last discharge, she was doing much better, she was able to sit up in the chair, was able to hold the cell phone with her hand, able to text, and hold ice cream cone by herself and eat. He has a picture of her sitting in the wheelchair, holding ice cream cone. She has not reached human close to that status. Overall, he states that she was much more functional for she got sick on 12/19/2023. Prior she was able to walk and have quality of life. However after her admission on 12/18/2093, she lost skills in the lower limbs. She was improv ing after last admission, but then at the time of discharge, started going downhill. Denies any side effects from steroids. No new concerns. Objective - Vital Signs Vital signs: Vital Signs Temp 97.4 F L 03/27/24 07:20 Pulse 63 03/27/24 07:20 Resp 18 03/27/24 01:55 BP 106/63 03/27/24 07:20 Pulse Ox 96 03/27/24 08:17 FiO2 Intake & Output 03/26/24 03/27/24 03/27/24 18:59 06:59 18:59 Intake Total 0 Output Total 600 201 Balance -600 -201 Weight 57.5 kg 51.6 kg Intake: Oral 0 Output: Urine 600 200 Stool 1 Other: Voiding Method External Catheter External Catheter External Catheter - Exam Patient is alert and awake. Speech is much more cleared. Her strength in the biceps, triceps, deltoid are all 4-4+. She continues to be paraplegic. Lower extremity strength 0. - Labs CBC & Chem 7: 03/27/24 05:44 03/27/24 05:50 Labs: Abnormal Lab Results - Last 24 Hours (Table) 03/26/24 03/26/24 03/26/24 Range/Units 13:12 17:27 20:55 Creatinine (0.6-1.5) mg/dL BUN/Creatinine Ratio (12.00-20.00) Ratio Glucose (70-110) mg/dL POC Glucose (mg/dL) 119 H 186 H 239 H (70-110) mg/dL 03/27/24 Range/Units 05:50 Creatinine 0.3 L (0.6-1.5) mg/dL BUN/Creatinine Ratio 50.00 H (12.00-20.00) Ratio Glucose 142 H (70-110) mg/dL POC Glucose (mg/dL) (70-110) mg/dL Microbiology - Last 24 Hours (Table) 03/26/24 10:24 Urine Culture - Preliminary Urine,Voided Group D Enterococcus 03/23/24 20:06 Blood Culture - Preliminary Blood Assessment and Plan Assessment: * Probable MS exacerbation * Acute UTI, urine growing group D Enterococcus * Seizure disorder, diagnosed 12/19/2023. * Advanced multiple sclerosis, wheelchair bound. * Paraplegia * Dysphagia, probably due to MS * DO NOT RESUSCITATE Plan: * Patient was recently treated for MS exacerbation with 5 days of IV Solu-Medrol followed by prednisone oral taper on 02/29/2024. She improved at the time, but after discharge patient developed progressive worsening of her condition. Her muscle strength is remarkably decreased, therefore was readmitted 03/20/2024. Patient given another course of Solu-Medrol 1 g IV PB daily for 6 days during this current admission. * I discussed with patient and her about oral prednisone taper. Informed them about risks of high-dose steroids including risk of thrush, osteoporosis, increasing blood sugars, electrolyte problems. As patient has confirmed UTI with group D Enterococcus, her weakness could be related to the UTI. Patient does want to take oral prednisone taper, but we will rapidly taper off prednisone. Patient will receive prednisone 60 mg today, then 50 mg tomorrow, then continue to decrease by 10 mg every day until off on . * UA shows positive nitrite, moderate leukocyte esterase and 23 WBCs. Cultures positive for group D Enterococcus. Patient currently on meropenem. ID following. Chest x-ray showed chronic changes without evidence for acute pulmonary disease. * Continue Vimpat 200 mg twice a day and Depakote 500 mg 3 times a day. * Ammonia 9. * Patient and her has previously decided for patient to be no CODE STATUS. However patient at present is revoking, wants to be full code. Patient's seems to be in disagreement because of her overall health condition. Recommend psychiatry consultation for evaluating mental capacity, to clarify the CODE STATUS. * Speech therapy following for dysphagia. Surgical team also following. * Neurologically clear for discharge in the morning. Recommend follow-up with neurologist outpatient. * Dr. Aldana covering weekend, but Dr. Irizarry starting from Saturday morning.
--- NOTE | 2024-03-27 16:38 | P.PN ---
Subjective Progress Note Date: 03/27/24 58-year-old female with history of hypothyroidism, seizure disorder, multiple sclerosis presenting from custodial after aspirating this evening. Patient is unable to provide any meaningful history. Patient was seen in our facility yesterday for tremoring and an episode of altered mental status and discharged. Staff states that she had a witnessed episode of aspiration while eating dinner this evening. She is currently on nonrebreather satting between 90-94%. Patient is unable to provide any meaningful history. later came to the bedside and informs us that over the last week the patient has been steeply declining. She previously was able to hold conversations and feed herself with accommodations. She is now only able to answer some yes and no questions and has tremoring of the arms but cannot follow directions with the extremities. Blood work completed in ED reveals a WBC of 8.4, high hemoglobin of 14.5 and platelet count of 201, sodium 142, potassium 3.9, BUNs/creatinine of 17/0.34 and blood glucose of 120, troponin less than 0.012 Patient is being admitted for further evaluation and treatment by neurology for possible MS exacerbation 03/22/2024 Patient is seen and evaluated sitting up in bed; discussed with nursing staff; no specific complaints reported Vital signs are reviewed and remained stable Lab review shows sodium of 146, potassium 4.1, BUNs/creatinine of 9.9/0.5, blood glucose elevated at 240 --Hyperglycemia likely related to high-dose steroid therapy; will order Accu- Cheks before every meal and at bedtime with insulin sliding scale -- Patient remains on Solu-Medrol 1000 mg daily for MS exacerbation; neurology on board; appreciate recommendations -- PT/TUMBLING INSTRUCTOR consulted 03/23/2024 Patient is seen and evaluated in follow-up today maintained on large dose IV steroids with neurology following being treated for MS exacerbation. Patient continues to have some confusion and altered mental status and maintained on 4 L via nasal cannula although oxygen saturations are 99%. Most recent chest x-ray was negative for acute process. Patient was recently hospitalized in February with infectious disease following for urinary tract infection and was noted to have ESBL. Will reconsult infectious disease as urine is nitrate positive and continues with altered mentation, initiate meropenem and appreciate input and recommendations from ID. Patient is currently afebrile with no white count noted. Patient is extremely high risk for aspiration as well and would recommend aspiration precaution and supervision with meals and head of the bed elevated 45 degrees at all times. Speech to evaluate the patient. Also recommend PT/OT therapy evaluation as patient will likely need to return to ECF on discharge. 03/24/2024 Patient seen in follow-up today mentation is much improved with at the bedside. Patient continuing to receive large dose IV steroids with neurology following. Patient reporting to having some continued coughing with diet and speech following recommending modified barium swallow. Would recommend aspir ation precautions. Patient is afebrile with no reports of chest pain or shortness of breath. Patient is on 2 to 4 L with an oxygen saturation of 99 to 100%. Discussed with patient as well as nursing staff about weaning FiO2. PT/OT therapy to evaluate with plans on returning to ECF on discharge. Patient is maintained on antibiotics with infectious disease following with concerns of urinary tract infection. Patient had recent hospitalization and had E. coli with ESBL in the urine. Patient is voiding without indwelling Dailey catheter at this time. 03/25/2024 Patient is seen in follow-up this morning currently awake and per nursing staff has been tolerating dysphagia diet with no coughing or choking. Patient is afebrile with no reports of chest pain or shortness of breath. Patient con tinues on oxygen discussed with patient along with nursing staff about weaning FiO2 as tolerated patient continues on large dose steroids for concerns of MS exacerbation with neurology. Infectious disease following patient will continue on antibiotic and await cultures. Plan is to return to ECF once stabilized and cleared by consultations 03/26/2024 Patient is seen in follow-up today with a cough that is congested and weak with concerns of aspiration. Patient has been evaluated by speech and maintained on pured diet with thickened liquids although patient per nursing staff as well as patient has been having some choking episodes last night with continued coughing. Patient continues on 2 L of oxygen and normally does not wear oxygen. Concerns of continuous aspiration will consult general surgery to evaluate PEG tube as patient reports she has not used it in a few months and has not been flushing it may be clogged. Patient is afebrile maintained on antibiotics awaiting cultures. Initial urine culture reported unsuitable and has been resubmitted. Patient is afebrile with no reports of chest pain or palpitations. Patient maintained on high-dose IV steroids and finishing today with neurology following. Recommend PT/OT therapy daily. Plan is to return to [facility] on discharge 03/27/2024 Patient is seen in follow-up today with no acute overnight issues noted. Patient was reinitiated on tube feeds as PEG tube was noted to properly flush per nursing staff and was cleared by general surgery for continued use. Dietary consulted and reinitiating tube feeds. Patient is requesting and advancing diet and evaluating with speech recommend to continue with aspiration precautions along with pured dysphagia diet and supervision with meals and head of the bed elevated 30 to 45 degrees at all times. Will continue to monitor closely as patient has been waxing and waning from continued choking on foods when they are advanced. Patient has completed IV steroids with neurology following recommending outpatient follow-up with her neurologist. Currently awaiting urine cultures with preliminary showing group D Enterococcus and patient will continue on current regimen with ID following. Plan is to return to [facility] on discharge. Review of systems: Constitutional: reports of fatigue, no fever, or chills Cardiovascular: No reports of chest pain or palpitations Respiratory: No reports of worsening shortness of breath, reports improvement in coughing and tolerating oral intake GI: No reports of nausea, vomiting, or diarrhea, reports choking after food : No reports of dysuria or retention Neurovascular: reports of weakness and inability to ambulate All medications have been reviewed Physical exam: Gen: This is a 58-year-old female who is awake, alert and oriented x 2-3, ill- appearing, elderly appearing HEENT: Head is atraumatic, normocephalic. Pupils equal, round. Sclerae is anicteric. NECK: Supple. No JVD. No lymphadenopathy. No thyromegaly. LUNGS: Diminished breath sounds bilaterally with no wheezes, occasional congestion and scattered rhonchi noted. No intercostal retractions. HEART: Regular rate and rhythm. No murmur. ABDOMEN: Soft. Bowel sounds are present. No masses. No tenderness. PEG tube noted EXTREMITIES: No pedal edema. No calf tenderness. Contractures noted NEUROLOGICAL: Patient is awake, alert and oriented x2-3. Diffusely weak Assessment: -Possible MS exacerbation, recently admitted in February underwent high-dose steroid therapy for MS exacerbation, follows with neurology outpatient -Shortness of breath with acute hypoxic respiratory failure likely secondary to aspiration likely related to MS exacerbation; patient has been placed on a pured diet for level 1 dysphagia -Confusion with altered mental status likely secondary to urinary tract infection, improved -Possible acute urinary tract infection, present on admission, recent hospitalization requiring antibiotics for E. coli ESBL in the urine, preliminary culture showing group D Enterococcus -Generalized weakness/debility versus MS exacerbation; has completed high-dose IV steroid therapy per neurology; recommend PT/OT once stable -Seizure disorder; Vimpat 200 mg twice daily, Depakote 500 mg every 8 hours -Hypothyroidism; will continue home dose of levothyroxine 100 mcg daily -GI prophylaxis -DVT prophylaxis; SCDs/subcu Lovenox -No code Plan: Patient has completed high-dose steroids with neurology following, recommend outpatient follow-up with her neurologist Continue to monitor Accu-Cheks before meals and at bedtime as needed for high- dose steroids PT/OT therapy to reevaluate for return to ECF for continued strength and mobility Patient will need close neurology follow-up outpatient Urine was noted to be positive for nitrates and leukocyte will start meropenem as patient has history of recent E. coli with ESBL. Infectious disease following and appreciate input and recommendations regarding antibiotics. Await cultures. Apparently urine cultures unsuitable and will resubmit. Preliminary repeat urine culture showing group D Enterococcus. patient is denying any pain, burning, or frequency with urination Will follow-up on repeat labs Speech evaluation and continue with aspiration precautions with head of the bed elevated 30 to 45 degrees at all times. Patient was tolerating pured diet and is requesting an advancing diet back to pured's after patient was evaluated by general surgery and found to have PEG tube that was functioning and able to flush. Tube feedings have been resumed as well with dietary following. Patient was reevaluated by speech with no overt signs of aspiration noted recommending to continue with pured and aspiration precautions. Wean FiO2 as tolerated as patient does not wear oxygen outpatient and currently 99% on 2 L. Case management/social work following as patient will be returning to [facility] once stabilized and discharged Due to multiple complex medical issues, overall prognosis is guarded The impression and plan of care has been dictated by Amarilys Hernandez, Nurse Practitioner as directed. Dr. Ruby MD I have performed a history and examination and MDM of this patient, discussed the same with the dictator, and agree with the dictator's assessment and plan as written ,documented as a scribe. Based on total visit time, I have performed more than 50% of the visit. Objective - Vital Signs Vital signs: Vital Signs Temp 98.0 F 03/27/24 13:40 Pulse 65 03/27/24 13:40 Resp 18 03/27/24 13:40 BP 118/77 03/27/24 13:40 Pulse Ox 99 03/27/24 13:40 FiO2 Intake & Output 03/26/24 03/27/24 03/27/24 18:59 06:59 18:59 Intake Total 0 Output Total 600 201 Balance -600 -201 Weight 57.5 kg 51.6 kg 51.6 kg Intake: Oral 0 Output: Urine 600 200 Stool 1 Other: Voiding Method External Catheter External Catheter External Catheter - Labs CBC & Chem 7: 03/27/24 05:44 03/27/24 05:50 Labs: Abnormal Lab Results - Last 24 Hours (Table) 03/26/24 03/26/24 03/27/24 Range/Units 17:27 20:55 05:50 Creatinine 0.3 L (0.6-1.5) mg/dL BUN/Creatinine Ratio 50.00 H (12.00-20.00) Ratio Glucose 142 H (70-110) mg/dL POC Glucose (mg/dL) 186 H 239 H (70-110) mg/dL Microbiology - Last 24 Hours (Table) 03/26/24 10:24 Urine Culture - Preliminary Urine,Voided Group D Enterococcus 03/23/24 20:06 Blood Culture - Preliminary Blood
[2024-03-27 17:19] LABS: Glucose,Whole Blood 183 mg/dL (70-110)
[2024-03-27 20:34] LABS: Glucose,Whole Blood 138 mg/dL (70-110)
[2024-03-28 07:11] LABS: Glucose,Whole Blood 94 mg/dL (70-110)
[2024-03-28 11:51] LABS: Glucose,Whole Blood 147 mg/dL (70-110)
[2024-03-28] MEDS: AMPICILLIN-SULBACTAM 3 GM in SODIUM CHLORIDE 0.9% 100 ML IVPB SCH (12:45)
[2024-03-28] MEDS: NITROFURANTOIN MONOHYD/M-CRYST 100 MG CAP PO SCH (15:27)
--- NOTE | 2024-03-28 16:38 | P.PN ---
Subjective Progress Note Date: 03/27/24 Principal diagnosis: Reason for follow-up is UTI Patient is a 58-year-old female with a past medical history significant for MS history of recurrent UTI largely with ESBL E. coli has been brought to the hospital concerning for possible aspiration the patient was noted to have witnessed a choking episode by the [facility]dc she also have a positive UA concerning for symptomatic UTI started on meropenem prompting this consultation. On today's evaluation that is 03/27/2024, Patient is afebrile this morning and denies any chills, patient mention breathing comfortably and is currently on room air, patient denies any chest pain occasional cough patient denies any abd ominal pain no diarrhea no nausea no vomiting Patient did have a white count of 5.9, creatinine 0.3 urine showing Enterococcus Objective - Vital Signs Vital signs: Vital Signs Temp 98.9 F 03/27/24 19:47 Pulse 79 03/27/24 19:47 Resp 16 03/27/24 19:47 BP 102/66 03/27/24 19:47 Pulse Ox 95 03/27/24 19:47 FiO2 Intake & Output 03/27/24 03/27/24 03/28/24 06:59 18:59 06:59 Intake Total 0 Output Total 201 125 Balance -201 -125 Weight 51.6 kg 51.6 kg Intake: Oral 0 Output: Urine 200 125 Stool 1 Other: Voiding Method External Catheter External Catheter - Exam Middle-age female lying in bed in no distress Respiratory system unlabored breathing decreased breath sound the base Heart S1-S2 regular Abdominal soft mild left-sided tenderness Extremities no edema feet Exam compleetd with help of FOREST PATHOLOGIST - Labs CBC & Chem 7: 03/27/24 05:44 03/27/24 05:50 Labs: Abnormal Lab Results - Last 24 Hours (Table) 03/27/24 03/27/24 03/27/24 Range/Units 05:50 17:18 20:26 Creatinine 0.3 L (0.6-1.5) mg/dL BUN/Creatinine Ratio 50.00 H (12.00-20.00) Ratio Glucose 142 H (70-110) mg/dL POC Glucose (mg/dL) 183 H 138 H (70-110) mg/dL Microbiology - Last 24 Hours (Table) 03/26/24 10:24 Urine Culture - Preliminary Urine,Voided Group D Enterococcus 03/23/24 20:06 Blood Culture - Preliminary Blood Assessment and Plan (1) UTI (urinary tract infection) Current Visit: No Status: Acute Code(s): N39.0 - URINARY TRACT INFECTION, SITE NOT SPECIFIED SNOMED Code(s): 59715899 Plan: 1present to the hospital initially with concern for witnessed aspiration on her dinner shortness of breath and hypoxemia however the chest x-ray was reported to be negative for acute infiltrate did have normal procalcitonin patient has been feeling weak and did have a positive UA concerning for possible UTI not entirely excluded 2-repeat a chest x-ray PA and lateral did not show any acute infiltrate 3-patient remains to be afebrile and no further choking has been noticed we will continue meropenem while waiting for the culture to finalize Dictation was produced using [employer] dictation software. please excuse any grammatical, word or spelling errors. Time with Patient: Less than 30
--- NOTE | 2024-03-28 16:38 | P.PN ---
Subjective Progress Note Date: 03/26/24 Principal diagnosis: Reason for follow-up is UTI Patient is a 58-year-old female with a past medical history significant for MS history of recurrent UTI largely with ESBL E. coli has been brought to the hospital concerning for possible aspiration the patient was noted to have witnessed a choking episode by the custodial she also have a positive UA concerning for symptomatic UTI started on meropenem prompting this consultation. On today's evaluation that is 03/26/2024, patient has been afebrile, patient is breathing comfortably and is currently on room air, patient denies having any significant cough no chest pain shortness of breath, patient denies nausea vo miting or diarrhea and no abdominal pain. Patient did not have any new lab draw today Objective - Vital Signs Vital signs: Vital Signs Temp 98.6 F 03/26/24 07:04 Pulse 66 03/26/24 07:04 Resp 16 03/26/24 07:04 BP 126/76 03/26/24 07:04 Pulse Ox 100 03/26/24 07:04 FiO2 Intake & Output 03/25/24 03/26/24 03/26/24 18:59 06:59 18:59 Intake Total 0 Output Total 651 Balance -651 Weight 57.5 kg Intake: Oral 0 Output: Urine 650 Stool 1 Other: Voiding Method Incontinent Incontinent External Catheter External Catheter # Voids 1 # Bowel Movements 1 1 - Exam Middle-age female lying in bed in no distress Respiratory system unlabored breathing decreased breath sound the base Heart S1-S2 regular Abdominal soft mild left-sided tenderness Extremities no edema feet Exam compleetd with help of TEEN COUNSELOR - Labs CBC & Chem 7: 03/27/24 05:44 03/27/24 05:50 Labs: Abnormal Lab Results - Last 24 Hours (Table) 03/25/24 03/25/24 03/25/24 Range/Units 05:27 12:14 17:11 Chloride 110 H (96-109) mmol/L Creatinine 0.3 L (0.6-1.5) mg/dL BUN/Creatinine Ratio 55.33 H (12.00-20.00) Ratio POC Glucose (mg/dL) 147 H 209 H (70-110) mg/dL 03/25/24 Range/Units 20:14 Chloride (96-109) mmol/L Creatinine (0.6-1.5) mg/dL BUN/Creatinine Ratio (12.00-20.00) Ratio POC Glucose (mg/dL) 137 H (70-110) mg/dL Microbiology - Last 24 Hours (Table) 03/23/24 13:14 Urine Culture - Final Urine,Voided 03/23/24 20:06 Blood Culture - Preliminary Blood Assessment and Plan (1) UTI (urinary tract infection) Current Visit: No Status: Acute Code(s): N39.0 - URINARY TRACT INFECTION, SITE NOT SPECIFIED SNOMED Code(s): 17475591 Plan: 1present to the hospital initially with concern for witnessed aspiration on her dinner shortness of breath and hypoxemia however the chest x-ray was reported to be negative for acute infiltrate did have normal procalcitonin patient has been feeling weak and did have a positive UA concerning for possible UTI not entirely excluded 2-repeat a chest x-ray PA and lateral did not show any acute infiltrate 3-patient did have some clinical improvement and while continue with the meropenem while waiting for the culture to finalize Dictation was produced using [employer] dictation software. please excuse any grammatical, word or spelling errors. Time with Patient: Less than 30
--- NOTE | 2024-03-28 16:39 | P.PN ---
Subjective Progress Note Date: 03/28/24 Principal diagnosis: Reason for follow-up is UTI Patient is a 58-year-old female with a past medical history significant for MS history of recurrent UTI largely with ESBL E. coli has been brought to the hospital concerning for possible aspiration the patient was noted to have witnessed a choking episode by the skilled nursing she also have a positive UA concerning for symptomatic UTI started on meropenem prompting this consultation. On today's evaluation that is 03/28/2024,the patient denies any fever or any chills, patient is breathing comfortably on room air, the patient denies chest pain shortness of breath and no significant cough, patient denies abdominal pa in, no nausea vomiting or diarrhea. No new labs has been obtained urine has been finalized with VRE Objective - Vital Signs Vital signs: Vital Signs Temp 98.3 F 03/28/24 07:08 Pulse 75 03/28/24 07:08 Resp 15 03/28/24 07:08 BP 124/71 03/28/24 07:08 Pulse Ox 95 03/28/24 07:59 FiO2 21 03/28/24 07:59 Intake & Output 03/27/24 03/28/24 03/28/24 18:59 06:59 18:59 Output Total 125 601 Balance -125 -601 Weight 51.6 kg 57.7 kg Output: Urine 125 600 Stool 1 Other: Voiding Method External Catheter External Catheter External Catheter # Voids 2 # Bowel Movements 1 - Exam Middle-age female lying in bed in no distress Respiratory system unlabored breathing decreased breath sound the base Heart S1-S2 regular Abdominal soft mild left-sided tenderness Extremities no edema feet - Labs CBC & Chem 7: 03/27/24 05:44 03/27/24 05:50 Labs: Abnormal Lab Results - Last 24 Hours (Table) 03/27/24 03/27/24 Range/Units 17:18 20:26 POC Glucose (mg/dL) 183 H 138 H (70-110) mg/dL Microbiology - Last 24 Hours (Table) 03/26/24 10:24 Urine Culture - Preliminary Urine,Voided Group D Enterococcus Assessment and Plan (1) UTI (urinary tract infection) Current Visit: No Status: Acute Code(s): N39.0 - URINARY TRACT INFECTION, SITE NOT SPECIFIED SNOMED Code(s): 81570406 Plan: 1present to the hospital initially with concern for witnessed aspiration on her dinner shortness of breath and hypoxemia however the chest x-ray was reported to be negative for acute infiltrate did have normal procalcitonin patient has been feeling weak and did have a positive UA concerning for possible UTI not entirely excluded 2-repeat a chest x-ray PA and lateral did not show any acute infiltrate 3-patient urine culture has been finalized with VRE that is resistant to ampicillin daptomycin we cannot use her Zyvox because of the medication patient is on meropenem has been discontinued will give a short course of Macrobid and see response Dictation was produced using [employer] dictation software. please excuse any grammatical, word or spelling errors. Time with Patient: Less than 30
[2024-03-28 17:16] LABS: Glucose,Whole Blood 118 mg/dL (70-110)
[2024-03-28 20:37] LABS: Glucose,Whole Blood 106 mg/dL (70-110)
[2024-03-29 07:29] LABS: Glucose,Whole Blood 98 mg/dL (70-110)
[2024-03-29 11:01] LABS: BUN/Creat Ratio 35.67 Ratio (12.00-20.00); Blood Urea Nitrogen 10.7 mg/dL (9.0-27.0); Glucose 106 mg/dL (70-110)
[2024-03-29 11:02] LABS: Calcium 8.8 mg/dL (8.7-10.3); Carbon Dioxide 27.4 mmol/L (21.6-31.8); Chloride 102 mmol/L (96-109); Potassium 4.4 mmol/L (3.5-5.5); Sodium 140 mmol/L (135-145)
[2024-03-29 11:42] LABS: Glucose,Whole Blood 124 mg/dL (70-110)
[2024-03-29 11:44] LABS: HCT 42.7 % (37.2-46.3); HGB 13.9 g/dL (12.0-15.0); MCHC 32.6 g/dL (32.0-37.0); NRBC Per 100 WBC 0.02 X 10*3/uL (0.00-0.01); Platelet Count 343 X 10*3/uL (140-440); RBC 4.64 X 10*6/uL (4.10-5.20); RDW 14.8 % (11.5-14.5); WBC 8.26 X 10*3/uL (4.50-10.00)
[2024-03-29 12:27] LABS: Basophils # (M) 0 X 10*3/uL (0.00-0.10); Eosinophils # (M) 0 X 10*3/uL (0.04-0.35); Lymphocytes # (M) 2.31 X 10*3/uL (0.90-5.00); Myelocytes % 1 % (0-0); Neutrophils # (M) 5.37 X 10*3/uL (1.80-7.70); Neutrophils % (M) 65 %; RBC Morphology Normal (Normal)
--- NOTE | 2024-03-29 14:21 | P.PN ---
Subjective Progress Note Date: 03/29/24 Principal diagnosis: Reason for follow-up is UTI Patient is a 58-year-old female with a past medical history significant for MS history of recurrent UTI largely with ESBL E. coli has been brought to the hospital concerning for possible aspiration the patient was noted to have witnessed a choking episode by the long term she also have a positive UA concerning for symptomatic UTI started on meropenem prompting this consultation. On today's evaluation that is 03/29/2024,the patient remains to be afebrile, patient is on 2 L nasal cannula supplemental oxygen and denies any shortness of breath no chest pain or cough.Patient denies having any nausea or vomiting, no abdominal pain and no diarrhea has been reported, mention feeling better. Patient white count is 8.26, creatinine 0.3 urine with VRE Objective - Vital Signs Vital signs: Vital Signs Temp 98.3 F 03/29/24 11:39 Pulse 91 03/29/24 11:39 Resp 16 03/29/24 11:39 BP 131/78 03/29/24 11:39 Pulse Ox 95 03/29/24 11:39 FiO2 21 03/28/24 07:59 Intake & Output 03/28/24 03/29/24 03/29/24 18:59 06:59 18:59 Output Total 800 900 Balance -800 -900 Weight 46.1 kg Output: Urine 800 900 Other: Voiding Method External Catheter External Catheter External Catheter # Voids 1 # Bowel Movements 1 1 1 - Exam Middle-age female lying in bed in no distress Respiratory system unlabored breathing decreased breath sound the base Heart S1-S2 regular Abdominal soft mild left-sided tenderness Extremities no edema feet - Labs CBC & Chem 7: 03/29/24 05:07 03/29/24 05:07 Labs: Abnormal Lab Results - Last 24 Hours (Table) 03/28/24 03/29/24 03/29/24 Range/Units 17:15 05:07 05:07 RDW 14.8 H (11.5-14.5) % Eosinophils # (Manual) 0 L (0.04-0.35) X 10*3/uL NRBC/100 WBC Diff 0.02 H (0.00-0.01) X 10*3/uL Creatinine 0.3 L (0.6-1.5) mg/dL BUN/Creatinine Ratio 35.67 H (12.00-20.00) Ratio POC Glucose (mg/dL) 118 H (70-110) mg/dL 03/29/24 Range/Units 11:41 RDW (11.5-14.5) % Eosinophils # (Manual) (0.04-0.35) X 10*3/uL NRBC/100 WBC Diff (0.00-0.01) X 10*3/uL Creatinine (0.6-1.5) mg/dL BUN/Creatinine Ratio (12.00-20.00) Ratio POC Glucose (mg/dL) 124 H (70-110) mg/dL Microbiology - Last 24 Hours (Table) 03/23/24 20:06 Blood Culture - Final Blood 03/26/24 10:24 Urine Culture - Final Urine,Voided Enterococcus faecium VRE Assessment and Plan (1) UTI (urinary tract infection) Current Visit: No Status: Acute Code(s): N39.0 - URINARY TRACT INFECTION, SITE NOT SPECIFIED SNOMED Code(s): 20352984 Plan: 1present to the hospital initially with concern for witnessed aspiration on her dinner shortness of breath and hypoxemia however the chest x-ray was reported to be negative for acute infiltrate did have normal procalcitonin patient has been feeling weak and did have a positive UA concerning for possible UTI not entirely excluded 2-repeat a chest x-ray PA and lateral did not show any acute infiltrate 3-patient urine culture has been finalized with VRE that is resistant to ampi cillin daptomycin we cannot use her Zyvox because of interaction with her other medication 4-patient to continue with Macrobid and monitor clinical course closely Dictation was produced using [employer] dictation software. please excuse any grammatical, word or spelling errors. Time with Patient: Less than 30
[2024-03-29 17:22] LABS: Glucose,Whole Blood 148 mg/dL (70-110)
[2024-03-29 20:09] LABS: Glucose,Whole Blood 135 mg/dL (70-110)
[2024-03-29 23:06] LABS: Glucose,Whole Blood 206 mg/dL (70-110)
[2024-03-29] MEDS: LORazepam 2 MG/ML INJ IV STA (23:09)
[2024-03-29] MEDS: LORazepam 2 MG/ML INJ ONE (23:13)
[2024-03-29] MEDS: ACETAMINOPHEN IV (For NPO) 700 MG in EMPTY BAG 1 BAG IVPB STA (23:14)
--- NOTE | 2024-03-30 00:21 | XR ---
EXAM: XR Chest, 1 View CLINICAL HISTORY: XR Reason: possible aspiration TECHNIQUE: Frontal view of the chest. COMPARISON: March 24, 2024 FINDINGS: Lungs: Trace amount of scarring along the apices. Small amount of basilar atelectasis or scarring, similar to previous. No new infiltrates are identified. Pleural space: Unremarkable. No pneumothorax. Heart: Unremarkable. No cardiomegaly. Mediastinum: Unremarkable. Normal mediastinal contour. Bones/joints: Unremarkable. No acute fracture. Upper abdomen: There is no pneumoperitoneum under the diaphragm. Other findings: The patient is rotated to the left. IMPRESSION: Small amount of basilar atelectasis or scarring, similar to previous. No new infiltrates are identified.
[2024-03-30 03:31] LABS: Basophils % (A) 0 %; Eosinophils # (A) 0.1 k/uL (0-0.7); Eosinophils % (A) 1 %; HCT 40.2 % (34.0-46.0); Lymphocytes # (A) 1.1 k/uL (1.0-4.8); Lymphocytes % (A) 8 %; MCH 29.9 pg (25.0-35.0); MCHC 32.2 g/dL (31.0-37.0); MCV 92.9 fL (80.0-100.0); Mean Platelet Volume 8.2; Monocytes # (A) 0.7 k/uL (0-1.0); Monocytes % (A) 5 %; Neutrophils % (A) 86 %; Platelet Count 344 k/uL (150-450); RBC 4.33 m/uL (3.80-5.40); RDW 14.9 % (11.5-15.5); WBC 15.2 k/uL (3.8-10.6)
[2024-03-30 06:58] LABS: Glucose,Whole Blood 108 mg/dL (70-110)
[2024-03-30 08:40] LABS: Blood Urea Nitrogen 10.8 mg/dL (9.0-27.0); Calcium 8.7 mg/dL (8.7-10.3); Carbon Dioxide 27.2 mmol/L (21.6-31.8); Chloride 104 mmol/L (96-109); Glucose 132 mg/dL (70-110); Potassium 4.2 mmol/L (3.5-5.5); Sodium 142 mmol/L (135-145)
[2024-03-30] MEDS: ACETAMINOPHEN IV (For NPO) 700 MG in EMPTY BAG 1 BAG IVPB SCH (08:51)
[2024-03-30 10:10] LABS: Glucose,Whole Blood 100 mg/dL (70-110)
--- NOTE | 2024-03-30 12:26 | P.PN ---
Subjective Progress Note Date: 03/28/24 58-year-old female with history of hypothyroidism, seizure disorder, multiple sclerosis presenting from [facility] after aspirating this evening. Patient is unable to provide any meaningful history. Patient was seen in our facility yesterday for tremoring and an episode of altered mental status and discharged. Staff states that she had a witnessed episode of aspiration while eating dinner this evening. She is currently on nonrebreather satting between 90-94%. Patient is unable to provide any meaningful history. later came to the bedside and informs us that over the last week the patient has been steeply declining. She previously was able to hold conversations and feed herself with accommodations. She is now only able to answer some yes and no questions and has tremoring of the arms but cannot follow directions with the extremities. Blood work completed in ED reveals a WBC of 8.4, high hemoglobin of 14.5 and platelet count of 201, sodium 142, potassium 3.9, BUNs/creatinine of 17/0.34 and blood glucose of 120, troponin less than 0.012 Patient is being admitted for further evaluation and treatment by neurology for possible MS exacerbation 03/22/2024 Patient is seen and evaluated sitting up in bed; discussed with nursing staff; no specific complaints reported Vital signs are reviewed and remained stable Lab review shows sodium of 146, potassium 4.1, BUNs/creatinine of 9.9/0.5, blood glucose elevated at 240 --Hyperglycemia likely related to high-dose steroid therapy; will order Accu- Cheks before every meal and at bedtime with insulin sliding scale -- Patient remains on Solu-Medrol 1000 mg daily for MS exacerbation; neurology on board; appreciate recommendations -- PT/SOFTBALL UMPIRE consulted 03/23/2024 Patient is seen and evaluated in follow-up today maintained on large dose IV steroids with neurology following being treated for MS exacerbation. Patient continues to have some confusion and altered mental status and maintained on 4 L via nasal cannula although oxygen saturations are 99%. Most recent chest x-ray was negative for acute process. Patient was recently hospitalized in February with infectious disease following for urinary tract infection and was noted to have ESBL. Will reconsult infectious disease as urine is nitrate positive and continues with altered mentation, initiate meropenem and appreciate input and recommendations from ID. Patient is currently afebrile with no white count noted. Patient is extremely high risk for aspiration as well and would recommend aspiration precaution and supervision with meals and head of the bed elevated 45 degrees at all times. Speech to evaluate the patient. Also recommend PT/OT therapy evaluation as patient will likely need to return to ECF on discharge. 03/24/2024 Patient seen in follow-up today mentation is much improved with at the bedside. Patient continuing to receive large dose IV steroids with neurology following. Patient reporting to having some continued coughing with diet and speech following recommending modified barium swallow. Would recommend aspirat ion precautions. Patient is afebrile with no reports of chest pain or shortness of breath. Patient is on 2 to 4 L with an oxygen saturation of 99 to 100%. Discussed with patient as well as nursing staff about weaning FiO2. PT/OT therapy to evaluate with plans on returning to ECF on discharge. Patient is maintained on antibiotics with infectious disease following with concerns of urinary tract infection. Patient had recent hospitalization and had E. coli with ESBL in the urine. Patient is voiding without indwelling Dailey catheter at this time. 03/25/2024 Patient is seen in follow-up this morning currently awake and per nursing staff has been tolerating dysphagia diet with no coughing or choking. Patient is afebrile with no reports of chest pain or shortness of breath. Patient saige nues on oxygen discussed with patient along with nursing staff about weaning FiO2 as tolerated patient continues on large dose steroids for concerns of MS exacerbation with neurology. Infectious disease following patient will continue on antibiotic and await cultures. Plan is to return to ECF once stabilized and cleared by consultations 03/26/2024 Patient is seen in follow-up today with a cough that is congested and weak with concerns of aspiration. Patient has been evaluated by speech and maintained on pured diet with thickened liquids although patient per nursing staff as well as patient has been having some choking episodes last night with continued coughing. Patient continues on 2 L of oxygen and normally does not wear oxygen. Concerns of continuous aspiration will consult general surgery to evaluate PEG tube as patient reports she has not used it in a few months and has not been flushing it may be clogged. Patient is afebrile maintained on antibiotics awaiting cultures. Initial urine culture reported unsuitable and has been resubmitted. Patient is afebrile with no reports of chest pain or palpitations. Patient maintained on high-dose IV steroids and finishing today with neurology following. Recommend PT/OT therapy daily. [facility] 03/27/2024 Patient is seen in follow-up today with no acute overnight issues noted. Patient was reinitiated on tube feeds as PEG tube was noted to properly flush per nursing staff and was cleared by general surgery for continued use. Dietary consulted and reinitiating tube feeds. Patient is requesting and advancing diet and evaluating with speech recommend to continue with aspiration precautions al blade with pured dysphagia diet and supervision with meals and head of the bed elevated 30 to 45 degrees at all times. Will continue to monitor closely as patient has been waxing and waning from continued choking on foods when they are advanced. Patient has completed IV steroids with neurology following recommending outpatient follow-up with her neurologist. Currently awaiting urine cultures with preliminary showing group D Enterococcus and patient will continue on current regimen with ID following. Plan is to return to [facility] on discharge. 03/28/2024 Patient is currently resting in the bed. Awake alert and oriented x 3. No complaints of chest pain or shortness of breath. Tolerating oral diet. He had pulm today. No headache or dizziness or lightheadedness. Currently on wound care. ID is on board. No new laboratory data today. Review of systems: Constitutional: reports of fatigue, no fever, or chills Cardiovascular: No reports of chest pain or palpitations Respiratory: No reports of worsening shortness of breath, reports improvement in coughing and tolerating oral intake GI: No reports of nausea, vomiting, or diarrhea, reports choking after food : No reports of dysuria or retention Neurovascular: reports of weakness and inability to ambulate All medications have been reviewed Physical exam: Gen: This is a 58-year-old female who is awake, alert and oriented x 2-3, ill- appearing, elderly appearing HEENT: Head is atraumatic, normocephalic. Pupils equal, round. Sclerae is anicteric. NECK: Supple. No JVD. No lymphadenopathy. No thyromegaly. LUNGS: Diminished breath sounds bilaterally with no wheezes, occasional congestion and scattered rhonchi noted. No intercostal retractions. HEART: Regular rate and rhythm. No murmur. ABDOMEN: Soft. Bowel sounds are present. No masses. No tenderness. PEG tube noted EXTREMITIES: No pedal edema. No calf tenderness. Contractures noted NEUROLOGICAL: Patient is awake, alert and oriented x2-3. Diffusely weak Assessment: -Possible MS exacerbation, recently admitted in February underwent high-dose steroid therapy for MS exacerbation, follows with neurology outpatient -Shortness of breath with acute hypoxic respiratory failure likely secondary to aspiration likely related to MS exacerbation; patient has been placed on a pured diet for level 1 dysphagia -Confusion with altered mental status likely secondary to urinary tract infection, improved -Possible acute urinary tract infection, present on admission, recent hospitalization requiring antibiotics for E. coli ESBL in the urine, preliminary culture showing group D Enterococcus VRE -Generalized weakness/debility versus MS exacerbation; has completed high-dose IV steroid therapy per neurology; recommend PT/OT once stable -Seizure disorder; Vimpat 200 mg twice daily, Depakote 500 mg every 8 hours -Hypothyroidism; will continue home dose of levothyroxine 100 mcg daily -GI prophylaxis -DVT prophylaxis; SCDs/subcu Lovenox -No code Plan: Patient has completed high-dose steroids with neurology following, recommend outpatient follow-up with her neurologist Continue to monitor Accu-Cheks before meals and at bedtime as needed for high- dose steroids PT/OT therapy to reevaluate for return to ECF for continued strength and mobility Patient will need close neurology follow-up outpatient Urine was noted to be positive for nitrates and leukocyte, was started on meropenem as patient has history of recent E. coli with ESBL. Infectious disease following and appreciate input and recommendations regarding antibiotics. Await cultures. Apparently urine cultures unsuitable and will resubmit. Preliminary repeat urine culture showing group D Enterococcus. patient is denying any pain, burning, or frequency with urination Will follow-up on repeat labs Speech evaluation and continue with aspiration precautions with head of the bed elevated 30 to 45 degrees at all times. Patient was tolerating pured diet and is requesting an advancing diet back to pured's after patient was evaluated by general surgery and found to have PEG tube that was functioning and able to flush. Tube feedings have been resumed as well with dietary following. Patient was reevaluated by speech with no overt signs of aspiration noted recommending to continue with pured and aspiration precautions. Wean FiO2 as tolerated as patient does not wear oxygen outpatient and currently 99% on 2 L. Case management/social work following as patient will be returning to [facility] once stabilized and discharged Due to multiple complex medical issues, overall prognosis is guarded Objective - Vital Signs Vital signs: Vital Signs Temp 98.0 F 03/28/24 11:47 Pulse 87 03/28/24 11:47 Resp 16 03/28/24 11:47 BP 104/65 03/28/24 11:47 Pulse Ox 96 03/28/24 11:47 FiO2 21 03/28/24 07:59 Intake & Output 03/28/24 03/28/24 03/29/24 06:59 18:59 06:59 Output Total 601 800 Balance -601 -800 Weight 57.7 kg Output: Urine 600 800 Stool 1 Other: Voiding Method External Catheter External Catheter # Voids 2 # Bowel Movements 1 1 - Labs CBC & Chem 7: 03/30/24 03:09 03/30/24 03:09 Labs: Abnormal Lab Results - Last 24 Hours (Table) 03/28/24 03/28/24 Range/Units 11:50 17:15 POC Glucose (mg/dL) 147 H 118 H (70-110) mg/dL Microbiology - Last 24 Hours (Table) 03/26/24 10:24 Urine Culture - Final Urine,Voided Enterococcus faecium VRE
--- NOTE | 2024-03-30 12:26 | P.PN ---
Subjective Progress Note Date: 03/29/24 58-year-old female with history of hypothyroidism, seizure disorder, multiple sclerosis presenting from correction after aspirating this evening. Patient is unable to provide any meaningful history. Patient was seen in our facility yesterday for tremoring and an episode of altered mental status and discharged. Staff states that she had a witnessed episode of aspiration while eating dinner this evening. She is currently on nonrebreather satting between 90-94%. Patient is unable to provide any meaningful history. later came to the bedside and informs us that over the last week the patient has been steeply declining. She previously was able to hold conversations and feed herself with accommodations. She is now only able to answer some yes and no questions and has tremoring of the arms but cannot follow directions with the extremities. Blood work completed in ED reveals a WBC of 8.4, high hemoglobin of 14.5 and platelet count of 201, sodium 142, potassium 3.9, BUNs/creatinine of 17/0.34 and blood glucose of 120, troponin less than 0.012 Patient is being admitted for further evaluation and treatment by neurology for possible MS exacerbation 03/22/2024 Patient is seen and evaluated sitting up in bed; discussed with nursing staff; no specific complaints reported Vital signs are reviewed and remained stable Lab review shows sodium of 146, potassium 4.1, BUNs/creatinine of 9.9/0.5, blood glucose elevated at 240 --Hyperglycemia likely related to high-dose steroid therapy; will order Accu- Cheks before every meal and at bedtime with insulin sliding scale -- Patient remains on Solu-Medrol 1000 mg daily for MS exacerbation; neurology on board; appreciate recommendations -- PT/[employer] consulted 03/23/2024 Patient is seen and evaluated in follow-up today maintained on large dose IV steroids with neurology following being treated for MS exacerbation. Patient continues to have some confusion and altered mental status and maintained on 4 L via nasal cannula although oxygen saturations are 99%. Most recent chest x-ray was negative for acute process. Patient was recently hospitalized in February with infectious disease following for urinary tract infection and was noted to have ESBL. Will reconsult infectious disease as urine is nitrate positive and continues with altered mentation, initiate meropenem and appreciate input and recommendations from ID. Patient is currently afebrile with no white count noted. Patient is extremely high risk for aspiration as well and would recommend aspiration precaution and supervision with meals and head of the bed elevated 45 degrees at all times. Speech to evaluate the patient. Also recommend PT/OT therapy evaluation as patient will likely need to return to ECF on discharge. 03/24/2024 Patient seen in follow-up today mentation is much improved with at the bedside. Patient continuing to receive large dose IV steroids with neurology following. Patient reporting to having some continued coughing with diet and speech following recommending modified barium swallow. Would recommend aspirat ion precautions. Patient is afebrile with no reports of chest pain or shortness of breath. Patient is on 2 to 4 L with an oxygen saturation of 99 to 100%. Discussed with patient as well as nursing staff about weaning FiO2. PT/OT therapy to evaluate with plans on returning to ECF on discharge. Patient is maintained on antibiotics with infectious disease following with concerns of urinary tract infection. Patient had recent hospitalization and had E. coli with ESBL in the urine. Patient is voiding without indwelling Dailey catheter at this time. 03/25/2024 Patient is seen in follow-up this morning currently awake and per nursing staff has been tolerating dysphagia diet with no coughing or choking. Patient is afebrile with no reports of chest pain or shortness of breath. Patient saige nues on oxygen discussed with patient along with nursing staff about weaning FiO2 as tolerated patient continues on large dose steroids for concerns of MS exacerbation with neurology. Infectious disease following patient will continue on antibiotic and await cultures. Plan is to return to ECF once stabilized and cleared by consultations 03/26/2024 Patient is seen in follow-up today with a cough that is congested and weak with concerns of aspiration. Patient has been evaluated by speech and maintained on pured diet with thickened liquids although patient per nursing staff as well as patient has been having some choking episodes last night with continued coughing. Patient continues on 2 L of oxygen and normally does not wear oxygen. Concerns of continuous aspiration will consult general surgery to evaluate PEG tube as patient reports she has not used it in a few months and has not been flushing it may be clogged. Patient is afebrile maintained on antibiotics awaiting cultures. Initial urine culture reported unsuitable and has been resubmitted. Patient is afebrile with no reports of chest pain or palpitations. Patient maintained on high-dose IV steroids and finishing today with neurology following. Recommend PT/OT therapy daily. Plan is to return to [facility] on discharge 03/27/2024 Patient is seen in follow-up today with no acute overnight issues noted. Patient was reinitiated on tube feeds as PEG tube was noted to properly flush per nursing staff and was cleared by general surgery for continued use. Dietary consulted and reinitiating tube feeds. Patient is requesting and advancing diet and evaluating with speech recommend to continue with aspiration precautions al blade with pured dysphagia diet and supervision with meals and head of the bed elevated 30 to 45 degrees at all times. Will continue to monitor closely as patient has been waxing and waning from continued choking on foods when they are advanced. Patient has completed IV steroids with neurology following recommending outpatient follow-up with her neurologist. Currently awaiting urine cultures with preliminary showing group D Enterococcus and patient will continue on current regimen with ID following. Plan is to return to [facility] on discharge. 03/28/2024 Patient is currently resting in the bed. Awake alert and oriented x 3. No complaints of chest pain or shortness of breath. Tolerating oral diet. He had pulm today. No headache or dizziness or lightheadedness. Currently on wound care. ID is on board. No new laboratory data today. 03/29/2024 Patient is resting in bed. Family were at bedside. Awake alert and oriented. No complaints of chest pain or shortness of breath. Continued on wound care. Urine culture showing Enterococcus faecium VRE. Final culture report and sensitivity report is pending. ID is on board. Laboratory data showed WBC 8.2 hemoglobin 13.9 platelets 243 sodium 140 potassium 4.4 chloride 102 bicarb is 27.4 BUN 10.7 and creatinine 0.3 and blood sugar 106 and calcium 8.8. Review of systems: Constitutional: reports of fatigue, no fever, or chills Cardiovascular: No reports of chest pain or palpitations Respiratory: No reports of worsening shortness of breath, reports improvement in coughing and tolerating oral intake GI: No reports of nausea, vomiting, or diarrhea, reports choking after food : No reports of dysuria or retention Neurovascular: reports of weakness and inability to ambulate All medications have been reviewed Physical exam: Gen: This is a 58-year-old female who is awake, alert and oriented x 2-3, ill- appearing, elderly appearing HEENT: Head is atraumatic, normocephalic. Pupils equal, round. Sclerae is anicteric. NECK: Supple. No JVD. No lymphadenopathy. No thyromegaly. LUNGS: Diminished breath sounds bilaterally with no wheezes, occasional congestion and scattered rhonchi noted. No intercostal retractions. HEART: Regular rate and rhythm. No murmur. ABDOMEN: Soft. Bowel sounds are present. No masses. No tenderness. PEG tube noted EXTREMITIES: No pedal edema. No calf tenderness. Contractures noted NEUROLOGICAL: Patient is awake, alert and oriented x2-3. Diffusely weak Assessment: -Possible MS exacerbation, recently admitted in February underwent high-dose steroid therapy for MS exacerbation, follows with neurology outpatient -Shortness of breath with acute hypoxic respiratory failure likely secondary to aspiration likely related to MS exacerbation; patient has been placed on a pured diet for level 1 dysphagia -Confusion with altered mental status likely secondary to urinary tract infection, improved -Possible acute urinary tract infection, present on admission, recent hospitalization requiring antibiotics for E. coli ESBL in the urine, preliminary culture showing group D Enterococcus VRE -Generalized weakness/debility versus MS exacerbation; has completed high-dose IV steroid therapy per neurology; recommend PT/OT once stable -Seizure disorder; Vimpat 200 mg twice daily, Depakote 500 mg every 8 hours -Hypothyroidism; will continue home dose of levothyroxine 100 mcg daily -GI prophylaxis -DVT prophylaxis; SCDs/subcu Lovenox -No code Plan: Patient has completed high-dose steroids with neurology following, recommend outpatient follow-up with her neurologist Continue to monitor Accu-Cheks before meals and at bedtime as needed for high- dose steroids PT/OT therapy to reevaluate for return to ECF for continued strength and mobility Patient will need close neurology follow-up outpatient Urine was noted to be positive for nitrates and leukocyte, was started on meropenem as patient has history of recent E. coli with ESBL. Urine cultures growing group D Enterococcus VRE. Sensitivity report pending.. patient is denying any pain, burning, or frequency with urination Will follow-up on repeat labs Speech evaluation and continue with aspiration precautions with head of the bed elevated 30 to 45 degrees at all times. Patient was tolerating pured diet and is requesting an advancing diet back to pured's after patient was evaluated by general surgery and found to have PEG tube that was functioning and able to flush. Tube feedings have been resumed as well with dietary following. Patient was reevaluated by speech with no overt signs of aspiration noted recommending t o continue with pured and aspiration precautions. Wean FiO2 as tolerated as patient does not wear oxygen outpatient and currently 99% on 2 L. Case management/social work following as patient will be returning to [facility] once stabilized and discharged Due to multiple complex medical issues, overall prognosis is guarded Objective - Vital Signs Vital signs: Vital Signs Temp 98.5 F 03/29/24 07:00 Pulse 79 03/29/24 07:00 Resp 16 03/29/24 07:00 BP 119/70 03/29/24 07:00 Pulse Ox 96 03/29/24 07:00 FiO2 21 03/28/24 07:59 Intake & Output 03/28/24 03/29/24 03/29/24 18:59 06:59 18:59 Output Total 800 900 Balance -800 -900 Weight 46.1 kg Output: Urine 800 900 Other: Voiding Method External Catheter External Catheter External Catheter # Voids 1 # Bowel Movements 1 1 1 - Labs CBC & Chem 7: 03/30/24 03:09 03/30/24 03:09 Labs: Abnormal Lab Results - Last 24 Hours (Table) 03/28/24 03/28/24 03/29/24 Range/Units 11:50 17:15 05:07 Creatinine 0.3 L (0.6-1.5) mg/dL BUN/Creatinine Ratio 35.67 H (12.00-20.00) Ratio POC Glucose (mg/dL) 147 H 118 H (70-110) mg/dL Microbiology - Last 24 Hours (Table) 03/23/24 20:06 Blood Culture - Final Blood 03/26/24 10:24 Urine Culture - Final Urine,Voided Enterococcus faecium VRE
[2024-03-30 12:31] LABS: Glucose,Whole Blood 142 mg/dL (70-110)
[2024-03-30] MEDS: lamoTRIgine 25 MG TAB PO SCH (13:14)
[2024-03-30] MEDS: VALPROATE SODIUM 1,000 MG in SODIUM CHLORIDE 0.9% 100 ML IVPB STA (14:22)
[2024-03-30] MEDS: Lacosamide IV (ages 17+ yrs) 200 MG/20 ML ML IVP SCH (14:25)
--- NOTE | 2024-03-30 14:32 | P.PN ---
Subjective Progress Note Date: 03/30/24 I am seeing the patient for the first time during this admission. Please refer to Dr. Villatoro's notes for further details. Per the nurse yesterday while on the floor, she had a seizure-like activity and was given Ativan and continues to be confused but jerking extremities. The nurse states she is opening her eyes and is a bit more awake compared to earlier but not responding. Per Dr. Samson he felt she had Probable MS exacerbation then signed off on 03/27/2024. It seems she has acute UTI during this admission. Objective - Vital Signs Vital signs: Vital Signs Temp 98.6 F 03/30/24 13:46 Pulse 86 03/30/24 13:46 Resp 16 03/30/24 13:46 BP 114/66 03/30/24 13:46 Pulse Ox 100 03/30/24 13:46 FiO2 21 03/28/24 07:59 Intake & Output 03/29/24 03/30/24 03/30/24 18:59 06:59 18:59 Intake Total 30 Output Total 1100 1100 400 Balance -1100 -1100 -370 Weight 51.71 kg Intake: IV 30 Invasive Line 2 30 Output: Urine 1100 1100 400 Other: Voiding Method External Catheter External Catheter # Voids 1 # Bowel Movements 1 1 - Exam General: Lying in bed and does not appear in acute distress. HENT: Supple neck. Neuro: Limited. Patient is drowsy but is awake both voice. She is not verbally responding. She will have right gaze preference. No jerking of any extremities. No appreciable facial droop. Motor the strength is limited. - Labs CBC & Chem 7: 03/30/24 03:09 03/30/24 03:09 Labs: Abnormal Lab Results - Last 24 Hours (Table) 03/29/24 03/29/24 03/29/24 Range/Units 17:11 20:08 23:04 WBC (3.8-10.6) k/uL Neutrophils # (1.3-7.7) k/uL Creatinine (0.6-1.5) mg/dL BUN/Creatinine Ratio (12.00-20.00) Ratio Glucose (70-110) mg/dL POC Glucose (mg/dL) 148 H 135 H 206 H (70-110) mg/dL Plasma Lactic Acid Delvin (0.7-2.0) mmol/L 03/29/24 03/30/24 03/30/24 Range/Units 23:38 03:09 03:09 WBC 15.2 H (3.8-10.6) k/uL Neutrophils # 13.0 H (1.3-7.7) k/uL Creatinine 0.3 L (0.6-1.5) mg/dL BUN/Creatinine Ratio 36.00 H (12.00-20.00) Ratio Glucose 132 H (70-110) mg/dL POC Glucose (mg/dL) (70-110) mg/dL Plasma Lactic Acid Delvin 5.4 H* (0.7-2.0) mmol/L 03/30/24 03/30/24 03/30/24 Range/Units 03:09 06:51 10:35 WBC (3.8-10.6) k/uL Neutrophils # (1.3-7.7) k/uL Creatinine (0.6-1.5) mg/dL BUN/Creatinine Ratio (12.00-20.00) Ratio Glucose (70-110) mg/dL POC Glucose (mg/dL) (70-110) mg/dL Plasma Lactic Acid Delvin 2.9 H* 4.1 H* 2.5 H* (0.7-2.0) mmol/L 03/30/24 Range/Units 12:30 WBC (3.8-10.6) k/uL Neutrophils # (1.3-7.7) k/uL Creatinine (0.6-1.5) mg/dL BUN/Creatinine Ratio (12.00-20.00) Ratio Glucose (70-110) mg/dL POC Glucose (mg/dL) 142 H (70-110) mg/dL Plasma Lactic Acid Delvin (0.7-2.0) mmol/L Assessment and Plan Assessment: * Breakthrough seizure while on the floor on 03/29/2024 and was given Ativan. It seems her Depakote level is subtherapeutic. * Lactic acid elevated could be due to seizure vs underlying infection. * Altered mental status due to post-ictal and metabolic encephalopathy * Probable MS exacerbation per Dr. Villatoro and was recently treated for Solumedrol IV for 5 days followed by Prednisone on 02/29/24 * Acute UTI, urine growing group D Enterococcus * Seizure disorder, diagnosed 12/19/2023. * Advanced multiple sclerosis, wheelchair bound. * Paraplegia * Dysphagia, probably due to MS * DO NOT RESUSCITATE Plan: * I ordered routine EEG and preliminary is negative for seizure * Her Valproic acid level is 27.9 (normal is 50-120), and since subtherapeutic and had breakthrough seizure yesterday, I gave her loading dose of Valproic acid 1gm IV once. * Continue Vimpat 200 mg twice a day and Depakote 500 mg 3 times a day. * Initially I started her on Lamictal 25mg daily for her seizure today but since had subtherapeutic Valproic acid no need for Lamictal at this time. * * Patient was recently treated for MS exacerbation with 5 days of IV Solu-Medrol followed by prednisone oral taper on 02/29/2024. She improved at the time, but after discharge patient developed progressive worsening of her condition. Her muscle strength is remarkably decreased, therefore was readmitted 03/20/2024. Patient given another course of Solu-Medrol 1 g IV PB daily for 6 days during this current admission per Dr. Villatoro. * Dr. Villatoro discussed with patient and her about oral prednisone taper. Informed them about risks of high-dose steroids including risk of thrush, osteoporosis, increasing blood sugars, electrolyte problems. As patient has confirmed UTI with group D Enterococcus, her weakness could be related to the UTI. Patient does want to take oral prednisone taper, but we will rapidly taper off prednisone. Patient will receive prednisone 60 mg today, then 50 mg tomorrow, then continue to decrease by 10 mg every day until off on . * UA shows positive nitrite, moderate leukocyte esterase and 23 WBCs. Cultures positive for group D Enterococcus. Patient currently on meropenem. ID following. Chest x-ray showed chronic changes without evidence for acute pulmonary disease. * Ammonia 9. * Patient and her has previously decided for patient to be no CODE STATUS. However patient at present is revoking, wants to be full code. Patient's seems to be in disagreement because of her overall health condition. Recommend psychiatry consultation for evaluating mental capacity, to clarify the CODE STATUS. * Speech therapy following for dysphagia. Surgical team also following. The plan is discussed with ICU nurse. Time with Patient: Less than 30
[2024-03-30] MEDS ORDERED: DEXTROSE 50% SYRINGE 50 ML IVP PRN ×2 (16:21)
[2024-03-30 16:25] LABS: Glucose,Whole Blood 134 mg/dL (70-110)
--- NOTE | 2024-03-30 16:35 | P.PN ---
Subjective Progress Note Date: 03/30/24 58-year-old female with history of hypothyroidism, seizure disorder, multiple sclerosis presenting from senior care after aspirating this evening. Patient is unable to provide any meaningful history. Patient was seen in our facility yesterday for tremoring and an episode of altered mental status and discharged. Staff states that she had a witnessed episode of aspiration while eating dinner this evening. She is currently on nonrebreather satting between 90-94%. Patient is unable to provide any meaningful history. later came to the bedside and informs us that over the last week the patient has been steeply declining. She previously was able to hold conversations and feed herself with accommodations. She is now only able to answer some yes and no questions and has tremoring of the arms but cannot follow directions with the extremities. Blood work completed in ED reveals a WBC of 8.4, high hemoglobin of 14.5 and platelet count of 201, sodium 142, potassium 3.9, BUNs/creatinine of 17/0.34 and blood glucose of 120, troponin less than 0.012 Patient is being admitted for further evaluation and treatment by neurology for possible MS exacerbation 03/22/2024 Patient is seen and evaluated sitting up in bed; discussed with nursing staff; no specific complaints reported Vital signs are reviewed and remained stable Lab review shows sodium of 146, potassium 4.1, BUNs/creatinine of 9.9/0.5, blood glucose elevated at 240 --Hyperglycemia likely related to high-dose steroid therapy; will order Accu- Cheks before every meal and at bedtime with insulin sliding scale -- Patient remains on Solu-Medrol 1000 mg daily for MS exacerbation; neurology on board; appreciate recommendations -- PT/BIG DATA DEVELOPER consulted 03/23/2024 Patient is seen and evaluated in follow-up today maintained on large dose IV steroids with neurology following being treated for MS exacerbation. Patient continues to have some confusion and altered mental status and maintained on 4 L via nasal cannula although oxygen saturations are 99%. Most recent chest x-ray was negative for acute process. Patient was recently hospitalized in February with infectious disease following for urinary tract infection and was noted to have ESBL. Will reconsult infectious disease as urine is nitrate positive and continues with altered mentation, initiate meropenem and appreciate input and recommendations from ID. Patient is currently afebrile with no white count noted. Patient is extremely high risk for aspiration as well and would recommend aspiration precaution and supervision with meals and head of the bed elevated 45 degrees at all times. Speech to evaluate the patient. Also recommend PT/OT therapy evaluation as patient will likely need to return to ECF on discharge. 03/24/2024 Patient seen in follow-up today mentation is much improved with at the bedside. Patient continuing to receive large dose IV steroids with neurology following. Patient reporting to having some continued coughing with diet and speech following recommending modified barium swallow. Would recommend aspir ation precautions. Patient is afebrile with no reports of chest pain or shortness of breath. Patient is on 2 to 4 L with an oxygen saturation of 99 to 100%. Discussed with patient as well as nursing staff about weaning FiO2. PT/OT therapy to evaluate with plans on returning to ECF on discharge. Patient is maintained on antibiotics with infectious disease following with concerns of urinary tract infection. Patient had recent hospitalization and had E. coli with ESBL in the urine. Patient is voiding without indwelling Dailey catheter at this time. 03/25/2024 Patient is seen in follow-up this morning currently awake and per nursing staff has been tolerating dysphagia diet with no coughing or choking. Patient is afebrile with no reports of chest pain or shortness of breath. Patient con tinues on oxygen discussed with patient along with nursing staff about weaning FiO2 as tolerated patient continues on large dose steroids for concerns of MS exacerbation with neurology. Infectious disease following patient will continue on antibiotic and await cultures. Plan is to return to ECF once stabilized and cleared by consultations 03/26/2024 Patient is seen in follow-up today with a cough that is congested and weak with concerns of aspiration. Patient has been evaluated by speech and maintained on pured diet with thickened liquids although patient per nursing staff as well as patient has been having some choking episodes last night with continued coughing. Patient continues on 2 L of oxygen and normally does not wear oxygen. Concerns of continuous aspiration will consult general surgery to evaluate PEG tube as patient reports she has not used it in a few months and has not been flushing it may be clogged. Patient is afebrile maintained on antibiotics awaiting cultures. Initial urine culture reported unsuitable and has been resubmitted. Patient is afebrile with no reports of chest pain or palpitations. Patient maintained on high-dose IV steroids and finishing today with neurology following. Recommend PT/OT therapy daily. Plan is to return to [facility] on discharge 03/27/2024 Patient is seen in follow-up today with no acute overnight issues noted. Patient was reinitiated on tube feeds as PEG tube was noted to properly flush per nursing staff and was cleared by general surgery for continued use. Dietary consulted and reinitiating tube feeds. Patient is requesting and advancing diet and evaluating with speech recommend to continue with aspiration precautions along with pured dysphagia diet and supervision with meals and head of the bed elevated 30 to 45 degrees at all times. Will continue to monitor closely as patient has been waxing and waning from continued choking on foods when they are advanced. Patient has completed IV steroids with neurology following recommending outpatient follow-up with her neurologist. Currently awaiting urine cultures with preliminary showing group D Enterococcus and patient will continue on current regimen with ID following. Plan is to return to [facility] on discharge. 03/30/2024 Patient is seen in follow-up today transferred over to 3 S. for closer monitoring although is in the ICU as an overflow as there are no beds available on 3 S. Patient was tachycardic and mild fever noted with a white count and unresponsive status post seizure activity last night. Patient was given a dose of IV Ativan and seizure stopped although patient remains minimally responsive and not talking. Patient is high risk for aspiration and does have a PEG tube recommend to continue with n.p.o. with aspiration precautions and strict PEG tube use for now. Patient is maintained on antibiotics with infectious disease following for urinary tract infection. Patient is continued on Macrobid and will continue. Lactic acid elevated and will give half-normal saline and follow-up on repeat labs. Repeat blood cultures requested and follow-up chest x-ray showing small amount of basilar atelectasis or scarring which is similar to previous with no new infiltrates identified. Neurology ordering EEG which is pending. Patient to continue on seizure medication with seizure precautions. Review of systems: Unable to completely assess as patient is minimally responsive and nonverbal Active Medications Albuterol/Ipratropium (Ipratropium-Albuterol 3 Ml Neb) 3 ml INHALATION RT-Q4H PRN PRN Reason: Shortness Of Breath Or Wheezing Last Admin: 03/25/24 18:21 Dose: 3 ml Amantadine HCl (Amantadine Hcl 100 Mg Cap) 100 mg PO BID@0700,2100 [facility] Last Admin: 03/30/24 13:12 Dose: 100 mg Aspirin (Aspirin 81 Mg) 81 mg PO DAILY [facility] Last Admin: 03/30/24 08:52 Dose: 81 mg Baclofen (Baclofen 10 Mg Tab) 20 mg PO Q4H [facility] Last Admin: 03/30/24 13:10 Dose: 20 mg Dextrose/Water (Dextrose 50% Syringe 50 Ml) 25 ml IVP PER PROTOCOL PRN; Protocol PRN Reason: Hypoglycemia Dextrose/Water (Dextrose 50% Syringe 50 Ml) 50 ml IVP PER PROTOCOL PRN; Protocol PRN Reason: Hypoglycemia Dicyclomine HCl (Dicyclomine 10 Mg Cap) 10 mg PO TID PRN PRN Reason: Dyspepsia Last Admin: 03/25/24 21:09 Dose: 10 mg Docusate Sodium (Docusate 100 Mg Cap) 100 mg PO BID [facility] Last Admin: 03/30/24 08:40 Dose: Not Given Enoxaparin Sodium (Enoxaparin 40 Mg/0.4 Ml Syringe) 40 mg SQ HS [facility] Last Admin: 03/29/24 22:52 Dose: 40 mg Famotidine (Famotidine 20 Mg Tab) 20 mg PO BID [facility] Last Admin: 03/30/24 08:52 Dose: 20 mg Acetaminophen 700 mg/ IV (Solution) 70 mls @ 400 mls/hr IVPB Q6HR [facility] Stop: 03/31/24 00:11 Last Admin: 03/30/24 13:10 Dose: 400 mls/hr Sodium Chloride (Saline 0.45%) 1,000 mls @ 100 mls/hr IV .Q10H [facility] Insulin Aspart (Insulin Aspart (Novolog) 100 Unit/Ml Vial) 0 unit SQ ACHS [facility]; Protocol Ketorolac Tromethamine (Ketorolac 15 Mg/Ml 1 Ml Vial) 15 mg IVP Q6HR PRN PRN Reason: Pain Stop: 03/30/24 18:16 Last Admin: 03/25/24 18:23 Dose: 15 mg Lacosamide (Lacosamide 50 Mg Tablet) 200 mg PO BID@0700,1600 [facility] Last Admin: 03/30/24 10:36 Dose: 200 mg Levothyroxine Sodium (Levothyroxine 100 Mcg Tab) 100 mcg PO DAILY@0500 [facility] Last Admin: 03/30/24 05:01 Dose: 100 mcg Methylphenidate HCl (Methylphenidate Hcl 10 Mg Tab) 10 mg PO BID@0800,1500 [facility] Last Admin: 03/30/24 08:52 Dose: 10 mg Naloxone HCl (Naloxone 0.4 Mg/Ml 1 Ml Vial) 0.2 mg IV Q2M PRN PRN Reason: Opioid Reversal Nitrofurantoin Macrocrystals (Nitrofurantoin Monohyd/M-Cryst 100 Mg Cap) 100 mg PO BID [facility]; Protocol Last Admin: 03/30/24 08:53 Dose: 100 mg Petrolatum (Zinc Oxide Paste (Z-Guard) 1 Applic) 1 applic TOPICAL BID [facility] Last Admin: 03/30/24 10:10 Dose: 1 applic Prednisone (Prednisone 20 Mg Tab) 30 mg PO DAILY [facility]; Taper Stop: 04/02/24 08:59 Last Admin: 03/30/24 08:52 Dose: 30 mg Valproic Acid (Valproic Acid Oral Soln 250 Mg/5 Ml Cup) 500 mg PEG/G-TUBE 0500,1300,2100 [facility] Last Admin: 03/30/24 13:11 Dose: 500 mg Physical exam: Gen: This is a 58-year-old female who is lethargic, minimally arousable, alert and oriented x 1, ill-appearing, elderly appearing, ill-appearing, thin built HEENT: Head is atraumatic, normocephalic. Pupils equal, round. Sclerae is anicteric. NECK: Supple. No JVD. No lymphadenopathy. No thyromegaly. LUNGS: Diminished breath sounds bilaterally with no wheezes, occasional congestion and scattered rhonchi noted. No intercostal retractions. HEART: S1, S2 are muffled ABDOMEN: Soft. Bowel sounds are present. No masses. No tenderness. PEG tube noted EXTREMITIES: No pedal edema. No calf tenderness. Contractures noted NEUROLOGICAL: Patient is responding to voice although extremely lethargic and nonverbal at this time, alert and oriented x0-1. Diffusely weak Assessment: -Possible MS exacerbation, recently admitted in February underwent high-dose steroid therapy for MS exacerbation, follows with neurology outpatient -Shortness of breath with acute hypoxic respiratory failure likely secondary to aspiration likely related to MS exacerbation; patient has been placed on a pured diet for level 1 dysphagia -Confusion with altered mental status likely secondary to urinary tract infection, improved -Seizure activity last night, lethargic and minimally responsive, undergoing EEG and adjustments to medications per neurology -acute urinary tract infection, present on admission, recent hospitalization requiring antibiotics for E. coli ESBL in the urine, culture showing group D Enterococcus -Generalized weakness/debility versus MS exacerbation; has completed high-dose IV steroid therapy per neurology; recommend PT/OT once stable -Seizure disorder; Vimpat 200 mg twice daily, Depakote 500 mg every 8 hours -Hypothyroidism; will continue home dose of levothyroxine 100 mcg daily -GI prophylaxis -DVT prophylaxis; SCDs/subcu Lovenox -No code Plan: Patient has completed high-dose steroids with neurology following, recommend outpatient follow-up with her neurologist. Patient on a quick prednisone taper Continue to monitor Accu-Cheks before meals and at bedtime as needed for high- dose steroids will adjust insulins accordingly PT/OT therapy to reevaluate for return to ECF for continued strength and mobility Patient will need close neurology follow-up outpatient. Patient apparently had a seizure last night and was given IV Ativan which was effective and neurology following with a EEG ordered and pending for today and undergoing medication adjustments Urine was noted to be positive for nitrates and leukocyte with history of recent E. coli with ESBL. Infectious disease following and appreciate input and re commendations regarding antibiotics. Culture showing group D Enterococcus and currently maintained on Macrobid twice daily Lactic acid is elevated and will add half-normal saline and follow-up on repeat labs. Recommend discontinuing reflex lactic and repeat a lactic acid in the a.m. Will follow-up on repeat labs Speech evaluation and continue with aspiration precautions with head of the bed elevated 30 to 45 degrees at all times. Patient was tolerating pured diet and is requesting an advancing diet back to pured's after patient was evaluated by general surgery and found to have PEG tube that was functioning and able to flush. Tube feedings have been resumed as well with dietary following. Patient was reevaluated by speech with no overt signs of aspiration noted recommending to continue with pured and aspiration precautions. Strongly recommend aspiration precautions and n.p.o. for now and just using PEG tube. Patient is extremely high risk for aspirating and felt to be continuously aspirating due to significant multiple sclerosis Wean FiO2 as tolerated as patient does not wear oxygen outpatient and currently 99% on 2 L. Case management/social work following as patient will be returning to [facility] once stabilized and discharged Due to multiple complex medical issues, overall prognosis is guarded The impression and plan of care has been dictated by Amarilys Hernandez, Nurse Practitioner as directed. Dr. Estefanía MD I have performed a history and examination and MDM of this patient, discussed the same with the dictator, and agree with the dictator's assessment and plan as written ,documented as a scribe. Based on total visit time, I have performed more than 50% of the visit. Objective - Vital Signs Vital signs: Vital Signs Temp 99.3 F 03/30/24 06:55 Pulse 95 03/30/24 06:55 Resp 15 03/30/24 06:55 BP 122/78 03/30/24 06:55 Pulse Ox 99 03/30/24 06:55 FiO2 21 03/28/24 07:59 Intake & Output 03/29/24 03/30/24 03/30/24 18:59 06:59 18:59 Output Total 1100 1100 400 Balance -1100 -1100 -400 Weight 51.71 kg Output: Urine 1100 1100 400 Other: Voiding Method External Catheter External Catheter # Voids 1 # Bowel Movements 1 1 - Labs CBC & Chem 7: 03/30/24 03:09 03/30/24 03:09 Labs: Abnormal Lab Results - Last 24 Hours (Table) 03/29/24 03/29/24 03/29/24 Range/Units 05:07 05:07 11:41 WBC (3.8-10.6) k/uL RDW 14.8 H (11.5-14.5) % Neutrophils # (1.3-7.7) k/uL Eosinophils # (Manual) 0 L (0.04-0.35) X 10*3/uL NRBC/100 WBC Diff 0.02 H (0.00-0.01) X 10*3/uL Creatinine 0.3 L (0.6-1.5) mg/dL BUN/Creatinine Ratio 35.67 H (12.00-20.00) Ratio Glucose (70-110) mg/dL POC Glucose (mg/dL) 124 H (70-110) mg/dL Plasma Lactic Acid Delvin (0.7-2.0) mmol/L 03/29/24 03/29/24 03/29/24 Range/Units 17:11 20:08 23:04 WBC (3.8-10.6) k/uL RDW (11.5-14.5) % Neutrophils # (1.3-7.7) k/uL Eosinophils # (Manual) (0.04-0.35) X 10*3/uL NRBC/100 WBC Diff (0.00-0.01) X 10*3/uL Creatinine (0.6-1.5) mg/dL BUN/Creatinine Ratio (12.00-20.00) Ratio Glucose (70-110) mg/dL POC Glucose (mg/dL) 148 H 135 H 206 H (70-110) mg/dL Plasma Lactic Acid Delvin (0.7-2.0) mmol/L 03/29/24 03/30/24 03/30/24 Range/Units 23:38 03:09 03:09 WBC 15.2 H (3.8-10.6) k/uL RDW (11.5-14.5) % Neutrophils # 13.0 H (1.3-7.7) k/uL Eosinophils # (Manual) (0.04-0.35) X 10*3/uL NRBC/100 WBC Diff (0.00-0.01) X 10*3/uL Creatinine 0.3 L (0.6-1.5) mg/dL BUN/Creatinine Ratio 36.00 H (12.00-20.00) Ratio Glucose 132 H (70-110) mg/dL POC Glucose (mg/dL) (70-110) mg/dL Plasma Lactic Acid Delvin 5.4 H* (0.7-2.0) mmol/L 03/30/24 03/30/24 Range/Units 03:09 06:51 WBC (3.8-10.6) k/uL RDW (11.5-14.5) % Neutrophils # (1.3-7.7) k/uL Eosinophils # (Manual) (0.04-0.35) X 10*3/uL NRBC/100 WBC Diff (0.00-0.01) X 10*3/uL Creatinine (0.6-1.5) mg/dL BUN/Creatinine Ratio (12.00-20.00) Ratio Glucose (70-110) mg/dL POC Glucose (mg/dL) (70-110) mg/dL Plasma Lactic Acid Delvin 2.9 H* 4.1 H* (0.7-2.0) mmol/L
[2024-03-30] MEDS: INSULIN ASPART (NovoLOG) 100 UNIT/ML VIAL SQ SCH (16:57)
[2024-03-30] MEDS: SODIUM CHLORIDE 0.45% 1,000 ML IV SCH (17:01)
[2024-03-30] MEDS: DEXTROSE 5% IN WATER 1,000 ML IV ONE (17:42)
[2024-03-30 18:25] LABS: Appearance,Urine Clear (Clear); Bilirubin,Urine Negative (Negative); Blood,Urine Negative (Negative); Color,Urine Colorless; Glucose,Urine (UA) Negative (Negative); Ketones,Urine Negative (Negative); Leukocyte Esterase,Urine Negative (Negative); Nitrite,Urine Negative (Negative); PH, Urine 7.5 (5.0-8.0); Protein,Urine Negative (Negative); Specific Gravity,Urine 1.009 (1.001-1.035); Urobilinogen,Urine <2.0 mg/dL (<2.0)
--- NOTE | 2024-03-30 21:16 | EEG ---
ELECTROENCEPHALOGRAM REPORT CLINICAL HISTORY: This is a 58-year-old woman with history of seizure, who had reported seizure-like activity yesterday by nursing staff. The video EEG is obtained to evaluate for seizure epileptiform activity. RELEVANT MEDICATIONS: 1. Vimpat. 2. Depakote. 3. Ativan. EEG TYPE: This is a routine 21-channel EEG with video using the 10/20 electrode placement system. DESCRIPTION: Wakefulness and drowsiness are obtained. During awake state, the background consists of [id number] voltage of 5.5 to 6.5 hertz activity. At times, the background consists of delta activity. There is no physiological stage 2 sleep architecture. There is no focal slowing. Interictal and ictal is none. ACTIVATION PROCEDURE: Photic stimulation did not evoke a posterior driving response. There is no abnormality during the photic stimulation. Hyperventilation is not performed. CLINICAL INTERPRETATION: This is an abnormal routine EEG. The background slowing is suggestive of moderate encephalopathy. Otherwise, there is no focal slowing, epileptiform discharge, or seizure on the EEG. Clinical correlation is recommended. MMODL / IJN: [id number] /
[2024-03-30 23:53] LABS: Glucose,Whole Blood 99 mg/dL (70-110)
[2024-03-31 05:49] LABS: Glucose,Whole Blood 111 mg/dL (70-110)
--- NOTE | 2024-03-31 09:12 | P.PN ---
Subjective Progress Note Date: 03/30/24 Principal diagnosis: Reason for follow-up is UTI Patient is a 58-year-old female with a past medical history significant for MS history of recurrent UTI largely with ESBL E. coli has been brought to the hospital concerning for possible aspiration the patient was noted to have witnessed a choking episode by the [facility] she also have a positive UA concerning for symptomatic UTI started on meropenem prompting this consultation. On today's evaluation that is 03/30/2024, the patient did have a seizure activity requiring transfer to the ICU patient is hemodynamically stable not requiring any pressor support and no fever has been recorded patient was lethargic cannot provide any history and breathing comfortably on room air. Patient white count is slightly up to 15.2 today creatinine 0.3 Objective - Vital Signs Vital signs: Vital Signs Temp 98.2 F 03/30/24 09:56 Pulse 94 03/30/24 10:00 Resp 16 03/30/24 10:00 BP 115/76 03/30/24 10:00 Pulse Ox 100 03/30/24 09:56 FiO2 21 03/28/24 07:59 Intake & Output 03/29/24 03/30/24 03/30/24 18:59 06:59 18:59 Output Total 1100 1100 400 Balance -1100 -1100 -400 Weight 51.71 kg Output: Urine 1100 1100 400 Other: Voiding Method External Catheter External Catheter # Voids 1 # Bowel Movements 1 1 - Exam Middle-age female lying in bed in no distress Respiratory system unlabored breathing decreased breath sound the base Heart S1-S2 regular Abdominal soft mild left-sided tenderness Extremities no edema feet - Labs CBC & Chem 7: 03/30/24 03:09 03/30/24 03:09 Labs: Abnormal Lab Results - Last 24 Hours (Table) 03/29/24 03/29/24 03/29/24 Range/Units 17:11 20:08 23:04 WBC (3.8-10.6) k/uL Neutrophils # (1.3-7.7) k/uL Creatinine (0.6-1.5) mg/dL BUN/Creatinine Ratio (12.00-20.00) Ratio Glucose (70-110) mg/dL POC Glucose (mg/dL) 148 H 135 H 206 H (70-110) mg/dL Plasma Lactic Acid Delvin (0.7-2.0) mmol/L 03/29/24 03/30/24 03/30/24 Range/Units 23:38 03:09 03:09 WBC 15.2 H (3.8-10.6) k/uL Neutrophils # 13.0 H (1.3-7.7) k/uL Creatinine 0.3 L (0.6-1.5) mg/dL BUN/Creatinine Ratio 36.00 H (12.00-20.00) Ratio Glucose 132 H (70-110) mg/dL POC Glucose (mg/dL) (70-110) mg/dL Plasma Lactic Acid Delvin 5.4 H* (0.7-2.0) mmol/L 03/30/24 03/30/24 03/30/24 Range/Units 03:09 06:51 10:35 WBC (3.8-10.6) k/uL Neutrophils # (1.3-7.7) k/uL Creatinine (0.6-1.5) mg/dL BUN/Creatinine Ratio (12.00-20.00) Ratio Glucose (70-110) mg/dL POC Glucose (mg/dL) (70-110) mg/dL Plasma Lactic Acid Delvin 2.9 H* 4.1 H* 2.5 H* (0.7-2.0) mmol/L 03/30/24 Range/Units 12:30 WBC (3.8-10.6) k/uL Neutrophils # (1.3-7.7) k/uL Creatinine (0.6-1.5) mg/dL BUN/Creatinine Ratio (12.00-20.00) Ratio Glucose (70-110) mg/dL POC Glucose (mg/dL) 142 H (70-110) mg/dL Plasma Lactic Acid Delvin (0.7-2.0) mmol/L Assessment and Plan (1) UTI (urinary tract infection) Current Visit: No Status: Acute Code(s): N39.0 - URINARY TRACT INFECTION, SITE NOT SPECIFIED SNOMED Code(s): 88924499 Plan: 1present to the hospital initially with concern for witnessed aspiration on her dinner shortness of breath and hypoxemia however the chest x-ray was reported to be negative for acute infiltrate did have normal procalcitonin patient has been feeling weak and did have a positive UA concerning for possible UTI not entirely excluded 2-repeat a chest x-ray PA and lateral did not show any acute infiltrate 3-patient urine culture has been finalized with VRE that is resistant to ampicillin daptomycin we cannot use her Zyvox because of interaction with her other medication 4-patient did have seizure activity requiring transfer to the ICU white count sl ightly up today but not running any fever not hypoxic we will repeat a UA and adjust antibiotic if needed Dictation was produced using [employer] dictation software. please excuse any grammatical, word or spelling errors. Time with Patient: Less than 30
[2024-03-31 11:01] LABS: Basophils # (A) 0.1 k/uL (0-0.2); Basophils % (A) 1 %; Eosinophils # (A) 0.5 k/uL (0-0.7); Eosinophils % (A) 4 %; HGB 12.8 gm/dL (11.4-16.0); Lymphocytes # (A) 1.4 k/uL (1.0-4.8); Lymphocytes % (A) 12 %; MCH 29.8 pg (25.0-35.0); MCHC 32.1 g/dL (31.0-37.0); MCV 92.8 fL (80.0-100.0); Mean Platelet Volume 9.2; Monocytes # (A) 0.7 k/uL (0-1.0); Monocytes % (A) 6 %; Neutrophils # (A) 8.9 k/uL (1.3-7.7); Neutrophils % (A) 77 %; Platelet Count 389 k/uL (150-450); RBC 4.31 m/uL (3.80-5.40); RDW 15.2 % (11.5-15.5); WBC 11.6 k/uL (3.8-10.6)
[2024-03-31 11:06] LABS: African American GFR (CKD) >90 (>60 ml/min/1.73 sqM); Anion Gap 2 mmol/L; Blood Urea Nitrogen 9 mg/dL (7-17); Calcium 8.5 mg/dL (8.4-10.2); Carbon Dioxide 30 mmol/L (22-30); Chloride 102 mmol/L (98-107); Glucose 108 mg/dL (74-99); Non-African American GFR(CKD) >90 (>60 ml/min/1.73 sqM); Potassium 4.2 mmol/L (3.5-5.1); Sodium 134 mmol/L (137-145)
[2024-03-31 12:02] LABS: Glucose,Whole Blood 129 mg/dL (70-110)
--- NOTE | 2024-03-31 12:10 | P.PN ---
Subjective Progress Note Date: 03/31/24 I am following-up with patient and she is accompanied with her who feels she is much better today compared to yesterday. Today she is conversing and responding to questions appropriately. Per she has history of Multiple Slcerosis and was still function until December 2022 in which her condition drastically worsened. She was following-up with neurologist over [place] and they are pending to follow-up with neurologist locally. Objective - Vital Signs Vital signs: Vital Signs Temp 98.6 F 03/31/24 11:52 Pulse 100 03/31/24 11:52 Resp 18 03/31/24 11:52 BP 124/65 03/31/24 11:52 Pulse Ox 95 03/31/24 11:52 FiO2 21 03/28/24 07:59 Intake & Output 03/30/24 03/31/24 03/31/24 18:59 06:59 18:59 Intake Total 2436 50 308 Output Total 1550 550 Balance 886 -500 308 Weight 51.71 kg Intake: IV 1780 50 ACETAMINOPHEN IV (For NPO 1400 ) 700 mg In Empty Bag 1 bag @ 400 mls/hr IVPB Q6HR [facility] Rx#:[id number] Invasive Line 2 50 20 Invasive Line 3 30 30 Sodium Chloride 0.45% 1, 200 000 ml @ 100 mls/hr IV . Q10H [facility] Rx#:[id number] Valproate Sodium 1,000 mg 100 In Sodium Chloride 0.9% 100 ml @ 100 mls/hr IVPB ONCE [facility] Rx#:[id number] Tube Feeding 396 308 Other 260 Output: Urine 1550 550 Other: Voiding Method External Catheter External Catheter # Bowel Movements 0 - Exam General: Lying in bed and does not appear in acute distress.. Neuro: Limited. Is awake, alert, oriented to self. She correctly stated her 's name correct. Is severely hypophonia. Is following simple commands. No facial weakness. No dsyarthria but as stated above is severely hypophonia. Motor: Limited but has some movement of uppers and lift above gravity while lowers no movement noted. - Labs CBC & Chem 7: 03/31/24 09:31 03/31/24 09:31 Labs: Abnormal Lab Results - Last 24 Hours (Table) 03/30/24 03/30/24 03/30/24 Range/Units 12:30 14:05 16:23 WBC (3.8-10.6) k/uL Neutrophils # (1.3-7.7) k/uL Sodium (137-145) mmol/L Creatinine (0.52-1.04) mg/dL Glucose (74-99) mg/dL POC Glucose (mg/dL) 142 H 134 H (70-110) mg/dL Plasma Lactic Acid Delvin 4.8 H* (0.7-2.0) mmol/L 03/30/24 03/31/24 03/31/24 Range/Units 17:17 05:48 09:31 WBC 11.6 H (3.8-10.6) k/uL Neutrophils # 8.9 H (1.3-7.7) k/uL Sodium (137-145) mmol/L Creatinine (0.52-1.04) mg/dL Glucose (74-99) mg/dL POC Glucose (mg/dL) 111 H (70-110) mg/dL Plasma Lactic Acid Delvin 2.3 H* (0.7-2.0) mmol/L 03/31/24 Range/Units 09:31 WBC (3.8-10.6) k/uL Neutrophils # (1.3-7.7) k/uL Sodium 134 L (137-145) mmol/L Creatinine 0.22 L (0.52-1.04) mg/dL Glucose 108 H (74-99) mg/dL POC Glucose (mg/dL) (70-110) mg/dL Plasma Lactic Acid Delvin (0.7-2.0) mmol/L Assessment and Plan Assessment: * Breakthrough seizure while on the floor on 03/29/2024 and was given Ativan. It seems her Depakote level is subtherapeutic---today is doing better. * Lactic acid elevated could be due to seizure vs underlying infection. * Altered mental status due to post-ictal and metabolic encephalopathy--improving. * Probable MS exacerbation per Dr. Villatoro and was recently treated for Solumedrol IV for 5 days followed by Prednisone on 02/29/24 * Acute UTI, urine growing group D Enterococcus * Seizure disorder, diagnosed 12/19/2023. * Advanced multiple sclerosis, wheelchair bound. Likely she had Relapsing Remitting Multiple Sclerosis that transitioned to secondary progressive * Paraplegia * Dysphagia, probably due to MS * DO NOT RESUSCITATE Plan: * Routine EEG on 03/30/2024: Is abnormal. The background slowing is suggestive of moderate encephalopathy. Otherwise, there is no focal slowing, epileptiform discharges or seizure on the EEG. * Her Valproic acid level is 27.9 (normal is 50-120), and since subtherapeutic and had breakthrough seizure on 03/29/2024, I gave her loading dose of Valproic acid 1gm IV once yesterday. Today is doing drastically better. * Continue Vimpat 200 mg twice a day and Depakote 500 mg 3 times a day. * Patient was recently treated for MS exacerbation with 5 days of IV Solu-Medrol followed by prednisone oral taper on 02/29/2024. She improved at the time, but after discharge patient developed progressive worsening of her condition. Her muscle strength is remarkably decreased, therefore was readmitted 03/20/2024. Patient given another course of Solu-Medrol 1 g IV PB daily for 6 days during this current admission per Dr. Villatoro. * Dr. Villatoro discussed with patient and her about oral prednisone taper. Informed them about risks of high-dose steroids including risk of thrush, osteoporosis, increasing blood sugars, electrolyte problems. As patient has confirmed UTI with group D Enterococcus, her weakness could be related to the UTI. Patient does want to take oral prednisone taper, but we will rapidly taper off prednisone. Patient will receive prednisone 60 mg today, then 50 mg tomorrow, then continue to decrease by 10 mg every day until off on . * UA shows positive nitrite, moderate leukocyte esterase and 23 WBCs. Cultures positive for group D Enterococcus. Patient currently on meropenem. ID following. Chest x-ray showed chronic changes without evidence for acute pulmonary disease. * Ammonia 9. * Patient and her has previously decided for patient to be no CODE STATUS. However patient at present is revoking, wants to be full code. Patient's seems to be in disagreement because of her overall health condition. Recommend psychiatry consultation for evaluating mental capacity, to clarify the CODE STATUS. * Speech therapy following for dysphagia. Surgical team also following. * Upon discharge, the will attempt to have her follow-up with local neurologist as outpatient within 1-2 weeks. She was following-up with Neurologist over [place] where in past she used to live. The plan is discussed with patient's who is at bedside. Time with Patient: Less than 30
--- NOTE | 2024-03-31 14:33 | CT ---
EXAMINATION TYPE: CT brain wo con DATE OF EXAM: 03/31/2024 COMPARISON: 03/19/2024 HISTORY: Multiple Sclerosis CT DLP: 1079.[address] of the brain was performed. The ventricles, basal cisterns and sulci overlying the cerebral convexities demonstrate mild enlargem ent. There is no evidence for intracranial hemorrhage or sulcal effacement. There is decreased attenuation about the periventricular white matter and deep white matter of both c erebral hemispheres, compatible with chronic small vessel ischemia. Differential diagnosis does inclu de demyelination. No mass effects are seen.No midline shift. Osseous calvarium is intact. If symptoms persist consider MRI. IMPRESSION: 1. Age related atrophic and chronic small vessel ischemic change without acute intracranial process s een at this time.
[2024-03-31 15:07] LABS: Lamotrigine (Lamictal) <0.2 ug/mL (2.0-15.0)
[2024-03-31 16:27] LABS: Glucose,Whole Blood 136 mg/dL (70-110)
[2024-03-31 20:07] LABS: Glucose,Whole Blood 116 mg/dL (70-110)
--- NOTE | 2024-03-31 23:53 | P.PN ---
Subjective Progress Note Date: 03/31/24 58-year-old female with history of hypothyroidism, seizure disorder, multiple sclerosis presenting from [facility] after aspirating this evening. Patient is unable to provide any meaningful history. Patient was seen in our facility yesterday for tremoring and an episode of altered mental status and discharged. Staff states that she had a witnessed episode of aspiration while eating dinner this evening. She is currently on nonrebreather satting between 90-94%. Patient is unable to provide any meaningful history. later came to the bedside and informs us that over the last week the patient has been steeply declining. She previously was able to hold conversations and feed herself with accommodations. She is now only able to answer some yes and no questions and has tremoring of the arms but cannot follow directions with the extremities. Blood work completed in ED reveals a WBC of 8.4, high hemoglobin of 14.5 and platelet count of 201, sodium 142, potassium 3.9, BUNs/creatinine of 17/0.34 and blood glucose of 120, troponin less than 0.012 Patient is being admitted for further evaluation and treatment by neurology for possible MS exacerbation 03/22/2024 Patient is seen and evaluated sitting up in bed; discussed with nursing staff; no specific complaints reported Vital signs are reviewed and remained stable Lab review shows sodium of 146, potassium 4.1, BUNs/creatinine of 9.9/0.5, blood glucose elevated at 240 --Hyperglycemia likely related to high-dose steroid therapy; will order Accu- Cheks before every meal and at bedtime with insulin sliding scale -- Patient remains on Solu-Medrol 1000 mg daily for MS exacerbation; neurology on board; appreciate recommendations -- PT/WINDOWS SECURITY ANALYST consulted 03/23/2024 Patient is seen and evaluated in follow-up today maintained on large dose IV steroids with neurology following being treated for MS exacerbation. Patient continues to have some confusion and altered mental status and maintained on 4 L via nasal cannula although oxygen saturations are 99%. Most recent chest x-ray was negative for acute process. Patient was recently hospitalized in February with infectious disease following for urinary tract infection and was noted to have ESBL. Will reconsult infectious disease as urine is nitrate positive and continues with altered mentation, initiate meropenem and appreciate input and recommendations from ID. Patient is currently afebrile with no white count noted. Patient is extremely high risk for aspiration as well and would recommend aspiration precaution and supervision with meals and head of the bed elevated 45 degrees at all times. Speech to evaluate the patient. Also recommend PT/OT therapy evaluation as patient will likely need to return to ECF on discharge. 03/24/2024 Patient seen in follow-up today mentation is much improved with at the bedside. Patient continuing to receive large dose IV steroids with neurology following. Patient reporting to having some continued coughing with diet and speech following recommending modified barium swallow. Would recommend aspir ation precautions. Patient is afebrile with no reports of chest pain or shortness of breath. Patient is on 2 to 4 L with an oxygen saturation of 99 to 100%. Discussed with patient as well as nursing staff about weaning FiO2. PT/OT therapy to evaluate with plans on returning to ECF on discharge. Patient is maintained on antibiotics with infectious disease following with concerns of urinary tract infection. Patient had recent hospitalization and had E. coli with ESBL in the urine. Patient is voiding without indwelling Dailey catheter at this time. 03/25/2024 Patient is seen in follow-up this morning currently awake and per nursing staff has been tolerating dysphagia diet with no coughing or choking. Patient is afebrile with no reports of chest pain or shortness of breath. Patient con tinues on oxygen discussed with patient along with nursing staff about weaning FiO2 as tolerated patient continues on large dose steroids for concerns of MS exacerbation with neurology. Infectious disease following patient will continue on antibiotic and await cultures. Plan is to return to ECF once stabilized and cleared by consultations 03/26/2024 Patient is seen in follow-up today with a cough that is congested and weak with concerns of aspiration. Patient has been evaluated by speech and maintained on pured diet with thickened liquids although patient per nursing staff as well as patient has been having some choking episodes last night with continued coughing. Patient continues on 2 L of oxygen and normally does not wear oxygen. Concerns of continuous aspiration will consult general surgery to evaluate PEG tube as patient reports she has not used it in a few months and has not been flushing it may be clogged. Patient is afebrile maintained on antibiotics awaiting cultures. Initial urine culture reported unsuitable and has been resubmitted. Patient is afebrile with no reports of chest pain or palpitations. Patient maintained on high-dose IV steroids and finishing today with neurology following. Recommend PT/OT therapy daily. Plan is to return to [facility] on discharge 03/27/2024 Patient is seen in follow-up today with no acute overnight issues noted. Patient was reinitiated on tube feeds as PEG tube was noted to properly flush per nursing staff and was cleared by general surgery for continued use. Dietary consulted and reinitiating tube feeds. Patient is requesting and advancing diet and evaluating with speech recommend to continue with aspiration precautions along with pured dysphagia diet and supervision with meals and head of the bed elevated 30 to 45 degrees at all times. Will continue to monitor closely as patient has been waxing and waning from continued choking on foods when they are advanced. Patient has completed IV steroids with neurology following recommending outpatient follow-up with her neurologist. Currently awaiting urine cultures with preliminary showing group D Enterococcus and patient will continue on current regimen with ID following. Plan is to return to [facility] on discharge. 03/30/2024 Patient is seen in follow-up today transferred over to 3 [address]. for closer monitoring although is in the ICU as an overflow as there are no beds available on 3 S. Patient was tachycardic and mild fever noted with a white count and unresponsive status post seizure activity last night. Patient was given a dose of IV Ativan and seizure stopped although patient remains minimally responsive and not talking. Patient is high risk for aspiration and does have a PEG tube recommend to continue with n.p.o. with aspiration precautions and strict PEG tube use for now. Patient is maintained on antibiotics with infectious disease following for urinary tract infection. Patient is continued on Macrobid and will continue. Lactic acid elevated and will give half-normal saline and follow-up on repeat labs. Repeat blood cultures requested and follow-up chest x-ray showing small amount of basilar atelectasis or scarring which is similar to previous with no new infiltrates identified. Neurology ordering EEG which is pending. Patient to continue on seizure medication with seizure precautions. 03/31/2024 Patient is seen in follow-up today and mentation is improved and patient is able to conversate and answer questions appropriately. Patient is maintained on tube feeds and tolerating recommend head of the bed elevated 30 to 45 degrees at all times with aspiration precautions. White count is trending down and patient is afebrile and lactic acid has improved. Patient was maintained on IV hydration of half-normal saline and will discontinue. Neurology following and valproic acid level found to be low given a loading dose and maintained on Vimpat Lamictal as well. Continue n.p.o. for now and just tube feeds and PEG tube as patient is extremely high risk for aspirating. Review of systems: Constitutional: reports of fatigue, no further fever, or chills Cardiovascular: No reports of chest pain or palpitations Respiratory: No reports of shortness of breath or cough GI: No reports of nausea, vomiting, or diarrhea, tolerating tube feeds : No reports of dysuria or retention Neurovascular: reports of weakness All medications have been reviewed Physical exam: Gen: This is a 58-year-old female who is awake, alert and oriented x 2-3, ill- appearing, elderly appearing, thin built HEENT: Head is atraumatic, normocephalic. Pupils equal, round. Sclerae is anicteric. NECK: Supple. No JVD. No lymphadenopathy. No thyromegaly. LUNGS: Diminished breath sounds bilaterally with no wheezes, occasional congestion and scattered rhonchi noted. No intercostal retractions. HEART: S1, S2 are muffled ABDOMEN: Soft. Bowel sounds are present. No masses. No tenderness. PEG tube noted EXTREMITIES: No pedal edema. No calf tenderness. Contractures noted NEUROLOGICAL: Patient is much more awake, having conversation and following commands, alert and oriented x 2-3 Assessment: - MS exacerbation, recently admitted in February underwent high-dose steroid therapy for MS exacerbation, follows with neurology outpatient -Shortness of breath with acute hypoxic respiratory failure likely secondary to aspiration likely related to MS exacerbation; PEG tube evaluated and patient is maintained on tube feeds, n.p.o. for now -Confusion with altered mental status likely secondary to urinary tract infection, improved -Breakthrough seizure, valproic acid level was low and given a loading dose -acute urinary tract infection, present on admission, recent hospitalization requiring antibiotics for E. coli ESBL in the urine, culture showing group D Enterococcus -Generalized weakness/debility versus MS exacerbation; has completed high-dose IV steroid therapy per neurology; recommend PT/OT once stable -Seizure disorder; Vimpat 200 mg twice daily, Depakote 500 mg every 8 hours -Hypothyroidism; will continue home dose of levothyroxine 100 mcg daily -GI prophylaxis -DVT prophylaxis; SCDs/subcu Lovenox -No code Plan: Patient has completed high-dose steroids with neurology following, recommend outpatient follow-up with her neurologist. Patient on a quick prednisone taper Continue to monitor Accu-Cheks before meals and at bedtime as needed for high- dose steroids will adjust insulins accordingly PT/OT therapy to reevaluate for return to F for continued strength and mobility Patient will need close neurology follow-up outpatient. Patient apparently had seizure-like activity last night and was given IV Ativan which was effective and neurology following with a EEG ordered and was abnormal due to encephalopathy although no epileptiform discharges noted. Valproic acid level was low and giving a loading dose and will be continued on Depakote and Vimpat Urine was noted to be positive for nitrates and leukocyte with history of recent E. coli with ESBL. Infectious disease following and appreciate input and recommendations regarding antibiotics. Culture showing group D Enterococcus and currently maintained on Macrobid twice daily Will follow-up on repeat labs Speech evaluation and continue with aspiration precautions with head of the bed elevated 30 to 45 degrees at all times. Patient was tolerating pured diet and is requesting an advancing diet back to pured's after patient was evaluated by general surgery and found to have PEG tube that was functioning and able to flush. Tube feedings have been resumed as well with dietary following. Patient was reevaluated by speech with no overt signs of aspiration noted recommending to continue with pured and aspiration precautions. Strongly recommend aspiration precautions and n.p.o. for now and just using PEG tube. Patient is extremely high risk for aspirating and felt to be continuously aspirating due to significant multiple sclerosis Wean FiO2 as tolerated as patient does not wear oxygen outpatient and currently 99% on room air. Case management/social work following as patient will be returning to [facility] once stabilized and discharged Due to multiple complex medical issues, overall prognosis is guarded The impression and plan of care has been dictated by Amarilys Hernandez, Nurse Practitioner as directed. Dr. Estefanía MD I have performed a history and examination and MDM of this patient, discussed the same with the dictator, and agree with the dictator's assessment and plan as written ,documented as a scribe. Based on total visit time, I have performed more than 50% of the visit. Objective - Vital Signs Vital signs: Vital Signs Temp 98.2 F 03/31/24 20:00 Pulse 95 03/31/24 20:00 Resp 18 03/31/24 20:00 BP 120/74 03/31/24 20:00 Pulse Ox 95 03/31/24 20:00 FiO2 21 03/28/24 07:59 Intake & Output 03/31/24 03/31/24 04/01/24 06:59 18:59 06:59 Intake Total 50 660 176 Output Total 550 1000 400 Balance -500 -340 -224 Weight 51.71 kg Intake: IV 50 Invasive Line 2 20 Invasive Line 3 30 Tube Feeding 660 176 Output: Urine 550 1000 400 Other: Voiding Method External Catheter External Catheter External Catheter # Bowel Movements 1 - Labs CBC & Chem 7: 03/31/24 09:31 03/31/24 09:31 Labs: Abnormal Lab Results - Last 24 Hours (Table) 03/31/24 03/31/24 03/31/24 Range/Units 05:48 09:31 09:31 WBC 11.6 H (3.8-10.6) k/uL Neutrophils # 8.9 H (1.3-7.7) k/uL Sodium 134 L (137-145) mmol/L Creatinine 0.22 L (0.52-1.04) mg/dL Glucose 108 H (74-99) mg/dL POC Glucose (mg/dL) 111 H (70-110) mg/dL 03/31/24 03/31/24 03/31/24 Range/Units 12:01 16:26 20:06 WBC (3.8-10.6) k/uL Neutrophils # (1.3-7.7) k/uL Sodium (137-145) mmol/L Creatinine (0.52-1.04) mg/dL Glucose (74-99) mg/dL POC Glucose (mg/dL) 129 H 136 H 116 H (70-110) mg/dL Microbiology - Last 24 Hours (Table) 03/29/24 23:42 Blood Culture - Preliminary Blood 03/29/24 23:42 Blood Culture - Preliminary Blood
[2024-04-01 00:40] LABS: Glucose,Whole Blood 90 mg/dL (70-110)
[2024-04-01 06:05] LABS: Glucose,Whole Blood 120 mg/dL (70-110)
[2024-04-01 11:21] LABS: Basophils % (A) 0 %; Eosinophils # (A) 0.5 k/uL (0-0.7); Eosinophils % (A) 3 %; HCT 39.3 % (34.0-46.0); HGB 12.7 gm/dL (11.4-16.0); Lymphocytes # (A) 1.2 k/uL (1.0-4.8); Lymphocytes % (A) 8 %; MCHC 32.4 g/dL (31.0-37.0); MCV 92.5 fL (80.0-100.0); Mean Platelet Volume 8.5; Monocytes # (A) 0.9 k/uL (0-1.0); Monocytes % (A) 6 %; Neutrophils % (A) 82 %; Platelet Count 479 k/uL (150-450); RBC 4.25 m/uL (3.80-5.40); RDW 15.4 % (11.5-15.5); WBC 14.7 k/uL (3.8-10.6)
[2024-04-01 11:29] LABS: Glucose,Whole Blood 137 mg/dL (70-110)
[2024-04-01 11:44] LABS: African American GFR (CKD) >90 (>60 ml/min/1.73 sqM); Anion Gap 5 mmol/L; Blood Urea Nitrogen 9 mg/dL (7-17); Calcium 8.9 mg/dL (8.4-10.2); Carbon Dioxide 31 mmol/L (22-30); Chloride 101 mmol/L (98-107); Glucose 112 mg/dL (74-99); Magnesium 2.1 mg/dL (1.6-2.3); Non-African American GFR(CKD) >90 (>60 ml/min/1.73 sqM); Sodium 137 mmol/L (137-145)
--- NOTE | 2024-04-01 12:05 | P.PN ---
Subjective Progress Note Date: 04/01/24 Principal diagnosis: Reason for follow-up is UTI Patient is a 58-year-old female with a past medical history significant for MS history of recurrent UTI largely with ESBL E. coli has been brought to the hospital concerning for possible aspiration the patient was noted to have witnessed a choking episode by the half-way she also have a positive UA concerning for symptomatic UTI started on meropenem prompting this consultation. On today's evaluation that is 04/01/2024, patient has been afebrile, patient is breathing comfortably and is currently on room air, patient denies having any significant cough no chest pain shortness of breath, patient denies nausea vo miting or diarrhea and no abdominal pain, no new seizure activity has been reported mention feeling better. Patient white count slightly up to 14.7, creatinine 0.24 repeat UA is clear Objective - Vital Signs Vital signs: Vital Signs Temp 96.5 F L 04/01/24 09:22 Pulse 110 H 04/01/24 11:58 Resp 16 04/01/24 11:58 BP 108/67 04/01/24 11:58 Pulse Ox 95 04/01/24 11:58 FiO2 21 03/28/24 07:59 Intake & Output 03/31/24 04/01/24 04/01/24 18:59 06:59 18:59 Intake Total 660 176 176 Output Total 1000 1301 1 Balance -340 -1125 175 Weight 51.71 kg Intake: Tube Feeding 660 176 176 Output: Urine 1000 1300 Stool 1 1 Other: Voiding Method External Catheter External Catheter External Catheter # Bowel Movements 1 - Exam Middle-age female lying in bed in no distress Respiratory system unlabored breathing decreased breath sound the base Heart S1-S2 regular Abdominal soft mild left-sided tenderness Extremities no edema feet - Labs CBC & Chem 7: 04/01/24 10:06 04/01/24 10:06 Labs: Abnormal Lab Results - Last 24 Hours (Table) 03/31/24 03/31/24 04/01/24 Range/Units 16:26 20:06 06:03 WBC (3.8-10.6) k/uL Plt Count (150-450) k/uL Neutrophils # (1.3-7.7) k/uL Carbon Dioxide (22-30) mmol/L Creatinine (0.52-1.04) mg/dL Glucose (74-99) mg/dL POC Glucose (mg/dL) 136 H 116 H 120 H (70-110) mg/dL 04/01/24 04/01/24 04/01/24 Range/Units 10:06 10:06 11:27 WBC 14.7 H (3.8-10.6) k/uL Plt Count 479 H (150-450) k/uL Neutrophils # 12.0 H (1.3-7.7) k/uL Carbon Dioxide 31 H (22-30) mmol/L Creatinine 0.24 L (0.52-1.04) mg/dL Glucose 112 H (74-99) mg/dL POC Glucose (mg/dL) 137 H (70-110) mg/dL Microbiology - Last 24 Hours (Table) 03/29/24 23:42 Blood Culture - Preliminary Blood 03/29/24 23:42 Blood Culture - Preliminary Blood Assessment and Plan (1) UTI (urinary tract infection) Current Visit: No Status: Acute Code(s): N39.0 - URINARY TRACT INFECTION, SITE NOT SPECIFIED SNOMED Code(s): 03927942 Plan: 1present to the hospital initially with concern for witnessed aspiration on her dinner shortness of breath and hypoxemia however the chest x-ray was reported to be negative for acute infiltrate did have normal procalcitonin patient has been feeling weak and did have a positive UA concerning for possible UTI not entirely excluded 2-repeat a chest x-ray PA and lateral did not show any acute infiltrate 3-patient urine culture has been finalized with VRE that is resistant to ampicillin daptomycin we cannot use her Zyvox because of interaction with her other medication 4-patient remains to be afebrile white count was down yesterday but slightly up today repeat urine is clear no hypoxemia or concern for pneumonia we will watch white count closely continue Macrobid Dictation was produced using [employer] dictation software. please excuse any grammatical, word or spelling errors. Time with Patient: Less than 30
--- NOTE | 2024-04-01 12:05 | P.PN ---
Subjective Progress Note Date: 03/31/24 Principal diagnosis: Reason for follow-up is UTI Patient is a 58-year-old female with a past medical history significant for MS history of recurrent UTI largely with ESBL E. coli has been brought to the hospital concerning for possible aspiration the patient was noted to have witnessed a choking episode by the [facility] she also have a positive UA concerning for symptomatic UTI started on meropenem prompting this consultation. On today's evaluation that is 03/31/2024, Patient is afebrile patient is currently on room air and denies having any shortness of breath, the patient denies any chest pain or cough, the patient denies any nausea vomiting did not have any abdominal pain and no diarrhea slightly more awake today compared to yesterday. Patient white. 11.6, creatinine 0.22 Objective - Vital Signs Vital signs: Vital Signs Temp 98.6 F 03/31/24 11:52 Pulse 100 03/31/24 11:52 Resp 18 03/31/24 11:52 BP 124/65 03/31/24 11:52 Pulse Ox 95 03/31/24 11:52 FiO2 21 03/28/24 07:59 Intake & Output 03/30/24 03/31/24 03/31/24 18:59 06:59 18:59 Intake Total 2436 50 308 Output Total 1550 550 Balance 886 -500 308 Weight 51.71 kg Intake: IV 1780 50 ACETAMINOPHEN IV (For NPO 1400 ) 700 mg In Empty Bag 1 bag @ 400 mls/hr IVPB Q6HR [facility] Rx#:[id number] Invasive Line 2 50 20 Invasive Line 3 30 30 Sodium Chloride 0.45% 1, 200 000 ml @ 100 mls/hr IV . Q10H [facility] Rx#:[id number] Valproate Sodium 1,000 mg 100 In Sodium Chloride 0.9% 100 ml @ 100 mls/hr IVPB [facility] Rx#:[id number] Tube Feeding 396 308 Other 260 Output: Urine 1550 550 Other: Voiding Method External Catheter External Catheter # Bowel Movements 0 - Exam Middle-age female lying in bed in no distress Respiratory system unlabored breathing decreased breath sound the base Heart S1-S2 regular Abdominal soft mild left-sided tenderness Extremities no edema feet - Labs CBC & Chem 7: 04/01/24 10:06 04/01/24 10:06 Labs: Abnormal Lab Results - Last 24 Hours (Table) 03/30/24 03/30/24 03/30/24 Range/Units 14:05 16:23 17:17 WBC (3.8-10.6) k/uL Neutrophils # (1.3-7.7) k/uL Sodium (137-145) mmol/L Creatinine (0.52-1.04) mg/dL Glucose (74-99) mg/dL POC Glucose (mg/dL) 134 H (70-110) mg/dL Plasma Lactic Acid Delvin 4.8 H* 2.3 H* (0.7-2.0) mmol/L 03/31/24 03/31/24 03/31/24 Range/Units 05:48 09:31 09:31 WBC 11.6 H (3.8-10.6) k/uL Neutrophils # 8.9 H (1.3-7.7) k/uL Sodium 134 L (137-145) mmol/L Creatinine 0.22 L (0.52-1.04) mg/dL Glucose 108 H (74-99) mg/dL POC Glucose (mg/dL) 111 H (70-110) mg/dL Plasma Lactic Acid Delvin (0.7-2.0) mmol/L 03/31/24 Range/Units 12:01 WBC (3.8-10.6) k/uL Neutrophils # (1.3-7.7) k/uL Sodium (137-145) mmol/L Creatinine (0.52-1.04) mg/dL Glucose (74-99) mg/dL POC Glucose (mg/dL) 129 H (70-110) mg/dL Plasma Lactic Acid Delvin (0.7-2.0) mmol/L Microbiology - Last 24 Hours (Table) 03/29/24 23:42 Blood Culture - Preliminary Blood 03/29/24 23:42 Blood Culture - Preliminary Blood Assessment and Plan (1) UTI (urinary tract infection) Current Visit: No Status: Acute Code(s): N39.0 - URINARY TRACT INFECTION, SITE NOT SPECIFIED SNOMED Code(s): 59205919 Plan: 1present to the hospital initially with concern for witnessed aspiration on her dinner shortness of breath and hypoxemia however the chest x-ray was reported to be negative for acute infiltrate did have normal procalcitonin patient has been feeling weak and did have a positive UA concerning for possible UTI not entirely excluded 2-repeat a chest x-ray PA and lateral did not show any acute infiltrate 3-patient urine culture has been finalized with VRE that is resistant to ampicillin daptomycin we cannot use her Zyvox because of interaction with her other medication 4-patient has been transferred out of the ICU no fever white count is trending down repeat UA is clear to continue short course of Macrobid Dictation was produced using [employer] ([employer]: [place]) dictation software. please excuse any gr ammatical, word or spelling errors. Time with Patient: Less than 30
--- NOTE | 2024-04-01 13:24 | P.PN ---
Subjective Progress Note Date: 04/01/24 I am following-up with patient and states is doing well and feels better in last two days compared to prior. Denies of any new neurological issues. Objective - Vital Signs Vital signs: Vital Signs Temp 96.5 F L 04/01/24 09:22 Pulse 110 H 04/01/24 11:58 Resp 16 04/01/24 11:58 BP 108/67 04/01/24 11:58 Pulse Ox 95 04/01/24 11:58 FiO2 21 03/28/24 07:59 Intake & Output 03/31/24 04/01/24 04/01/24 18:59 06:59 18:59 Intake Total 660 176 176 Output Total 1000 1301 1 Balance -340 -1125 175 Weight 51.71 kg Intake: Tube Feeding 660 176 176 Output: Urine 1000 1300 Stool 1 1 Other: Voiding Method External Catheter External Catheter External Catheter # Bowel Movements 1 - Exam General: Lying in bed and does not appear in acute distress.. Neuro: Limited. Is awake, alert, oriented to self, place and time. Is mild to moderate hypophonia but better today. Is following simple commands. No facial weakness. No dsyarthria but as stated above is severely hypophonia. Motor: Limited. Lifting bilateral uppers above gravity while lowers no movement noted. - Labs CBC & Chem 7: 04/01/24 10:06 04/01/24 10:06 Labs: Abnormal Lab Results - Last 24 Hours (Table) 03/31/24 03/31/24 04/01/24 Range/Units 16:26 20:06 06:03 WBC (3.8-10.6) k/uL Plt Count (150-450) k/uL Neutrophils # (1.3-7.7) k/uL Carbon Dioxide (22-30) mmol/L Creatinine (0.52-1.04) mg/dL Glucose (74-99) mg/dL POC Glucose (mg/dL) 136 H 116 H 120 H (70-110) mg/dL 04/01/24 04/01/24 04/01/24 Range/Units 10:06 10:06 11:27 WBC 14.7 H (3.8-10.6) k/uL Plt Count 479 H (150-450) k/uL Neutrophils # 12.0 H (1.3-7.7) k/uL Carbon Dioxide 31 H (22-30) mmol/L Creatinine 0.24 L (0.52-1.04) mg/dL Glucose 112 H (74-99) mg/dL POC Glucose (mg/dL) 137 H (70-110) mg/dL Microbiology - Last 24 Hours (Table) 03/29/24 23:42 Blood Culture - Preliminary Blood 03/29/24 23:42 Blood Culture - Preliminary Blood Assessment and Plan Assessment: * Breakthrough seizure while on the floor on 03/29/2024 and was given Ativan. It seems her Depakote level is subtherapeutic---today is doing better. * Lactic acid elevated could be due to seizure vs underlying infection. * Altered mental status due to post-ictal and metabolic encephalopathy--improving. * Probable MS exacerbation per Dr. Villatoro and was recently treated for So lumedrol IV for 5 days followed by Prednisone on 02/29/24 * Acute UTI, urine growing group D Enterococcus * Seizure disorder, diagnosed 12/19/2023. * Advanced multiple sclerosis, wheelchair bound. Likely she had Relapsing Remitting Multiple Sclerosis that transitioned to secondary progressive * Paraplegia * Dysphagia, probably due to MS * DO NOT RESUSCITATE Plan: * Routine EEG on 03/30/2024: Is abnormal. The background slowing is suggestive of moderate encephalopathy. Otherwise, there is no focal slowing, epileptiform discharges or seizure on the EEG. * Her Valproic acid level is 27.9 (normal is 50-120), and since subtherapeutic and had breakthrough seizure on 03/29/2024, I gave her loading dose of Valproic acid 1gm IV once yesterday. Today is doing drastically better. * Continue Vimpat 200 mg twice a day and Depakote 500 mg 3 times a day. * CT of the head is reported as age-related atrophy and chronic small vessel ischemic change without acute intracranial process seen at this time. * Patient was recently treated for MS exacerbation with 5 days of IV Solu-Medrol followed by prednisone oral taper on 02/29/2024. She improved at the time, but after discharge patient developed progressive worsening of her condition. Her muscle strength is remarkably decreased, therefore was readmitted 03/20/2024. Patient given another course of Solu-Medrol 1 g IV PB daily for 6 days during this current admission per Dr. Villatoro. * Dr. Villatoro discussed with patient and her about oral prednisone taper. Informed them about risks of high-dose steroids including risk of thrush, osteoporosis, increasing blood sugars, electrolyte problems. As patient has confirmed UTI with group D Enterococcus, her weakness could be related to the UTI. Patient does want to take oral prednisone taper, but we will rapidly taper off prednisone. Patient will receive prednisone 60 mg today, then 50 mg tomorrow, then continue to decrease by 10 mg every day until off on . * UA shows positive nitrite, moderate leukocyte esterase and 23 WBCs. Cultures positive for group D Enterococcus. Patient currently on meropenem. ID following. Chest x-ray showed chronic changes without evidence for acute pulmonary disease. * Ammonia 9. * Patient and her has previously decided for patient to be no CODE STATUS. However patient at present is revoking, wants to be full code. Patient's seems to be in disagreement because of her overall health condition. Recommend psychiatry consultation for evaluating mental capacity, to clarify the CODE STATUS. * Speech therapy following for dysphagia. Surgical team also following. * Upon discharge, the will attempt to have her follow-up with local neurologist as outpatient within 1-2 weeks. She was following-up with Neurologist over [place] where in past she used to live. The plan is discussed with patient. Will follow-up sporadically. Time with Patient: Less than 30
--- NOTE | 2024-04-01 15:31 | P.PN ---
Subjective Progress Note Date: 04/01/24 58-year-old female with history of hypothyroidism, seizure disorder, multiple sclerosis presenting from [facility] after aspirating this evening. Patient is unable to provide any meaningful history. Patient was seen in our facility yesterday for tremoring and an episode of altered mental status and discharged. Staff states that she had a witnessed episode of aspiration while eating dinner this evening. She is currently on nonrebreather satting between 90-94%. Patient is unable to provide any meaningful history. later came to the bedside and informs us that over the last week the patient has been steeply declining. She previously was able to hold conversations and feed herself with accommodations. She is now only able to answer some yes and no questions and has tremoring of the arms but cannot follow directions with the extremities. Blood work completed in ED reveals a WBC of 8.4, high hemoglobin of 14.5 and platelet count of 201, sodium 142, potassium 3.9, BUNs/creatinine of 17/0.34 and blood glucose of 120, troponin less than 0.012 Patient is being admitted for further evaluation and treatment by neurology for possible MS exacerbation 03/22/2024 Patient is seen and evaluated sitting up in bed; discussed with nursing staff; no specific complaints reported Vital signs are reviewed and remained stable Lab review shows sodium of 146, potassium 4.1, BUNs/creatinine of 9.9/0.5, blood glucose elevated at 240 --Hyperglycemia likely related to high-dose steroid therapy; will order Accu- Cheks before every meal and at bedtime with insulin sliding scale -- Patient remains on Solu-Medrol 1000 mg daily for MS exacerbation; neurology on board; appreciate recommendations -- PT/[employer] consulted 03/23/2024 Patient is seen and evaluated in follow-up today maintained on large dose IV steroids with neurology following being treated for MS exacerbation. Patient continues to have some confusion and altered mental status and maintained on 4 L via nasal cannula although oxygen saturations are 99%. Most recent chest x-ray was negative for acute process. Patient was recently hospitalized in February with infectious disease following for urinary tract infection and was noted to have ESBL. Will reconsult infectious disease as urine is nitrate positive and continues with altered mentation, initiate meropenem and appreciate input and recommendations from ID. Patient is currently afebrile with no white count noted. Patient is extremely high risk for aspiration as well and would recommend aspiration precaution and supervision with meals and head of the bed elevated 45 degrees at all times. Speech to evaluate the patient. Also recommend PT/OT therapy evaluation as patient will likely need to return to ECF on discharge. 03/24/2024 Patient seen in follow-up today mentation is much improved with at the bedside. Patient continuing to receive large dose IV steroids with neurology following. Patient reporting to having some continued coughing with diet and speech following recommending modified barium swallow. Would recommend aspir ation precautions. Patient is afebrile with no reports of chest pain or shortness of breath. Patient is on 2 to 4 L with an oxygen saturation of 99 to 100%. Discussed with patient as well as nursing staff about weaning FiO2. PT/OT therapy to evaluate with plans on returning to ECF on discharge. Patient is maintained on antibiotics with infectious disease following with concerns of urinary tract infection. Patient had recent hospitalization and had E. coli with ESBL in the urine. Patient is voiding without indwelling Dailey catheter at this time. 03/25/2024 Patient is seen in follow-up this morning currently awake and per nursing staff has been tolerating dysphagia diet with no coughing or choking. Patient is afebrile with no reports of chest pain or shortness of breath. Patient con tinues on oxygen discussed with patient along with nursing staff about weaning FiO2 as tolerated patient continues on large dose steroids for concerns of MS exacerbation with neurology. Infectious disease following patient will continue on antibiotic and await cultures. Plan is to return to ECF once stabilized and cleared by consultations 03/26/2024 Patient is seen in follow-up today with a cough that is congested and weak with concerns of aspiration. Patient has been evaluated by speech and maintained on pured diet with thickened liquids although patient per nursing staff as well as patient has been having some choking episodes last night with continued coughing. Patient continues on 2 L of oxygen and normally does not wear oxygen. Concerns of continuous aspiration will consult general surgery to evaluate PEG tube as patient reports she has not used it in a few months and has not been flushing it may be clogged. Patient is afebrile maintained on antibiotics awaiting cultures. Initial urine culture reported unsuitable and has been resubmitted. Patient is afebrile with no reports of chest pain or palpitations. Patient maintained on high-dose IV steroids and finishing today with neurology following. Recommend PT/OT therapy daily. Plan is to return to [facility] on discharge 03/27/2024 Patient is seen in follow-up today with no acute overnight issues noted. Patient was reinitiated on tube feeds as PEG tube was noted to properly flush per nursing staff and was cleared by general surgery for continued use. Dietary consulted and reinitiating tube feeds. Patient is requesting and advancing diet and evaluating with speech recommend to continue with aspiration precautions along with pured dysphagia diet and supervision with meals and head of the bed elevated 30 to 45 degrees at all times. Will continue to monitor closely as patient has been waxing and waning from continued choking on foods when they are advanced. Patient has completed IV steroids with neurology following recommending outpatient follow-up with her neurologist. Currently awaiting urine cultures with preliminary showing group D Enterococcus and patient will continue on current regimen with ID following. Plan is to return to [facility] on discharge. 03/30/2024 Patient is seen in follow-up today transferred over to 3 [address]. for closer monitoring although is in the ICU as an overflow as there are no beds available on 3 S. Patient was tachycardic and mild fever noted with a white count and unresponsive status post seizure activity last night. Patient was given a dose of IV Ativan and seizure stopped although patient remains minimally responsive and not talking. Patient is high risk for aspiration and does have a PEG tube recommend to continue with n.p.o. with aspiration precautions and strict PEG tube use for now. Patient is maintained on antibiotics with infectious disease following for urinary tract infection. Patient is continued on Macrobid and will continue. Lactic acid elevated and will give half-normal saline and follow-up on repeat labs. Repeat blood cultures requested and follow-up chest x-ray showing small amount of basilar atelectasis or scarring which is similar to previous with no new infiltrates identified. Neurology ordering EEG which is pending. Patient to continue on seizure medication with seizure precautions. 03/31/2024 Patient is seen in follow-up today and mentation is improved and patient is able to conversate and answer questions appropriately. Patient is maintained on tube feeds and tolerating recommend head of the bed elevated 30 to 45 degrees at all times with aspiration precautions. White count is trending down and patient is afebrile and lactic acid has improved. Patient was maintained on IV hydration of half-normal saline and will discontinue. Neurology following and valproic acid level found to be low given a loading dose and maintained on Vimpat Lamictal as well. Continue n.p.o. for now and just tube feeds and PEG tube as patient is extremely high risk for aspirating. 04/01/2024 No Patient is seen in follow-up today much positive spirits with at the bedside. Being followed by neurology along with infectious disease maintained on antibiotics. Urine cultures finalized showing Enterococcus faecium VRE and is continued on Macrobid. Blood cultures thus far been negative. Patient with no signs of respiratory decline currently on room air and patient remains afebrile. Patient to be reevaluated by speech to consider possible reinitiating pured diet. Strongly recommend continued aspiration precautions as patient is high risk given her MS exacerbation and progression. Review of systems: Constitutional: reports of fatigue, no further fever, or chills Cardiovascular: No reports of chest pain or palpitations Respiratory: No reports of shortness of breath or cough GI: No reports of nausea, vomiting, or diarrhea, tolerating tube feeds : No reports of dysuria or retention Neurovascular: reports of weakness All medications have been reviewed Physical exam: Gen: This is a 58-year-old female who is awake, alert and oriented x 3, ill- appearing, elderly appearing, thin built HEENT: Head is atraumatic, normocephalic. Pupils equal, round. Sclerae is anicteric. NECK: Supple. No JVD. No lymphadenopathy. No thyromegaly. LUNGS: Diminished breath sounds bilaterally with no wheezes, occasional congestion and scattered rhonchi noted. Improved aeration today. No intercostal retractions. HEART: S1, S2 are muffled ABDOMEN: Soft. Bowel sounds are present. No masses. No tenderness. PEG tube n oted EXTREMITIES: No pedal edema. No calf tenderness. Contractures noted NEUROLOGICAL: Patient is much more awake, having conversation and following commands, alert and oriented x 2-3 Assessment: - MS exacerbation, recently admitted in February underwent high-dose steroid therapy for MS exacerbation, follows with neurology outpatient -Shortness of breath with acute hypoxic respiratory failure likely secondary to aspiration likely related to MS exacerbation; PEG tube evaluated and patient is maintained on tube feeds, n.p.o. for now -Confusion with altered mental status likely secondary to urinary tract infection, improved -Breakthrough seizure, valproic acid level was low and given a loading dose -acute urinary tract infection, present on admission, recent hospitalization requiring antibiotics for E. coli ESBL in the urine, culture showing group D Enterococcus VRE with multi resistance. Continued on Macrobid -Generalized weakness/debility versus MS exacerbation; has completed high-dose IV steroid therapy per neurology; recommend PT/OT once stable -Seizure disorder; Vimpat 200 mg twice daily, Depakote 500 mg every 8 hours -Hypothyroidism; will continue home dose of levothyroxine 100 mcg daily -GI prophylaxis -DVT prophylaxis; SCDs/subcu Lovenox -No code Plan: Patient has completed high-dose steroids with neurology following, recommend outpatient follow-up with her neurologist. Patient on a quick prednisone taper Continue to monitor Accu-Cheks before meals and at bedtime as needed for high- dose steroids will adjust insulins accordingly PT/OT therapy to reevaluate for return to [facility] for continued strength and mobility. Plan is to return to [facility] on discharge Patient will need close neurology follow-up outpatient. Patient apparently had seizure-like activity last night and was given IV Ativan which was effective and neurology following with a EEG ordered and was abnormal due to encephalopathy although no epileptiform discharges noted. Valproic acid level was low and giving a loading dose and will be continued on Depakote and Vimpat Urine was noted to be positive for nitrates and leukocyte with history of recent E. coli with ESBL. Infectious disease following and appreciate input and recommendations regarding antibiotics. Culture showing group D Enterococcus and currently maintained on Macrobid twice daily Will follow-up on repeat labs Speech evaluation again today and patient is being reinitiated on pured dysphagia diet. continue with aspiration precautions with head of the bed elevated 30 to 45 degrees at all times. Patient was tolerating pured diet Tube feedings have been resumed as well with dietary following. Patient was reeva luated by speech with no overt signs of aspiration noted recommending to continue with pured and aspiration precautions. Strongly recommend aspiration precautions and continue using PEG tube. Patient is extremely high risk for aspirating and felt to be continuously aspirating due to significant multiple sclerosis Wean FiO2 as tolerated as patient does not wear oxygen outpatient and currently 99% on room air. Case management/social work following as patient will be returning to [facility] once stabilized and discharged. Patient does require insurance authorization w hich is submitted and pending Possible discharge planning in the next 24 to 48 hours Due to multiple complex medical issues, overall prognosis is guarded The impression and plan of care has been dictated by Amarilys Hernandez, Nurse Practitioner as directed. Dr. Estefanía MD I have performed a history and examination and MDM of this patient, discussed the same with the dictator, and agree with the dictator's assessment and plan as written ,documented as a scribe. Based on total visit time, I have performed more than 50% of the visit. Objective - Vital Signs Vital signs: Vital Signs Temp 98.2 F 03/31/24 20:00 Pulse 95 03/31/24 20:00 Resp 18 03/31/24 20:00 BP 120/74 03/31/24 20:00 Pulse Ox 95 03/31/24 20:00 FiO2 21 03/28/24 07:59 Intake & Output 03/31/24 03/31/24 04/01/24 06:59 18:59 06:59 Intake Total 50 660 176 Output Total 550 1000 400 Balance -500 -340 -224 Weight 51.71 kg Intake: IV 50 Invasive Line 2 20 Invasive Line 3 30 Tube Feeding 660 176 Output: Urine 550 1000 400 Other: Voiding Method External Catheter External Catheter External Catheter # Bowel Movements 1 - Labs CBC & Chem 7: 04/01/24 10:06 04/01/24 10:06 Labs: Abnormal Lab Results - Last 24 Hours (Table) 03/31/24 03/31/24 03/31/24 Range/Units 05:48 09:31 09:31 WBC 11.6 H (3.8-10.6) k/uL Neutrophils # 8.9 H (1.3-7.7) k/uL Sodium 134 L (137-145) mmol/L Creatinine 0.22 L (0.52-1.04) mg/dL Glucose 108 H (74-99) mg/dL POC Glucose (mg/dL) 111 H (70-110) mg/dL 03/31/24 03/31/24 03/31/24 Range/Units 12:01 16:26 20:06 WBC (3.8-10.6) k/uL Neutrophils # (1.3-7.7) k/uL Sodium (137-145) mmol/L Creatinine (0.52-1.04) mg/dL Glucose (74-99) mg/dL POC Glucose (mg/dL) 129 H 136 H 116 H (70-110) mg/dL Microbiology - Last 24 Hours (Table) 03/29/24 23:42 Blood Culture - Preliminary Blood 03/29/24 23:42 Blood Culture - Preliminary Blood
[2024-04-01 16:20] LABS: Glucose,Whole Blood 123 mg/dL (70-110)
[2024-04-02 03:18] LABS: Glucose,Whole Blood 113 mg/dL (70-110)
[2024-04-02 05:39] LABS: Glucose,Whole Blood 99 mg/dL (70-110)
[2024-04-02 11:33] LABS: Glucose,Whole Blood 108 mg/dL (70-110)
--- NOTE | 2024-04-02 16:12 | P.PN ---
Subjective Progress Note Date: 04/02/24 Principal diagnosis: Reason for follow-up is UTI Patient is a 58-year-old female with a past medical history significant for MS history of recurrent UTI largely with ESBL E. coli has been brought to the hospital concerning for possible aspiration the patient was noted to have witnessed a choking episode by the shelter she also have a positive UA concerning for symptomatic UTI started on meropenem prompting this consultation. On today's evaluation that is 04/02/2024, Patient is afebrile this morning and denies any chills, patient mention breathing comfortably and is currently on room air, patient denies any chest pain occasional cough patient denies any ab dominal pain no diarrhea no nausea no vomiting, feeling better no new symptoms. No new lab has been obtained today Objective - Vital Signs Vital signs: Vital Signs Temp 98.2 F 04/02/24 06:58 Pulse 90 04/02/24 06:58 Resp 17 04/02/24 06:58 BP 88/52 04/02/24 06:58 Pulse Ox 97 04/02/24 06:58 FiO2 21 03/28/24 07:59 Intake & Output 04/01/24 04/02/24 04/02/24 18:59 06:59 18:59 Intake Total 352 Output Total 2 501 500 Balance 350 -501 -500 Weight 52 kg Intake: Tube Feeding 352 Output: Urine 500 500 Stool 2 1 Other: Voiding Method External Catheter External Catheter External Catheter # Voids 3 2 # Bowel Movements 2 1 - Exam Middle-age female lying in bed in no distress Respiratory system unlabored breathing decreased breath sound the base Heart S1-S2 regular Abdominal soft mild left-sided tenderness Extremities no edema feet - Labs CBC & Chem 7: 04/01/24 10:06 04/01/24 10:06 Labs: Abnormal Lab Results - Last 24 Hours (Table) 04/01/24 04/02/24 Range/Units 16:19 03:16 POC Glucose (mg/dL) 123 H 113 H (70-110) mg/dL Microbiology - Last 24 Hours (Table) 03/29/24 23:42 Blood Culture - Preliminary Blood 03/29/24 23:42 Blood Culture - Preliminary Blood Assessment and Plan (1) UTI (urinary tract infection) Current Visit: No Status: Acute Code(s): N39.0 - URINARY TRACT INFECTION, SITE NOT SPECIFIED SNOMED Code(s): 09100882 Plan: 1present to the hospital initially with concern for witnessed aspiration on her dinner shortness of breath and hypoxemia however the chest x-ray was reported to be negative for acute infiltrate did have normal procalcitonin patient has been feeling weak and did have a positive UA concerning for possible UTI not entirely excluded 2-repeat a chest x-ray PA and lateral did not show any acute infiltrate 3-patient urine culture has been finalized with VRE that is resistant to ampicillin daptomycin we cannot use her Zyvox because of interaction with her other medication 4-patient remains to be afebrile, patient continue Macrobid short course antibiotic and monitor clinical course closely Dictation was produced using [employer] dictation software. please excuse any grammatical, word or spelling errors. Time with Patient: Less than 30
[2024-04-02 16:19] LABS: Glucose,Whole Blood 125 mg/dL (70-110)
[2024-04-02 20:47] LABS: Glucose,Whole Blood 117 mg/dL (70-110)
[2024-04-03 02:24] LABS: Glucose,Whole Blood 114 mg/dL (70-110)
--- NOTE | 2024-04-03 06:42 | P.PN ---
Subjective Progress Note Date: 04/02/24 58-year-old female with history of hypothyroidism, seizure disorder, multiple sclerosis presenting from long term after aspirating this evening. Patient is unable to provide any meaningful history. Patient was seen in our facility yesterday for tremoring and an episode of altered mental status and discharged. Staff states that she had a witnessed episode of aspiration while eating dinner this evening. She is currently on nonrebreather satting between 90-94%. Patient is unable to provide any meaningful history. later came to the bedside and informs us that over the last week the patient has been steeply declining. She previously was able to hold conversations and feed herself with accommodations. She is now only able to answer some yes and no questions and has tremoring of the arms but cannot follow directions with the extremities. Blood work completed in ED reveals a WBC of 8.4, high hemoglobin of 14.5 and platelet count of 201, sodium 142, potassium 3.9, BUNs/creatinine of 17/0.34 and blood glucose of 120, troponin less than 0.012 Patient is being admitted for further evaluation and treatment by neurology for possible MS exacerbation 03/22/2024 Patient is seen and evaluated sitting up in bed; discussed with nursing staff; no specific complaints reported Vital signs are reviewed and remained stable Lab review shows sodium of 146, potassium 4.1, BUNs/creatinine of 9.9/0.5, blood glucose elevated at 240 --Hyperglycemia likely related to high-dose steroid therapy; will order Accu- Cheks before every meal and at bedtime with insulin sliding scale -- Patient remains on Solu-Medrol 1000 mg daily for MS exacerbation; neurology on board; appreciate recommendations -- PT/[employer] consulted 03/23/2024 Patient is seen and evaluated in follow-up today maintained on large dose IV steroids with neurology following being treated for MS exacerbation. Patient continues to have some confusion and altered mental status and maintained on 4 L via nasal cannula although oxygen saturations are 99%. Most recent chest x-ray was negative for acute process. Patient was recently hospitalized in February with infectious disease following for urinary tract infection and was noted to have ESBL. Will reconsult infectious disease as urine is nitrate positive and continues with altered mentation, initiate meropenem and appreciate input and recommendations from ID. Patient is currently afebrile with no white count noted. Patient is extremely high risk for aspiration as well and would recommend aspiration precaution and supervision with meals and head of the bed elevated 45 degrees at all times. Speech to evaluate the patient. Also recommend PT/OT therapy evaluation as patient will likely need to return to ECF on discharge. 03/24/2024 Patient seen in follow-up today mentation is much improved with at the bedside. Patient continuing to receive large dose IV steroids with neurology following. Patient reporting to having some continued coughing with diet and speech following recommending modified barium swallow. Would recommend aspir ation precautions. Patient is afebrile with no reports of chest pain or shortness of breath. Patient is on 2 to 4 L with an oxygen saturation of 99 to 100%. Discussed with patient as well as nursing staff about weaning FiO2. PT/OT therapy to evaluate with plans on returning to ECF on discharge. Patient is maintained on antibiotics with infectious disease following with concerns of urinary tract infection. Patient had recent hospitalization and had E. coli with ESBL in the urine. Patient is voiding without indwelling Dailey catheter at this time. 03/25/2024 Patient is seen in follow-up this morning currently awake and per nursing staff has been tolerating dysphagia diet with no coughing or choking. Patient is afebrile with no reports of chest pain or shortness of breath. Patient con tinues on oxygen discussed with patient along with nursing staff about weaning FiO2 as tolerated patient continues on large dose steroids for concerns of MS exacerbation with neurology. Infectious disease following patient will continue on antibiotic and await cultures. Plan is to return to ECF once stabilized and cleared by consultations 03/26/2024 Patient is seen in follow-up today with a cough that is congested and weak with concerns of aspiration. Patient has been evaluated by speech and maintained on pured diet with thickened liquids although patient per nursing staff as well as patient has been having some choking episodes last night with continued coughing. Patient continues on 2 L of oxygen and normally does not wear oxygen. Concerns of continuous aspiration will consult general surgery to evaluate PEG tube as patient reports she has not used it in a few months and has not been flushing it may be clogged. Patient is afebrile maintained on antibiotics awaiting cultures. Initial urine culture reported unsuitable and has been resubmitted. Patient is afebrile with no reports of chest pain or palpitations. Patient maintained on high-dose IV steroids and finishing today with neurology following. Recommend PT/OT therapy daily. Plan is to return to [facility] on discharge 03/27/2024 Patient is seen in follow-up today with no acute overnight issues noted. Patient was reinitiated on tube feeds as PEG tube was noted to properly flush per nursing staff and was cleared by general surgery for continued use. Dietary consulted and reinitiating tube feeds. Patient is requesting and advancing diet and evaluating with speech recommend to continue with aspiration precautions along with pured dysphagia diet and supervision with meals and head of the bed elevated 30 to 45 degrees at all times. Will continue to monitor closely as patient has been waxing and waning from continued choking on foods when they are advanced. Patient has completed IV steroids with neurology following recommending outpatient follow-up with her neurologist. Currently awaiting urine cultures with preliminary showing group D Enterococcus and patient will continue on current regimen with ID following. Plan is to return to [facility] on discharge. 03/30/2024 Patient is seen in follow-up today transferred over to 3 S. for closer monitoring although is in the ICU as an overflow as there are no beds available on 3 S. Patient was tachycardic and mild fever noted with a white count and unresponsive status post seizure activity last night. Patient was given a dose of IV Ativan and seizure stopped although patient remains minimally responsive and not talking. Patient is high risk for aspiration and does have a PEG tube recommend to continue with n.p.o. with aspiration precautions and strict PEG tube use for now. Patient is maintained on antibiotics with infectious disease following for urinary tract infection. Patient is continued on Macrobid and will continue. Lactic acid elevated and will give half-normal saline and follow-up on repeat labs. Repeat blood cultures requested and follow-up chest x-ray showing small amount of basilar atelectasis or scarring which is similar to previous with no new infiltrates identified. Neurology ordering EEG which is pending. Patient to continue on seizure medication with seizure precautions. 03/31/2024 Patient is seen in follow-up today and mentation is improved and patient is able to conversate and answer questions appropriately. Patient is maintained on tube feeds and tolerating recommend head of the bed elevated 30 to 45 degrees at all times with aspiration precautions. White count is trending down and patient is afebrile and lactic acid has improved. Patient was maintained on IV hydration of half-normal saline and will discontinue. Neurology following and valproic acid level found to be low given a loading dose and maintained on Vimpat Lamictal as well. Continue n.p.o. for now and just tube feeds and PEG tube as patient is extremely high risk for aspirating. 04/01/2024 Patient is seen in follow-up today much positive spirits with at the bedside. Being followed by neurology along with infectious disease maintained on antibiotics. Urine cultures finalized showing Enterococcus faecium VRE and i s continued on Macrobid. Blood cultures thus far been negative. Patient with no signs of respiratory decline currently on room air and patient remains afebrile. Patient to be reevaluated by speech to consider possible reinitiating pured diet. Strongly recommend continued aspiration precautions as patient is high risk given her MS exacerbation and progression. 04/02/2024 Patient is seen in follow-up today continued on Macrobid with infectious disease following. Neurology recommending outpatient follow-up and continue with current regimen. Currently awaiting insurance authorization for return to [facility]. Recommend to continue with aspiration precautions and patient continues on tube feeds. Currently remains on room air with no reports of chest pain or shortness of breath. Patient is afebrile. Review of systems: Constitutional: No reports of fatigue, no further fever, or chills Cardiovascular: No reports of chest pain or palpitations Respiratory: No reports of shortness of breath or cough GI: No reports of nausea, vomiting, or diarrhea, tolerating tube feeds : No reports of dysuria or retention Neurovascular: reports of weakness All medications have been reviewed Physical exam: Gen: This is a 58-year-old female who is awake, alert and oriented x 3, ill- appearing, elderly appearing, thin built HEENT: Head is atraumatic, normocephalic. Pupils equal, round. Sclerae is a nicteric. NECK: Supple. No JVD. No lymphadenopathy. No thyromegaly. LUNGS: Diminished breath sounds bilaterally with no wheezes, rhonchi noted. Improved aeration today. No intercostal retractions. HEART: S1, S2 are muffled ABDOMEN: Soft. Bowel sounds are present. No masses. No tenderness. PEG tube noted EXTREMITIES: No pedal edema. No calf tenderness. Contractures noted NEUROLOGICAL: Patient is much more awake, having conversation and following commands, alert and oriented x 3 Assessment: - MS exacerbation, recently admitted in February underwent high-dose steroid therapy for MS exacerbation, follows with neurology outpatient -Shortness of breath with acute hypoxic respiratory failure likely secondary to aspiration likely related to MS exacerbation; PEG tube evaluated and patient is maintained on tube feeds -Confusion with altered mental status likely secondary to urinary tract inf ection, improved -Breakthrough seizure, valproic acid level was low and given a loading dose -acute urinary tract infection, present on admission, recent hospitalization requiring antibiotics for E. coli ESBL in the urine, culture showing group D Enterococcus VRE with multi resistance. Continued on Macrobid -Generalized weakness/debility versus MS exacerbation; has completed high-dose IV steroid therapy per neurology; recommend PT/OT once stable -Seizure disorder; Vimpat 200 mg twice daily, Depakote 500 mg every 8 hours -Hypothyroidism; will continue home dose of levothyroxine 100 mcg daily -GI prophylaxis -DVT prophylaxis; SCDs/subcu Lovenox -No code Plan: Patient has completed high-dose steroids with neurology following, recommend outpatient follow-up with her neurologist. Patient on a quick prednisone taper Continue to monitor Accu-Cheks before meals and at bedtime as needed for high- dose steroids will adjust insulins accordingly PT/OT therapy to reevaluate for return to [facility] for continued strength and mobility. Plan is to return to [facility] on discharge, currently awaiting insurance authorization Patient will need close neurology follow-up outpatient. Patient apparently had seizure-like activity last night and was given IV Ativan which was effective and neurology following with a EEG ordered and was abnormal due to encephalopathy although no epileptiform discharges noted. Valproic acid level was low and giving a loading dose and will be continued on Depakote and Vimpat Urine was noted to be positive for nitrates and leukocyte with history of recent E. coli with ESBL. Infectious disease following and appreciate input and recommendations regarding antibiotics. Culture showing group D Enterococcus and currently maintained on Macrobid twice daily Speech evaluation and patient is being reinitiated on pured dysphagia diet. continue with aspiration precautions with head of the bed elevated 30 to 45 degrees at all times. Patient was tolerating pured diet Tube feedings have been resumed as well with dietary following. Patient was reevaluated by speech with no overt signs of aspiration noted recommending to continue with pured and aspiration precautions. Strongly recommend aspiration precautions and continue using PEG tube. Patient is extremely high risk for aspirating and felt to be continuously aspirating due to significant multiple sclerosis Wean FiO2 as tolerated as patient does not wear oxygen outpatient and currently 99% on room air. Case management/social work following as patient will be returning to [facility] once stabilized and discharged. Patient does require insurance authorization which is submitted and pending Possible discharge planning in the next 24 to 48 hours Due to multiple complex medical issues, overall prognosis is guarded The impression and plan of care has been dictated by Amarilys Hernandez, Nurse Practitioner as directed. Dr. Ruby MD I have performed a history and examination and MDM of this patient, discussed the same with the dictator, and agree with the dictator's assessment and plan as written ,documented as a scribe. Based on total visit time, I have performed more than 50% of the visit. Objective - Vital Signs Vital signs: Vital Signs Temp 98.2 F 04/02/24 06:58 Pulse 90 04/02/24 06:58 Resp 17 04/02/24 06:58 BP 88/52 04/02/24 06:58 Pulse Ox 97 04/02/24 06:58 FiO2 21 03/28/24 07:59 Intake & Output 04/01/24 04/02/24 04/02/24 18:59 06:59 18:59 Intake Total 352 Output Total 2 501 Balance 350 -501 Weight 52 kg Intake: Tube Feeding 352 Output: Urine 500 Stool 2 1 Other: Voiding Method External Catheter External Catheter External Catheter # Voids 3 2 # Bowel Movements 2 1 - Labs CBC & Chem 7: 04/01/24 10:06 04/01/24 10:06 Labs: Abnormal Lab Results - Last 24 Hours (Table) 04/01/24 04/01/24 04/01/24 Range/Units 10:06 10:06 11:27 WBC 14.7 H (3.8-10.6) k/uL Plt Count 479 H (150-450) k/uL Neutrophils # 12.0 H (1.3-7.7) k/uL Carbon Dioxide 31 H (22-30) mmol/L Creatinine 0.24 L (0.52-1.04) mg/dL Glucose 112 H (74-99) mg/dL POC Glucose (mg/dL) 137 H (70-110) mg/dL 04/01/24 04/02/24 Range/Units 16:19 03:16 WBC (3.8-10.6) k/uL Plt Count (150-450) k/uL Neutrophils # (1.3-7.7) k/uL Carbon Dioxide (22-30) mmol/L Creatinine (0.52-1.04) mg/dL Glucose (74-99) mg/dL POC Glucose (mg/dL) 123 H 113 H (70-110) mg/dL Microbiology - Last 24 Hours (Table) 03/29/24 23:42 Blood Culture - Preliminary Blood 03/29/24 23:42 Blood Culture - Preliminary Blood
[2024-04-03 12:13] LABS: Glucose,Whole Blood 108 mg/dL (70-110)
--- NOTE | 2024-04-03 13:54 | P.DS ---
Providers Date of admission: 03/20/24 21:11 Expected date of discharge: 04/03/24 Attending physician: Abigail Littlejohn MD Consults: 03/20/24 21:10 Consult Physician Urgent Consulting Provider: Henri Irizarry Consult Reason/Comments: MS exacerbation Do you want consulting provider notified?: Yes, Notify in am 03/23/24 19:24 Consult Physician Routine Consulting Provider: Winter Roberts Consult Reason/Comments: uti? recent esbl, ams Do you want consulting provider notified?: Yes Primary care physician: Chrissy Posadas DO Hospital Course: Final diagnosis - MS exacerbation, recently admitted in February underwent high-dose steroid therapy for MS exacerbation, follows with neurology outpatient -Shortness of breath with acute hypoxic respiratory failure likely secondary to aspiration likely related to MS exacerbation; PEG tube evaluated and patient is maintained on tube feeds -Confusion with altered mental status likely secondary to urinary tract infection, improved -Breakthrough seizure, valproic acid level was low and given a loading dose -acute urinary tract infection, present on admission, recent hospitalization requiring antibiotics for E. coli ESBL in the urine, culture showing group D Enterococcus VRE with multi resistance. Continued on Macrobid -Generalized weakness/debility versus MS exacerbation; has completed high-dose IV steroid therapy per neurology -Seizure disorder -Hypothyroidism -GI prophylaxis -DVT prophylaxis; SCDs/subcu Lovenox -No code Discharge disposition Patient is being discharged in a stable condition with guarded prognosis to [facility]. Patient will follow-up with Dr. Posadas in the outpatient setting upon discharge. Patient is to continue with Macrobid twice daily for the next 5 days to complete the course and close outpatient follow-up with her neurologist as scheduled. Total time taken is greater than 35 minutes. Hospital course This is a 58-year-old female who was recently admitted with concerns of possibly aspirating with increased altered mentation and coughing while eating and is being monitored with multiple medical consultations. Patient underwent neurological workup and also concerns for MS exacerbation. Clinically patient has been deteriorating with concerns of progressing MS was recently hospitalized on high-dose IV steroids. Patient received another course of high-dose steroids showing some improvement although patient had a breakthrough seizure possibly and Depakene level was found to be low given a loading dose and evaluated by neurology will be continued on current dosing. Patient and instructed to follow-up with her neurologist in the outpatient setting. Patient did have urinary tract infection as well with urine cultures finalizing Enterococcus faecium VRE with infectious disease following maintained on antibiotics. Patient transition to Macrobid will complete a 5-day course on discharge to complete the course. Patient to continue with indwelling Dailey catheter. Patient also appears to be aspirating frequently. PEG tube history and was evaluated by surgery and PEG tube noted to be functioning and recommending PEG tube feedings with aspiration precautions. Patient's mentation improved and patient remains afebrile and was evaluated again by speech therapy recommending dysphagia pured diet with one-to-one supervision and thickened liquids with no straws as mentioned below. Patient has been cleared by consultations for discharge to [facility]. Please refer to other consultation notes for further HPI. Currently no reports of chest pain, shortness of breath, or palpitations. Patient is afebrile. No reports of nausea or vomiting and patient is tolerating diet. Patient will be going to [facility] today. Overall guarded prognosis given significant comorbidities. CODE STATUS was addressed and patient wishes to be no code. Physical exam: Gen: This is a 58-year-old female who is awake, alert and oriented x 3, thin built, ill-appearing HEENT: Head is atraumatic, normocephalic. Pupils equal, round. Sclerae is anicteric. NECK: Supple. No JVD. No lymphadenopathy. No thyromegaly. LUNGS: Clear to auscultation. No wheezes or rhonchi. No intercostal retractions. HEART: Regular rate and rhythm. No murmur. ABDOMEN: Soft. Bowel sounds are present. No masses. No tenderness. PEG tube noted EXTREMITIES: No pedal edema. No calf tenderness. NEUROLOGICAL: Patient is awake, alert and oriented x3. Cranial nerves 2 through 12 are grossly intact. Diffusely weak, mostly bedbound Please refer to medication reconciliation sheet for a list of medications. The impression and plan of care has been dictated by Amarilys Hernandez, Nurse Practitioner as directed. Dr. Ruby MD I have performed a history and examination and MDM of this patient, discussed the same with the dictator, and agree with the dictator's assessment and plan as written ,documented as a scribe. Based on total visit time, I have performed more than 50% of the visit. Patient Condition at Discharge: Stable Plan - Discharge Summary New Discharge Prescriptions: New Nitrofurantoin Monohyd/M-Cryst [Macrobid] 100 mg PO BID 5 Days #10 cap Dicyclomine [Bentyl] 10 mg PO TID PRN cap PRN Reason: Dyspepsia Continue Ipratropium-Albuterol Nebulize [Duoneb 0.5 mg-3 mg/3 ml Soln] 3 ml INHALATION RT-Q4H PRN PRN Reason: Shortness Of Breath Or Wheezing Aspirin EC [Ecotrin Low Dose] 81 mg PO DAILY Famotidine [Pepcid AC] 20 mg PO BID Methylphenidate HCl [Ritalin] 10 mg PO BID@0800,1500 #4 tab Baclofen [Lioresal] 20 mg PO Q4HR Divalproex Sodium [Depakote] 500 mg PO Q8HR@0500,1300,2100 Docusate [Colace] 100 mg PO BID amantadine HCL [Symmetrel] 100 mg PO BID@0700,2100 Enoxaparin [Lovenox] 40 mg SQ HS Acetaminophen [Tylenol 8 Hour] 650 mg PO Q6H PRN PRN Reason: Mild Pain (Scale 1 To 3) Health Shake 1 can PO BID@1200,1700 Levothyroxine Sodium [Synthroid] 100 mcg PO DAILY@0500 Lacosamide [Vimpat] 200 mg PO BID@0700,1600 #4 tab Changed Sennosides [Senokot] 8.6 mg PO DAILY PRN #0 PRN Reason: Constipation Discharge Medication List Baclofen [Lioresal] 20 mg PO Q4HR 08/11/22 [History] Acetaminophen [Tylenol 8 Hour] 650 mg PO Q6H PRN 02/29/24 [History] Aspirin EC [Ecotrin Low Dose] 81 mg PO DAILY 02/29/24 [History] Divalproex Sodium [Depakote] 500 mg PO Q8HR@0500,1300,2100 02/29/24 [History] Docusate [Colace] 100 mg PO BID 02/29/24 [History] Enoxaparin [Lovenox] 40 mg SQ HS 02/29/24 [History] Ipratropium-Albuterol Nebulize [Duoneb 0.5 mg-3 mg/3 ml Soln] 3 ml INHALATION RT-Q4H PRN 02/29/24 [History] amantadine HCL [Symmetrel] 100 mg PO BID@0700,2100 02/29/24 [History] Famotidine [Pepcid AC] 20 mg PO BID 03/19/24 [History] Health Shake 1 can PO BID@1200,1700 03/19/24 [History] Levothyroxine Sodium [Synthroid] 100 mcg PO DAILY@0500 03/19/24 [History] Dicyclomine [Bentyl] 10 mg PO TID PRN cap 04/03/24 [Rx] Lacosamide [Vimpat] 200 mg PO BID@0700,1600 #4 tab 04/03/24 [Rx] Methylphenidate HCl [Ritalin] 10 mg PO BID@0800,1500 #4 tab 04/03/24 [Rx] Nitrofurantoin Monohyd/M-Cryst [Macrobid] 100 mg PO BID 5 Days #10 cap 04/03/24 [Rx] Sennosides [Senokot] 8.6 mg PO DAILY PRN #0 04/03/24 [Rx] Follow up Appointment(s)/Referral(s): Chrissy Posaads DO [Primary Care Provider] - 1-2 days Activity/Diet/Wound Care/Special Instructions: Patient is going to [facility] as tolerated Continue with current medications and close outpatient follow-up with neurology Continue with PEG tube feedings in the form of Jevity 1.5 continuous with a goal rate of 44 and total volume is 1056 including free water flushes of 30 cc every 4 hours Monitor for residual Continue with aspiration precautions with head of the bed elevated 30 to 45 degrees at all times and supervision with meals Patient was reevaluated by speech and started on dysphagia pured diet with liquids via spoon's only and nectar thick liquids with no straws and one-to-one supervision Patient is extremely high risk for aspirating and silently aspirating given her MS Patient to continue with antibiotics for the next 5 days to complete the course Discharge Disposition: TRANSFER TO SNF/ECF
[2024-04-03 14:01] VITALS: BMI 34.9
--- NOTE | 2024-04-03 16:51 | P.PN ---
Subjective Progress Note Date: 04/03/24 I am following-up with patient and she continues to be feeling well and denies of any new neurological issues. Objective - Vital Signs Vital signs: Vital Signs Temp 98.2 F 04/03/24 13:40 Pulse 109 H 04/03/24 13:40 Resp 16 04/03/24 13:40 BP 104/70 04/03/24 13:40 Pulse Ox 99 04/03/24 13:40 FiO2 21 03/28/24 07:59 Intake & Output 04/02/24 04/03/24 04/03/24 18:59 06:59 18:59 Output Total 1200 425 300 Balance -1200 -425 -300 Weight 89.5 kg 89.5 kg Output: Urine 1200 425 300 Other: Voiding Method External Catheter External Catheter External Catheter # Voids 1 # Bowel Movements 1 - Exam General: Lying in bed and does not appear in acute distress.. Neuro: Limited. Is awake, alert, oriented to self, place and time. Is following simple commands. No facial weakness. No dsyarthria. Motor: Limited. Lifting bilateral uppers above gravity while lowers no movement noted. - Labs CBC & Chem 7: 04/01/24 10:06 04/01/24 10:06 Labs: Abnormal Lab Results - Last 24 Hours (Table) 04/02/24 04/03/24 Range/Units 20:46 02:22 POC Glucose (mg/dL) 117 H 114 H (70-110) mg/dL Microbiology - Last 24 Hours (Table) 03/29/24 23:42 Blood Culture - Preliminary Blood 03/29/24 23:42 Blood Culture - Preliminary Blood Assessment and Plan Assessment: * Breakthrough seizure while on the floor on 03/29/2024 and was given Ativan. It seems her Depakote level is subtherapeutic---no further seizures. * Lactic acid elevated could be due to seizure vs underlying infection. * Altered mental status due to post-ictal and metabolic encephalopathy--improving. * Probable MS exacerbation per Dr. Villatoro and was recently treated for Solumedrol IV for 5 days followed by Prednisone on 02/29/24 * Acute UTI, urine growing group D Enterococcus * Seizure disorder, diagnosed 12/19/2023. * Advanced multiple sclerosis, wheelchair bound. Likely she had Relapsing Remitting Multiple Sclerosis that transitioned to secondary progressive * Paraplegia * Dysphagia, probably due to MS * DO NOT RESUSCITATE Plan: * Routine EEG on 03/30/2024: Is abnormal. The background slowing is suggestive of moderate encephalopathy. Otherwise, there is no focal slowing, epileptiform discharges or seizure on the EEG. * Her Valproic acid level is 27.9 (normal is 50-120), and since subtherapeutic and had breakthrough seizure on 03/29/2024,she received loading dose of Valproic acid 1gm. Iss doing drastically better. * Continue Vimpat 200 mg twice a day and Depakote 500 mg 3 times a day. * CT of the head is reported as age-related atrophy and chronic small vessel ischemic change without acute intracranial process seen at this time. * Patient was recently treated for MS exacerbation with 5 days of IV Solu-Medrol followed by prednisone oral taper on 02/29/2024. She improved at the time, b ut after discharge patient developed progressive worsening of her condition. Her muscle strength is remarkably decreased, therefore was readmitted 03/20/2024. Patient given another course of Solu-Medrol 1 g IV PB daily for 6 days during this current admission per Dr. Villatoro. * Dr. Villatoro discussed with patient and her about oral prednisone taper. Informed them about risks of high-dose steroids including risk of thrush, osteoporosis, increasing blood sugars, electrolyte problems. As patient has confirmed UTI with group D Enterococcus, her weakness could be related to the UTI. Patient does want to take oral prednisone taper, but we will rapidly taper off prednisone. Patient will receive prednisone 60 mg today, then 50 mg tomorrow, then continue to decrease by 10 mg every day until off on . * UA shows positive nitrite, moderate leukocyte esterase and 23 WBCs. Cultures positive for group D Enterococcus. Patient currently on meropenem. ID fo llowing. Chest x-ray showed chronic changes without evidence for acute pulmonary disease. * Ammonia 9. * Patient and her has previously decided for patient to be no CODE STATUS. However patient at present is revoking, wants to be full code. Patient's seems to be in disagreement because of her overall health condition. Recommend psychiatry consultation for evaluating mental capacity, to clarify the CODE STATUS. * Speech therapy following for dysphagia. Surgical team also following. * Upon discharge, the will attempt to have her follow-up with local neurologist as outpatient within 1-2 weeks. She was following-up with Neurologist over [place] where in past she used to live. The plan is discussed with patient. There is no further neurological work-up. Will sign off. Please reconsult if needed. Time with Patient: Less than 30
[2024-04-03 18:20] LABS: Glucose,Whole Blood 150 mg/dL (70-110)
[2024-04-03 20:59] LABS: Glucose,Whole Blood 122 mg/dL (70-110)
[2024-04-04 00:38] LABS: Glucose,Whole Blood 107 mg/dL (70-110)
[2024-04-04 05:58] LABS: Glucose,Whole Blood 112 mg/dL (70-110)
[2024-04-04 11:36] LABS: Glucose,Whole Blood 127 mg/dL (70-110)
--- NOTE | 2024-04-04 12:47 | P.PN ---
Subjective Progress Note Date: 04/04/24 58-year-old female with history of hypothyroidism, seizure disorder, multiple sclerosis presenting from longterm after aspirating this evening. Patient is unable to provide any meaningful history. Patient was seen in our facility yesterday for tremoring and an episode of altered mental status and discharged. Staff states that she had a witnessed episode of aspiration while eating dinner this evening. She is currently on nonrebreather satting between 90-94%. Patient is unable to provide any meaningful history. later came to the bedside and informs us that over the last week the patient has been steeply declining. She previously was able to hold conversations and feed herself with accommodations. She is now only able to answer some yes and no questions and has tremoring of the arms but cannot follow directions with the extremities. Blood work completed in ED reveals a WBC of 8.4, high hemoglobin of 14.5 and platelet count of 201, sodium 142, potassium 3.9, BUNs/creatinine of 17/0.34 and blood glucose of 120, troponin less than 0.012 Patient is being admitted for further evaluation and treatment by neurology for possible MS exacerbation 03/22/2024 Patient is seen and evaluated sitting up in bed; discussed with nursing staff; no specific complaints reported Vital signs are reviewed and remained stable Lab review shows sodium of 146, potassium 4.1, BUNs/creatinine of 9.9/0.5, blood glucose elevated at 240 --Hyperglycemia likely related to high-dose steroid therapy; will order Accu- Cheks before every meal and at bedtime with insulin sliding scale -- Patient remains on Solu-Medrol 1000 mg daily for MS exacerbation; neurology on board; appreciate recommendations -- PT/NUCLEAR 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 Patient continues to have some confusion and altered mental status and maintained on 4 L via nasal cannula although oxygen saturations are 99%. Most recent chest x-ray was negative for acute process. Patient was recently hospitalized in February with infectious disease following for urinary tract infection and was noted to have ESBL. Will reconsult infectious disease as urine is nitrate positive and continues with altered mentation, initiate meropenem and appreciate input and recommendations from ID. Patient is currently afebrile with no white count noted. Patient is extremely high risk for aspiration as well and would recommend aspiration precaution and supervision with meals and head of the bed elevated 45 degrees at all times. Speech to evaluate the patient. Also recommend PT/OT therapy evaluation as patient will likely need to return to ECF on discharge. 03/24/2024 Patient seen in follow-up today mentation is much improved with at the bedside. Patient continuing to receive large dose IV steroids with neurology following. Patient reporting to having some continued coughing with diet and speech following recommending modified barium swallow. Would recommend aspira tion precautions. Patient is afebrile with no reports of chest pain or shortness of breath. Patient is on 2 to 4 L with an oxygen saturation of 99 to 100%. Discussed with patient as well as nursing staff about weaning FiO2. PT/OT therapy to evaluate with plans on returning to ECF on discharge. Patient is maintained on antibiotics with infectious disease following with concerns of urinary tract infection. Patient had recent hospitalization and had E. coli with ESBL in the urine. Patient is voiding without indwelling Dailey catheter at this time. 03/25/2024 Patient is seen in follow-up this morning currently awake and per nursing staff has been tolerating dysphagia diet with no coughing or choking. Patient is afebrile with no reports of chest pain or shortness of breath. Patient cont inues on oxygen discussed with patient along with nursing staff about weaning FiO2 as tolerated patient continues on large dose steroids for concerns of MS exacerbation with neurology. Infectious disease following patient will continue on antibiotic and await cultures. Plan is to return to ECF once stabilized and cleared by consultations 03/26/2024 Patient is seen in follow-up today with a cough that is congested and weak with concerns of aspiration. Patient has been evaluated by speech and maintained on pured diet with thickened liquids although patient per nursing staff as well as patient has been having some choking episodes last night with continued coughing. Patient continues on 2 L of oxygen and normally does not wear oxygen. Concerns of continuous aspiration will consult general surgery to evaluate PEG tube as patient reports she has not used it in a few months and has not been flushing it may be clogged. Patient is afebrile maintained on antibiotics awaiting cultures. Initial urine culture reported unsuitable and has been resubmitted. Patient is afebrile with no reports of chest pain or palpitations. Patient maintained on high-dose IV steroids and finishing today with neurology following. Recommend PT/OT therapy daily. Plan is to return to [facility] on discharge 03/27/2024 Patient is seen in follow-up today with no acute overnight issues noted. Patient was reinitiated on tube feeds as PEG tube was noted to properly flush per nursing staff and was cleared by general surgery for continued use. Dietary consulted and reinitiating tube feeds. Patient is requesting and advancing diet and evaluating with speech recommend to continue with aspiration precautions a long with pured dysphagia diet and supervision with meals and head of the bed elevated 30 to 45 degrees at all times. Will continue to monitor closely as patient has been waxing and waning from continued choking on foods when they are advanced. Patient has completed IV steroids with neurology following recommending outpatient follow-up with her neurologist. Currently awaiting urine cultures with preliminary showing group D Enterococcus and patient will continue on current regimen with ID following. Plan is to return to [facility] on discharge. 03/30/2024 Patient is seen in follow-up today transferred over to [facility]. for closer monitoring although is in the ICU as an overflow as there are no beds available on 3 S. Patient was tachycardic and mild fever noted with a white count and u nresponsive status post seizure activity last night. Patient was given a dose of IV Ativan and seizure stopped although patient remains minimally responsive and not talking. Patient is high risk for aspiration and does have a PEG tube recommend to continue with n.p.o. with aspiration precautions and strict PEG tube use for now. Patient is maintained on antibiotics with infectious disease following for urinary tract infection. Patient is continued on Macrobid and will continue. Lactic acid elevated and will give half-normal saline and follow-up on repeat labs. Repeat blood cultures requested and follow-up chest x-ray showing small amount of basilar atelectasis or scarring which is similar to previous with no new infiltrates identified. Neurology ordering EEG which is pending. Patient to continue on seizure medication with seizure precautions. 03/31/2024 Patient is seen in follow-up today and mentation is improved and patient is able to conversate and answer questions appropriately. Patient is maintained on tube feeds and tolerating recommend head of the bed elevated 30 to 45 degrees at all times with aspiration precautions. White count is trending down and patient is afebrile and lactic acid has improved. Patient was maintained on IV hydration of half-normal saline and will discontinue. Neurology following and valproic acid level found to be low given a loading dose and maintained on Vimpat Lamictal as well. Continue n.p.o. for now and just tube feeds and PEG tube as patient is extremely high risk for aspirating. 04/01/2024 Patient is seen in follow-up today much positive spirits with at the bedside. Being followed by neurology along with infectious disease maintained on antibiotics. Urine cultures finalized showing Enterococcus faecium VRE and is continued on Macrobid. Blood cultures thus far been negative. Patient with no signs of respiratory decline currently on room air and patient remains afebrile. Patient to be reevaluated by speech to consider possible reinitiating pured diet. Strongly recommend continued aspiration precautions as patient is high risk given her MS exacerbation and progression. 04/02/2024 Patient is seen in follow-up today continued on Macrobid with infectious disease following. Neurology recommending outpatient follow-up and continue with current regimen. Currently awaiting insurance authorization for return to [facility]. Recommend to continue with aspiration precautions and patient continues on tube feeds. Currently remains on room air with no reports of chest pain or shortness of breath. Patient is afebrile. 04/03. Patient seen and examined. Currently on tube feeding. Patient is currently waiting on transfer to rehab facility REVIEW OF SYSTEMS: CONSTITUTIONAL: No fever, no malaise,. CARDIOVASCULAR: No chest pain, no palpitations, no syncope. PULMONARY: No shortness of breath, no cough, GASTROINTESTINAL: No diarrhea, no nausea, no vomiting, no abdominal pain. NEUROLOGICAL: No headaches, no weakness, PHYSICAL EXAMINATION: Gen: This is a 58-year-old female who is awake, alert and oriented x 3, ill- appearing, elderly appearing, thin built HEENT: Head is atraumatic, normocephalic. Pupils equal, round. Sclerae is anicteric. NECK: Supple. No JVD. No lymphadenopathy. No thyromegaly. LUNGS: Diminished breath sounds bilaterally with no wheezes, rhonchi noted. Improved aeration today. No intercostal retractions. HEART: S1, S2 are muffled ABDOMEN: Soft. Bowel sounds are present. No masses. No tenderness. PEG tube noted EXTREMITIES: No pedal edema. No calf tenderness. Contractures noted NEUROLOGICAL: Patient is much more awake, having conversation and following commands, alert and oriented x 3 Assessment and plan - MS exacerbation -Shortness of breath with acute hypoxic respiratory failure likely secondary to aspiration likely related to MS exacerbation; PEG tube evaluated and patient is maintained on tube feeds -Confusion with altered mental status likely secondary to urinary tract infection, improved -Breakthrough seizure -acute urinary tract infection, present on admission, recent hospitalization requiring antibiotics for E. coli ESBL in the urine, culture showing group D Enterococcus VRE with multi resistance. Continued on Macrobid -Generalized weakness/debility versus MS exacerbation; has completed high-dose IV steroid therapy per neurology; recommend PT/OT once stable -Seizure disorder; Vimpat 200 mg twice daily, Depakote 500 mg every 8 hours -Hypothyroidism; will continue home dose of levothyroxine 100 mcg daily Continue tube feeding Continue Depakene and Vimpat Patient is currently waiting on transfer to rehab facility Labs and medication were reviewed.. Continue same treatment. Continue with symptomatic treatment. Resume home medication. Monitor labs and vitals. DVT and GI prophylaxis. Further recommendations as per clinical course of the patient Dictation was produced using [employer] dictation software. please excuse any gramm atical, word or spelling errors. Objective - Vital Signs Vital signs: Vital Signs Temp 98.0 F 04/04/24 02:13 Pulse 97 04/04/24 07:31 Resp 16 04/04/24 11:27 BP 127/81 04/04/24 07:31 Pulse Ox 93 L 04/04/24 07:31 FiO2 21 03/28/24 07:59 Intake & Output 04/03/24 04/04/24 04/04/24 18:59 06:59 18:59 Intake Total 220 Output Total 550 800 1 Balance -550 -800 219 Weight 89.5 kg 49.5 kg Intake: Tube Feeding 220 Output: Urine 550 800 Stool 1 Other: Voiding Method External Catheter External Catheter # Voids 1 - Labs CBC & Chem 7: 04/01/24 10:06 04/01/24 10:06 Labs: Abnormal Lab Results - Last 24 Hours (Table) 04/03/24 04/03/24 04/04/24 Range/Units 18:18 20:57 05:57 POC Glucose (mg/dL) 150 H 122 H 112 H (70-110) mg/dL 04/04/24 Range/Units 11:35 POC Glucose (mg/dL) 127 H (70-110) mg/dL
--- NOTE | 2024-04-04 14:40 | P.PN ---
Subjective Progress Note Date: 04/03/24 Principal diagnosis: Reason for follow-up is UTI Patient is a 58-year-old female with a past medical history significant for MS history of recurrent UTI largely with ESBL E. coli has been brought to the hospital concerning for possible aspiration the patient was noted to have witnessed a choking episode by the [facility] she also have a positive UA concerning for symptomatic UTI started on meropenem prompting this consultation. On today's evaluation that is 04/03/2024,the patient denies any fever or any chills, patient is breathing comfortably on room air, the patient denies chest pain shortness of breath and no significant cough, patient denies abdominal pa in, no nausea vomiting or diarrhea. Patient denies any lab draw today Objective - Vital Signs Vital signs: Vital Signs Temp 98.2 F 04/03/24 13:40 Pulse 109 H 04/03/24 13:40 Resp 16 04/03/24 13:40 BP 104/70 04/03/24 13:40 Pulse Ox 99 04/03/24 13:40 FiO2 21 03/28/24 07:59 Intake & Output 04/02/24 04/03/24 04/03/24 18:59 06:59 18:59 Output Total 1200 425 300 Balance -1200 -425 -300 Weight 89.5 kg 89.5 kg Output: Urine 1200 425 300 Other: Voiding Method External Catheter External Catheter External Catheter # Voids 1 # Bowel Movements 1 - Exam Middle-age female lying in bed in no distress Respiratory system unlabored breathing decreased breath sound the base Heart S1-S2 regular Abdominal soft mild left-sided tenderness Extremities no edema feet - Labs CBC & Chem 7: 04/01/24 10:06 04/01/24 10:06 Labs: Abnormal Lab Results - Last 24 Hours (Table) 04/02/24 04/03/24 Range/Units 20:46 02:22 POC Glucose (mg/dL) 117 H 114 H (70-110) mg/dL Microbiology - Last 24 Hours (Table) 03/29/24 23:42 Blood Culture - Preliminary Blood 03/29/24 23:42 Blood Culture - Preliminary Blood Assessment and Plan (1) UTI (urinary tract infection) Current Visit: No Status: Acute Code(s): N39.0 - URINARY TRACT INFECTION, SITE NOT SPECIFIED SNOMED Code(s): 16319070 Plan: 1present to the hospital initially with concern for witnessed aspiration on her dinner shortness of breath and hypoxemia however the chest x-ray was reported to be negative for acute infiltrate did have normal procalcitonin patient has been feeling weak and did have a positive UA concerning for possible UTI not entirely excluded 2-repeat a chest x-ray PA and lateral did not show any acute infiltrate 3-patient urine culture has been finalized with VRE that is resistant to ampicillin daptomycin we cannot use her Zyvox because of interaction with her other medication, patient was advised Macrobid 4-patient remains to be afebrile, patient currently on Macrobid and monitor clinical course closely Dictation was produced using [employer] dictation software. please excuse any grammatical, word or spelling errors. Time with Patient: Less than 30
--- NOTE | 2024-04-04 14:41 | P.PN ---
Subjective Progress Note Date: 04/04/24 Principal diagnosis: Reason for follow-up is UTI Patient is a 58-year-old female with a past medical history significant for MS history of recurrent UTI largely with ESBL E. coli has been brought to the hospital concerning for possible aspiration the patient was noted to have witnessed a choking episode by the [place] [facility] she also have a positive UA concerning for symptomatic UTI started on meropenem prompting this consultation. On today's evaluation that is 04/04/2024,the patient remains to be afebrile, patient is on room air not requiring supplemental oxygen and denies any shortness of breath no chest pain or cough.Patient denies having any nausea or vomiting, no abdominal pain and no diarrhea has been reported, patient mention overall feeling better. No new labs were drawn today repeat blood culture has been negative Objective - Vital Signs Vital signs: Vital Signs Temp 98.5 F 04/04/24 13:33 Pulse 95 04/04/24 13:33 Resp 18 04/04/24 13:33 BP 84/51 04/04/24 13:33 Pulse Ox 99 04/04/24 13:33 FiO2 21 03/28/24 07:59 Intake & Output 04/03/24 04/04/24 04/04/24 18:59 06:59 18:59 Intake Total 220 Output Total 550 800 1 Balance -550 -800 219 Weight 89.5 kg 49.5 kg Intake: Tube Feeding 220 Output: Urine 550 800 Stool 1 Other: Voiding Method External Catheter External Catheter # Voids 1 - Exam Middle-age female lying in bed in no distress Respiratory system unlabored breathing decreased breath sound the base Heart S1-S2 regular Abdominal soft mild left-sided tenderness Extremities no edema feet - Labs CBC & Chem 7: 04/01/24 10:06 04/01/24 10:06 Labs: Abnormal Lab Results - Last 24 Hours (Table) 04/03/24 04/03/24 04/04/24 Range/Units 18:18 20:57 05:57 POC Glucose (mg/dL) 150 H 122 H 112 H (70-110) mg/dL 04/04/24 Range/Units 11:35 POC Glucose (mg/dL) 127 H (70-110) mg/dL Microbiology - Last 24 Hours (Table) 03/29/24 23:42 Blood Culture - Final Blood 03/29/24 23:42 Blood Culture - Final Blood Assessment and Plan (1) UTI (urinary tract infection) Current Visit: No Status: Acute Code(s): N39.0 - URINARY TRACT INFECTION, SITE NOT SPECIFIED SNOMED Code(s): 91585110 Plan: 1present to the hospital initially with concern for witnessed aspiration on her dinner shortness of breath and hypoxemia however the chest x-ray was reported to be negative for acute infiltrate did have normal procalcitonin patient has been feeling weak and did have a positive UA concerning for possible UTI not entirely excluded 2-repeat a chest x-ray PA and lateral did not show any acute infiltrate 3-patient urine culture has been finalized with VRE that is resistant to ampicillin daptomycin we cannot use her Zyvox because of interaction with her other medication, patient was advised Macrobid 4-patient remains to be afebrile, patient has received adequate antibiotic therapy will quite discontinue Macrobid and monitor the patient closely off antibiotic Dictation was produced using [employer] dictation software. please excuse any grammatical, word or spelling errors. Time with Patient: Less than 30
[2024-04-04 17:05] LABS: Glucose,Whole Blood 109 mg/dL (70-110)
[2024-04-05 00:04] LABS: Glucose,Whole Blood 95 mg/dL (70-110)
[2024-04-05 06:08] LABS: Glucose,Whole Blood 96 mg/dL (70-110)
[2024-04-05 11:42] LABS: Glucose,Whole Blood 117 mg/dL (70-110)
--- NOTE | 2024-04-05 12:59 | P.PN ---
Subjective Progress Note Date: 04/05/24 58-year-old female with history of hypothyroidism, seizure disorder, multiple sclerosis presenting from retirement after aspirating this evening. Patient is unable to provide any meaningful history. Patient was seen in our facility yesterday for tremoring and an episode of altered mental status and discharged. Staff states that she had a witnessed episode of aspiration while eating dinner this evening. She is currently on nonrebreather satting between 90-94%. Patient is unable to provide any meaningful history. later came to the bedside and informs us that over the last week the patient has been steeply declining. She previously was able to hold conversations and feed herself with accommodations. She is now only able to answer some yes and no questions and has tremoring of the arms but cannot follow directions with the extremities. Blood work completed in ED reveals a WBC of 8.4, high hemoglobin of 14.5 and platelet count of 201, sodium 142, potassium 3.9, BUNs/creatinine of 17/0.34 and blood glucose of 120, troponin less than 0.012 Patient is being admitted for further evaluation and treatment by neurology for possible MS exacerbation 03/22/2024 Patient is seen and evaluated sitting up in bed; discussed with nursing staff; no specific complaints reported Vital signs are reviewed and remained stable Lab review shows sodium of 146, potassium 4.1, BUNs/creatinine of 9.9/0.5, blood glucose elevated at 240 --Hyperglycemia likely related to high-dose steroid therapy; will order Accu- Cheks before every meal and at bedtime with insulin sliding scale -- Patient remains on Solu-Medrol 1000 mg daily for MS exacerbation; neurology on board; appreciate recommendations -- PT/RADIO INSTALLER consulted 03/23/2024 Patient is seen and evaluated in follow-up today maintained on large dose IV steroids with neurology following being treated for MS exacerbation. Patient continues to have some confusion and altered mental status and maintained on 4 L via nasal cannula although oxygen saturations are 99%. Most recent chest x-ray was negative for acute process. Patient was recently hospitalized in February with infectious disease following for urinary tract infection and was noted to have ESBL. Will reconsult infectious disease as urine is nitrate positive and continues with altered mentation, initiate meropenem and appreciate input and recommendations from ID. Patient is currently afebrile with no white count noted. Patient is extremely high risk for aspiration as well and would recommend aspiration precaution and supervision with meals and head of the bed elevated 45 degrees at all times. Speech to evaluate the patient. Also recommend PT/OT therapy evaluation as patient will likely need to return to ECF on discharge. 03/24/2024 Patient seen in follow-up today mentation is much improved with at the bedside. Patient continuing to receive large dose IV steroids with neurology following. Patient reporting to having some continued coughing with diet and speech following recommending modified barium swallow. Would recommend aspira tion precautions. Patient is afebrile with no reports of chest pain or shortness of breath. Patient is on 2 to 4 L with an oxygen saturation of 99 to 100%. Discussed with patient as well as nursing staff about weaning FiO2. PT/OT therapy to evaluate with plans on returning to ECF on discharge. Patient is maintained on antibiotics with infectious disease following with concerns of urinary tract infection. Patient had recent hospitalization and had E. coli with ESBL in the urine. Patient is voiding without indwelling Dailey catheter at this time. 03/25/2024 Patient is seen in follow-up this morning currently awake and per nursing staff has been tolerating dysphagia diet with no coughing or choking. Patient is afebrile with no reports of chest pain or shortness of breath. Patient cont inues on oxygen discussed with patient along with nursing staff about weaning FiO2 as tolerated patient continues on large dose steroids for concerns of MS exacerbation with neurology. Infectious disease following patient will continue on antibiotic and await cultures. Plan is to return to ECF once stabilized and cleared by consultations 03/26/2024 Patient is seen in follow-up today with a cough that is congested and weak with concerns of aspiration. Patient has been evaluated by speech and maintained on pured diet with thickened liquids although patient per nursing staff as well as patient has been having some choking episodes last night with continued coughing. Patient continues on 2 L of oxygen and normally does not wear oxygen. Concerns of continuous aspiration will consult general surgery to evaluate PEG tube as patient reports she has not used it in a few months and has not been flushing it may be clogged. Patient is afebrile maintained on antibiotics awaiting cultures. Initial urine culture reported unsuitable and has been resubmitted. Patient is afebrile with no reports of chest pain or palpitations. Patient maintained on high-dose IV steroids and finishing today with neurology following. Recommend PT/OT therapy daily. Plan is to return to [facility] on discharge 03/27/2024 Patient is seen in follow-up today with no acute overnight issues noted. Patient was reinitiated on tube feeds as PEG tube was noted to properly flush per nursing staff and was cleared by general surgery for continued use. Dietary consulted and reinitiating tube feeds. Patient is requesting and advancing diet and evaluating with speech recommend to continue with aspiration precautions a long with pured dysphagia diet and supervision with meals and head of the bed elevated 30 to 45 degrees at all times. Will continue to monitor closely as patient has been waxing and waning from continued choking on foods when they are advanced. Patient has completed IV steroids with neurology following recommending outpatient follow-up with her neurologist. Currently awaiting urine cultures with preliminary showing group D Enterococcus and patient will continue on current regimen with ID following. Plan is to return to [facility] on discharge. 03/30/2024 Patient is seen in follow-up today transferred over to [facility]. for closer monitoring although is in the ICU as an overflow as there are no beds available on 3 S. Patient was tachycardic and mild fever noted with a white count and u nresponsive status post seizure activity last night. Patient was given a dose of IV Ativan and seizure stopped although patient remains minimally responsive and not talking. Patient is high risk for aspiration and does have a PEG tube recommend to continue with n.p.o. with aspiration precautions and strict PEG tube use for now. Patient is maintained on antibiotics with infectious disease following for urinary tract infection. Patient is continued on Macrobid and will continue. Lactic acid elevated and will give half-normal saline and follow-up on repeat labs. Repeat blood cultures requested and follow-up chest x-ray showing small amount of basilar atelectasis or scarring which is similar to previous with no new infiltrates identified. Neurology ordering EEG which is pending. Patient to continue on seizure medication with seizure precautions. 03/31/2024 Patient is seen in follow-up today and mentation is improved and patient is able to conversate and answer questions appropriately. Patient is maintained on tube feeds and tolerating recommend head of the bed elevated 30 to 45 degrees at all times with aspiration precautions. White count is trending down and patient is afebrile and lactic acid has improved. Patient was maintained on IV hydration of half-normal saline and will discontinue. Neurology following and valproic acid level found to be low given a loading dose and maintained on Vimpat Lamictal as well. Continue n.p.o. for now and just tube feeds and PEG tube as patient is extremely high risk for aspirating. 04/01/2024 Patient is seen in follow-up today much positive spirits with at the bedside. Being followed by neurology along with infectious disease maintained on antibiotics. Urine cultures finalized showing Enterococcus faecium VRE and is continued on Macrobid. Blood cultures thus far been negative. Patient with no signs of respiratory decline currently on room air and patient remains afebrile. Patient to be reevaluated by speech to consider possible reinitiating pured diet. Strongly recommend continued aspiration precautions as patient is high risk given her MS exacerbation and progression. 04/02/2024 Patient is seen in follow-up today continued on Macrobid with infectious disease following. Neurology recommending outpatient follow-up and continue with current regimen. Currently awaiting insurance authorization for return to [facility]. Recommend to continue with aspiration precautions and patient continues on tube feeds. Currently remains on room air with no reports of chest pain or shortness of breath. Patient is afebrile. 04/04. Patient seen and examined. Currently on tube feeding. Patient is currently waiting on transfer to rehab facility 04/05. Patient seen and examined. at the bedside. All questions answered. Clinical status remains unchanged from yesterday. REVIEW OF SYSTEMS: CONSTITUTIONAL: No fever, no malaise,. CARDIOVASCULAR: No chest pain, no palpitations, no syncope. PULMONARY: No shortness of breath, no cough, GASTROINTESTINAL: No diarrhea, no nausea, no vomiting, no abdominal pain. NEUROLOGICAL: No headaches, no weakness, PHYSICAL EXAMINATION: Gen: This is a 58-year-old female who is awake, alert and oriented x 3, ill- appearing, elderly appearing, thin built HEENT: Head is atraumatic, normocephalic. Pupils equal, round. Sclerae is anicteric. NECK: Supple. No JVD. No lymphadenopathy. No thyromegaly. LUNGS: Diminished breath sounds bilaterally with no wheezes, rhonchi noted. Improved aeration today. No intercostal retractions. HEART: S1, S2 are muffled ABDOMEN: Soft. Bowel sounds are present. No masses. No tenderness. PEG tube noted EXTREMITIES: No pedal edema. No calf tenderness. Contractures noted NEUROLOGICAL: Patient is much more awake, having conversation and following commands, alert and oriented x 3 Assessment and plan - MS exacerbation -Shortness of breath with acute hypoxic respiratory failure likely secondary to aspiration likely related to MS exacerbation; PEG tube evaluated and patient is maintained on tube feeds -Confusion with altered mental status likely secondary to urinary tract infection, improved -Breakthrough seizure -acute urinary tract infection, present on admission, recent hospitalization requiring antibiotics for E. coli ESBL in the urine, culture showing group D Enterococcus VRE with multi resistance. Continued on Macrobid -Generalized weakness/debility versus MS exacerbation; has completed high-dose IV steroid therapy per neurology; recommend PT/OT once stable -Seizure disorder; Vimpat 200 mg twice daily, Depakote 500 mg every 8 hours -Hypothyroidism; will continue home dose of levothyroxine 100 mcg daily Continue tube feeding Continue Depakene and Vimpat Patient is currently waiting on transfer to rehab facility Continue current medical treatment Labs and medication were reviewed.. Continue same treatment. Continue with symptomatic treatment. Resume home medication. Monitor labs and vitals. DVT and GI prophylaxis. Further recommendations as per clinical course of the patient Dictation was produced using [employer] dictation software. please excuse any grammatical, word or spelling errors. Objective - Vital Signs Vital signs: Vital Signs Temp 97.5 F L 04/05/24 07:20 Pulse 91 04/05/24 07:20 Resp 20 04/05/24 07:20 BP 102/66 04/05/24 07:20 Pulse Ox 100 04/05/24 07:20 FiO2 21 03/28/24 07:59 Intake & Output 04/04/24 04/05/24 04/05/24 18:59 06:59 18:59 Intake Total 440 220 Output Total 701 451 452 Balance -261 -451 -232 Weight 50 kg Intake: Tube Feeding 440 220 Output: Urine 700 450 450 Stool 1 1 2 Other: Voiding Method External Catheter External Catheter External Catheter # Voids 1 1 - Labs CBC & Chem 7: 04/01/24 10:06 04/01/24 10:06 Labs: Abnormal Lab Results - Last 24 Hours (Table) 04/05/24 Range/Units 11:41 POC Glucose (mg/dL) 117 H (70-110) mg/dL Microbiology - Last 24 Hours (Table) 03/29/24 23:42 Blood Culture - Final Blood 03/29/24 23:42 Blood Culture - Final Blood
[2024-04-05 16:37] LABS: Glucose,Whole Blood 121 mg/dL (70-110)
[2024-04-05 22:03] LABS: Glucose,Whole Blood 125 mg/dL (70-110)
--- NOTE | 2024-04-05 22:48 | P.PN ---
Subjective Progress Note Date: 04/05/24 Principal diagnosis: Reason for follow-up is UTI Patient is a 58-year-old female with a past medical history significant for MS history of recurrent UTI largely with ESBL E. coli has been brought to the hospital concerning for possible aspiration the patient was noted to have witnessed a choking episode by the long-term she also have a positive UA concerning for symptomatic UTI started on meropenem prompting this consultation. On today's evaluation that is 04/05/2024, the patient continues to be afebrile, the patient is on room air and breathing comfortably, the Pt denies having any chest pain or cough, the patient denies having any abdominal pain no vomiting or any diarrhea has been reported by the nursing staff. No new labs were obtained today Objective - Vital Signs Vital signs: Vital Signs Temp 97.5 F L 04/05/24 07:20 Pulse 91 04/05/24 07:20 Resp 20 04/05/24 07:20 BP 102/66 04/05/24 07:20 Pulse Ox 100 04/05/24 07:20 FiO2 21 03/28/24 07:59 Intake & Output 04/04/24 04/05/24 04/05/24 18:59 06:59 18:59 Intake Total 440 220 Output Total 701 451 452 Balance -261 -451 -232 Weight 50 kg Intake: Tube Feeding 440 220 Output: Urine 700 450 450 Stool 1 1 2 Other: Voiding Method External Catheter External Catheter External Catheter # Voids 1 1 - Exam Middle-age female lying in bed in no distress Respiratory system unlabored breathing decreased breath sound the base Heart S1-S2 regular Abdominal soft mild left-sided tenderness Extremities no edema feet - Labs CBC & Chem 7: 04/01/24 10:06 04/01/24 10:06 Labs: Abnormal Lab Results - Last 24 Hours (Table) 04/05/24 Range/Units 11:41 POC Glucose (mg/dL) 117 H (70-110) mg/dL Microbiology - Last 24 Hours (Table) 03/29/24 23:42 Blood Culture - Final Blood 03/29/24 23:42 Blood Culture - Final Blood Assessment and Plan (1) UTI (urinary tract infection) Current Visit: No Status: Acute Code(s): N39.0 - URINARY TRACT INFECTION, SITE NOT SPECIFIED SNOMED Code(s): 70745158 Plan: 1present to the hospital initially with concern for witnessed aspiration on her dinner shortness of breath and hypoxemia however the chest x-ray was reported to be negative for acute infiltrate did have normal procalcitonin patient has been feeling weak and did have a positive UA concerning for possible UTI not entirely excluded 2-repeat a chest x-ray PA and lateral did not show any acute infiltrate 3-patient urine culture has been finalized with VRE that is resistant to ampicillin daptomycin we cannot use her Zyvox because of interaction with her other medication, patient was advised Macrobid 4-patient remains to be afebrile, patient has received adequate antibiotic therapy for underlying UTI currently being monitored closely off antibiotic Dictation was produced using [employer] dictation software. please excuse any grammatical, word or spelling errors. Time with Patient: Less than 30
[2024-04-06 05:56] LABS: Glucose,Whole Blood 120 mg/dL (70-110)
[2024-04-06 07:53] VITALS: RESP 16
[2024-04-06 11:44] LABS: Glucose,Whole Blood 90 mg/dL (70-110)
--- NOTE | 2024-04-06 13:53 | P.DS ---
Providers Date of admission: 03/20/24 21:11 Expected date of discharge: 04/06/24 Attending physician: Abigail Littlejohn MD Consults: 03/20/24 21:10 Consult Physician Urgent Consulting Provider: Henri Irizarry Consult Reason/Comments: MS exacerbation Do you want consulting provider notified?: Yes, Notify in am 03/23/24 19:24 Consult Physician Routine Consulting Provider: Winter Roberts Consult Reason/Comments: uti? recent esbl, ams Do you want consulting provider notified?: Yes Primary care physician: Chrissy Posadas DO Hospital Course: Final diagnosis - MS exacerbation, recently admitted in February underwent high-dose steroid therapy for MS exacerbation, follows with neurology outpatient -Shortness of breath with acute hypoxic respiratory failure likely secondary to aspiration likely related to MS exacerbation; PEG tube evaluated and patient is maintained on tube feeds -Confusion with altered mental status likely secondary to urinary tract infection, improved -Breakthrough seizure, valproic acid level was low and given a loading dose -acute urinary tract infection, present on admission, recent hospitalization requiring antibiotics for E. coli ESBL in the urine, culture showing group D Enterococcus VRE with multi resistance. Continued on Macrobid -Generalized weakness/debility versus MS exacerbation; has completed high-dose IV steroid therapy per neurology -Seizure disorder -Hypothyroidism -GI prophylaxis -DVT prophylaxis; SCDs/subcu Lovenox -No code Discharge disposition Patient is being discharged in a stable condition with guarded prognosis to [facility]. Patient will follow-up with Dr. Posadas in the outpatient setting upon discharge. Patient is to continue with Macrobid twice daily for the next 5 days to complete the course and close outpatient follow-up with her neurologist as scheduled. Total time taken is greater than 35 minutes. Hospital course This is a 58-year-old female who was recently admitted with concerns of possibly aspirating with increased altered mentation and coughing while eating and is being monitored with multiple medical consultations. Patient underwent neurological workup and also concerns for MS exacerbation. Clinically patient has been deteriorating with concerns of progressing MS was recently hospitalized on high-dose IV steroids. Patient received another course of high-dose steroids showing some improvement although patient had a breakthrough seizure possibly and Depakene level was found to be low given a loading dose and evaluated by neurology will be continued on current dosing. Patient and instructed to follow-up with her neurologist in the outpatient setting. Patient did have urinary tract infection as well with urine cultures finalizing Enterococcus faecium VRE with infectious disease following maintained on antibiotics. Patient transition to Macrobid will complete a 5-day course on discharge to complete the course. Patient to continue with indwelling Dailey catheter. Patient also appears to be aspirating frequently. PEG tube history and was evaluated by surgery and PEG tube noted to be functioning and recommending PEG tube feedings with aspiration precautions. Patient's mentation improved and patient remains afebrile and was evaluated again by speech therapy recommending dysphagia pured diet with one-to-one supervision and thickened liquids with no straws as mentioned below. Patient has been cleared by consultations for discharge to [facility]. Please refer to other consultation notes for further HPI. Currently no reports of chest pain, shortness of breath, or palpitations. Patient is afebrile. No reports of nausea or vomiting and patient is tolerating diet. Patient will be going to [facility] today. Overall guarded prognosis given significant comorbidities. CODE STATUS was addressed and patient wishes to be no code. 04/06/2024 Patient is seen and evaluated in follow-up with no acute overnight issues. Continuing to await for insurance authorization with case management following and remains pending at this time. Patient is tolerating tube feeds and maintaining aspiration precautions and remains afebrile with no reports of chest pain or shortness of breath. Patient will be going to [facility] once insurance authorization is obtained. Physical exam: Gen: This is a 58-year-old female who is awake, alert and oriented x 3, thin built, ill-appearing HEENT: Head is atraumatic, normocephalic. Pupils equal, round. Sclerae is anicteric. NECK: Supple. No JVD. No lymphadenopathy. No thyromegaly. LUNGS: Clear to auscultation. No wheezes or rhonchi. No intercostal retractions. HEART: Regular rate and rhythm. No murmur. ABDOMEN: Soft. Bowel sounds are present. No masses. No tenderness. PEG tube noted EXTREMITIES: No pedal edema. No calf tenderness. NEUROLOGICAL: Patient is awake, alert and oriented x3. Cranial nerves 2 through 12 are grossly intact. Diffusely weak, mostly bedbound Please refer to medication reconciliation sheet for a list of medications. The impression and plan of care has been dictated by Amarilys Hernandez, Nurse Practitioner as directed. Dr. Reece MD I have performed a history and examination and MDM of this patient, discussed the same with the dictator, and agree with the dictator's assessment and plan as written ,documented as a scribe. Based on total visit time, I have performed more than 50% of the visit. Patient Condition at Discharge: Stable Plan - Discharge Summary New Discharge Prescriptions: New Nitrofurantoin Monohyd/M-Cryst [Macrobid] 100 mg PO BID 5 Days #10 cap Dicyclomine [Bentyl] 10 mg PO TID PRN cap PRN Reason: Dyspepsia Continue Ipratropium-Albuterol Nebulize [Duoneb 0.5 mg-3 mg/3 ml Soln] 3 ml INHALATION RT-Q4H PRN PRN Reason: Shortness Of Breath Or Wheezing Aspirin EC [Ecotrin Low Dose] 81 mg PO DAILY Famotidine [Pepcid AC] 20 mg PO BID Methylphenidate HCl [Ritalin] 10 mg PO BID@0800,1500 #4 tab Baclofen [Lioresal] 20 mg PO Q4HR Divalproex Sodium [Depakote] 500 mg PO Q8HR@0500,1300,2100 Docusate [Colace] 100 mg PO BID amantadine HCL [Symmetrel] 100 mg PO BID@0700,2100 Enoxaparin [Lovenox] 40 mg SQ HS Acetaminophen [Tylenol 8 Hour] 650 mg PO Q6H PRN PRN Reason: Mild Pain (Scale 1 To 3) Health Shake 1 can PO BID@1200,1700 Levothyroxine Sodium [Synthroid] 100 mcg PO DAILY@0500 Lacosamide [Vimpat] 200 mg PO BID@0700,1600 #4 tab Changed Sennosides [Senokot] 8.6 mg PO DAILY PRN #0 PRN Reason: Constipation Discharge Medication List Baclofen [Lioresal] 20 mg PO Q4HR 08/11/22 [History] Acetaminophen [Tylenol 8 Hour] 650 mg PO Q6H PRN 02/29/24 [History] Aspirin EC [Ecotrin Low Dose] 81 mg PO DAILY 02/29/24 [History] Divalproex Sodium [Depakote] 500 mg PO Q8HR@0500,1300,2100 02/29/24 [History] Docusate [Colace] 100 mg PO BID 02/29/24 [History] Enoxaparin [Lovenox] 40 mg SQ HS 02/29/24 [History] Ipratropium-Albuterol Nebulize [Duoneb 0.5 mg-3 mg/3 ml Soln] 3 ml INHALATION RT-Q4H PRN 02/29/24 [History] amantadine HCL [Symmetrel] 100 mg PO BID@0700,2100 02/29/24 [History] Famotidine [Pepcid AC] 20 mg PO BID 03/19/24 [History] Health Shake 1 can PO BID@1200,1700 03/19/24 [History] Levothyroxine Sodium [Synthroid] 100 mcg PO DAILY@0500 03/19/24 [History] Dicyclomine [Bentyl] 10 mg PO TID PRN cap 04/03/24 [Rx] Lacosamide [Vimpat] 200 mg PO BID@0700,1600 #4 tab 04/03/24 [Rx] Methylphenidate HCl [Ritalin] 10 mg PO BID@0800,1500 #4 tab 04/03/24 [Rx] Nitrofurantoin Monohyd/M-Cryst [Macrobid] 100 mg PO BID 5 Days #10 cap 04/03/24 [Rx] Sennosides [Senokot] 8.6 mg PO DAILY PRN #0 04/03/24 [Rx] Follow up Appointment(s)/Referral(s): Chrissy Posadas DO [Primary Care Provider] - 1-2 days Activity/Diet/Wound Care/Special Instructions: Patient is going to [facility] Activity as tolerated Continue with current medications and close outpatient follow-up with neurology Continue with PEG tube feedings in the form of Jevity 1.5 continuous with a goal rate of 44 and total volume is 1056 including free water flushes of 30 cc every 4 hours Monitor for residual Continue with aspiration precautions with head of the bed elevated 30 to 45 degrees at all times and supervision with meals Patient was reevaluated by speech and started on dysphagia pured diet with liquids via spoon's only and nectar thick liquids with no straws and one-to-one supervision Patient is extremely high risk for aspirating and silently aspirating given her MS Patient to continue with antibiotics for the next 5 days to complete the course Discharge Disposition: TRANSFER TO SNF/ECF
[2024-04-06 14:52] VITALS: BP 87/55; PULSE 96; TEMP 98.1
[2024-04-06 16:51] LABS: Glucose,Whole Blood 89 mg/dL (70-110)
== END 2024-04-06 17:23 | DRG 58 ==
LOC: EC 19:09 → 3SCARD 21:11 → 5NMEDONC 03-21 12:20 → 2SICU 03-30 09:45 → 3SCARD 03-30 21:12 → 4SSUR 04-01 15:38
PROVIDERS: ADMIT Internal Medicine; ATTEND Internal Medicine
PROC: 3E0G76Z Introduction of Nutritional Substance into Upper GI, Via Natural or Artificial Opening (ICD-10-PCS; principal; 2024-03-20)
DX: G35 Multiple sclerosis (principal); G93.41 Metabolic encephalopathy; L89.153 Pressure ulcer of sacral region, stage 3; J96.01 Acute respiratory failure with hypoxia; E44.0 Moderate protein-calorie malnutrition; E87.20 Acidosis, unspecified; N39.0 Urinary tract infection, site not specified; Z16.22 Resistance to vancomycin related antibiotics; Z66 Do not resuscitate; T18.9XXA Foreign body of alimentary tract, part unspecified, initial encounter; E03.9 Hypothyroidism, unspecified; Z68.21 Body mass index [BMI] 21.0-21.9, adult; E87.5 Hyperkalemia; G40.901 Epilepsy, unspecified, not intractable, with status epilepticus; R73.9 Hyperglycemia, unspecified; G82.20 Paraplegia, unspecified; B95.2 Enterococcus as the cause of diseases classified elsewhere; R13.10 Dysphagia, unspecified; T38.0X5A Adverse effect of glucocorticoids and synthetic analogues, initial encounter; W44.F3XA Food entering into or through a natural orifice, initial encounter; Z93.1 Gastrostomy status; Z79.52 Long term (current) use of systemic steroids; Z79.82 Long term (current) use of aspirin; Z79.890 Hormone replacement therapy; Z79.899 Other long term (current) drug therapy; Z87.440 Personal history of urinary (tract) infections; Z99.3 Dependence on wheelchair
CPT/HCPCS: 36410; 36415; 70450; 71045; 71046; 74230; 76937; 80048; 80053; 80164; 80165; 80175; 80235; 81001; 81003; 83605; 83735; 84145; 84484; 85025; 85610; 85730; 86140; 87040; 87077; 87086; 87186; 93005; 94640; 94760; 95816; 99285

== ENCOUNTER 2024-05-23 01:23 | Inpatient (IN) | payer BC, MEDICARE ==
[2024-05-23] MEDS ORDERED: DIVALPROEX 500 MG TABLET.DR PO ONE ×3 (15:12→19:55)
[2024-05-23] MEDS ORDERED: DICYCLOMINE 10 MG CAP ONE ×2 (15:13→19:56)
[2024-05-23] MEDS ORDERED: LACOSAMIDE 50 MG TABLET ONE ×2 (15:17→19:56)
[2024-05-23] MEDS ORDERED: TOBRAMYCIN 0.3% OPHTH DROPS 5 ML BTL ONE (23:59)
[2024-05-23] MEDS ORDERED: SODIUM CHLORIDE 0.9% 1,000 ML BAG ONE (23:59)
[2024-05-24] MEDS ORDERED: DIVALPROEX 500 MG TABLET.DR PO ONE ×2 (08:56→21:26)
[2024-05-24] MEDS ORDERED: PANTOPRAZOLE 40 MG TABLET PO ONE (08:56)
[2024-05-24] MEDS ORDERED: LEVOTHYROXINE 100 MCG TAB ONE (08:56)
[2024-05-24] MEDS ORDERED: DICYCLOMINE 10 MG CAP ONE ×2 (08:57→21:28)
[2024-05-24] MEDS ORDERED: FOLIC ACID 1 MG TAB ONE (08:57)
[2024-05-24] MEDS ORDERED: THIAMINE 100 MG TAB ONE (08:57)
[2024-05-24] MEDS ORDERED: LACOSAMIDE 50 MG TABLET ONE ×2 (08:57→21:27)
[2024-05-24] MEDS ORDERED: SODIUM CHLORIDE 0.9% 1,000 ML BAG ONE (23:59)
[2024-05-25] MEDS ORDERED: LEVOTHYROXINE 100 MCG TAB ONE (05:50)
[2024-05-25] MEDS ORDERED: DICYCLOMINE 10 MG CAP ONE ×3 (10:22→22:27)
[2024-05-25] MEDS ORDERED: PANTOPRAZOLE 40 MG TABLET PO ONE (10:22)
[2024-05-25] MEDS ORDERED: DIVALPROEX 500 MG TABLET.DR PO ONE ×2 (10:24→22:26)
[2024-05-25] MEDS ORDERED: LACOSAMIDE 50 MG TABLET ONE ×2 (10:29→22:26)
[2024-05-25] MEDS ORDERED: POTASSIUM CHLORIDE ER 20 MEQ TAB.ER PO ONE (14:56)
[2024-05-25] MEDS ORDERED: SODIUM CHLORIDE 0.9% 1,000 ML BAG ONE (23:59)
[2024-05-26] MEDS ORDERED: LEVOTHYROXINE 100 MCG TAB ONE (06:30)
[2024-05-26] MEDS ORDERED: DIVALPROEX 500 MG TABLET.DR PO ONE ×2 (07:22→20:15)
[2024-05-26] MEDS ORDERED: THIAMINE 100 MG TAB ONE (07:23)
[2024-05-26] MEDS ORDERED: FOLIC ACID 1 MG TAB ONE (07:23)
[2024-05-26] MEDS ORDERED: ACETAMINOPHEN TAB 325 MG TAB ONE (17:46)
[2024-05-26] MEDS ORDERED: LACOSAMIDE 150 MG TABLET ONE (20:17)
[2024-05-26] MEDS ORDERED: DICYCLOMINE 10 MG CAP ONE (20:17)
[2024-05-26] MEDS ORDERED: LACOSAMIDE 50 MG TABLET ONE (20:23)
[2024-05-27] MEDS ORDERED: LEVOTHYROXINE 100 MCG TAB ONE (06:33)
[2024-05-27] MEDS ORDERED: DIVALPROEX 500 MG TABLET.DR PO ONE ×2 (08:15→21:28)
[2024-05-27] MEDS ORDERED: LACOSAMIDE 50 MG TABLET ONE ×2 (08:16→21:29)
[2024-05-27] MEDS ORDERED: DICYCLOMINE 10 MG CAP ONE ×3 (08:16→21:29)
[2024-05-27] MEDS ORDERED: PANTOPRAZOLE 40 MG TABLET PO ONE (08:16)
[2024-05-27] MEDS ORDERED: cefTRIAXone 1 GM VIAL ONE (17:10)
[2024-05-28] MEDS ORDERED: PANTOPRAZOLE 40 MG TABLET PO ONE (06:29)
[2024-05-28] MEDS ORDERED: LEVOTHYROXINE 100 MCG TAB ONE (06:37)
[2024-05-28] MEDS ORDERED: ZINC OXIDE PASTE (Z-GUARD) 1 APPLIC TOPICAL ONE (07:39)
[2024-05-28] MEDS ORDERED: DIVALPROEX 500 MG TABLET.DR PO ONE ×2 (10:37→21:48)
[2024-05-28] MEDS ORDERED: LACOSAMIDE 150 MG TABLET ONE ×2 (10:38→21:52)
[2024-05-28] MEDS ORDERED: MULTIVITAMINS, THERA 1 EACH TAB ONE (10:38)
[2024-05-28] MEDS ORDERED: THIAMINE 100 MG TAB ONE (10:39)
[2024-05-28] MEDS ORDERED: LACOSAMIDE 50 MG TABLET ONE ×2 (10:39→21:52)
[2024-05-28] MEDS ORDERED: FOLIC ACID 1 MG TAB ONE (10:39)
[2024-05-28] MEDS ORDERED: DICYCLOMINE 10 MG CAP ONE ×3 (10:42→21:49)
[2024-05-28] MEDS ORDERED: cefTRIAXone 1 GM VIAL ONE (13:28)
[2024-05-28] MEDS ORDERED: SODIUM CHLORIDE 0.9% 1,000 ML BAG ONE (23:59)
[2024-05-28] MEDS ORDERED: SODIUM CHLORIDE 0.9% 50 ML BAG ONE (23:59)
[2024-05-29] MEDS ORDERED: DIVALPROEX 500 MG TABLET.DR PO ONE ×2 (09:39→21:51)
[2024-05-29] MEDS ORDERED: PANTOPRAZOLE 40 MG TABLET PO ONE (09:39)
[2024-05-29] MEDS ORDERED: LACOSAMIDE 150 MG TABLET ONE (09:40)
[2024-05-29] MEDS ORDERED: LEVOTHYROXINE 100 MCG TAB ONE (09:40)
[2024-05-29] MEDS ORDERED: MULTIVITAMINS, THERA 1 EACH TAB ONE (09:40)
[2024-05-29] MEDS ORDERED: FOLIC ACID 1 MG TAB ONE (09:41)
[2024-05-29] MEDS ORDERED: LACOSAMIDE 50 MG TABLET ONE ×3 (09:41→21:57)
[2024-05-29] MEDS ORDERED: THIAMINE 100 MG TAB ONE (09:41)
[2024-05-29] MEDS ORDERED: DICYCLOMINE 10 MG CAP ONE ×3 (09:41→21:51)
[2024-05-29] MEDS ORDERED: cefTRIAXone 1 GM VIAL ONE (12:37)
[2024-05-29] MEDS ORDERED: SODIUM CHLORIDE 0.9% 1,000 ML BAG ONE (23:59)
[2024-05-29] MEDS ORDERED: SODIUM CHLORIDE 0.9% 50 ML BAG ONE (23:59)
[2024-05-30] MEDS ORDERED: LEVOTHYROXINE 100 MCG TAB ONE (07:02)
[2024-05-30] MEDS ORDERED: DIVALPROEX 500 MG TABLET.DR PO ONE ×2 (08:55→23:22)
[2024-05-30] MEDS ORDERED: PANTOPRAZOLE 40 MG TABLET PO ONE (08:56)
[2024-05-30] MEDS ORDERED: MULTIVITAMINS, THERA 1 EACH TAB ONE (08:56)
[2024-05-30] MEDS ORDERED: DICYCLOMINE 10 MG CAP ONE ×3 (08:57→23:23)
[2024-05-30] MEDS ORDERED: THIAMINE 100 MG TAB ONE (08:57)
[2024-05-30] MEDS ORDERED: LACOSAMIDE 50 MG TABLET ONE ×3 (08:57→23:23)
[2024-05-30] MEDS ORDERED: FOLIC ACID 1 MG TAB ONE (08:57)
[2024-05-30] MEDS ORDERED: MAGNESIUM SULFATE-D5W PMX 100 ML IVPB ONE (12:45)
[2024-05-30] MEDS ORDERED: cefTRIAXone 1 GM VIAL ONE (12:46)
[2024-05-30] MEDS ORDERED: POTASSIUM CHLORIDE ER 20 MEQ TAB.ER PO ONE (12:46)
[2024-05-30] MEDS ORDERED: SODIUM CHLORIDE 0.9% 50 ML BAG ONE (23:59)
[2024-05-31] MEDS ORDERED: DIVALPROEX 500 MG TABLET.DR PO ONE ×2 (08:52→20:44)
[2024-05-31] MEDS ORDERED: PANTOPRAZOLE 40 MG TABLET PO ONE (08:52)
[2024-05-31] MEDS ORDERED: MULTIVITAMINS, THERA 1 EACH TAB ONE (08:53)
[2024-05-31] MEDS ORDERED: FOLIC ACID 1 MG TAB ONE (08:54)
[2024-05-31] MEDS ORDERED: THIAMINE 100 MG TAB ONE (08:54)
[2024-05-31] MEDS ORDERED: cefTRIAXone 1 GM VIAL ONE (08:54)
[2024-05-31] MEDS ORDERED: LACOSAMIDE 50 MG TABLET ONE ×2 (14:09→20:45)
[2024-05-31] MEDS ORDERED: DICYCLOMINE 10 MG CAP ONE (20:45)
[2024-05-31] MEDS ORDERED: SODIUM CHLORIDE 0.9% 50 ML BAG ONE (23:59)
[2024-06-01] MEDS ORDERED: DICYCLOMINE 10 MG CAP ONE ×2 (06:17→21:04)
[2024-06-01] MEDS ORDERED: DIVALPROEX 500 MG TABLET.DR PO ONE ×2 (09:51→21:03)
[2024-06-01] MEDS ORDERED: PANTOPRAZOLE 40 MG TABLET PO ONE (09:51)
[2024-06-01] MEDS ORDERED: LACOSAMIDE 50 MG TABLET ONE ×2 (09:52→21:04)
[2024-06-01] MEDS ORDERED: LEVOTHYROXINE 100 MCG TAB ONE (09:52)
[2024-06-01] MEDS ORDERED: MULTIVITAMINS, THERA 1 EACH TAB ONE (09:52)
[2024-06-01] MEDS ORDERED: THIAMINE 100 MG TAB ONE (09:53)
[2024-06-01] MEDS ORDERED: cefTRIAXone 1 GM VIAL ONE (09:53)
[2024-06-01] MEDS ORDERED: FOLIC ACID 1 MG TAB ONE (09:53)
[2024-06-01] MEDS ORDERED: SODIUM CHLORIDE 0.9% 1,000 ML BAG ONE (23:59)
[2024-06-01] MEDS ORDERED: HYDROPHILIC CREAM 180 GM TUBE TOPICAL ONE (23:59)
[2024-06-01] MEDS ORDERED: SODIUM CHLORIDE 0.9% 50 ML BAG ONE (23:59)
[2024-06-02] MEDS ORDERED: DIVALPROEX 500 MG TABLET.DR PO ONE ×2 (09:13→21:52)
[2024-06-02] MEDS ORDERED: MULTIVITAMINS, THERA 1 EACH TAB ONE (09:13)
[2024-06-02] MEDS ORDERED: cefTRIAXone 1 GM VIAL ONE (09:14)
[2024-06-02] MEDS ORDERED: FOLIC ACID 1 MG TAB ONE (09:14)
[2024-06-02] MEDS ORDERED: LACOSAMIDE 50 MG TABLET ONE ×2 (09:14→21:52)
[2024-06-02] MEDS ORDERED: THIAMINE 100 MG TAB ONE (09:14)
[2024-06-02] MEDS ORDERED: DICYCLOMINE 10 MG CAP ONE ×2 (14:01→21:53)
[2024-06-02] MEDS ORDERED: SODIUM CHLORIDE 0.9% 50 ML BAG ONE (23:59)
[2024-06-02] MEDS ORDERED: SODIUM CHLORIDE 0.9% 1,000 ML BAG ONE (23:59)
[2024-06-03] MEDS ORDERED: LEVOTHYROXINE 100 MCG TAB ONE (06:12)
[2024-06-03] MEDS ORDERED: DICYCLOMINE 10 MG CAP ONE ×2 (06:13→21:43)
[2024-06-03] MEDS ORDERED: PANTOPRAZOLE 40 MG TABLET PO ONE (07:58)
[2024-06-03] MEDS ORDERED: DIVALPROEX 500 MG TABLET.DR PO ONE ×2 (07:58→21:42)
[2024-06-03] MEDS ORDERED: MULTIVITAMINS, THERA 1 EACH TAB ONE (07:59)
[2024-06-03] MEDS ORDERED: LACOSAMIDE 50 MG TABLET ONE ×2 (08:00→21:43)
[2024-06-03] MEDS ORDERED: THIAMINE 100 MG TAB ONE (08:00)
[2024-06-03] MEDS ORDERED: FOLIC ACID 1 MG TAB ONE (08:00)
[2024-06-03] MEDS ORDERED: BACLOFEN 10 MG TAB ONE (21:43)
[2024-06-04] MEDS ORDERED: LEVOTHYROXINE 100 MCG TAB ONE (05:39)
[2024-06-04] MEDS ORDERED: DICYCLOMINE 10 MG CAP ONE ×3 (05:39→20:10)
[2024-06-04] MEDS ORDERED: PANTOPRAZOLE 40 MG TABLET PO ONE (09:35)
[2024-06-04] MEDS ORDERED: DIVALPROEX 500 MG TABLET.DR PO ONE ×2 (09:35→20:09)
[2024-06-04] MEDS ORDERED: MULTIVITAMINS, THERA 1 EACH TAB ONE (09:36)
[2024-06-04] MEDS ORDERED: FOLIC ACID 1 MG TAB ONE (09:36)
[2024-06-04] MEDS ORDERED: THIAMINE 100 MG TAB ONE (09:36)
[2024-06-04] MEDS ORDERED: LACOSAMIDE 50 MG TABLET ONE ×2 (09:36→20:10)
[2024-06-04] MEDS ORDERED: HEPARIN SODIUM,PORCINE 5,000 UNIT/ML 1 ML VIAL ONE ×2 (09:37→20:10)
[2024-06-04] MEDS ORDERED: LACOSAMIDE 150 MG TABLET ONE (20:12)
[2024-06-04] MEDS ORDERED: BACLOFEN 10 MG TAB ONE ×2 (20:20→20:21)
[2024-06-06] MEDS ORDERED: DICYCLOMINE 10 MG CAP ONE ×3 (06:45→20:58)
[2024-06-06] MEDS ORDERED: LEVOTHYROXINE 100 MCG TAB ONE (06:45)
[2024-06-06] MEDS ORDERED: PANTOPRAZOLE 40 MG TABLET PO ONE (06:45)
[2024-06-06] MEDS ORDERED: DIVALPROEX 500 MG TABLET.DR PO ONE ×2 (08:25→20:57)
[2024-06-06] MEDS ORDERED: MULTIVITAMINS, THERA 1 EACH TAB ONE (08:25)
[2024-06-06] MEDS ORDERED: FOLIC ACID 1 MG TAB ONE (08:26)
[2024-06-06] MEDS ORDERED: THIAMINE 100 MG TAB ONE (08:26)
[2024-06-06] MEDS ORDERED: HEPARIN SODIUM,PORCINE 5,000 UNIT/ML 1 ML VIAL ONE ×2 (08:26→20:59)
[2024-06-06] MEDS ORDERED: LACOSAMIDE 50 MG TABLET ONE ×3 (08:26→20:58)
[2024-06-06] MEDS ORDERED: NALOXONE 0.4 MG/ML 1 ML VIAL IV PRN (19:08)
[2024-06-06] MEDS ORDERED: BACLOFEN 10 MG TAB ONE (20:58)
[2024-06-06] MEDS ORDERED: ONDANSETRON 4 MG/2 ML VIAL IVP PRN (22:06)
[2024-06-06] MEDS ORDERED: MAG HYDROX/AL HYDROX/SIMETH 30 ML CUP PO PRN (22:07)
[2024-06-07] MEDS: DICYCLOMINE 10 MG CAP PO SCH (03:04)
[2024-06-07] MEDS: PANTOPRAZOLE 40 MG TABLET PO SCH (06:30)
[2024-06-07] MEDS: LEVOTHYROXINE 100 MCG TAB PO SCH (06:31)
[2024-06-07] MEDS: HEPARIN SODIUM,PORCINE 5,000 UNIT/ML 1 ML VIAL SQ SCH (08:00)
[2024-06-07] MEDS: LACOSAMIDE 50 MG TABLET PO SCH (08:00)
[2024-06-07] MEDS: LACOSAMIDE 150 MG TABLET PO SCH (08:00)
[2024-06-07] MEDS: FOLIC ACID 1 MG TAB PO SCH (08:01)
[2024-06-07] MEDS: MULTIVITAMINS, THERA 1 EACH TAB PO SCH (08:01)
[2024-06-07] MEDS: DIVALPROEX 500 MG TABLET.DR PO SCH (08:01)
[2024-06-07] MEDS: THIAMINE 100 MG TAB PO SCH (08:01)
[2024-06-07] MEDS: TOBRAMYCIN 0.3% OPHTH DROPS 5 ML BTL OPHTHALMIC SCH (08:02)
--- NOTE | 2024-06-07 12:24 | P.PN ---
Subjective addendum: Please note Electronic system was down up to 06/06/2024 and everything was documented on paper chart. Patient is a pleasant 58 years old female with past medical history of multiple medical problems including paraplegia. Presents with altered mental status. Evaluated by neurologist, workup was unremarkable. Patient then found to have acute urinary tract infection and received short course of Rocephin showing remarkable improvement in back to her baseline. Correction currently up in bed awake and alert and pleasant. Denies any new symptoms. Patient has been pending placement for almost a week now and still not obtained yet. Objective - Vital Signs Vital signs: Vital Signs Temp 98.9 F 06/07/24 08:00 Pulse 98 06/07/24 08:00 Resp 16 06/07/24 08:00 BP 101/62 06/07/24 08:00 Pulse Ox 97 06/07/24 08:00 FiO2 Intake & Output 06/06/24 06/07/24 06/07/24 18:59 06:59 18:59 Weight 61.4 kg Other: Voiding Method External Catheter - Exam GENERAL: The patient is alert and oriented x3, not in any acute distress. Well developed, well nourished. HEENT: Pupils are round and equally reacting to light. EOMI. No scleral icterus. No conjunctival pallor. Normocephalic, atraumatic. No pharyngeal erythema. No thyromegaly. CARDIOVASCULAR: S1 and S2 present. No murmurs, rubs, or gallops. PULMONARY: Chest is clear to auscultation, no wheezing , no crackles. ABDOMEN: Soft, nontender, nondistended, normoactive bowel sounds. No palpable organomegaly. MUSCULOSKELETAL: No joint swelling or deformity. EXTREMITIES: No cyanosis, clubbing, or pedal edema. -NEUROLOGICAL: cranial nerves are grossly intact. Sensation is intact. Paraplegic SKIN: No rashes. no petechiae. Assessment and Plan Assessment: Acute metabolic/toxic encephalopathy resolved Acute urinary tract infection, sufficiently treated and currently asymptomatic Severe multiple sclerosis and paraplegia Plan: Patient medically stable pending placement
[2024-06-07] MEDS: BACLOFEN 10 MG TAB PO PRN (22:00)
[2024-06-08] MEDS: HYDROPHILIC CREAM 180 GM TUBE TOPICAL PRN (00:13)
--- NOTE | 2024-06-08 11:56 | P.PN ---
Subjective Progress Note Date: 06/08/24 Patient is a pleasant 58 years old female with past medical history of multiple medical problems including paraplegia. Presents with altered mental status. Evaluated by neurologist, workup was unremarkable. Patient then found to have acute urinary tract infection and received short course of Rocephin showing remarkable improvement in back to her baseline. Correction currently up in bed awake and alert and pleasant. Denies any new symptoms. Patient has been pending placement for almost a week now and still not obtained yet. 06/08. Patient seen and examined. Medically stable for discharge, currently pending insurance authorization for placement REVIEW OF SYSTEMS: CONSTITUTIONAL: No fever, no malaise,. CARDIOVASCULAR: No chest pain, no palpitations, no syncope. PULMONARY: No shortness of breath, no cough, GASTROINTESTINAL: No diarrhea, no nausea, no vomiting, no abdominal pain. NEUROLOGICAL: No headaches, no weakness, PHYSICAL EXAMINATION: GENERAL: The patient is alert and oriented x3, not in any acute distress. Well developed, well nourished. HEENT: Pupils are round and equally reacting to light. EOMI. No scleral icterus. No conjunctival pallor. Normocephalic, atraumatic. No pharyngeal erythema. No thyromegaly. CARDIOVASCULAR: S1 and S2 present. No murmurs, rubs, or gallops. PULMONARY: Chest is clear to auscultation, no wheezing or crackles. ABDOMEN: Soft, nontender, nondistended, normoactive bowel sounds. No palpable organomegaly. MUSCULOSKELETAL: No joint swelling or deformity. EXTREMITIES: No cyanosis, clubbing, or pedal edema. NEUROLOGICAL: Gross neurological examination did not reveal any focal deficits. SKIN: No rashes. Assessment and plan Acute metabolic/toxic encephalopathy resolved Acute urinary tract infection, sufficiently treated and currently asymptomatic Severe multiple sclerosis and paraplegia Monitor vital signs Monitor CBC Monitor CMP Continue current meds Currently waiting on insurance authorization for placement to rehab Labs and medication were reviewed.. Continue same treatment. Continue with symptomatic treatment. Resume home medication. Monitor labs and vitals. DVT and GI prophylaxis. Further recommendations as per clinical course of the patient Dictation was produced using [employer] dictation software. please excuse any grammatical, word or spelling errors. Objective - Vital Signs Vital signs: Vital Signs Temp 97.8 F 06/08/24 07:15 Pulse 82 06/08/24 07:15 Resp 17 06/08/24 07:15 BP 97/65 06/08/24 07:15 Pulse Ox 96 06/08/24 07:15 FiO2 Intake & Output 06/07/24 06/08/24 06/08/24 18:59 06:59 18:59 Intake Total 350 Output Total 900 300 100 Balance -900 -300 250 Intake: Oral 350 Output: Urine 900 300 100 Other: Voiding Method External Catheter External Catheter # Voids 1 # Bowel Movements 1 1 1
--- NOTE | 2024-06-09 13:21 | P.PN ---
Subjective Progress Note Date: 06/09/24 Patient is a pleasant 58 years old female with past medical history of multiple medical problems including paraplegia. Presents with altered mental status. Evaluated by neurologist, workup was unremarkable. Patient then found to have acute urinary tract infection and received short course of Rocephin showing remarkable improvement in back to her baseline. Correction currently up in bed awake and alert and pleasant. Denies any new symptoms. Patient has been pending placement for almost a week now and still not obtained yet. 06/08. Patient seen and examined. Medically stable for discharge, currently pending insurance authorization for placement 06/09. Patient seen and examined. Currently lying comfortably in the bed. Patient has good appetite. REVIEW OF SYSTEMS: CONSTITUTIONAL: No fever, no malaise,. CARDIOVASCULAR: No chest pain, no palpitations, no syncope. PULMONARY: No shortness of breath, no cough, GASTROINTESTINAL: No diarrhea, no nausea, no vomiting, no abdominal pain. NEUROLOGICAL: No headaches, no weakness, PHYSICAL EXAMINATION: GENERAL: The patient is alert and oriented x3, not in any acute distress. Well developed, well nourished. HEENT: Pupils are round and equally reacting to light. EOMI. No scleral icterus. No conjunctival pallor. Normocephalic, atraumatic. No pharyngeal erythema. No thyromegaly. CARDIOVASCULAR: S1 and S2 present. No murmurs, rubs, or gallops. PULMONARY: Chest is clear to auscultation, no wheezing or crackles. ABDOMEN: Soft, nontender, nondistended, normoactive bowel sounds. No palpable organomegaly. PEG tube in place MUSCULOSKELETAL: No joint swelling or deformity. EXTREMITIES: No cyanosis, clubbing, or pedal edema. NEUROLOGICAL: Gross neurological examination did not reveal any focal deficits. SKIN: No rashes. Assessment and plan Acute metabolic/toxic encephalopathy resolved Acute urinary tract infection, sufficiently treated and currently asymptomatic Severe multiple sclerosis and paraplegia Monitor vital signs Monitor CBC Monitor CMP Continue current meds Currently waiting on insurance authorization for placement to rehab Labs and medication were reviewed.. Continue same treatment. Continue with symptomatic treatment. Resume home medication. Monitor labs and vitals. DVT and GI prophylaxis. Further recommendations as per clinical course of the patient Dictation was produced using [employer] dictation software. please excuse any grammatical, word or spelling errors. Objective - Vital Signs Vital signs: Vital Signs Temp 97.5 F L 06/09/24 07:10 Pulse 78 06/09/24 07:10 Resp 16 06/09/24 07:10 BP 105/71 06/09/24 07:10 Pulse Ox 96 06/09/24 07:10 FiO2 Intake & Output 06/08/24 06/09/24 06/09/24 18:59 06:59 18:59 Intake Total 750 240 Output Total 400 400 200 Balance 350 -400 40 Intake: Oral 750 240 Output: Urine 400 400 200 Other: Voiding Method External Catheter External Catheter External Catheter # Voids 2 # Bowel Movements 1 1
[2024-06-09 14:33] VITALS: BMI 22.5
--- NOTE | 2024-06-10 12:36 | P.PN ---
Subjective Progress Note Date: 06/10/24 Patient is a pleasant 58 years old female with past medical history of multiple medical problems including paraplegia. Presents with altered mental status. Evaluated by neurologist, workup was unremarkable. Patient then found to have acute urinary tract infection and received short course of Rocephin showing remarkable improvement in back to her baseline. Correction currently up in bed awake and alert and pleasant. Denies any new symptoms. Patient has been pending placement for almost a week now and still not obtained yet. 06/08. Patient seen and examined. Medically stable for discharge, currently pending insurance authorization for placement 06/09. Patient seen and examined. Currently lying comfortably in the bed. Patient has good appetite. 06/10. Patient seen and examined. Sitting upright in the chair. Denies any headache. Denies any nausea or vomiting. REVIEW OF SYSTEMS: CONSTITUTIONAL: No fever, no malaise,. CARDIOVASCULAR: No chest pain, no palpitations, no syncope. PULMONARY: No shortness of breath, no cough, GASTROINTESTINAL: No diarrhea, no nausea, no vomiting, no abdominal pain. NEUROLOGICAL: No headaches, no weakness, PHYSICAL EXAMINATION: GENERAL: The patient is alert and oriented x3, not in any acute distress. Well developed, well nourished. HEENT: Pupils are round and equally reacting to light. EOMI. No scleral icterus. No conjunctival pallor. Normocephalic, atraumatic. No pharyngeal erythema. No thyromegaly. CARDIOVASCULAR: S1 and S2 present. No murmurs, rubs, or gallops. PULMONARY: Chest is clear to auscultation, no wheezing or crackles. ABDOMEN: Soft, nontender, nondistended, normoactive bowel sounds. No palpable organomegaly. PEG tube in place MUSCULOSKELETAL: No joint swelling or deformity. EXTREMITIES: No cyanosis, clubbing, or pedal edema. NEUROLOGICAL: Gross neurological examination did not reveal any focal deficits. SKIN: No rashes. Assessment and plan Acute metabolic/toxic encephalopathy resolved Acute urinary tract infection, sufficiently treated and currently asymptomatic Severe multiple sclerosis and paraplegia Monitor vital signs Monitor CBC Monitor CMP Continue current meds Currently waiting on insurance authorization for placement to rehab Labs and medication were reviewed.. Continue same treatment. Continue with symptomatic treatment. Resume home medication. Monitor labs and vitals. DVT and GI prophylaxis. Further recommendations as per clinical course of the patient Dictation was produced using [employer] dictation software. please excuse any grammatical, word or spelling errors. Objective - Vital Signs Vital signs: Vital Signs Temp 97.8 F 06/10/24 07:50 Pulse 76 06/10/24 07:50 Resp 17 06/10/24 07:50 BP 100/63 06/10/24 07:50 Pulse Ox 97 06/10/24 07:50 FiO2 Intake & Output 06/09/24 06/10/24 06/10/24 18:59 06:59 18:59 Intake Total 240 Output Total 550 300 Balance -310 -300 Weight 61.4 kg Intake: Oral 240 Output: Urine 550 300 Other: Voiding Method External Catheter External Catheter # Bowel Movements 1
[2024-06-11 11:00] LABS: Basophils # (A) 0.06 X 10*3/uL (0.00-0.10); Basophils % (A) 0.7 %; Eosinophils # (A) 0.17 X 10*3/uL (0.04-0.35); Eosinophils % (A) 2.1 %; HCT 40.1 % (37.2-46.3); HGB 12.6 g/dL (12.0-15.0); Lymphocytes # (A) 2.87 X 10*3/uL (0.90-5.00); Lymphocytes % (A) 35.3 %; MCH 30.6 pg (27.0-32.0); MCHC 31.4 g/dL (32.0-37.0); MCV 97.3 FL (80.0-97.0); Mean Platelet Volume 11.2 FL (9.5-12.2); Monocytes # (A) 0.61 X 10*3/uL (0.20-1.00); Monocytes % (A) 7.5 %; NRBC Per 100 WBC 0 X 10*3/uL (0.00-0.01); Neutrophils # (A) 4.39 X 10*3/uL (1.80-7.70); Platelet Count 335 X 10*3/uL (140-440); RBC 4.12 X 10*6/uL (4.10-5.20); RDW 14.6 % (11.5-14.5); WBC 8.13 X 10*3/uL (4.50-10.00)
[2024-06-11 11:15] LABS: ALT 8 U/L (8-44); AST 10 U/L (13-35); Albumin 3.5 g/dL (3.8-4.9); Albumin/Globulin Ratio 1.67 Ratio (1.60-3.17); Alkaline Phosphatase 107 U/L (41-126); Blood Urea Nitrogen 12.2 mg/dL (9.0-27.0); Carbon Dioxide 27.5 mmol/L (21.6-31.8); Chloride 105 mmol/L (96-109); Globulin 2.1 g/dL (1.6-3.3); Glucose 83 mg/dL (70-110); Potassium 4.5 mmol/L (3.5-5.5); Sodium 141 mmol/L (135-145); Total Bilirubin <0.2 mg/dL (0.3-1.2); Total Protein 5.6 g/dL (6.2-8.2)
--- NOTE | 2024-06-11 13:34 | P.PN ---
Subjective Progress Note Date: 06/11/24 Patient is a pleasant 58 years old female with past medical history of multiple medical problems including paraplegia. Presents with altered mental status. Evaluated by neurologist, workup was unremarkable. Patient then found to have acute urinary tract infection and received short course of Rocephin showing remarkable improvement in back to her baseline. Correction currently up in bed awake and alert and pleasant. Denies any new symptoms. Patient has been pending placement for almost a week now and still not obtained yet. 06/08. Patient seen and examined. Medically stable for discharge, currently pending insurance authorization for placement 06/09. Patient seen and examined. Currently lying comfortably in the bed. Patient has good appetite. 06/10. Patient seen and examined. Sitting upright in the chair. Denies any headache. Denies any nausea or vomiting. 06/11. Patient seen and examined. Sitting upright in the chair. Complaining of left eye irritation. REVIEW OF SYSTEMS: CONSTITUTIONAL: No fever, no malaise,. CARDIOVASCULAR: No chest pain, no palpitations, no syncope. PULMONARY: No shortness of breath, no cough, GASTROINTESTINAL: No diarrhea, no nausea, no vomiting, no abdominal pain. NEUROLOGICAL: No headaches, no weakness, PHYSICAL EXAMINATION: GENERAL: The patient is alert and oriented x3, not in any acute distress. Well developed, well nourished. HEENT: Pupils are round and equally reacting to light. EOMI. No scleral icterus. No conjunctival pallor. Normocephalic, atraumatic. No pharyngeal erythema. No thyromegaly. CARDIOVASCULAR: S1 and S2 present. No murmurs, rubs, or gallops. PULMONARY: Chest is clear to auscultation, no wheezing or crackles. ABDOMEN: Soft, nontender, nondistended, normoactive bowel sounds. No palpable organomegaly. PEG tube in place MUSCULOSKELETAL: No joint swelling or deformity. EXTREMITIES: No cyanosis, clubbing, or pedal edema. NEUROLOGICAL: Gross neurological examination did not reveal any focal deficits. SKIN: No rashes. Assessment and plan Acute metabolic/toxic encephalopathy resolved Acute urinary tract infection, sufficiently treated and currently asymptomatic Severe multiple sclerosis and paraplegia Monitor vital signs Monitor CBC Monitor CMP Continue current meds Ordered artificial tears Currently waiting on insurance authorization for placement to rehab Labs and medication were reviewed.. Continue same treatment. Continue with symptomatic treatment. Resume home medication. Monitor labs and vitals. DVT and GI prophylaxis. Further recommendations as per clinical course of the patient Dictation was produced using [employer] dictation software. please excuse any grammatical, word or spelling errors. Objective - Vital Signs Vital signs: Vital Signs Temp 97.3 F L 06/11/24 07:38 Pulse 80 06/11/24 07:38 Resp 17 06/11/24 07:38 BP 99/65 06/11/24 07:38 Pulse Ox 98 06/11/24 07:38 FiO2 Intake & Output 06/10/24 06/11/24 06/11/24 18:59 06:59 18:59 Intake Total 200 Balance 200 Intake: Oral 200 Other: Voiding Method External Catheter External Catheter # Bowel Movements 1 - Labs CBC & Chem 7: 06/11/24 06:57 06/11/24 06:57 Labs: Abnormal Lab Results - Last 24 Hours (Table) 06/11/24 06/11/24 Range/Units 06:57 06:57 MCV 97.3 H (80.0-97.0) FL MCHC 31.4 L (32.0-37.0) g/dL RDW 14.6 H (11.5-14.5) % Creatinine 0.4 L (0.6-1.5) mg/dL BUN/Creatinine Ratio 30.50 H (12.00-20.00) Ratio Total Bilirubin <0.2 L (0.3-1.2) mg/dL AST 10 L (13-35) U/L Total Protein 5.6 L (6.2-8.2) g/dL Albumin 3.5 L (3.8-4.9) g/dL
[2024-06-11] MEDS: ARTIFICIAL TEARS-HYPROMELLOSE DROPS 15 ML BTL BOTH EYES SCH (17:24)
--- NOTE | 2024-06-12 13:01 | P.PN ---
Subjective Progress Note Date: 06/12/24 Patient is a pleasant 58 years old female with past medical history of multiple medical problems including paraplegia. Presents with altered mental status. Evaluated by neurologist, workup was unremarkable. Patient then found to have acute urinary tract infection and received short course of Rocephin showing remarkable improvement in back to her baseline. Correction currently up in bed awake and alert and pleasant. Denies any new symptoms. Patient has been pending placement for almost a week now and still not obtained yet. 06/08. Patient seen and examined. Medically stable for discharge, currently pending insurance authorization for placement 06/09. Patient seen and examined. Currently lying comfortably in the bed. Patient has good appetite. 06/10. Patient seen and examined. Sitting upright in the chair. Denies any headache. Denies any nausea or vomiting. 06/11. Patient seen and examined. Sitting upright in the chair. Complaining of left eye irritation. . Patient seen and examined. No acute issues overnight. Vital signs stable REVIEW OF SYSTEMS: CONSTITUTIONAL: No fever, no malaise,. CARDIOVASCULAR: No chest pain, no palpitations, no syncope. PULMONARY: No shortness of breath, no cough, GASTROINTESTINAL: No diarrhea, no nausea, no vomiting, no abdominal pain. NEUROLOGICAL: No headaches, no weakness, PHYSICAL EXAMINATION: GENERAL: The patient is alert and oriented x3, not in any acute distress. Well developed, well nourished. HEENT: Pupils are round and equally reacting to light. EOMI. No scleral icterus. No conjunctival pallor. Normocephalic, atraumatic. No pharyngeal erythema. No thyromegaly. CARDIOVASCULAR: S1 and S2 present. No murmurs, rubs, or gallops. PULMONARY: Chest is clear to auscultation, no wheezing or crackles. ABDOMEN: Soft, nontender, nondistended, normoactive bowel sounds. No palpable organomegaly. PEG tube in place MUSCULOSKELETAL: No joint swelling or deformity. EXTREMITIES: No cyanosis, clubbing, or pedal edema. NEUROLOGICAL: Gross neurological examination did not reveal any focal deficits. SKIN: No rashes. Assessment and plan Acute metabolic/toxic encephalopathy resolved Acute urinary tract infection, sufficiently treated and currently asymptomatic Severe multiple sclerosis and paraplegia Monitor vital signs Monitor CBC Monitor CMP Continue current meds Currently waiting on insurance authorization for placement to rehab Labs and medication were reviewed.. Continue same treatment. Continue with symptomatic treatment. Resume home medication. Monitor labs and vitals. DVT and GI prophylaxis. Further recommendations as per clinical course of the patient Dictation was produced using [employer] dictation software. please excuse any grammatical, word or spelling errors. Objective - Vital Signs Vital signs: Vital Signs Temp 97.1 F L 06/12/24 07:16 Pulse 79 06/12/24 07:16 Resp 18 06/12/24 07:16 BP 111/72 06/12/24 07:16 Pulse Ox 93 L 06/12/24 07:16 FiO2 Intake & Output 06/11/24 06/12/24 06/12/24 18:59 06:59 18:59 Output Total 400 200 Balance -400 -200 Output: Urine 400 200 Other: Voiding Method Incontinent Incontinent External Catheter External Catheter # Bowel Movements 2 1 - Labs CBC & Chem 7: 06/11/24 06:57 06/11/24 06:57 Labs: Abnormal Lab Results - Last 24 Hours (Table) 06/11/24 06/11/24 Range/Units 06:57 06:57 MCV 97.3 H (80.0-97.0) FL MCHC 31.4 L (32.0-37.0) g/dL RDW 14.6 H (11.5-14.5) % Creatinine 0.4 L (0.6-1.5) mg/dL BUN/Creatinine Ratio 30.50 H (12.00-20.00) Ratio Total Bilirubin <0.2 L (0.3-1.2) mg/dL AST 10 L (13-35) U/L Total Protein 5.6 L (6.2-8.2) g/dL Albumin 3.5 L (3.8-4.9) g/dL
--- NOTE | 2024-06-13 16:01 | P.PN ---
Subjective Progress Note Date: 06/13/24 Interval History: Patient is a pleasant 58 years old female with past medical history of multiple medical problems including paraplegia. Presents with altered mental status. Evaluated by neurologist, workup was unremarkable. Patient then found to have acute urinary tract infection and received short course of Rocephin showing remarkable improvement in back to her baseline. Correction currently up in bed awake and alert and pleasant. Denies any new symptoms. Patient has been pending placement for almost a week now and still not obtained yet. 06/08. Patient seen and examined. Medically stable for discharge, currently pending insurance authorization for placement 06/09. Patient seen and examined. Currently lying comfortably in the bed. Patient has good appetite. 06/10. Patient seen and examined. Sitting upright in the chair. Denies any headache. Denies any nausea or vomiting. 06/11. Patient seen and examined. Sitting upright in the chair. Complaining of left eye irritation. . Patient seen and examined. No acute issues overnight. Vital signs stable Assessment and plan: Acute metabolic/toxic encephalopathy resolved Acute urinary tract infection, sufficiently treated and currently asymptomatic Severe multiple sclerosis and paraplegia Monitor vital signs Monitor CBC Monitor CMP Continue current meds Currently waiting on insurance authorization for placement to rehab Labs and medication were reviewed.. Continue same treatment. Continue with symptomatic treatment. Resume home medication. Monitor labs and vitals. DVT and GI prophylaxis. Further recommendations as per clinical course of the patient DVT prophylaxis: Subcutaneous heparin PHYSICAL EXAMINATION: GENERAL: The patient is A&O x3, NAD HEENT: EOMI, Sclerae anicteric, Moist Mucous membranes Neck: Supple, Non tender, No JVD CARDIOVASCULAR: S1, S2 present. No murmurs, rubs, or gallops. PULMONARY: Equal breath souds B/L, No wheezing, No crackles. ABDOMEN: Soft, nontender, nondistended, normoactive bowel sounds. No guarding or rebound tenderness. MUSCULOSKELETAL: No edema, No cyanosis. No clubbing. Normal ROM. Intact peripheral pulses. Neuro: Paraplegia Skin; Warm. No rash. REVIEW OF SYSTEMS: CONSTITUTIONAL: No fever or chills. CARDIOVASCULAR: No chest pain, palpitations or syncope. PULMONARY: No shortness of breath, no cough, sore throat. GASTROINTESTINAL: No nausea, vomiting, diarrhea, abdominal pain. : No Dysuria, urgency, frequency. Extremities: No edema. NEUROLOGICAL: No headaches, no weakness, or numbness Dictation was produced using [employer] dictation software. please excuse any grammatical, word or spelling errors. Objective - Vital Signs Vital signs: Vital Signs Temp 98.6 F 06/13/24 12:34 Pulse 96 06/13/24 12:34 Resp 17 06/13/24 12:34 BP 100/68 06/13/24 12:34 Pulse Ox 96 06/13/24 12:34 FiO2 Intake & Output 06/12/24 06/13/24 06/13/24 18:59 06:59 18:59 Output Total 600 600 Balance -600 -600 Output: Urine 600 600 Other: Voiding Method Incontinent Incontinent Incontinent External Catheter External Catheter External Catheter # Bowel Movements 2 - Labs CBC & Chem 7: 06/11/24 06:57 06/11/24 06:57
[2024-06-13] MEDS: ACETAMINOPHEN TAB 325 MG TAB PO PRN (23:01)
--- NOTE | 2024-06-14 15:24 | P.PN ---
Subjective Progress Note Date: 06/14/24 Interval History: Patient is a pleasant 58 years old female with past medical history of multiple medical problems including paraplegia. Presents with altered mental status. Evaluated by neurologist, workup was unremarkable. Patient then found to have acute urinary tract infection and received short course of Rocephin showing remarkable improvement in back to her baseline. Correction currently up in bed awake and alert and pleasant. Denies any new symptoms. Patient has been pending placement for almost a week now and still not obtained yet. 06/08. Patient seen and examined. Medically stable for discharge, currently pending insurance authorization for placement 06/09. Patient seen and examined. Currently lying comfortably in the bed. Patient has good appetite. 06/10. Patient seen and examined. Sitting upright in the chair. Denies any headache. Denies any nausea or vomiting. 06/11. Patient seen and examined. Sitting upright in the chair. Complaining of left eye irritation. 06/12. Patient seen and examined. No acute issues overnight. Vital signs stable 06/13--patient was seen and examined today. No issues overnight. Vital stable. 06/14--patient was seen and examined today. No issues overnight. Awaiting placement to subacute rehab. Assessment and plan: Acute metabolic/toxic encephalopathy resolved Acute urinary tract infection, sufficiently treated and currently asymptomatic Severe multiple sclerosis and paraplegia Monitor vital signs Monitor CBC Monitor CMP Continue current meds Currently waiting on insurance authorization for placement to rehab Labs and medication were reviewed.. Continue same treatment. Continue with symptomatic treatment. DVT prophylaxis: Subcutaneous heparin PHYSICAL EXAMINATION: GENERAL: The patient is A&O x3, NAD HEENT: EOMI, Sclerae anicteric, Moist Mucous membranes Neck: Supple, Non tender, No JVD CARDIOVASCULAR: S1, S2 present. No murmurs, rubs, or gallops. PULMONARY: Equal breath souds B/L, No wheezing, No crackles. ABDOMEN: Soft, nontender, nondistended, normoactive bowel sounds. No guarding or rebound tenderness. MUSCULOSKELETAL: No edema, No cyanosis. No clubbing. Normal ROM. Intact peripheral pulses. Neuro: Paraplegia Skin; Warm. No rash. REVIEW OF SYSTEMS: CONSTITUTIONAL: No fever or chills. CARDIOVASCULAR: No chest pain, palpitations or syncope. PULMONARY: No shortness of breath, no cough, sore throat. GASTROINTESTINAL: No nausea, vomiting, diarrhea, abdominal pain. : No Dysuria, urgency, frequency. Extremities: No edema. NEUROLOGICAL: No headaches, no weakness, or numbness Dictation was produced using [employer] dictation software. please excuse any grammatical, word or spelling errors. Objective - Vital Signs Vital signs: Vital Signs Temp 98.1 F 06/14/24 08:25 Pulse 78 06/14/24 08:25 Resp 18 06/14/24 08:25 BP 104/66 06/14/24 08:25 Pulse Ox 95 06/14/24 08:25 FiO2 Intake & Output 06/13/24 06/14/24 06/14/24 18:59 06:59 18:59 Output Total 300 350 Balance -300 -350 Output: Urine 300 350 Other: Voiding Method Incontinent Incontinent Incontinent External Catheter External Catheter External Catheter # Voids 2 - Labs CBC & Chem 7: 06/11/24 06:57 06/11/24 06:57
[2024-06-15] MEDS: IBUPROFEN 400 MG TAB PO PRN (12:46)
--- NOTE | 2024-06-15 16:34 | P.PN ---
Subjective Progress Note Date: 06/15/24 Interval History: Patient is a pleasant 58 years old female with past medical history of multiple medical problems including paraplegia. Presents with altered mental status. Evaluated by neurologist, workup was unremarkable. Patient then found to have acute urinary tract infection and received short course of Rocephin showing remarkable improvement in back to her baseline. Correction currently up in bed awake and alert and pleasant. Denies any new symptoms. Patient has been pending placement for almost a week now and still not obtained yet. 06/08. Patient seen and examined. Medically stable for discharge, currently pending insurance authorization for placement 06/09. Patient seen and examined. Currently lying comfortably in the bed. Patient has good appetite. 06/10. Patient seen and examined. Sitting upright in the chair. Denies any headache. Denies any nausea or vomiting. 06/11. Patient seen and examined. Sitting upright in the chair. Complaining of left eye irritation. 06/12. Patient seen and examined. No acute issues overnight. Vital signs stable 06/13--patient was seen and examined today. No issues overnight. Vital stable. 06/14--patient was seen and examined today. No issues overnight. Awaiting placement to subacute rehab. 06/15--was seen and examined today. No issues overnight. at bedside. Vital stable. Assessment and plan: Acute metabolic/toxic encephalopathy resolved Acute urinary tract infection, sufficiently treated and currently asymptomatic Severe multiple sclerosis and paraplegia Monitor vital signs Monitor CBC Monitor CMP Continue current meds Currently waiting on insurance authorization for placement to rehab Labs and medication were reviewed.. Continue same treatment. Continue with symptomatic treatment. DVT prophylaxis: Subcutaneous heparin PHYSICAL EXAMINATION: GENERAL: The patient is A&O x3, NAD HEENT: EOMI, Sclerae anicteric, Moist Mucous membranes Neck: Supple, Non tender, No JVD CARDIOVASCULAR: S1, S2 present. No murmurs, rubs, or gallops. PULMONARY: Equal breath souds B/L, No wheezing, No crackles. ABDOMEN: Soft, nontender, nondistended, normoactive bowel sounds. No guarding or rebound tenderness. MUSCULOSKELETAL: No edema, No cyanosis. No clubbing. Normal ROM. Intact peripheral pulses. Neuro: Paraplegia Skin; Warm. No rash. REVIEW OF SYSTEMS: CONSTITUTIONAL: No fever or chills. CARDIOVASCULAR: No chest pain, palpitations or syncope. PULMONARY: No shortness of breath, no cough, sore throat. GASTROINTESTINAL: No nausea, vomiting, diarrhea, abdominal pain. : No Dysuria, urgency, frequency. Extremities: No edema. NEUROLOGICAL: No headaches, no weakness, or numbness Dictation was produced using [employer] dictation software. please excuse any grammatical, word or spelling errors. Objective - Vital Signs Vital signs: Vital Signs Temp 98.2 F 06/15/24 13:37 Pulse 82 06/15/24 13:37 Resp 16 06/15/24 13:37 BP 102/68 06/15/24 13:37 Pulse Ox 99 06/15/24 13:37 FiO2 Intake & Output 06/14/24 06/15/24 06/15/24 18:59 06:59 18:59 Output Total 250 250 Balance -250 -250 Output: Urine 250 250 Other: Voiding Method Incontinent Incontinent Incontinent External Catheter External Catheter External Catheter # Bowel Movements 1 - Labs CBC & Chem 7: 06/11/24 06:57 06/11/24 06:57
--- NOTE | 2024-06-16 15:11 | P.PN ---
Subjective Progress Note Date: 06/16/24 Interval History: Patient is a pleasant 58 years old female with past medical history of multiple medical problems including paraplegia. Presents with altered mental status. Evaluated by neurologist, workup was unremarkable. Patient then found to have acute urinary tract infection and received short course of Rocephin showing remarkable improvement in back to her baseline. Correction currently up in bed awake and alert and pleasant. Denies any new symptoms. Patient has been pending placement for almost a week now and still not obtained yet. 06/08. Patient seen and examined. Medically stable for discharge, currently pending insurance authorization for placement 06/09. Patient seen and examined. Currently lying comfortably in the bed. Patient has good appetite. 06/10. Patient seen and examined. Sitting upright in the chair. Denies any headache. Denies any nausea or vomiting. 06/11. Patient seen and examined. Sitting upright in the chair. Complaining of left eye irritation. 06/12. Patient seen and examined. No acute issues overnight. Vital signs stable 06/13--patient was seen and examined today. No issues overnight. Vital stable. 06/14--patient was seen and examined today. No issues overnight. Awaiting placement to subacute rehab. 06/15--was seen and examined today. No issues overnight. at bedside. Vital stable. 06/16--patient was seen and examined today. No issues overnight. Vital stable. Awaiting placement to subacute rehab. Assessment and plan: Acute metabolic/toxic encephalopathy resolved Acute urinary tract infection, sufficiently treated and currently asymptomatic Severe multiple sclerosis and paraplegia Monitor vital signs Monitor CBC Monitor CMP Continue current meds Currently waiting on insurance authorization for placement to rehab Labs and medication were reviewed.. Continue same treatment. Continue with symptomatic treatment. DVT prophylaxis: Subcutaneous heparin PHYSICAL EXAMINATION: GENERAL: The patient is A&O x3, NAD HEENT: EOMI, Sclerae anicteric, Moist Mucous membranes Neck: Supple, Non tender, No JVD CARDIOVASCULAR: S1, S2 present. No murmurs, rubs, or gallops. PULMONARY: Equal breath souds B/L, No wheezing, No crackles. ABDOMEN: Soft, nontender, nondistended, normoactive bowel sounds. No guarding or rebound tenderness. MUSCULOSKELETAL: No edema, No cyanosis. No clubbing. Normal ROM. Intact peripheral pulses. Neuro: Paraplegia Skin; Warm. No rash. REVIEW OF SYSTEMS: CONSTITUTIONAL: No fever or chills. CARDIOVASCULAR: No chest pain, palpitations or syncope. PULMONARY: No shortness of breath, no cough, sore throat. GASTROINTESTINAL: No nausea, vomiting, diarrhea, abdominal pain. : No Dysuria, urgency, frequency. Extremities: No edema. NEUROLOGICAL: No headaches, no weakness, or numbness Dictation was produced using [employer] dictation software. please excuse any grammatical, word or spelling errors. Objective - Vital Signs Vital signs: Vital Signs Temp 97.9 F 06/16/24 14:00 Pulse 84 06/16/24 14:00 Resp 16 06/16/24 14:00 BP 94/59 06/16/24 14:00 Pulse Ox 97 06/16/24 14:00 FiO2 Intake & Output 06/15/24 06/16/24 06/16/24 18:59 06:59 18:59 Output Total 850 200 550 Balance -850 -200 -550 Output: Urine 850 200 550 Other: Voiding Method Incontinent Incontinent External Catheter External Catheter External Catheter # Voids 1 # Bowel Movements 1 2 - Labs CBC & Chem 7: 06/11/24 06:57 06/11/24 06:57
--- NOTE | 2024-06-18 05:42 | P.PN ---
Subjective Progress Note Date: 06/17/24 Patient is a pleasant 58 years old female with past medical history of multiple medical problems including paraplegia. Presents with altered mental status. Evaluated by neurologist, workup was unremarkable. Patient then found to have acute urinary tract infection and received short course of Rocephin showing remarkable improvement in back to her baseline. Correction currently up in bed awake and alert and pleasant. Denies any new symptoms. Patient has been pending placement for almost a week now and still not obtained yet. 06/08. Patient seen and examined. Medically stable for discharge, currently pending insurance authorization for placement 06/09. Patient seen and examined. Currently lying comfortably in the bed. Patient has good appetite. 06/10. Patient seen and examined. Sitting upright in the chair. Denies any headache. Denies any nausea or vomiting. 06/11. Patient seen and examined. Sitting upright in the chair. Complaining of left eye irritation. 06/12. Patient seen and examined. No acute issues overnight. Vital signs stable 06/13--patient was seen and examined today. No issues overnight. Vital stable. 06/14--patient was seen and examined today. No issues overnight. Awaiting placement to subacute rehab. 06/15--was seen and examined today. No issues overnight. at bedside. Vital stable. 06/16--patient was seen and examined today. No issues overnight. Vital stable. Awaiting placement to subacute rehab. 06/17/2024 Patient is seen in follow-up today currently sitting up in the chair reporting no acute overnight issues. Patient continues to report severe weakness in the lower extremities with inability to walk although has been agreeable to work with physical therapy daily. Patient with case management following currently awaiting insurance authorization for ECF. Patient is afebrile with no reports of chest pain or shortness of breath and maintaining room air. Patient is continued on tube feeds along with oral intake as well. REVIEW OF SYSTEMS: CONSTITUTIONAL: No fever or chills. CARDIOVASCULAR: No chest pain, palpitations or syncope. PULMONARY: No shortness of breath, no cough, sore throat. GASTROINTESTINAL: No nausea, vomiting, diarrhea, abdominal pain. : No Dysuria, urgency, frequency. Extremities: No edema. NEUROLOGICAL: No headaches, no weakness, or numbness PHYSICAL EXAMINATION: GENERAL: The patient is A&O x3, NAD HEENT: EOMI, Sclerae anicteric, Moist Mucous membranes Neck: Supple, Non tender, No JVD CARDIOVASCULAR: S1, S2 present. No murmurs, rubs, or gallops. PULMONARY: Equal breath souds B/L, No wheezing, No crackles. ABDOMEN: Soft, nontender, nondistended, normoactive bowel sounds. No guarding or rebound tenderness. MUSCULOSKELETAL: No edema, No cyanosis. No clubbing. Normal ROM. Intact periph eral pulses. Neuro: Paraplegia Skin; Warm. No rash. Assessment: Acute metabolic/toxic encephalopathy resolved Acute urinary tract infection, sufficiently treated and currently asymptomatic Severe multiple sclerosis and paraplegia GI prophylaxis DVT prophylaxis No code Plan: Monitor vital signs and continue with current medications Case management/social work following continuing to wait for insurance authorization for ECF. Per case management they have until 06/19/2024 Continue with tube feedings and aspiration precautions Recommend PT/OT therapy daily The impression and plan of care has been dictated by Amarilys Hernandez, Nurse Practitioner as directed. Dr. sEtefanía MD I have performed a history and examination and MDM of this patient, discussed the same with the dictator, and agree with the dictator's assessment and plan as written ,documented as a scribe. Based on total visit time, I have performed more than 50% of the visit. Objective - Vital Signs Vital signs: Vital Signs Temp 97.1 F L 06/17/24 07:13 Pulse 74 06/17/24 07:13 Resp 18 06/17/24 07:13 BP 101/56 06/17/24 07:13 Pulse Ox 98 06/17/24 07:13 FiO2 Intake & Output 06/16/24 06/17/24 06/17/24 18:59 06:59 18:59 Output Total 550 800 Balance -550 -800 Output: Urine 550 800 Other: Voiding Method External Catheter External Catheter # Voids 1 # Bowel Movements 2 - Labs CBC & Chem 7: 06/11/24 06:57 06/11/24 06:57
--- NOTE | 2024-06-18 15:41 | P.PN ---
Subjective Progress Note Date: 06/18/24 Patient is a pleasant 58 years old female with past medical history of multiple medical problems including paraplegia. Presents with altered mental status. Evaluated by neurologist, workup was unremarkable. Patient then found to have acute urinary tract infection and received short course of Rocephin showing remarkable improvement in back to her baseline. Correction currently up in bed awake and alert and pleasant. Denies any new symptoms. Patient has been pending placement for almost a week now and still not obtained yet. 06/08. Patient seen and examined. Medically stable for discharge, currently pending insurance authorization for placement 06/09. Patient seen and examined. Currently lying comfortably in the bed. Patient has good appetite. 06/10. Patient seen and examined. Sitting upright in the chair. Denies any headache. Denies any nausea or vomiting. 06/11. Patient seen and examined. Sitting upright in the chair. Complaining of left eye irritation. 06/12. Patient seen and examined. No acute issues overnight. Vital signs stable 06/13--patient was seen and examined today. No issues overnight. Vital stable. 06/14--patient was seen and examined today. No issues overnight. Awaiting placement to subacute rehab. 06/15--was seen and examined today. No issues overnight. at bedside. Vital stable. 06/16--patient was seen and examined today. No issues overnight. Vital stable. Awaiting placement to subacute rehab. 06/17/2024 Patient is seen in follow-up today currently sitting up in the chair reporting no acute overnight issues. Patient continues to report severe weakness in the lower extremities with inability to walk although has been agreeable to work with physical therapy daily. Patient with case management following currently awaiting insurance authorization for ECF. Patient is afebrile with no reports of chest pain or shortness of breath and maintaining room air. Patient is continued on tube feeds along with oral intake as well. 06/18/2024 Patient is seen in follow-up today with no acute overnight issues although patient reports she is feeling slightly constipated requesting a stool softener. Patient reports that she has not had a bowel movement in the last few days. Patient continues to await insurance authorization and per case management they have until 06/19/2024 to make a decision. Patient plans on going to [facility] on discharge. Patient is afebrile with no reported chest pain or shortness of breath. Patient has been tolerating diet and tube feeds with no reported nausea or vomiting. REVIEW OF SYSTEMS: CONSTITUTIONAL: No fever or chills. CARDIOVASCULAR: No chest pain, palpitations or syncope. PULMONARY: No shortness of breath, no cough, sore throat. GASTROINTESTINAL: No nausea, vomiting, diarrhea, abdominal pain. : No Dysuria, urgency, frequency. Extremities: No edema. NEUROLOGICAL: No headaches, no weakness, or numbness PHYSICAL EXAMINATION: GENERAL: The patient is A&O x3, NAD HEENT: EOMI, Sclerae anicteric, Moist Mucous membranes Neck: Supple, Non tender, No JVD CARDIOVASCULAR: S1, S2 present. No murmurs, rubs, or gallops. PULMONARY: Equal breath souds B/L, No wheezing, No crackles. ABDOMEN: Soft, nontender, nondistended, normoactive bowel sounds. No guarding or rebound tenderness. MUSCULOSKELETAL: No edema, No cyanosis. No clubbing. Normal ROM. Intact peripheral pulses. Neuro: Paraplegia Skin; Warm. No rash. Assessment: Acute metabolic/toxic encephalopathy resolved Acute urinary tract infection, sufficiently treated and currently asymptomatic Severe multiple sclerosis and paraplegia GI prophylaxis DVT prophylaxis No code Plan: Monitor vital signs and continue with current medications Case management/social work following continuing to wait for insurance authoriza tion for ECF. Per case management they have until 06/19/2024, continuing to await authorization Continue with tube feedings and aspiration precautions Patient with reports of having no bowel movement over the last few days, will add stool softeners Recommend PT/OT therapy daily Probable discharge to ECF in the next 24 hours The impression and plan of care has been dictated by Amarilys Hernandez, Nurse Practitioner as directed. Dr. Estefanía MD I have performed a history and examination and MDM of this patient, discussed the same with the dictator, and agree with the dictator's assessment and plan as written ,documented as a scribe. Based on total visit time, I have performed more than 50% of the visit. Objective - Vital Signs Vital signs: Vital Signs Temp 97.5 F L 06/18/24 14:00 Pulse 86 06/18/24 14:00 Resp 18 06/18/24 14:00 BP 98/62 06/18/24 14:00 Pulse Ox 97 06/18/24 14:00 FiO2 Intake & Output 06/17/24 06/18/24 06/18/24 18:59 06:59 18:59 Output Total 400 401 1 Balance -400 -401 -1 Output: Urine 400 400 Stool 1 1 Other: Voiding Method External Catheter External Catheter External Catheter # Bowel Movements 1 - Labs CBC & Chem 7: 06/11/24 06:57 06/11/24 06:57
[2024-06-18] MEDS: SENNOSIDES 8.6 MG TAB PO SCH (16:52)
[2024-06-18] MEDS: polyethylene glycoL 3350 17 GM POWD.PACK PO SCH (20:57)
--- NOTE | 2024-06-20 08:12 | P.PN ---
Subjective Progress Note Date: 06/19/24 Patient is a pleasant 58 years old female with past medical history of multiple medical problems including paraplegia. Presents with altered mental status. Evaluated by neurologist, workup was unremarkable. Patient then found to have acute urinary tract infection and received short course of Rocephin showing remarkable improvement in back to her baseline. Correction currently up in bed awake and alert and pleasant. Denies any new symptoms. Patient has been pending placement for almost a week now and still not obtained yet. 06/08. Patient seen and examined. Medically stable for discharge, currently pending insurance authorization for placement 06/09. Patient seen and examined. Currently lying comfortably in the bed. Patient has good appetite. 06/10. Patient seen and examined. Sitting upright in the chair. Denies any headache. Denies any nausea or vomiting. 06/11. Patient seen and examined. Sitting upright in the chair. Complaining of left eye irritation. 06/12. Patient seen and examined. No acute issues overnight. Vital signs stable 06/13--patient was seen and examined today. No issues overnight. Vital stable. 06/14--patient was seen and examined today. No issues overnight. Awaiting placement to subacute rehab. 06/15--was seen and examined today. No issues overnight. at bedside. Vital stable. 06/16--patient was seen and examined today. No issues overnight. Vital stable. Awaiting placement to subacute rehab. 06/17/2024 Patient is seen in follow-up today currently sitting up in the chair reporting no acute overnight issues. Patient continues to report severe weakness in the lower extremities with inability to walk although has been agreeable to work with physical therapy daily. Patient with case management following currently awaiting insurance authorization for ECF. Patient is afebrile with no reports of chest pain or shortness of breath and maintaining room air. Patient is continued on tube feeds along with oral intake as well. 06/18/2024 Patient is seen in follow-up today with no acute overnight issues although patient reports she is feeling slightly constipated requesting a stool softener. Patient reports that she has not had a bowel movement in the last few days. Patient continues to await insurance authorization and per case management they have until 06/19/2024 to make a decision. Patient plans on going to [facility] on discharge. Patient is afebrile with no reported chest pain or shortness of breath. Patient has been tolerating diet and tube feeds with no reported nausea or vomiting. 06/19/2024 Patient is seen and evaluated this morning reports she still has not had a bowel movement although reports does not feel uncomfortable. Patient has as needed stool softeners on and was discussing with her about a possible enema and she is concerned she will start having diarrhea. Continue current regimen and patient reports is passing gas. Patient continues to await for insurance authorization although case management reports will most likely be denied. Plan is for patient to go to [facility]. Patient is afebrile denies any chest pain or shortness of breath and currently on room air. Patient tolerating tube feeds. REVIEW OF SYSTEMS: CONSTITUTIONAL: No fever or chills. CARDIOVASCULAR: No chest pain, palpitations or syncope. PULMONARY: No shortness of breath, no cough, sore throat. GASTROINTESTINAL: No nausea, vomiting, diarrhea, abdominal pain. Reports not having a bowel movement over the last few days, reports passing flatus : No Dysuria, urgency, frequency. Extremities: No edema. NEUROLOGICAL: No headaches, no weakness, or numbness PHYSICAL EXAMINATION: GENERAL: The patient is A&O x3, NAD HEENT: EOMI, Sclerae anicteric, Moist Mucous membranes Neck: Supple, Non tender, No JVD CARDIOVASCULAR: S1, S2 present. No murmurs, rubs, or gallops. PULMONARY: Equal breath souds B/L, No wheezing, No crackles. ABDOMEN: Soft, nontender, nondistended, normoactive bowel sounds. No guarding or rebound tenderness. MUSCULOSKELETAL: No edema, No cyanosis. No clubbing. Normal ROM. Intact peripheral pulses. Neuro: Paraplegia Skin; Warm. No rash. Assessment: Acute metabolic/toxic encephalopathy likely secondary to urinary tract infection, resolved Acute urinary tract infection, sufficiently treated and currently asymptomatic Severe multiple sclerosis and paraplegia Generalized weakness secondary to above GI prophylaxis DVT prophylaxis No code Plan: Monitor vital signs and continue with current medications Case management/social work following and insurance authorization to [facility] was denied.. Per case management they have now filed for a fast appeal which is pending. is aware and agreeable to the appeal. Case management has also instructed spouse to inquire on Medicaid application as this was discussed with him previously. Continue with tube feedings and aspiration precautions Patient with reports of having no bowel movement over the last few days, will continue stool softeners. Patient reports is passing gas and does not want an enema as she fears she will develop diarrhea. Recommend PT/OT therapy daily Will await appeal process to determine if patient will be going to ECF The impression and plan of care has been dictated by Amarilys Hernandez, Nurse Practitioner as directed. Dr. Estefanía MD I have performed a history and examination and MDM of this patient, discussed the same with the dictator, and agree with the dictator's assessment and plan as written ,documented as a scribe. Based on total visit time, I have performed more than 50% of the visit. Objective - Vital Signs Vital signs: Vital Signs Temp 98.1 F 06/20/24 06:55 Pulse 82 06/20/24 06:55 Resp 16 06/20/24 06:55 BP 104/65 06/20/24 06:55 Pulse Ox 96 06/20/24 06:55 FiO2 Intake & Output 06/19/24 06/20/24 06/20/24 18:59 06:59 18:59 Intake Total 970 Output Total 701 500 Balance 269 -500 Intake: Oral 970 Output: Urine 700 500 Stool 1 Other: Voiding Method External Catheter External Catheter # Voids 1 # Bowel Movements 1 1 - Labs CBC & Chem 7: 06/11/24 06:57 06/11/24 06:57
--- NOTE | 2024-06-20 17:10 | P.PN ---
Subjective Progress Note Date: 06/20/24 Interval History: Patient is a pleasant 58 years old female with past medical history of multiple medical problems including paraplegia. Presents with altered mental status. Evaluated by neurologist, workup was unremarkable. Patient then found to have acute urinary tract infection and received short course of Rocephin showing remarkable improvement in back to her baseline. Correction currently up in bed awake and alert and pleasant. Denies any new symptoms. Patient has been pending placement for almost a week now and still not obtained yet. 06/08. Patient seen and examined. Medically stable for discharge, currently pending insurance authorization for placement 06/09. Patient seen and examined. Currently lying comfortably in the bed. Patient has good appetite. 06/10. Patient seen and examined. Sitting upright in the chair. Denies any headache. Denies any nausea or vomiting. 06/11. Patient seen and examined. Sitting upright in the chair. Complaining of left eye irritation. 06/12. Patient seen and examined. No acute issues overnight. Vital signs stable 06/13--patient was seen and examined today. No issues overnight. Vital stable. 06/14--patient was seen and examined today. No issues overnight. Awaiting placement to subacute rehab. 06/15--was seen and examined today. No issues overnight. at bedside. Vital stable. 06/16--patient was seen and examined today. No issues overnight. Vital stable. Awaiting placement to subacute rehab. 06/17/2024 Patient is seen in follow-up today currently sitting up in the chair reporting no acute overnight issues. Patient continues to report severe weakness in the lower extremities with inability to walk although has been agreeable to work with physical therapy daily. Patient with case management following currently awaiting insurance authorization for ECF. Patient is afebrile with no reports of chest pain or shortness of breath and maintaining room air. Patient is continued on tube feeds along with oral intake as well. 06/18/2024 Patient is seen in follow-up today with no acute overnight issues although luther li reports she is feeling slightly constipated requesting a stool softener. Patient reports that she has not had a bowel movement in the last few days. Patient continues to await insurance authorization and per case management they have until 06/19/2024 to make a decision. Patient plans on going to [facility] on discharge. Patient is afebrile with no reported chest pain or shortness of breath. Patient has been tolerating diet and tube feeds with no reported nausea or vomiting. 06/19/2024 Patient is seen and evaluated this morning reports she still has not had a bowel movement although reports does not feel uncomfortable. Patient has as needed stool softeners on and was discussing with her about a possible enema and she is concerned she will start having diarrhea. Continue current regimen and patient reports is passing gas. Patient continues to await for insurance authorization although case management reports will most likely be denied. Plan is for patient to go to [facility]. Patient is afebrile denies any chest pain or shortness of breath and currently on room air. Patient tolerating tube feeds. 06/20--Patient was seen and examined today. No issues overnight. Awaiting insurance authorization for placement to subacute rehab. Assessment and plan: Acute metabolic/toxic encephalopathy likely secondary to urinary tract infection, resolved Acute urinary tract infection, sufficiently treated and currently asymptomatic Severe multiple sclerosis and paraplegia Generalized weakness secondary to above GI prophylaxis DVT prophylaxis No code Plan: Monitor vital signs and continue with current medications Case management/social work following and insurance authorization to ECF was denied.. Per case management they have now filed for a fast appeal which is pending. is aware and agreeable to the appeal. Case management has also instructed spouse to inquire on Medicaid application as this was discussed with him previously. Continue with tube feedings and aspiration precautions Patient with reports of having no bowel movement over the last few days, will continue stool softeners. Patient reports is passing gas and does not want an enema as she fears she will develop diarrhea. Recommend PT/OT therapy daily Will await appeal process to determine if patient will be going to ECF DVT prophylaxis: Subcutaneous heparin PHYSICAL EXAMINATION: GENERAL: The patient is A&O x3, NAD HEENT: EOMI, Sclerae anicteric, Moist Mucous membranes Neck: Supple, Non tender, No JVD PULMONARY: Equal breath souds B/L, No wheezing, No crackles. CARDIOVASCULAR: S1, S2 present. No murmurs, rubs, or gallops. ABDOMEN: Soft, nontender, nondistended, normoactive bowel sounds. No guarding or rebound tenderness. MUSCULOSKELETAL: No edema, No cyanosis. No clubbing. Normal ROM. Intact peripheral pulses. EXTREMITIES: No cyanosis, clubbing, or pedal edema. NEUROLOGICAL: CN 2-12 grossly intact. No FND Skin: No Rash REVIEW OF SYSTEMS: CONSTITUTIONAL: No fever or chills. CARDIOVASCULAR: No chest pain, palpitations or syncope. PULMONARY: No shortness of breath, no cough, sore throat. GASTROINTESTINAL: No nausea, vomiting, diarrhea, abdominal pain. : No Dysuria, urgency, frequency. Extremities: No edema. NEUROLOGICAL: No headaches, no weakness, or numbness Dictation was produced using [employer] dictation software. please excuse any grammatical, word or spelling errors. Objective - Vital Signs Vital signs: Vital Signs Temp 97.5 F L 06/20/24 14:00 Pulse 88 06/20/24 14:00 Resp 17 06/20/24 14:00 BP 99/64 06/20/24 14:00 Pulse Ox 99 06/20/24 14:00 FiO2 Intake & Output 06/19/24 06/20/24 06/20/24 18:59 06:59 18:59 Intake Total 970 200 Output Total 701 500 400 Balance 269 -500 -200 Intake: Oral 970 200 Output: Urine 700 500 400 Stool 1 Other: Voiding Method External Catheter External Catheter Incontinent External Catheter # Voids 1 # Bowel Movements 1 1 - Labs CBC & Chem 7: 06/11/24 06:57 06/11/24 06:57
--- NOTE | 2024-06-21 15:08 | P.PN ---
Subjective Progress Note Date: 06/21/24 Interval History: Patient is a pleasant 58 years old female with past medical history of multiple medical problems including paraplegia. Presents with altered mental status. Evaluated by neurologist, workup was unremarkable. Patient then found to have acute urinary tract infection and received short course of Rocephin showing remarkable improvement in back to her baseline. Correction currently up in bed awake and alert and pleasant. Denies any new symptoms. Patient has been pending placement for almost a week now and still not obtained yet. 06/08. Patient seen and examined. Medically stable for discharge, currently pending insurance authorization for placement 06/09. Patient seen and examined. Currently lying comfortably in the bed. Patient has good appetite. 06/10. Patient seen and examined. Sitting upright in the chair. Denies any headache. Denies any nausea or vomiting. 06/11. Patient seen and examined. Sitting upright in the chair. Complaining of left eye irritation. 06/12. Patient seen and examined. No acute issues overnight. Vital signs stable 06/13--patient was seen and examined today. No issues overnight. Vital stable. 06/14--patient was seen and examined today. No issues overnight. Awaiting placement to subacute rehab. 06/15--was seen and examined today. No issues overnight. at bedside. Vital stable. 06/16--patient was seen and examined today. No issues overnight. Vital stable. Awaiting placement to subacute rehab. 06/17/2024 Patient is seen in follow-up today currently sitting up in the chair reporting no acute overnight issues. Patient continues to report severe weakness in the lower extremities with inability to walk although has been agreeable to work with physical therapy daily. Patient with case management following currently awaiting insurance authorization for ECF. Patient is afebrile with no reports of chest pain or shortness of breath and maintaining room air. Patient is continued on tube feeds along with oral intake as well. 06/18/2024 Patient is seen in follow-up today with no acute overnight issues although luther li reports she is feeling slightly constipated requesting a stool softener. Patient reports that she has not had a bowel movement in the last few days. Patient continues to await insurance authorization and per case management they have until 06/19/2024 to make a decision. Patient plans on going to [facility] on discharge. Patient is afebrile with no reported chest pain or shortness of breath. Patient has been tolerating diet and tube feeds with no reported nausea or vomiting. 06/19/2024 Patient is seen and evaluated this morning reports she still has not had a bowel movement although reports does not feel uncomfortable. Patient has as needed stool softeners on and was discussing with her about a possible enema and she is concerned she will start having diarrhea. Continue current regimen and patient reports is passing gas. Patient continues to await for insurance authorization although case management reports will most likely be denied. Plan is for patient to go to [facility]. Patient is afebrile denies any chest pain or shortness of breath and currently on room air. Patient tolerating tube feeds. 06/20--Patient was seen and examined today. No issues overnight. Awaiting insurance authorization for placement to subacute rehab. 06/21--patient was seen and examined today, complaining of left upper back pain overnight, worse with movements, improved with muscle relaxants. Vital stable. Assessment and plan: Acute metabolic/toxic encephalopathy likely secondary to urinary tract infection, resolved Acute urinary tract infection, sufficiently treated and currently asymptomatic Severe multiple sclerosis and paraplegia Generalized weakness secondary to above GI prophylaxis DVT prophylaxis No code Plan: Monitor vital signs and continue with current medications Case management/social work following and insurance authorization to [facility] was denied.. Per case management they have now filed for a fast appeal which is pending. is aware and agreeable to the appeal. Case management has also instructed spouse to inquire on Medicaid application as this was discussed with him previously. Continue with tube feedings and aspiration precautions Patient with reports of having no bowel movement over the last few days, will continue stool softeners. Patient reports is passing gas and does not want an enema as she fears she will develop diarrhea. Recommend PT/OT therapy daily Will await appeal process to determine if patient will be going to ECF DVT prophylaxis: Subcutaneous heparin PHYSICAL EXAMINATION: GENERAL: The patient is A&O x3, NAD HEENT: EOMI, Sclerae anicteric, Moist Mucous membranes Neck: Supple, Non tender, No JVD PULMONARY: Equal breath souds B/L, No wheezing, No crackles. CARDIOVASCULAR: S1, S2 present. No murmurs, rubs, or gallops. ABDOMEN: Soft, nontender, nondistended, normoactive bowel sounds. No guarding or rebound tenderness. MUSCULOSKELETAL: No edema, No cyanosis. No clubbing. Normal ROM. Intact peripheral pulses. EXTREMITIES: No cyanosis, clubbing, or pedal edema. NEUROLOGICAL: CN 2-12 grossly intact. No FND Skin: No Rash REVIEW OF SYSTEMS: CONSTITUTIONAL: No fever or chills. CARDIOVASCULAR: No chest pain, palpitations or syncope. PULMONARY: No shortness of breath, no cough, sore throat. GASTROINTESTINAL: No nausea, vomiting, diarrhea, abdominal pain. : No Dysuria, urgency, frequency. Extremities: No edema. NEUROLOGICAL: No headaches, no weakness, or numbness Dictation was produced using [employer] dictation software. please excuse any grammatical, word or spelling errors. Objective - Vital Signs Vital signs: Vital Signs Temp 97.9 F 06/21/24 08:50 Pulse 86 06/21/24 08:50 Resp 16 06/21/24 08:50 BP 95/62 06/21/24 08:50 Pulse Ox 96 06/21/24 08:50 FiO2 Intake & Output 06/20/24 06/21/24 06/21/24 18:59 06:59 18:59 Intake Total 200 Output Total 600 250 Balance -400 -250 Intake: Oral 200 Output: Urine 600 250 Other: Voiding Method Incontinent Incontinent External Catheter External Catheter External Catheter - Labs CBC & Chem 7: 06/11/24 06:57 06/11/24 06:57
--- NOTE | 2024-06-22 12:34 | CT ---
EXAM: CT Head Without Intravenous Contrast CLINICAL HISTORY: pt presents following seizure TECHNIQUE: Axial computed tomography images of the head/brain without intravenous contrast. CTDI is 49.1 mGy and DLP is 1095.7 mGy-cm. This CT exam was performed using one or more of the following dose reduction techniques: automated exposure control, adjustment of the mA and/or kV according to patient size, and/or use of iterative reconstruction technique. COMPARISON: No relevant prior studies available. FINDINGS: Brain: Mild volume loss with prominent ventricles and sulci. Mild periventricular and subcortical white matter hypoattenuation likely reflects chronic small vessel disease. No hemorrhage. Ventricles: See above. Bones/joints:Unremarkable. No acute fracture. Soft tissues:Unremarkable. Sinuses:Unremarkable as visualized. No acute sinusitis. Mastoid air cells:Unremarkable as visualized. No mastoid effusion. IMPRESSION: No acute findings in the head/brain. Radiologist: Miley Mendoza M.D. Electronically Signed: 05/23/24 04:54 Study ready at 02:14 and initial results transmitted at 04:54 [facility]
[2024-06-22] MEDS ORDERED: ALBUTEROL NEBULIZED 2.5 MG/3 ML INHALATION PRN (21:31)
--- NOTE | 2024-06-22 22:10 | P.PN ---
Subjective Progress Note Date: 06/22/24 Patient is a pleasant 58 years old female with past medical history of multiple medical problems including paraplegia. Presents with altered mental status. Evaluated by neurologist, workup was unremarkable. Patient then found to have acute urinary tract infection and received short course of Rocephin showing remarkable improvement in back to her baseline. Correction currently up in bed awake and alert and pleasant. Denies any new symptoms. Patient has been pending placement for almost a week now and still not obtained yet. 06/08. Patient seen and examined. Medically stable for discharge, currently pending insurance authorization for placement 06/09. Patient seen and examined. Currently lying comfortably in the bed. Patient has good appetite. 06/10. Patient seen and examined. Sitting upright in the chair. Denies any headache. Denies any nausea or vomiting. 06/11. Patient seen and examined. Sitting upright in the chair. Complaining of left eye irritation. 06/12. Patient seen and examined. No acute issues overnight. Vital signs stable 06/13--patient was seen and examined today. No issues overnight. Vital stable. 06/14--patient was seen and examined today. No issues overnight. Awaiting placement to subacute rehab. 06/15--was seen and examined today. No issues overnight. at bedside. Vital stable. 06/16--patient was seen and examined today. No issues overnight. Vital stable. Awaiting placement to subacute rehab. 06/17/2024 Patient is seen in follow-up today currently sitting up in the chair reporting no acute overnight issues. Patient continues to report severe weakness in the lower extremities with inability to walk although has been agreeable to work with physical therapy daily. Patient with case management following currently awaiting insurance authorization for ECF. Patient is afebrile with no reports of chest pain or shortness of breath and maintaining room air. Patient is continued on tube feeds along with oral intake as well. 06/18/2024 Patient is seen in follow-up today with no acute overnight issues although patient reports she is feeling slightly constipated requesting a stool softener. Patient reports that she has not had a bowel movement in the last few days. Patient continues to await insurance authorization and per case management they have until 06/19/2024 to make a decision. Patient plans on going to [facility] on discharge. Patient is afebrile with no reported chest pain or shortness of breath. Patient has been tolerating diet and tube feeds with no reported nausea or vomiting. 06/19/2024 Patient is seen and evaluated this morning reports she still has not had a bowel movement although reports does not feel uncomfortable. Patient has as needed stool softeners on and was discussing with her about a possible enema and she is concerned she will start having diarrhea. Continue current regimen and patient reports is passing gas. Patient continues to await for insurance authorization although case management reports will most likely be denied. Plan is for patient to go to [facility]. Patient is afebrile denies any chest pain or shortness of breath and currently on room air. Patient tolerating tube feeds. 06/20--Patient was seen and examined today. No issues overnight. Awaiting insurance authorization for placement to subacute rehab. 06/21--patient was seen and examined today, complaining of left upper back pain overnight, worse with movements, improved with muscle relaxants. Vital stable. 06/22/2024 Patient seen and evaluated in follow-up with no acute overnight issues noted. Patient continues to await for the appeal process as insurance has denied approval to [facility]. Case management following as well working with spouse who is yet to fill out Medicaid application and [facility] may refused the patient as well due to this. Patient is afebrile with no reports of chest pain or shortness of breath. Patient has an occasional cough with no phlegm production noted. Patient is afebrile and denies any palpitations. Patient reports she has not had a bowel movement yet and was given as needed medications. Patient does not want to use a suppository as she fears she will have diarrhea. Recommend PT/OT therapy daily and discuss further with case management regarding discharge planning. REVIEW OF SYSTEMS: CONSTITUTIONAL: No fever or chills. CARDIOVASCULAR: No chest pain, palpitations or syncope. PULMONARY: No shortness of breath, reports occasional cough with dry sore throat. GASTROINTESTINAL: No nausea, vomiting, diarrhea, abdominal pain. Reports not having a bowel movement over the last few days, reports passing flatus : No Dysuria, urgency, frequency. Extremities: No edema. NEUROLOGICAL: No headaches, no weakness, or numbness PHYSICAL EXAMINATION: GENERAL: The patient is A&O x3, NAD HEENT: EOMI, Sclerae anicteric, Moist Mucous membranes Neck: Supple, Non tender, No JVD CARDIOVASCULAR: S1, S2 present. No murmurs, rubs, or gallops. PULMONARY: Equal breath souds B/L, No wheezing, No crackles. ABDOMEN: Soft, nontender, nondistended, normoactive bowel sounds. No guarding or rebound tenderness. MUSCULOSKELETAL: No edema, No cyanosis. No clubbing. Normal ROM. Intact peripheral pulses. Neuro: Paraplegia Skin; Warm. No rash. Assessment: Acute metabolic/toxic encephalopathy likely secondary to urinary tract infection, resolved Acute urinary tract infection, sufficiently treated and currently asymptomatic Severe multiple sclerosis and paraplegia Generalized weakness secondary to above GI prophylaxis DVT prophylaxis No code Plan: Monitor vital signs and continue with current medications Case management/social work following and insurance authorization to ECF was denied.. Per case management they have now filed for a fast appeal which remains pending. is aware and agreeable to the appeal. Case management has also instructed spouse to inquire on Medicaid application as this was discussed with him previously. [facility] [place] reviewing as they may deny the patient they return Continue with tube feedings and aspiration precautions Patient with reports of having no bowel movement over the last few days, will continue stool softeners. Patient reports is passing gas and does not want an enema as she fears she will develop diarrhea. Recommend PT/OT therapy daily Will await appeal process to determine if patient will be going to ECF The impression and plan of care has been dictated by Amarilys Hernandez, Nurse Practitioner as directed. Dr. Estefanía MD I have performed a history and examination and MDM of this patient, discussed the same with the dictator, and agree with the dictator's assessment and plan as written ,documented as a scribe. Based on total visit time, I have performed more than 50% of the visit. Objective - Vital Signs Vital signs: Vital Signs Temp 98.2 F 06/22/24 06:55 Pulse 85 06/22/24 06:55 Resp 16 06/22/24 06:55 BP 97/63 06/22/24 06:55 Pulse Ox 95 06/22/24 06:55 FiO2 Intake & Output 06/21/24 06/22/24 06/22/24 18:59 06:59 18:59 Intake Total 120 Output Total 400 101 Balance -280 -101 Intake: Oral 120 Output: Urine 400 100 Stool 1 Other: Voiding Method External Catheter External Catheter Incontinent External Catheter # Bowel Movements 1 - Labs CBC & Chem 7: 06/11/24 06:57 06/11/24 06:57
[2024-06-23 07:36] VITALS: RESP 16
[2024-06-23 13:48] VITALS: BP 102/68; PULSE 102; TEMP 99.4
--- NOTE | 2024-06-27 10:45 | P.DS ---
Providers Date of admission: 05/23/24 01:23 Expected date of discharge: 06/23/24 Attending physician: Norman Newell Consults: 06/06/24 19:09 Consult Physician Routine Consulting Provider: Paris Villatoro Consult Reason/Comments: prolong post ictal phase Do you want consulting provider notified?: Already Contacted Primary care physician: Stated None Hospital Course: Final diagnosis Acute metabolic/toxic encephalopathy secondary to urinary tract infection, resolved Acute urinary tract infection, sufficiently treated and currently asymptomatic Severe multiple sclerosis and paraplegia Generalized weakness secondary to above GI prophylaxis DVT prophylaxis No code Discharge disposition Patient is being discharged in a stable condition with guarded prognosis to home with home care being arranged. Patient will follow-up with Dr. Posadas in the outpatient setting upon discharge. Patient is to continue with outpatient follow-up with neurology as scheduled. Total time taken is greater than 35 minutes. Hospital course This is a 58-year-old female who was recently admitted after going home from [facility] that she has been residing at for quite some time and was brought back in by spouse for altered mental status and concerns of urinary tract infection. Patient maintained on IV antibiotics and has had significantly prolonged hospitalization and treated adequately not currently on antibiotics. Patient being followed by case management underwent attempted insurance authorization to return to [facility] and was denied. Attempted fast appeal although that was denied as well and reports to case management he has all necessary equipment and will be taking her home and possibly working with [facility] in the outpatient setting for return. Has yet to apply for Medicaid which was told to him on admission 3 weeks ago. Currently no reports of chest pain, shortness of breath, or palpitations. Patient is afebrile. No reports of nausea or vomiting and patient is tolerating diet via PEG tube. Patient remains at high risk for aspiration and strongly recommend PEG tube and tube feedings only. Patient will be discharged home today. Extremely high risk for readmissions given patient's significant comorbidities and bedbound. Patient is no code and overall prognosis remains guarded. Physical exam: Gen: This is a 58-year-old female who is awake, alert and oriented x 3, thin built, elderly appearing, ill-appearing HEENT: Head is atraumatic, normocephalic. Pupils equal, round. Sclerae is anicteric. NECK: Supple. No JVD. No lymphadenopathy. No thyromegaly. LUNGS: Clear to auscultation. No wheezes or rhonchi. No intercostal retractions. HEART: Regular rate and rhythm. No murmur. ABDOMEN: Soft. Thin, bowel sounds are present. No masses. No tenderness. PEG tube noted EXTREMITIES: No pedal edema. No calf tenderness. Paraplegic, wheelchair- bound/bedbound NEUROLOGICAL: Patient is awake, alert and oriented x3. Cranial nerves 2 through 12 are grossly intact. Chronically weak Please refer to medication reconciliation sheet for a list of medications. The impression and plan of care has been dictated by mAarilys Hernandez, Nurse Practitioner as directed. Dr. Estefanía MD I have performed a history and examination and MDM of this patient, discussed the same with the dictator, and agree with the dictator's assessment and plan as written ,documented as a scribe. Based on total visit time, I have performed more than 50% of the visit. Patient Condition at Discharge: Fair Plan - Discharge Summary New Discharge Prescriptions: New Divalproex [Depakote] 500 mg PO BID #60 tab Ibuprofen [Motrin] 400 mg PO Q6H PRN #30 tab PRN Reason: MILD PAIN OR FEVER OVER 100.5 Multivitamins, Thera [Multivitamin (formulary)] 1 each PO DAILY #30 tab Thiamine [Vitamin B-1] 100 mg PO DAILY@1200 #30 tab Artificial Tears-Hypromellose [Artificial Tear Drops] 1 drops BOTH EYES TID #7 ml Folic Acid 1 mg PO DAILY@1200 #30 tab Heparin Sodium,Porcine (1 ml) [Heparin Sodium] 5,000 unit SQ BID #60 each Baclofen [Lioresal] 20 mg PO Q6H PRN #30 tab PRN Reason: Spasms Mag Hydrox/Al Hydrox/Simeth [Maalox] 15 ml PO Q6H PRN ml PRN Reason: INDIGESTION Lacosamide [Vimpat] 50 mg PO BID #60 tab Lacosamide [Vimpat] 150 mg PO BID 30 Days #60 tab Continue Ipratropium-Albuterol Nebulize [Duoneb 0.5 mg-3 mg/3 ml Soln] 3 ml INHALATION RT-Q4H PRN PRN Reason: Shortness Of Breath Or Wheezing Methylphenidate HCl [Ritalin] 10 mg PO BID@0800,1500 #4 tab Sennosides [Senokot] 8.6 mg PO DAILY PRN #0 PRN Reason: Constipation Docusate [Colace] 100 mg PO BID #60 cap amantadine HCL [Symmetrel] 100 mg PO BID@0700,2100 #60 cap Levothyroxine Sodium [Synthroid] 100 mcg PO DAILY@0500 #30 tab Baclofen [Lioresal] 20 mg PO Q4HR Acetaminophen [Tylenol 8 Hour] 650 mg PO Q6H PRN PRN Reason: Mild Pain (Scale 1 To 3) Health Shake 1 can PO BID@1200,1700 Dicyclomine [Bentyl] 10 mg PO TID PRN #30 cap PRN Reason: Dyspepsia Famotidine [Pepcid AC] 20 mg PO BID #60 tab Discontinued Aspirin EC [Ecotrin Low Dose] 81 mg PO DAILY Divalproex Sodium [Depakote] 500 mg PO Q8HR@0500,1300,2100 Enoxaparin [Lovenox] 40 mg SQ HS Lacosamide [Vimpat] 200 mg PO BID@0700,1600 #4 tab Discharge Medication List Baclofen [Lioresal] 20 mg PO Q4HR 08/11/22 [History] Acetaminophen [Tylenol 8 Hour] 650 mg PO Q6H PRN 02/29/24 [History] Ipratropium-Albuterol Nebulize [Duoneb 0.5 mg-3 mg/3 ml Soln] 3 ml INHALATION RT-Q4H PRN 02/29/24 [History] Health Shake 1 can PO BID@1200,1700 03/19/24 [History] Methylphenidate HCl [Ritalin] 10 mg PO BID@0800,1500 #4 tab 04/03/24 [Rx] Sennosides [Senokot] 8.6 mg PO DAILY PRN #0 04/03/24 [Rx] Artificial Tears-Hypromellose [Artificial Tear Drops] 1 drops BOTH EYES TID #7 ml 06/23/24 [Rx] Baclofen [Lioresal] 20 mg PO Q6H PRN #30 tab 06/23/24 [Rx] Dicyclomine [Bentyl] 10 mg PO TID PRN #30 cap 06/23/24 [Rx] Divalproex [Depakote] 500 mg PO BID #60 tab 06/23/24 [Rx] Docusate [Colace] 100 mg PO BID #60 cap 06/23/24 [Rx] Famotidine [Pepcid AC] 20 mg PO BID #60 tab 06/23/24 [Rx] Folic Acid 1 mg PO DAILY@1200 #30 tab 06/23/24 [Rx] Heparin Sodium,Porcine (1 ml) [Heparin Sodium] 5,000 unit SQ BID #60 each 06/23/24 [Rx] Ibuprofen [Motrin] 400 mg PO Q6H PRN #30 tab 06/23/24 [Rx] Lacosamide [Vimpat] 50 mg PO BID #60 tab 06/23/24 [Rx] Lacosamide [Vimpat] 150 mg PO BID 30 Days #60 tab 06/23/24 [Rx] Levothyroxine Sodium [Synthroid] 100 mcg PO DAILY@0500 #30 tab 06/23/24 [Rx] Mag Hydrox/Al Hydrox/Simeth [Maalox] 15 ml PO Q6H PRN ml 06/23/24 [Rx] Multivitamins, Thera [Multivitamin (formulary)] 1 each PO DAILY #30 tab 06/23/24 [Rx] Thiamine [Vitamin B-1] 100 mg PO DAILY@1200 #30 tab 06/23/24 [Rx] amantadine HCL [Symmetrel] 100 mg PO BID@0700,2100 #60 cap 06/23/24 [Rx] Follow up Appointment(s)/Referral(s): [facility] [[facility]] - As Needed ([facility] will call you to schedule your in home nursing, home health aide, director social welfare, physical therapy, and occupational therapy visits. ) Activity/Diet/Wound Care/Special Instructions: Neuro follow up in 1 week Wound Care Center Follow up with primary care doctor - 1-2 days Continue monitoring for any fevers and encourage coughing and deep breathing. Use Tylenol or Motrin via PEG tube for fevers Strongly encourage patient to be sitting up in a chair more frequently throughout the day Follow-up with [facility] in the outpatient setting Discharge/Stand Alone Forms: Community Resources, Help In The Home Discharge Disposition: HOME WITH HOME HEALTH SERVICES
--- NOTE | 2024-06-28 10:23 | XR ---
EXAMINATION TYPE: XR chest 1V DATE OF EXAM: 06/28/2024 COMPARISON: 03/29/2024 HISTORY: 58-year-old female with seizure TECHNIQUE: Single frontal view of the chest is obtained. FINDINGS: Patient rotated towards the left altering the normal cardiac and mediastinal contours. Hea rt normal size. Mild interstitial density may relate to decreased lung volumes and crowded vascular m arkings. No srikanth consolidation or pleural effusion. IMPRESSION: Suspect some hypoventilatory changes crowding the vascular markings. Otherwise, no defin ite acute process. [facility], , 06/28/2024 10:21 AM
--- NOTE | 2024-07-09 14:39 | CONS ---
CONSULTATION REASON FOR CONSULTATION: Sacral decubitus. HISTORY OF PRESENT ILLNESS: This patient has MS and psychiatric issues of uncertain origin since the patient cannot give us a history and we cannot access the chart records. We do not have any other history. PHYSICAL EXAMINATION: We find about a 2 x 1 cm pressure ulcer at the mid portion of the sacrum. There are some reddened area around it. The would has a depth of about 0.1 to 0.2 cm. There is no necrotic tissue. The wound is fairly clean. IMPRESSION: Stage 3 sacral decubitus, fairly small. RECOMMENDATIONS: I have discussed with nursing staff. I would recommend at this point simply placing triad over the wound and covering the wound with a sacral foam or bordered foam. I would also keep the patient using wedges or pillows off her back side as much as possible. I understand that this could be somewhat difficult given her mental status and her physical debilitation, but would make that effort, also a Roho cushion to decrease the pressure when she is on her backside would be of help. One could also have a foam donut that would alleviate the pressure. I appreciate the opportunity to participate in this woman's care. She may benefit from director long term care visits in the wound care center if these several measures do not achieve ready improvement in resolution. MMODL / IJN: [id number] /
== END 2024-06-23 17:22 | disposition home health service (06) | DRG 100 ==
LOC: DISRECOVER 01:23 → 4SSUR 06-06 18:51
PROVIDERS: ADMIT Hospitalist; ATTEND Hospitalist
DX: G40.901 Epilepsy, unspecified, not intractable, with status epilepticus (principal); G92.8 Other toxic encephalopathy; L89.153 Pressure ulcer of sacral region, stage 3; G82.20 Paraplegia, unspecified; N39.0 Urinary tract infection, site not specified; G32.81 Cerebellar ataxia in diseases classified elsewhere; G35 Multiple sclerosis; Z99.3 Dependence on wheelchair; H10.9 Unspecified conjunctivitis; E03.9 Hypothyroidism, unspecified; B96.4 Proteus (mirabilis) (morganii) as the cause of diseases classified elsewhere; K59.00 Constipation, unspecified; Z74.01 Bed confinement status; Z79.899 Other long term (current) drug therapy; Z93.1 Gastrostomy status
CPT/HCPCS: 70450; 71045; 80053; 85025; 87070; 87077; 87086; 87186; 87205; 93005; 99285